=== PATIENT | female | born 1960 | race Caucasian/White ===

== ENCOUNTER → 2017-12-24 12:39 | Outpatient (CLI) | payer OTHER, SELFPAY ==
--- NOTE | 2017-12-24 12:43 | BI_ITS ---
MAMMOGRAPHY - BILATERAL SCREENING 3-D SG SYNTHESIS REASON FOR EXAM: Female, 57 years old. Bilateral Screening 3-D tomosynthesis PERTINENT HISTORY: Asymptomatic. No significant family history. TECHNIQUE: 2-D mammograms and 3-D Sg synthesis of the breast (s) were performed. CAD was performed. COMPARISON: 09/15/2016, 04/25/2013. FINDINGS: The breast composition is heterogeneously dense that can obscure small breast masses. No new asymmetric density, dominant mass, dense spiculated masses, abnormal clustered microcalcifications, architectural distortion, skin thickening or nipple retraction identified. Coarse benign-appearing calcifications. No new abnormality identified with tomosynthesis. There has been no significant change since the prior study. BI/SCREENING MAMM (CAD), BILAT IMPRESSION: No mammographic signs of malignancy. Routine yearly mammograms recommended. ASSESSMENT CATEGORY: BIRADS Category 2: Benign. A letter regarding these results will be sent to the patient by the facility within 30 days. FOLLOW UP RECOMMENDATION: Yearly follow up mammogram recommended. (A) Negative results should not deter biopsy as a palpable lesion should be followed on clinical grounds and biopsy performed if clinically persistent for 3 months or increasing size. Approximately 10% of breast cancers are not detected by mammography. A normal mammogram should not delay biopsy of a clinically suspicious abnormality. Electronically Signed: Galileo Chan, at 22:26 EDT Tel , Service support ,
== END ==
PROVIDERS: Family Provider Family Medicine; PCP Family Medicine; Visit Provider Obstetrics & Gynecology
DX: Z12.31 Encounter for screening mammogram for malignant neoplasm of breast (principal)
CPT/HCPCS: 77063; 77067

== ENCOUNTER → 2019-01-14 08:25 | Outpatient (CLI) | payer OTHER, SELFPAY ==
--- NOTE | 2019-01-14 08:28 | BI_ITS ---
MAMMOGRAPHY - BILATERAL SCREENING REASON FOR EXAM: Female, 58 years old. Routine annual screening examination. PERTINENT HISTORY: Non-contributory. TECHNIQUE: Digital bilateral breast sg (3D mammographic acquisition) in the CC and MLO projections. 2-D mediolateral oblique (MLO) and craniocaudad (CC) views of both breasts were obtained. CAD: Full Field Digital Mammography with Computer Added Detection was performed. COMPARISON: Comparison is made with prior study dated December 24, 2017 and September 15, 2016. FINDINGS: Breast Composition: The breasts are heterogeneously dense, which may obscure small masses. There is a 1.4 cm x 1.7 cm well-defined nodule in the upper lateral aspect of the left breast. Correlation with ultrasound is recommended for further evaluation. Prior sonogram demonstrated this to be a cyst No suspicious calcifications are seen. Stable appearance of the benign-appearing bilateral axillary lymph nodes. No other significant abnormalities are identified. BI/SCREEN MAMM (CAD) W/SG BILAT IMPRESSION: 1.4 cm x 1.7 cm nodular density in the upper lateral aspect of the left breast as described. Correlation with ultrasound is recommended. ASSESSMENT CATEGORY: BIRADS Category 0: Incomplete. Need additional imaging evaluation. A letter regarding these results will be sent to the patient by the facility within 30 days. Approximately 10% of breast cancers are not detected by mammography. A normal mammogram should not delay biopsy of a clinically suspicious abnormality. [id number] Electronically Signed: Glenroy Aguirre, at 10:36 EDT , Service support ,
== END ==
PROVIDERS: Family Provider Internal Medicine; PCP Internal Medicine; Referring Provider Obstetrics & Gynecology; Visit Provider Obstetrics & Gynecology
DX: Z12.31 Encounter for screening mammogram for malignant neoplasm of breast (principal)
CPT/HCPCS: 77063; 77067

== ENCOUNTER → 2019-01-16 09:26 | Outpatient (CLI) | payer OTHER, SELFPAY ==
--- NOTE | 2019-01-16 09:28 | US_ITS ---
STUDY: ULTRASOUND BREAST - LEFT REASON FOR EXAM: Female, 58 years old. Abnormal screening mammogram. TECHNIQUE: Axial and longitudinal images of the LEFT breast were performed with a high resolution ultrasound transducer. COMPARISON: Comparison is made with prior mammogram dated January 14, 2019 and prior ultrasound of the left breast dated September 28, 2016. FINDINGS: LEFT Breast: The mammographic abnormality corresponds to a 1.9 cm x 1.4 cm x 0.9 cm cyst at the 2:00 position of the breast at 5 cm from the nipple. This has increased slightly in size as compared to prior study. US/Breast Limited Unilateral IMPRESSION: The mammographic abnormality corresponds to a 1.9 cm x 1.4 cm x 0.9 cm cyst. Routine mammographic follow-up is recommended. ASSESSMENT CATEGORY: BIRADS Category 2: Benign. A letter regarding these results will be sent to the patient by the facility within 30 days. Electronically Signed: Glenroy Aguirre, at 10:25 EDT , Service support ,
== END ==
PROVIDERS: Family Provider Internal Medicine; PCP Internal Medicine; Referring Provider Obstetrics & Gynecology; Visit Provider Obstetrics & Gynecology
DX: R92.8 Other abnormal and inconclusive findings on diagnostic imaging of breast (principal)
CPT/HCPCS: 76642

== ENCOUNTER → 2021-04-28 08:26 | Outpatient (CLI) | payer OTHER, SELFPAY ==
[2021-04-28 09:33] LABS: Absolute Lymphocyte Count 1.47 X10^3/uL (0.83-4.51); Absolute Neutrophil Count 2.4 X10^3/uL (2.0-7.7); Basophil# 0.04 X10^3/uL; Basophil% 0.9 % (0-1); Eosinophils% 4.4 % (0-5); Hematocrit 44.7 % (37-47); Hemoglobin 14.2 g/dL (12.0-15.0); Lymphocyte # 1.47 X10^3/ul (0.83-4.51); Lymphocyte % 32.2 % (19-41); Mean Corp Hgb Conc 31.8 g/dL (32-36); Mean Corpuscular Hgb 26.4 pg (27.0-32.0); Mean Corpuscular Volume 83.2 fL (81-99); Mean Platelet Vol. 11.3 fl (6.2-12.0); Monocyte# 0.46 X10^3/uL; Monocyte% 10.1 % (0-10); NRBC Flagged by Analyzer 0 % (0-5); Neutrophil # 2.36 X10^3/uL (2.7-7.7); Neutrophil % 51.7 % (47-70); Platelet Count 206 K/mm3 (150-450); RBC Distribution Width CV 13.1 % (11.6-14.6); RBC Distribution Width SD 39.5 fl (35.1-43.9); Red Blood Count 5.37 M/mm3 (4.2-5.4); White Blood Count 4.6 K/mm3 (4.4-11.0)
[2021-04-28 10:13] LABS: Vitamin B12 1537 pg/mL (211-911)
[2021-04-28 10:25] LABS: ALB/GLOB Ratio 0.9 RATIO (0.9-2.4); AST(SGOT) 21 U/L (15-37); Alanine Aminotransfer ALT/SGPT 31 U/L (13-56); Albumin, Serum 3.6 g/dL (3.2-5.0); Alkaline Phosphatase 73 U/L (45-117); Anion Gap 4 (5-15); BUN 16 mg/dL (7-18); BUN/Creat Ratio 21.4 RATIO (10-20); Calcium,Total 8.5 mg/dL (8.5-10.1); Chloride 107 mmol/L (98-107); Creatinine, Serum 0.75 mg/dL (0.55-1.02); EST Glomerular Filtration Rate 84 mL/min (>60); Est Glom Filt Rate - Afr Amer 102 mL/min (>60); Globulin 4.2 g/dL (2.2-4.2); Glucose 97 mg/dL (74-106); Potassium 3.9 mmol/L (3.5-5.1); Protein, Total 7.8 g/dL (6.4-8.2); Sodium Level 139 mmol/L (136-145)
[2021-04-29 09:30] LABS: Cholesterol 211 mg/dL (200); High Density Lipoprotein 58 mg/dL; Iron 88 ug/dL (50-170); Iron Binding Capacity,Total 322 ug/dL (250-450); Rheumatoid Factor < 10.0 IU/mL (<15); Triglycerides 74 mg/dL; Very Low Density Lipoprotein 15 mg/dL (5-40)
[2021-04-30 13:07] LABS: Vitamin D 1,25-Dihydroxy 60.7 pg/mL (19.9-79.3)
[2021-04-30 15:39] LABS: ANTINUCLEAR ANTIBODIES DIRECT Negative (Negative)
== END ==
PROVIDERS: PCP Internal Medicine; Referring Provider Internal Medicine; Visit Provider Internal Medicine
DX: Z00.00 Encounter for general adult medical examination without abnormal findings (principal); R53.83 Other fatigue; M25.50 Pain in unspecified joint
CPT/HCPCS: 36415; 80053; 80061; 82607; 82652; 83540; 83550; 84443; 85025; 86038; 86431

== ENCOUNTER → 2021-05-02 11:03 | Outpatient (CLI) | payer OTHER, SELFPAY ==
--- NOTE | 2021-05-02 11:06 | BI_ITS ---
MAMMOGRAPHY - BILATERAL SCREENING REASON FOR EXAM: Female, 61 years old. Routine annual screening examination. PERTINENT HISTORY: Non-contributory. TECHNIQUE: Digital bilateral breast sg (3D mammographic acquisition) in the CC and MLO projections. 2-D mediolateral oblique (MLO) and craniocaudad (CC) views of both breasts were obtained. CAD: Full Field Digital Mammography with Computer Added Detection was performed. COMPARISON: Comparison is made with prior examination of 01/14/2019 and 12/24/2017. FINDINGS: Breast Composition: The breasts are heterogeneously dense, which may obscure small masses. Stable 1.4 cm x 1.6 cm well-defined nodule in the upper lateral aspect of the left breast. Prior sonogram demonstrating this to be a cyst. Stable benign-appearing bilateral axillary lymph nodes. No other significant abnormalities are identified. There has been no significant change since the prior study. BI/SCRN MAMM (CAD)W/SG BILAT IMPRESSION: Stable bilateral screening mammogram. Yearly follow-up mammogram recommended. (A) ASSESSMENT CATEGORY: BIRADS Category 2: Benign. A letter regarding these results will be sent to the patient by the facility within 30 days. Approximately 10% of breast cancers are not detected by mammography. A normal mammogram should not delay biopsy of a clinically suspicious abnormality. [id number] Electronically Signed: Glenroy Aguirre MD at 12:18 EST , Service support ,
== END ==
PROVIDERS: PCP Internal Medicine; Referring Provider Obstetrics & Gynecology; Visit Provider Obstetrics & Gynecology
DX: Z12.31 Encounter for screening mammogram for malignant neoplasm of breast (principal)
CPT/HCPCS: 77063; 77067

== ENCOUNTER 2021-07-07 09:24 | Outpatient (CLI) | payer OTHER, SELFPAY ==
--- NOTE | 2021-07-07 09:40 | RAD_ITS ---
STUDY: X-RAY - ESOPHAGUS (BARIUM SWALLOW) WITH FLUOROSCOPY REASON FOR EXAM: Female, 61 years old. DYSPHAGIA TECHNIQUE: 17 view(s) of the esophagus were obtained following swallowing of barium. FLUOROSCOPY TIME (if supplied): (27 seconds) minutes/seconds COMPARISON: None. FINDINGS: There is no demonstrated esophageal foreign body. There is no demonstrated stricture or mucosal abnormality. Normal gastroesophageal junction, without a demonstrated hiatal hernia. The patient ingested a 12 mm tablet of barium without any difficulty. Normal visualized aortic arch and descending thoracic aorta. Normal visualized pulmonary parenchyma. Normal visualized osseous structures of the thorax. RAD/Esophagus Single Contrast IMPRESSION: Normal plain film x-ray examination (barium swallow) of the esophagus. Electronically Signed: Glenroy Aguirre MD at 15:05 EST ,
== END 2021-07-07 23:59 | disposition home or self-care (01) ==
LOC: RAD 09:29
PROVIDERS: PCP Internal Medicine; Visit Provider Otolaryngology
DX: R13.10 Dysphagia, unspecified (principal)
CPT/HCPCS: 74220

== ENCOUNTER → 2025-05-05 | Outpatient (CLI) | payer BC, SELFPAY ==
--- NOTE | 2025-05-05 18:31 | CT_ITS ---
PROCEDURE: SINUS/FACIAL BONE 05/05/2025 REASON FOR EXAM: SINUSITIS TECHNIQUE: Procedure Code: CTSI Modality: CT Procedure: SINUS/FACIAL BONE Coronal and Sagittal reconstruction series were provided. One or more dose reduction techniques were used (e.g., Automated exposure control, adjustment of the mA and/or kV according to patient size, use of iterative reconstruction technique). RADIATION DOSE SUMMARY: CTDlvol: 33.06 mGy DLP: 866.91 mGycm COMPARISON: None FINDINGS: Frontal: Unremarkable Ethmoid: Unremarkable Sphenoid: Unremarkable Maxillary: Minimal degree of mucosal thickening along the lateral sanchez of both maxillary sinuses. No air-fluid level seen. Turbinates: Hypertrophy of the right inferior turbinate. Nasal Septum: Midline. Mastoids/Middle Ears: Clear. Small caliber catheter like structure is seen in the anterior right cervical region extending into the right submental region. CT/Sinus/Facial Bone IMPRESSION: Mucosal thickening of the maxillary sinuses bilaterally. Reading Location: [facility]
--- OUTSIDE RECORDS SUMMARY | 2025-05-05 20:47 | XMS RPT_ITS | CCD ---
Author Organization [facility] Clini[facility]v Care Team Providers Care Finance Clerk Name Role Phone Ivanauskas, Saulius Unavailable Unavailable Ivanauskas, Saulius Unavailable Unavailable No Doctor Assigned, Nodr Unavailable Unavail able Cierra De Jesus Unavailable Unavailable Unavailable Cierra De Jesus DO Primary Care Provider [phone] Liza, Dr. Cierra Almendarez Referring Unava ilable Oberhauser, Dr. Cierra Almendarez Primary Care Unava ilable Oberhauser, Dr. Cierra Almendarez Attending Unava ilable Oberhauser, Dr. Cierra Almendarez Attending Unava ilable Oberhauser, Dr. Cierra Almendarez Referring Unava ilable Oberhauser, Dr. Cierra Almendarez Primary Care Unava ilable Piasecki, Dr. Gurvinder Butler Attending Unavai lable Piasecki, Dr. Gurvinder Butler Referring Unavai lable Oberhauser, Dr. Cierra Almendarez Primary Care Unava ilable Oberhauser, Dr. Cierra Almendarez Referring Unava ilable Piasecki, Dr. Gurvinder Butler Attending Unavai lable Oberhauser, Dr. Cierra Almendarez Primary Care Unava ilable Piasecki, Dr. Gurvinder Butler Attending Unavai lable Piasecki, Dr. Gurvinder Butler Referring Unavai lable Oberhauser, Dr. Cierra Almendarez Primary Care Unava ilable Oberhauser, Dr. Cierra Almendarez Referring Unava ilable Oberhauser, Dr. Cierra Almendarez Primary Care Unava ilable Oberhauser, Dr. Cierra Almendarez Attending Unava ilable Oberhauser, Dr. Cierra Almendarez Referring Unava ilable Oberhauser, Dr. Cierra Almendarez Primary Care Unava ilable Oberhauser, Dr. Cierra Almendarez Attending Unava ilable Oberhauser DO, Cierra L Unavailable [phone] OBERHAUSER, CIERRA Primary Care Unavailable OZIEL OAKES Attending Unavailable RACHEL FLOREZ Attending Unava ilable OBERHAUSER, CIERRA Primary Care Unavailable Unavailable Primary Care Provider Unavailjorge e Oberhauser DO, Cierra Primary Care Provider Oberhauser DO, Cierra L Unavailable Oberhauser DO, Cierra L Unavailable Oberhauser DO, Cierra L Primary Care Provider Oberhauser DO, Cierra L Unavailable [phone] Giovanny SARAVIA Anna D Primary Care Provider Oberhauser DO, Cierra L Unavailable Oberhauser DO, Cierra L Unavailable [phone] Oberhauser DO, Cierra L Unavailable LEB, GURVINDER B Referring Unavailable KENDALL, ANNA D Primary Care Unavailable LEB, GURVINDER B Referring Unavailable KENDALL, ANNA D Primary Care Unavailable LEB, GURVINDER B Referring Unavailable KENDALL, ANNA D Primary Care Unavailable LEB, GURVINDER B Referring Unavailable KENDALL, ANNA D Primary Care Unavailable OBERHAUSER, CIERRA L Primary Care Unavailable CIERRA JADE Attending Unavailable CIERRA JADE E Referring Unavailable OBERHAUSER, CIERRA L Primary Care Unavailable KENDALL, ANNA D Referring Unavailable KENDALL, ANNA D Primary Care Unavailable LEB, GURVINDER B Referring Unavailable KENDALL, ANNA D Primary Care Unavailable LEB, GURVINDER B Referring Unavailable KENDALL, ANNA D Primary Care Unavailable OBERHAUSER, CIERRA L Referring Unavailable OBERHAUSER, CIERRA L Primary Care Unavailable LEB, GURVINDER B Attending Unavailable KENDALL, ANNA D Primary Care Unavailable LEB, GURVINDER B Attending Unavailable KENDALL, ANNA D Primary Care Unavailable OBERHAUSER, CIERRA L Attending Unavailable OBERHAUSER, CIERRA L Referring Unavailable OBERHAUSER, CIERRA L Primary Care Unavailable KENDALL, ANNA D Attending Unavailable KENDALL, ANNA D Primary Care Unavailable KENDALL, ANNA D Attending Unavailable KENDALL, ANNA D Primary Care Unavailable LEJamie GURVINDER Jamie Attending Unavailable KENDALL, ANNA D Primary Care Unavailable LEB, GURVINDER B Attending Unavailable KENDALL, ANNA D Primary Care Unavailable KENDALL, ANNA D Attending Unavailable KENDALL, ANNA D Primary Care Unavailable KENDALL, ANNA D Referring Unavailable JEANNINE ANDREWS Attending Unavailable OBERHAUSER, CIERRA Primary Care Unavailable DEORAS, ABRIL Attending Unavailable OBERHAUSER, CIERRA Primary Care Unavailable DEORAS, ABRIL Attending Unavailable OBERHAUSER, CIERRA Primary Care Unavailable DEORAS, ABRIL Attending Unavailable DEORAS, ABRIL Referring Unavailable OBERHAUSER, CIERRA Primary Care Unavailable DEORAS, ABRIL Attending Unavailable OBERHAUSER, CIERRA Primary Care Unavailable DEORAS, ABRIL Attending Unavailable OBERHAUSER, CIERRA Primary Care Unavailable Allergies Allergy Classification Reported Allergen(s) Allergy Type Date of Onset Reaction(s) Facility (1 source) Cat; Translations: [Cats] Propensity to adverse reactions to drug (disorder) [facility] Repository (1 source) Dog; Translations: [Dogs] Propensity to adverse reactions to drug (disorder) [facility] Repository (1 source) Dust; Translations: [Dust] Propensity to adverse reactions to drug (disorder) [facility] Repository (1 source) No Known Medication Allergies; Translations: [No Known Medication Allergies] Propensity to adverse reactions to drug (disorder) [facility] Repository (6 sources) Cat Hair Extract Drug Allergy 4 [facility] (17 sources) House dust mite Propensity to adverse reactions 4 [facility] (20 sources) Cat Dander; Translations: [CAT DANDER] Propensity to adverse reactions 4 Other [facility] (10 sources) [place] house dust mite allergenic extract / house dust mite allergenic extract; Translations: [ALLERG XT,D.FARINAE-Bertha CAMACHO] Drug Allergy 4 [facility] (10 sources) Lisinopril; Translations: [LISINOPRIL] Drug Allergy 5 [facility] Work Phone: (1 source) Lisinopril Propensity to adverse reactions Cough [facility] Medications Current Medications Medication Drug Class(es) Dates Sig (Normalized) Sig (Original) acetaminophen 325 mg / oxyCODONE hydrochloride 5 mg oral tablet (9 sources) Opioid Agonist Start: 01-16-2024 End: 01-21-2024 take 1 tablet by mouth every six hours as needed for pain oxyCODONE-acetami nophen (Percocet) 5-325 MG tablet Indications: Post-op pain Take 1 tablet by mouth every 6 hours as needed for severe pain (7-10) for up to 5 days. 15 tablet 01/16/2024 01/21/2024 Active End: 08-08-2024 oxyCODONE-acetaminophen (Per cocet) 5-325 MG tablet 08/08/2024 Discontinued (Med list cleanup) [id number] 200 actuat albuterol 0.09 mg/actuat metered dose inhaler (20 sources) beta2-Adrenergic Agonist Start: 09-28-2023 End: 10-03-2024 take 2 puff(s) by inhalation every four hours for wheezing albuterol 90 mcg/actuation inhaler Indications: Acute non-recurrent frontal sinusitis Inhale 2 puffs every 4 hours if needed for wheezing. 18 g 1 09/28/2023 10/03/2024 Discontinued (Med List Cleanup) Start: 04-16-2023 End: 06-06-2024 take 2 puff(s) by inhalation every four hours as needed albuterol 108 (90 Base) MCG/ACT inhaler Inhale 2 puffs every 4 hours as needed. 09/28/2023 06/06/2024 Discontinued (Med list cleanup) Start: 04-05-2022 take 1-2 puff(s) by inhalation every six hours as needed Albuterol Sulfate HFA 108 (90 Base) MCG/ACT Inhalation Aerosol Solution INHALE 1 TO 2 PUFFS EVERY 6 HOURS NEEDED. Quantity: 1 Refills: 1 Ordered: 05-Apr-2022 Cierra De Jesus DO Start : 05-Apr-2022 Active amoxicillin 875 mg / clavulanate 125 mg oral tablet (1 source) Penicillin-class Antibacterial Start: 09-28-2023 End: 10-08-2023 take 1 tablet by mouth twice daily amoxicillin-pot clavulanate (Augmentin) 875-125 mg tablet Indications: Acute non-recurrent frontal sinusitis Take 1 tablet (875 mg) by mouth 2 times a day for 10 days. 20 tablet 09/28/2023 10/08/2023 Active armodafinil 50 mg oral tablet (4 sources) Start: 08-26-2024 End: 11-24-2024 take 1 tablet by mouth once daily armodafinil (Nuvigil) 50 MG tablet Indications: PHIL (obstructive sleep apnea) , Hypersomnia Take 1 tablet (50 mg) by mouth daily. 30 tablet 2 08/26/2024 Active benzonatate 200 mg oral capsule (7 sources) Non-narcotic Antitussive Start: 04-16-2023 End: 06-26-2023 take 1 capsule by mouth three times daily as needed benzonatate (Tessalon) 200 mg capsule Take 1 capsule (200 mg) by mouth 3 times a day as needed. 0 04/16/2023 06/26/2023 Discontinued (Therapy completed) Start: 05-10-2022 take 1 capsule by [facility] three times daily as needed Benzonatate 100 MG Oral Capsule TAKE 1 CAPSULE 3 TIMES DAILY NEEDED. Quantity: 30 Refills: 0 Ordered: 10-May-2022 Cierra De Jesus DO Start : 10-May-2022 Active brompheniramine maleate 0.4 mg/ml / dextromethorphan hydrobromide 2 mg/ml / pseudoephedrine hydrochloride 6 mg/ml oral solution (7 sources) alpha-Adrenergic Agonist, Uncompetitive I-jfvxgf-L-aspartate Receptor Antagonist, Sigma-1 Agonist Start: 06-19-2023 End: 06-26-2023 fqcvshwnabskeng-mjidankti-SD 2-30-10 mg/5 mL syrup Start: 04-05-2022 End: 05-03-2022 take 5 mL by mouth every four to six hours as needed Qlhgvzmvj-Wvrubzdk-EA 30-2-10 MG/5ML Ora l Syrup TAKE 5 ML EVERY 4 TO 6 HOURS NEEDED. Quantity: 120 Refills: 1 Ordered: 05-Apr-2022 Cierra De Jesus DO Start : 05-Apr-2022 End : 03-May-2022 Complete Start: 05-16-2021 End: 05-30-2021 take 5-10 mL by mouth every four to six hours as needed for cough Vfjhatblx-Bwahvkjw-WJ 30-2-10 MG/5ML Ora l Syrup take 5-10 mL po q4-6 hrs prn cough, cold, or allergy symptoms Quantity: 200 Refills: 0 Ordered: 30-May-2021 Rashaad Ayala PA-C Start : 30-May-2021 Active 24 hr buPROPion hydrochloride 300 mg extended release oral tablet (20 sources) Aminoketone Start: 03-24-2024 End: 04-02-2024 take 1 tablet by mouth every twenty-four hours in the morning buPROPion XL (Wellbutrin XL) 300 mg 24 hr tablet Indications: Mild major depression, single episode (CMS-HCC) TAKE 1 TABLET BY MOUTH IN THE MORNING (DO NOT CRUSH, CHEW OR SPLIT) 30 tablet 03/24/2024 04/02/2024 Discontinued (Reorder) Start: 01-29-2023 End: 10-03-2024 take 1 tablet by mouth once daily in the morning buPROPion XL (Wellbutrin XL) 300 MG 24 hr tablet Take 300 mg by mouth every morning. 01/29/2023 Active Start: 01-02-2023 End: 07-01-2023 take 1 tablet by mouth once daily in the morning buPROPion XL (Wellbutrin XL) 150 mg 24 hr tablet Indications: Mild major depression, single episode (CMS/HCC) Take 1 tablet (150 mg) by mouth once daily in the morning. Do not crush, chew, or split. 30 tablet 1 01/02/2023 07/01/2023 Active Start: 06-08-2021 End: 05-03-2022 take 1 tablet by mouth once daily buPROPion HCl ER (XL) 300 MG Oral Tablet Extended Release 24 Hour TAKE 1 TABLET DAILY. Quantity: 30 Refills: 1 Ordered: 09-Aug-2021 Cierra De Jesus DO Start : 08-Jun-2021 End : 03-May-2022 Complete Start: 06-08-2021 take 1 tablet by janiya once daily buPROPion HCl ER (XL) 150 MG Oral Tablet Extended Release 24 Hour TAKE 1 TABLET BY MOUTH EVERY DAY Quantity: 30 Refills: 1 Ordered: 08-Jun-2021 Cierra De Jesus DO Start : 08-Jun-2021 Active cefdinir 300 mg oral capsule (3 sources) Cephalosporin Antibacterial Start: 01-16-2024 End: 01-26-2024 take 1 capsule by mouth twice daily cefdinir (Omnicef) 300 MG capsule Take 1 capsule (300 mg) by mouth 2 times daily for 10 days. 20 capsule 01/16/2024 01/26/2024 Active diclofenac sodium 0.01 mg/mg topical gel (10 sources) Nonsteroidal Anti-inflammatory Drug Start: 11-12-2024 diclofenac sodium (Voltaren) 1 % gel Indications: pain Apply 4.5 inches (4 g) topically 4 times a day as needed (PAIN, STIFFNESS, AND SWELLING). 100 g 1 11/12/2024 Active ergocalciferol 1.25 mg oral capsule (17 sources) Provitamin D2 Compound Start: 05-04-2022 End: 10-03-2024 ergocalciferol (Vitamin D-2) 1.25 MG (66293 UT) capsule Take 1 capsule (1,250 mcg) by mouth. 05/04/2022 10/03/2024 Discontinued (Med List Cleanup) Start: 05-04-2022 End: 06-28-2022 take 1 capsule by mouth every week Vitamin D (Ergocalciferol) 1.25 MG (54824 UT) Oral Capsule TAKE 1 CAPSULE Weekly Quantity: 12 Refills: 3 Ordered: 04-May-2022 Cierra De Jesus DO Start : 04-May-2022 End : 28-Jun-2022 Complete esomeprazole 20 mg delayed release oral capsule (9 sources) Proton Pump Inhibitor Start: 06-27-2024 End: 06-27-2025 take 1 capsule by mouth once daily before breakfast esomeprazole (NexIUM) [address] capsule Take 1 capsule (20 mg) by mouth every morning (before breakfast). Do not open capsule. 30 capsule 11 06/27/2024 06/27/2025 Active levocetirizine dihydrochloride 5 mg oral tablet (20 sources) Histamine-1 Receptor Antagonist Start: 04-27-2021 End: 10-03-2024 take 1 tablet by mouth once daily levocetirizine (Xyzal) 5 mg tablet Take 1 tablet (5 mg) by mouth once daily. 04/27/2021 10/03/2024 Discontinued (Med List Cleanup) lisinopril 20 mg oral tablet (14 sources) Angiotensin Converting Enzyme Inhibitor Start: 09-29-2022 End: 09-29-2023 take 1 tablet by mouth once daily lisinopril 20 mg tablet Indications: Primary hypertension Take 1 tablet (20 mg) by mouth once daily. 30 tablet 11 09/29/2022 06/26/2023 Discontinued (Therapy completed) Start: 06-28-2022 End: 09-29-2022 take 1 tablet by mouth once daily Lisinopril 10 MG Oral Tablet TAKE 1 TABLET DAILY DIRECTED. Quantity: 30 Refills: 3 Ordered: 28-Jun-2022 Cierra De Jesus DO Start : 28-Jun-2022 Active loratadine 5 mg chewable tab let (20 sources) loratadine (Clar itin) 5 MG chewable tablet Chew 10 mg daily. Active take 1 tablet by mouth in the mo rning loratadine (Claritin) 10 MG tablet Take 10 mg by mouth in the morning. Active losartan potassium 50 mg oral tablet (20 sources) Angiotensin 2 Receptor Radha Start: 08-29-2024 End: 08-29-2025 take 1.5 tablets by mouth once daily losartan (Cozaar) 50 mg tablet Indications: Primary hypertension Take 1.5 tablets (75 mg) by mouth once daily. 135 tablet 3 08/29/2024 08/29/2025 Active Start: 06-26-2023 End: 04-02-2025 take 1 tablet by mouth once daily losartan (Cozaar) 50 mg tablet Indications: Primary hypertension Take 1 tablet (50 mg) by mouth once daily. 90 tablet 3 04/02/2024 08/29/2024 Discontinued (Reorder) methylPREDNISolone 4 mg oral tablet (2 sources) Corticosteroid Start: 01-16-2024 End: 01-23-2024 methylPREDNISolone (Medrol Dospak) 4 MG tablets Follow schedule on package instructions 21 tablet 01/16/2024 01/23/2024 Active montelukast 10 mg oral tablet (7 sources) Leukotriene Receptor Antagonist Start: 11-14-2024 take 1 tablet by mouth once daily at bedtime montelukast (Singulair) 10 mg tablet Indications: Seasonal allergies Take 1 tablet (10 mg) by mouth once daily at bedtime. 90 tablet 3 11/14/2024 Active 24 hr oxybutynin chloride 10 mg extended release oral tablet (18 sources) Cholinergic Muscarinic Antagonist Start: 05-01-2024 End: 10-03-2025 take 1 tablet by mouth once daily oxyBUTYnin XL (Ditropan-XL) 10 mg 24 hr tablet Indications: OAB (overactive bladder) Take 1 tablet (10 mg) by mouth once daily. Do not crush, chew, or split. 90 tablet 3 10/03/2024 10/03/2025 Active pantoprazole 40 mg delayed release oral tablet (15 sources) Proton Pump Inhibitor Start: 08-29-2024 take 1 tablet by mouth once daily before mealtime pantoprazole (ProtoNix) 40 mg EC tablet Indications: Gastroesophageal reflux disease, unspecified whether esophagitis present Take 1 tablet (40 mg) by mouth once daily in the morning. Take before meals. Do not crush, chew, or split. 90 tablet 1 08/29/2024 Active traZODone hydrochloride 50 mg oral tablet (20 sources) Serotonin Reuptake Inhibitor Start: 05-01-2024 End: 10-14-2024 take 1 tablet by mouth once daily as needed for sleep traZODone (Desyrel) 100 MG tablet Indications: Insomnia, unspecified type TAKE 1 TABLET BY MOUTH ONCE DAILY NEEDED FOR SLEEP 30 tablet 2 07/22/2024 10/14/2024 Discontinued Start: 04-02-2024 End: 10-03-2025 take 1 tablet by mouth once daily traZODone (Desyrel) 50 MG tablet Indications: Insomnia, unspecified type Take 1 tablet (50 mg) by mouth Nightly. 30 tablet 2 10/14/2024 Active Completed/Discontinued Medications Medication Drug Class(es) Dates Sig (Normalized) Sig (Original) acetaminophen 500 mg oral tablet (2 sources) Start: 01-16-2024 End: 01-16-2024 take 1000 mg by mouth once, then take 4000 mg by mouth every twenty-four hours 1,000 mg, Oral, Once, On Sun01/16/24 at 0930, For 1 dose, Preprocedure, Maximum dose of acetaminophen is 4000 mg from all sources in 24 hours. Do not administer if patient has taken tylenol ALPRAZolam 0.25 mg disintegrating oral tablet (2 sources) Benzodiazepine Start: 01-16-2024 End: 01-16-2024 0.25 mg, Oral, PRN, anxiety, Starting on Sun01/16/24 at 0925, For 1 dose, Preprocedure azithromycin 250 mg oral tablet (6 sources) Macrolide Antimicrobial Start: 08-15-2024 End: 08-29-2024 azithromycin (Zithromax Z-Bandar) 250 mg tablet Indications: Cough present for greater than 3 weeks Take 2 tablets by mouth at once on day 1, then 1 tablet once a day on days 2-5. Take with a meal. 6 tablet 08/15/2024 08/29/2024 Discontinued (Med List Cleanup) Start: 05-30-2021 take 10 tablets by mouth once Azithromycin 250 MG Oral Tablet TAKE DIRECTED PER PACKAGE INSTRUCTIONS. Quantity: 6 Refills: 0 Ordered: 30-May-2021 Rashaad Ayala PA-C Start : 30-May-2021 Active Start: 05-16-2021 End: 05-30-2021 Azithromycin 250 MG Oral Tab let TAKE DIRECTED PER PACKAGE INSTRUCTIONS. Quantity: 1 Refills: 0 Ordered: 16-May-2021 Rashaad Ayala PA-C Start : 16-May-2021 End : 30-May-2021 Complete AZO Cranberry Urinary Tract 250-60 MG Oral Capsule (4 sources) Start: 04-27-2021 End: 05-30-2021 AZO Cranberry Urinary Tract 250-60 MG Oral Capsule Quantity: 0 Refills: 0 Ordered: 27-Apr-2021 Cierra De Jesus DO Start : 27-Apr-2021 End : 30-May-2021 Complete Start: 04-27-2021 AZO Cranberry Urinary Tract 250-60 MG Oral Capsule Quantity: 0 Refills: 0 Ordered: 27-Apr-2021 Cierra De Jesus DO Start : 27-Apr-2021 Active calcium chloride 0.0014 meq/ml / potassium chloride 0.004 meq/ml / sodium chloride 0.103 meq/ml / sodium lactate 0.028 meq/ml injectable solution (6 sources) Start: 01-16-2024 End: 01-16-2024 take 125 mL intravenously every hour 125 mL/hr, IntraVENous, Continuous, Starting on Sun01/16/24 at 1300, Recovery (only) Start: 11-20-2023 End: 11-20-2023 take 50 mL intravenously every hour 50 mL/hr, IntraVENous, Continuous, Starting on Sun11/20/23 at 1215, Preprocedure, Upon admission to sameday - please start iv if patient does not have iv access. cholecalciferol 0.025 mg oral tablet (18 sources) Vitamin D End: 08-08-2024 take 1 tablet by mouth once daily cholecalciferol (Vitamin D-3) 25 MCG tablet Take 25 mcg by mouth daily. 08/08/2024 Discontinued (Med list cleanup) clarithromycin 500 mg oral tablet (1 source) Macrolide Antimicrobial Start: 04-05-2022 take 1 tablet by mouth once daily Clarithromycin 500 MG Oral Tablet TAKE 1 TABLET EVERY 12 HOURS DAILY. Quantity: 14 Refills: 0 Ordered: 05-Apr-2022 Cierra De Jesus DO Start : 05-Apr-2022 Active cyclobenzaprine hydrochloride 10 mg oral tablet (4 sources) Muscle Relaxant Start: 05-03-2022 End: 06-28-2022 take 1 tablet by mouth three times daily as needed Cyclobenzaprine HCl - 10 MG Oral Tablet TAKE 1 TABLET 3 TIMES DAILY NEEDED. Quantity: 1 Refills: 1 Ordered: 03-May-2022 Cierra De Jesus DO Start : 03-May-2022 End : 28-Jun-2022 Complete dexamethasone 6 mg oral tablet (1 source) Corticosteroid Start: 05-30-2021 take 1 tablet by mouth once daily Dexamethasone 6 MG Oral Tablet TAKE 1 TABLET DAILY. Quantity: 5 Refills: 0 Ordered: 30-May-2021 Rashaad Ayala PA-C Start : 30-May-2021 Active 1 ml diphenhydrAMINE hydrochloride 50 mg/ml cartridge (2 sources) Histamine-1 Receptor Antagonist Start: 01-16-2024 End: 01-16-2024 12.5 mg, IntraVENous, Once PRN, itching, Starting on Sun01/16/24 at 1245, For 1 dose, Recovery (only) doxycycline hyclate 100 mg oral capsule (3 sources) Tetracycline-class Drug Start: 05-10-2022 take 1 capsule by mouth once daily Doxycycline Hyclate 100 MG Oral Capsule TAKE 1 CAPSULE EVERY 12 HOURS DAILY. Quantity: 14 Refills: 0 Ordered: 10-May-2022 Cierra De Jesus DO Start : 10-May-2022 Active Start: 04-17-2022 End: 05-03-2022 take 1 capsule by mouth once daily Doxycycline Hyclate 100 MG Oral Capsule TAKE 1 CAPSULE EVERY 12 HOURS DAILY. Quantity: 14 Refills: 0 Ordered: 17-Apr-2022 Len De Jesus DOn Start : 17-Apr-2022 End : 03-May-2022 Complete estradiol 0.5 mg oral tablet (13 sources) Estrogen Start: 04-27-2021 End: 06-28-2022 take 1 tablet by mouth once daily Estradiol 0.5 MG Oral Tablet TAKE 1 TABLET DAILY DIRECTED. Quantity: 30 Refills: 11 Ordered: 27-Apr-2021 Cierra De Jesus DO Start : 27-Apr-2021 End : 28-Jun-2022 Complete 2 ml fentaNYL 0.05 mg/ml injection (4 sources) Opioid Agonist Start: 01-16-2024 End: 01-16-2024 50 mcg, IntraVENous, Every 5 min PRN, severe pain (7-10), Starting on Sun01/16/24 at 1245, For 3 doses, Recovery (only), Phase I and Phase II- Initial therapy for severe pain (7-10). Restricted to a 90 minute time frame starting when the patient can verbally state their pain score. If after 2 doses the pain score does not decrease by more than one point, then call the provider. If oral meds are utilized, do not return to initial therapy medications. Start: 01-16-2024 End: 01-16-2024 25 mcg, IntraVENous, Every 5 min PRN, moderate pain (4-6), Starting on Sun01/16/24 at 1245, For 3 doses, Recovery (only), Phase I and Phase II- Initial therapy for moderate pain (4-6). Restricted to a 90 minute time frame starting when the patient can verbally state their pain score. If after 2 doses the pain score does not decrease by more than one point, then call the provider. If oral meds are utilized, do not return to initial therapy medications. fluticasone propionate 0.05 mg/actuat metered dose nasal spray (16 sources) Corticosteroid Start: 09-28-2023 End: 09-27-2024 take 1 spray(s) nasal route once daily fluticasone (Flonase) 50 mcg/actuation nasal spray Indications: Acute non-recurrent frontal sinusitis Administer 1 spray into each nostril once daily. Shake gently. Before first use, prime pump. After use, clean tip and replace cap. 16 g 11 09/28/2023 08/29/2024 Discontinued (Med List Cleanup) Start: 10-10-2022 End: 01-02-2023 take 2 spray(s) nasal route once daily fluticasone (Flonase) 50 mcg/actuation nasal spray Administer 2 sprays into each nostril once daily. 0 10/10/2022 01/02/2023 Discontinued (Therapy completed) take 1 spray(s) nasa l route once daily fluticasone (Flonase) 50 MCG/ACT nasal spray Administer 1 spray into each nostril daily. Shake gently. Before first use, prime pump. After use, clean tip and replace cap. Active Gemtesa 75 MG Oral Tablet (9 sources) Start: 06-08-2021 End: 06-28-2022 take 1 tablet by mouth once daily Gemtesa 75 MG Oral Tablet Take 1 tablet once daily Quantity: 0 Refills: 0 Ordered: 08-Jun-2021 Cierra De Jesus DO Start : 08-Jun-2021 End : 28-Jun-2022 Complete Start: 06-08-2021 take 1 tablet by janiya once daily Gemtesa 75 MG Oral Tablet Take 1 tablet once daily Quantity: 0 Refills: 0 Ordered: 08-Jun-2021 Cierra De Jesus DO Start : 08-Jun-2021 Active homatropine methylbromide 0.3 mg/ml / HYDROcodone bitartrate 1 mg/ml oral solution (1 source) Opioid Agonist, Cholinergic Muscarinic Agonist Start: 05-10-2022 take 5-10 mL by mouth every six hours HYDROcodone Bit-Homatrop MBr 5-1.5 MG/5ML Oral Solution Take 5-10 ml po q 6 hr pron cough Quantity: 150 Refills: 0 Ordered: 10-May-2022 Cierra De Jesus DO Start : 10-May-2022 Active hydroCHLOROthiazide 12.5 mg oral tablet (2 sources) Thiazide Diuretic Start: 05-10-2022 End: 06-28-2022 take 1 tablet by mouth once daily as needed hydroCHLOROthiazide 12.5 MG Oral Tablet TAKE 1 TABLET DAILY NEEDED. Quantity: 90 Refills: 3 Ordered: 10-May-2022 Cierra De Jesus DO Start : 10-May-2022 End : 28-Jun-2022 Complete labetalol (Normodyne,Trandate) injection 5 mg (2 sources) Start: 01-16-2024 End: 01-16-2024 labetalol (Normodyne,Trandate) injection 5 mg methylPREDNISolone 4 MG Oral Tablet Therapy Pack (1 source) Start: 05-10-2022 methylPREDNISolone 4 MG Oral Tablet Therapy Pack Please follow instructions in package Quantity: 1 Refills: 0 Ordered: 10-May-2022 Cierra De Jesus DO Start : 10-May-2022 Active 24 hr mirabegron 50 mg extended release oral tablet (5 sources) beta3-Adrenergi c Agonist Start: 04-27-2021 End: 06-08-2021 take 1 tablet by mouth once daily Myrbetriq 50 MG Oral Tablet Extended Release 24 Hour Take 1 tablet daily Quantity: 30 Refills: 11 Ordered: 27-Apr-2021 Cierra De Jesus DO Start : 27-Apr-2021 End : 08-Jun-2021 Complete Multivitamin Oral Tablet (17 sources) Start: 04-27-2021 take 1 tablet by mouth once daily Multivitamin Oral Tablet TAKE 1 TABLET DAILY. Quantity: 0 Refills: 0 Ordered: 27-Apr-2021 Cierra De Jesus DO Start : 27-Apr-2021 Active multivitamin tablet (10 sources) Start: 04-27-2021 End: 04-02-2024 take 1 tablet by mouth once daily multivitamin tablet Take 1 tablet by mouth once daily. 04/27/2021 04/02/2024 Discontinued (Therapy completed) Start: 04-27-2021 take 1 tablet by janiya th once daily multivitamin tablet Take 1 tablet by mouth once daily. 04/27/2021 Active Start: 04-27-2021 take 1 tablet by janiya th once daily multivitamin tablet Take 1 tablet by mouth once daily. 0 04/27/2021 Active omeprazole 40 mg delayed release oral capsule (20 sources) Proton Pump Inhibitor Start: 02-13-2022 End: 04-02-2024 take 1 capsule by mouth once daily omeprazole (PriLOSEC) [address] capsule Take 1 capsule (40 mg) by mouth once daily. 02/13/2022 04/02/2024 Discontinued (Therapy completed) Start: 08-09-2021 End: 06-28-2022 Omeprazole 40 MG Oral Capsul e Delayed Release Quantity: 0 Refills: 0 Ordered: 09-Aug-2021 DO Start : 09-Aug-2021 End : 28-Jun-2022 Complete End: 06-06-2024 omeprazole (PriLOSEC) [address] capsule Take 40 mg by mouth every 48 hours. 06/06/2024 Discontinued (Med list cleanup) 2 ml ondansetron 2 mg/ml injection (2 sources) Serotonin-3 Receptor Antagonist Start: 01-16-2024 End: 01-16-2024 4 mg, IntraVENous, Once PRN, nausea, Starting on Sun01/16/24 at 1245, For 1 dose, Recovery (only), Initial antiemetic therapy. predniSONE 10 mg oral tablet (12 sources) Start: 08-15-2024 End: 08-29-2024 take 6 tablets by mouth once daily, then take 5 tablets by mouth once daily, then take 4 tablets by mouth once daily, then take 3 tablets by mouth once daily, then take 2 tablets by mouth once daily, then take 1 tablet by mouth once daily predniSONE (Deltasone) 10 mg tablet Indications: Cough present for greater than 3 weeks Take 6 tabs PO daily x1 day, then take 5 tabs daily x1 day, then take 4 tabs daily x1 day, then take 3 tabs daily x1 day, then take 2 tabs daily x1 day, then take 1 tab daily x1 day. Take with a meal. 21 tablet 08/15/2024 08/29/2024 Discontinued (Med List Cleanup) Start: 09-28-2023 End: 10-03-2023 take 2 tablets by mouth once daily predniSONE (Deltasone) 20 mg tablet Indications: Acute non-recurrent frontal sinusitis Take 2 tablets (40 mg) by mouth once daily for 5 days. 10 tablet 09/28/2023 10/03/2023 Active Start: 04-27-2023 End: 05-02-2023 take 2 tablets by mouth once daily predniSONE (Deltasone) 20 mg tablet Indications: Post-viral cough syndrome Take 2 tablets (40 mg) by mouth once daily for 5 days. 10 tablet 0 04/27/2023 05/02/2023 Start: 04-05-2022 take 2 tablets by mo [facility] once daily predniSONE 20 MG Oral Tablet Take 2 tablets by mouth daily x 5 days Quantity: 10 Refills: 0 Ordered: 05-Apr-2022 Cierra De Jesus DO Start : 05-Apr-2022 Active Start: 05-16-2021 End: 05-30-2021 take 1 tablet by mouth twice daily predniSONE 20 MG Oral Tablet Take 1 tablet twice daily Quantity: 10 Refills: 0 Ordered: 16-May-2021 Rashaad Ayala PA-C Start : 16-May-2021 End : 30-May-2021 Complete 5 ml sodium chloride 9 mg/ml injection (20 sources) Start: 01-16-2024 End: 01-16-2024 10 mL, IntraVENous, Every 12 hours scheduled (2 times per day), First dose on Sun01/16/24 at 2100, Recovery (only) Start: 01-16-2024 End: 01-16-2024 10 mL, IntraVENous, Every 12 hours scheduled (2 times per day), First dose on Sun01/16/24 at 2100, Recovery (only) Start: 01-16-2024 End: 01-16-2024 500 mL, IntraVENous, at 1,00 0 mL/hr, Administer over 0.5 Hours, PRN, Anti-nausea, Starting on Sun01/16/24 at 1245, Recovery (only), Indications: Anti-nausea Start: 01-16-2024 End: 01-16-2024 10 mL, IntraVENous, Every 12 hours scheduled (2 times per day), First dose on Sun01/16/24 at 0930, Preprocedure Start: 01-16-2024 End: 01-16-2024 take 100 mL intravenously every hour as needed, then take 20 mL intravenously every hour as needed 5-250 mL/hr, IntraVENous, PRN, if patient receiving piggyback infusions and maintenance fluids are not ordered OR KVO fluids to protect IV site / prevent frequent line interruptions/ long duration, Starting on Sun01/16/24 at 1245, Recovery (only), For piggyback infusion, administer at same rate as piggyback for a total of 25 mL. Enter 25 mL into dose field and piggyback rate into rate field of order. If piggyback is infusing at a rate less than 100 mL/hr, enter 25 mL into dose field and 100 mL/hr into rate field of order. For KVO fluids, enter rate of 20 mL/hr or less into rate field of order. Start: 01-16-2024 End: 01-16-2024 take 10 mL intravenously once as needed 10 mL, IntraVENous, PRN, line care, Starting on Sun01/16/24 at 1245, Recovery (only), After every IV line use Start: 01-16-2024 End: 01-16-2024 take 5-40 mL intravenously every twelve hours 5-40 mL, IntraVENous, Every 12 hours, First dose on Sun01/16/24 at 0930, Preprocedure, For Line Patency: Peripheral IV = 5 mL; Midline or Central Line = 10 mL/lumen. If following IV push medication, administer flush at same rate as the IV push. Flush volume is determined by type of infusion therapy being given. For non-viscous solutions use: Peripheral IV = 5 mL Midline or Central Line = 10 mL/lumen For viscous solutions (i.e. blood components, parenteral nutrition, contrast media, or after obtaining blood sample) use: Peripheral IV = 10 mL Midline or Central Line = 20 mL/lumen 1 ml triamcinolone acetonide 40 mg/ml injection (8 sources) Corticosteroid Start: 01-06-2025 End: 01-06-2025 triamcinolone acetonide (Kenalog-40) injection 40 mg Start: 01-06-2025 End: 01-06-2025 40 mg, intra-articular, Once PRN Procedure, Starting on Sun01/06/25 at 1553, For 1 dose Start: 11-14-2024 End: 11-14-2024 triamcinolone acetonide (Kenalog-40) injection 40 mg Start: 11-14-2024 End: 06-27-2025 inject 40 mg by intramuscular injection once 40 mg, intramuscular, Once, On Sun11/14/24 at 1030, For 1 dose Start: 11-12-2024 End: 11-12-2024 triamcinolone acetonide (Kenalog-40) injection 40 mg Start: 11-12-2024 End: 11-12-2024 40 mg, intra-articular, Once PRN Procedure, Starting on Sun11/12/24 at 1510, For 1 dose Start: 08-29-2024 End: 08-29-2024 triamcinolone acetonide (Kenalog-40) injection 40 mg Start: 08-29-2024 End: 08-29-2024 inject 40 mg by intramuscular injection once 40 mg, intramuscular, Once, On Sun08/29/24 at 1430, For 1 dose Problems Active Problems Problem Classification Problem Date Documented Date Episodic/Chronic Administrative/socia l admission (1 source) First encounter by subject; Translations: [Persons encountering health services in other specified circumstances] 08-29-2024 Episodic Chronic obstructive pulmonary disease and bronchiectasis (6 sources) Bronchitis; Translations: [Bronchitis, not specified as acute or chronic] Episodic Disorders of lipid metabolism (20 sources) Mixed hyperlipidemia; Translations: [Mixed hyperlipidemia] Onset: 08-29-2024 08-29-2024 Chronic Esophageal disorders (18 sources) Laryngopharyngeal reflux; Translations: [Gastro-esophageal reflux disease without esophagitis] Onset: 08-29-2024 06-27-2024 Chronic Essential hypertension (20 sources) Hypertensive disorder; Translations: [Unspecified essential hypertension] Onset: 09-29-2022 09-29-2022 Chronic Malaise and fatigue (1 source) Fatigue; Translations: [Chronic fatigue, unspecified] 04-27-2023 Chronic Malaise and fatigue (20 sources) Fatigue; Translations: [Other malaise and fatigue] Onset: 09-29-2022 09-29-2022 Episodic Miscellaneous mental health disorders (4 sources) Primary insomnia; Translations: [Primary insomnia] Onset: 08-29-2024 04-02-2024 Chronic Mood disorders (20 sources) Mild major depression, single episode; Translations: [Major depressive affective disorder, single episode, mild] Onset: 01-02-2023 01-02-2023 Chronic Nonspecific chest pain (2 sources) Other chest pain; Translations: [Other chest pain] Onset: 07-19-2023 Episodic Nutritional deficiencies (20 sources) Vitamin D deficiency; Translations: [Unspecified vitamin D deficiency] Onset: 08-29-2024 04-27-2023 Chronic Osteoarthritis (15 sources) Arthritis of right knee; Translations: [Unilateral primary osteoarthritis, right knee] Onset: 11-12-2024 11-12-2024 Chronic Other aftercare (2 sources) Surgical follow-up; Translations: [Encounter for follow-up examination after completed treatment for conditions other than malignant neoplasm] 01-25-2024 Episodic Other connective tissue disease (8 sources) Muscle pain; Translations: [Myalgia and myositis, unspecified] Episodic Other diseases of bladder and urethra (20 sources) Overactive bladder; Translations: [Hypertonicity of bladder] Onset: 08-29-2024 08-29-2024 Chronic Other diseases of bladder and urethra (1 source) Overactive bladder; Translations: [Overactive bladder] Onset: 10-03-2024 Chronic Other lower respiratory disease (16 sources) Apnea; Translations: [Apnea] Episodic Other lower respiratory disease (1 source) Postviral cough; Translations: [Post-viral cough syndrome] 04-27-2023 Episodic Other lower respiratory disease (4 sources) Persistent cough; Translations: [Cough present for greater than 3 weeks] 08-15-2024 Episodic Other lower respiratory disease (1 source) Cough; Translations: [Acute cough] 11-14-2024 Episodic Other nervous system disorders (2 sources) Other chronic pain; Translations: [Other chronic pain] Onset: 12-26-2024 Chronic Other nervous system disorders (2 sources) Postoperative pain ; Translations: [Other acute postprocedural pain] 01-16-2024 Episodic Other non-traumatic joint disorders (7 sources) Pain in right knee; Translations: [Pain in joint, lower leg] Onset: 11-12-2024 11-12-2024 Episodic Other non-traumatic joint disorders (10 sources) Hip pain; Translations: [Pain in left hip] Onset: 01-06-2025 12-30-2024 Episodic Other non-traumatic joint disorders (4 sources) Pain in left hip; Translations: [Pain in left hip] Onset: 01-06-2025 Episodic Other nutritional; endocrine; and metabolic disorders (1 source) Obesity caused by energy imbalance; Translations: [Other obesity due to excess calories] 02-27-2024 Chronic Other upper respiratory disease (20 sources) Seasonal allergy; Translations: [Allergic rhinitis, cause unspecified] Onset: 09-29-2022 09-29-2022 Chronic Other upper respiratory disease (2 sources) Other seasonal allergic rhinitis; Translations: [Other seasonal allergic rhinitis] Onset: 09-29-2022 Chronic Residual codes; unclassified (20 sources) Obstructive sleep apnea syndrome; Translations: [Obstructive sleep apnea (adult)(pediatric)] Onset: 09-29-2022 09-29-2022 Chronic Residual codes; unclassified (2 sources) Past history of procedure; Translations: [Dependence on other enabling machines] Chronic Residual codes; unclassified (2 sources) Obstructive sleep apnea (adult) (pediatric); Translations: [Obstructive sleep apnea (adult) (pediatric)] Onset: 02-13-2025 Chronic Residual codes; unclassified (17 sources) History finding; Translations: [Other specified conditions influencing health status] Episodic Residual codes; unclassified (4 sources) Inadequate sleep hygiene; Translations: [Other specific disorders of sleep of nonorganic origin] Episodic Residual codes; unclassified (2 sources) Other specified health status; Translations: [Other specified conditions influencing health status] 02-27-2024 Episodic Unclassified (2 sources) Patient encounter status 04-02-2024 Unclassified (1 source) Right knee pain, unspecified chronicity 11-12-2024 Unclassified (1 source) Acute cough 11-14-2024 Unclassified (1 source) Chronic pain of right knee 12-30-2024 Unclassified (1 source) Other specified cough; Translations: [Other specified cough] Onset: 08-15-2024 Unclassified (2 sources) Post-op; Translations: [Post-op] Onset: 06-27-2024 Urinary tract infections (2 sources) Urinary tract infection, site not specified; Translations: [Urinary tract infection, site not specified] Onset: 06-30-2023 Episodic Past or Other Problems Problem Classification Problem Date Documented Date Episodic/Chronic Blindness and vision defects (20 sources) Severe myopia; Translations: [Myopia, bilateral] Onset: 11-06-2017 05-12-2023 Episodic Diabetes mellitus without complication (20 sources) Impaired fasting glycemia; Translations: [Impaired fasting glucose] Onset: 08-29-2024 Resolved: 10-03-2024 08-29-2024 Episodic Nausea and vomiting (20 sources) Postoperative nausea and vomiting; Translations: [Nausea with vomiting, unspecified] Onset: 01-04-2024 01-04-2024 Episodic Other circulatory disease (20 sources) Elevated blood pressure; Translations: [Elevated blood pressure reading without diagnosis of hypertension] Onset: 08-29-2024 Resolved: 10-03-2024 08-29-2024 Episodic Other endocrine disorders (20 sources) Disorder of endocrine system; Translations: [Unspecified endocrine disorder] Onset: 08-29-2024 08-29-2024 Episodic Other hematologic conditions (14 sources) Red blood cell count raised; Translations: [Other abnormality of red blood cells] Onset: 10-03-2024 10-03-2024 Episodic Other hematologic conditions (2 sources) Other abnormality of red blood cells; Translations: [Other abnormality of red blood cells] Onset: 10-03-2024 Episodic Other lower respiratory disease (20 sources) Cough; Translations: [Cough] Onset: 08-29-2024 08-29-2024 Episodic Other lower respiratory disease (8 sources) Nodule of lung; Translations: [Solitary pulmonary nodule] Onset: 11-14-2024 11-14-2024 Episodic Other lower respiratory disease (2 sources) Solitary pulmonary nodule; Translations: [Solitary pulmonary nodule] Onset: 11-14-2024 Episodic Other non-traumatic joint disorders (20 sources) Joint pain; Translations: [Pain in joint, site unspecified] Onset: 08-29-2024 08-29-2024 Episodic Other screening for suspected conditions (not mental disorders or infectious disease) (20 sources) Patient encounter status; Translations: [Screening for lipoid disorders] Onset: 04-02-2024 04-27-2023 Episodic Other upper respiratory infections (20 sources) Maxillary sinusitis; Translations: [Chronic maxillary sinusitis] Onset: 08-29-2024 Resolved: 10-03-2024 08-29-2024 Chronic Other upper respiratory infections (20 sources) Upper respiratory infection; Translations: [Acute upper respiratory infections of unspecified site] Onset: 08-29-2024 Resolved: 10-03-2024 09-28-2023 Episodic Residual codes; unclassified (20 sources) Insomnia; Translations: [Insomnia, unspecified] Onset: 08-29-2024 04-26-2024 Episodic Residual codes; unclassified (2 sources) Insomnia, unspecified; Translations: [Insomnia, unspecified] Onset: 06-06-2024 Episodic Unclassified (20 sources) Onset: 09-29-2022 Resolved: 11-14-2024 09-29-2022 Unclassified (1 source) Other specified cough; Translations: [Other specified cough] Onset: 08-15-2024 Results Test Name Value Interpretation Reference Range Facility 36on 03-26-2025 36 No answer, left mess age requesting a return call, number provided. [place] [id number] 03-20-2025 36 Reviewed. Not showin g need for supplemental O2. But does look like we might be able to get slightly better. Could we see if potentially she might tolerate increase of one setting on her remote? And then to give us an update in approximately 2 weeks? [address] 03-19-2025 36 Overnight pulse oxim etry report uploaded to Media and sent to provider for review. [place] [id number] 03-16-2025 36 [facility] [place] is out of [facility] service area for this patient. Sent to [facility] for overnight pulse ox test. Sent patient a MCM that we needed to switch companies. [address] 03-13-2025 36 Order submitted via [place] through [facility] [place] (overnight pulse ox with Inspire running) [facility] Office Visiton 02-13-2025 Follow-up visit [id number] Flavio Dominguez 1960 F Date Provider Department Center 02/13/2025 [id number] ALLEN [facility] None No family history on file Level of Service:15204 SD OFFICE/OUTPATIENT ESTABLISHED MOD MDM 30 MIN Reason for Visit and Comments: Follow-up [527592] - INSPIRE pt [facility] Progress Noteon 02-13-2025 Progress Note [facility] FO[place] UP VISIT-SLEEP Date of last visit: 08/08/24 - Reviewed fine-tuning PSG with patient. Will have her decrease amplitude to 1.6 V and compare fatigue/sleepiness to current level. - continue trazodone for insomnia (which is stable). Pt is trying to decrease to 50 mg HS per her desire to utilize less. - Reviewed how treatment PHIL could benefit her HTN. - Given ongoing fatigue and sleepiness, will check additional labs to make sure they may not be affecting. - will check in with patient in 2 weeks. F/u TBD at that time. Interval History: Tries to sleep on her side. Head raised on her bed. Still very fatigued and sleepy during the day. Can't nap during the day, but constantly yawning. Doesn't believe she is snoring or having witnessed apneas. Can't get real answer from her . Doesn't recall exactly what happened with Nuvigil. Thinks it might not have been effective at 50 mg? Only filled for one month. Down to trazodone 50 mg, receiving from PCP now. PCP has told pt she believes primary issue is chronic fatigue. Feels things are going ok with inspire. Can't recall why she might have turned it down one setting. Sleep-Wake Schedule Bedtime: 9:30-10 P.M. Final wake time: 5:05 A.M. she does not wake up refreshed. Sleep Latency: < 30 minutes Awakenings after sleep onset: 1-2x to use the bathroom (has OAB); falls back asleep quickly Naps: none Estimated total sleep time: 6-7 hours Sleep Metrics: [place] Sleepiness Scale: 6 (6 last visit) Past Treatments: Wellbutrin Brianire Marissa Andrews 01/16/24 Sleep Studies: HST (11/22/21): Weight 167 lbs. AHI 17 (7 CMS); SpO2 min 89%. Fine-tuning PSG 07/31/24: weight 162 lbs. PLM 1.7; PLM-a 0.3. @ 1.6 V AHI was 2.3, but limited combined supine-REM sleep. 1.7 V AHI in mild range with some increased central apneas and non-CMS events. PVCs noted. Download: Past Medical History Past Medical History: Diagnosis Date Allergies Anxiety Depression GERD (gastroesophageal reflux disease) Hypertension Migraines Sleep apnea uses cpap Past Surgical History Past Surgical History: Procedure Laterality Date CARPAL TUNNEL RELEASE Left SECTION, LOW TRANSVERSE CHOLECYSTECTOMY ELBOW SURGERY Left tendon scrape per pt HYSTERECTOMY 1 ovary remaining OTHER SURGICAL HISTORY 01/16/2024 hypoglossal nerve stimulator TONSILLECTOMY UPPER GASTROINTESTINAL ENDOSCOPY sleep induced sleep endoscopy Allergies Allergies Allergen Reactions Lisinopril Cough Cat Dander dogs Dust Mite Extract Medications Current Outpatient Medications Medication Instructions buPROPion XL (WELLBUTRIN XL) 300 mg, Every morning loratadine (CLARITIN) 10 mg, Daily losartan (COZAAR) 50 mg, Daily pantoprazole (PROTONIX) 40 mg, Daily before breakfast traZODone (DESYREL) 50 mg, Oral, Nightly Social History Social History Tobacco Use Smoking status: Never Smokeless tobacco: Never Substance Use Topics Alcohol use: Yes Comment: occasional Family History No family history on file. Review of Systems Constitutional: Positive for fatigue. Musculoskeletal: Positive for arthralgias. Psychiatric/Behavioral: Positive for sleep disturbance. Physical Exam BP 132/83 (BP Location: Left arm, Patient Position: Sitting, BP Cuff Size: Adult) Pulse 84 Resp 16 Ht 5' 2 (1.575 m) Wt 176 lb (79.8 kg) SpO2 95% BMI 32.19 kg/m? General appearance: Well appearing. No acute distress. AAOX3 Head: Normocephalic, without obvious abnormality, atraumatic Eyes: Normal sclera and conjunctiva Skin: Skin color normal. No rashes or lesions Psych: Euthymic Mood, restricted affect Labs/additional studies: Impression: Diagnosis Plan 1. PHIL (obstructive sleep apnea) 2. Insomnia, unspecified type 3. Fatigue, unspecified type 4. Essential hypertension 65 y/o F with BMI > 30, HTN, GERD, and depression. Found to have moderate PHIL, didn't feel benefit or tolerate from CPAP. S/p inspire implant. Using well (55 hours/week), though still tired and yawning frequently. Recommendations: - Performed functional tongue exam. Increased amplitude from 1.7 to 1.8 V given ongoing fatigue and slightly improved protrusion. Changed frange from 1.6-2.6 V to 1.6-2.0 V. - continue trazodone for insomnia (which is stable). - Reviewed how treatment PHIL could benefit her HTN. - Will check nocturnal pulse ox in a few weeks (after ensure pt comfortable with new setting). If low, consider adding supplemental O2. If normal, consider re-trial on wake promoting agent. Would plan f/u for 1 month after next intervention. On this date, 02/13/2025 I have spent 30 minutes formulating and reviewing the above recommendations and treatment plan with the patient. This time also includes documentation on the day of the visit, as well as discussion of sleep te (more content not included)... [facility] L Inj/Asp: L greater trochan teric bursaon 01-06-2025 Gurvinder Healy MD 12/19 3:55 PM L Inj/Asp: L greater trochanteric bursa on 01/06/2025 3:53 PM Indications: pain Details: ultrasound-guided lateral approach Medications: 40 mg triamcinolone acetonide 40 mg/mL A greater trochanteric bursitis was noted with free fluid seen in the trochanteric bursa. [facility] Work Phone: [facility] Work Phone: POINT OF CARE ULTRASOUND NO CHARGEon 01-06-2025 POINT OF CARE ULTRASOUND NO CHARGE These images are not reportable by radiology and will not be interpreted by Radiologists. [facility] US Abdomenon 01-06-2025 These images are not reportable by radiology and will not be interpreted by Radiologists. IMAGING XR HIP LEFT WITH PELVIS WHEN PERFORMED 2 OR 3 VIEWSon 01-06-2025 XR HIP LEFT WITH PELVIS WHEN PERFORMED 2 OR 3 VIEWS Interpreted By: Rey Lee, STUDY: XR HIP LEFT WITH PELVIS WHEN PERFORMED 2 OR 3 VIEWS INDICATION: Signs/Symptoms:LEFT HIP PAIN. COMPARISON: None ACCESSION NUMBER(S): [id number] ORDERING CLINICIAN: GURVINDER HEALY FINDINGS: Mild osteoarthritis bilateral hips and sacroiliac joints. No evidence of fracture. Small trochanteric spurs. IMPRESSION: Mild degenerative changes bilateral hips. Signed by: Rey Lee 01/07/2025 6:17 PM Dictation workstation: [id number] [facility] POINT OF CARE ULTRASOUND NO CHARGEon 12-26-2024 POINT OF CARE ULTRASOUND NO CHARGE These images are not reportable by radiology and will not be interpreted by Radiologists. [facility] US Abdomenon 12-26-2024 These images are not reportable by radiology and will not be interpreted by Radiologists. IMAGING 36on 12-24-2024 36 Called patient and l brie to see if she could reschedule her appointment for Feb 13 at 12:45pm. Also sending [facility] to advise [facility] L Inj/Asp: R kneeon 11-13-19 Gurvinder Healy MD 11/12/2024 3:10 PM L Inj/Asp: R knee on 11/12/2024 3:10 PM Indications: pain Details: 18 G needle, ultrasound-guided superolateral approach Medications: 40 mg triamcinolone acetonide 40 mg/mL Procedure, treatment alternatives, risks and benefits explained, specific risks discussed. Consent was given by the patient. Immediately prior to procedure a time out was called to verify the correct patient, procedure, equipment, aircraft life support fitter and site/side marked as required. Patient was prepped and draped in the usual sterile fashion. [facility] Work Phone: [facility] Work Phone: POINT OF CARE ULTRASOUND NO CHARGEon 11-12-2024 POINT OF CARE ULTRASOUND NO CHARGE These images are not reportable by radiology and will not be interpreted by Radiologists. [facility] US Abdomenon 11-12-2024 These images are not reportable by radiology and will not be interpreted by Radiologists. IMAGING XR KNEE RIGHT 4+ VIEWSon XR KNEE RIGHT 4+ VIEWS Interpreted By: Kaylee Basurto, STUDY: Right knee, four views. INDICATION: Signs/Symptoms:RIGHT KNEE PAIN. COMPARISON: None. ACCESSION NUMBER(S): [id number] ORDERING CLINICIAN: GURVINDER HEALY FINDINGS: No acute fracture or malalignment. Moderate medial compartment joint space narrowing. No significant knee joint effusion. Soft tissues are unremarkable. IMPRESSION: 1. Moderate medial compartment osteoarthrosis with moderate joint space narrowing. MACRO: None Signed by: Kaylee Basurto 11/13/2024 6:53 PM Dictation workstation: [id number] [facility] Study Interpretation of outs brayan studyon 11-06-2024 Outside images for comparison or treatment purposes, not interpreted by Radiologists. IMAGING XR TRANSFER OF OUTSIDE FILMS on 11-06-2024 XR TRANSFER OF OUTSIDE FILMS Outside images for comparison or treatment purposes, not interpreted by Radiologists. [facility] 36on 10-14-2024 36 Spoke to patient and advised that the Trazodone was refilled at the 50 mg dosage and to take 1 tablet. Also scheduled an IN OFFICE visit with Dr Allen on 12/26/24 at 12:30 pm. Patient can only do Sunday's. She has the Inspire device and this is a medication follow up appointment. Dr Allen approved her coming in office on a Sunday at 12:30 pm. He would like to see her in office (she has the Inspire device). [facility] 36 Have changed dosage and refilled trazodone. Need to f/u with patient given she is saying other med not working. Can you offer her a 12:30 slot in office on Sunday in December? From what I remember, she required Sunday appointments. She should be in office as she has Inspire. I don't believe there are sooner 12:30 slots than December, but can check with her if she has availability other days to come in office. Or if December is too far out for her, we can do 30 minute VV in between and have the in-office to make any adjustments to inspire in December. [place] [phone] No answer, left mess age requesting a return call, number provided. Called to see what dosage Trazodone she is taking currently. Was going to try to cut back from 100 mg to 50 mg. Also does she need the [facility] [place]? [facility] 36 As last note mention ed pt was going to try to decrease trazodone, can you confirm with her whether she has been able to do that (from 100 mg to 50 mg HS)? Thanks [place] [id number] Last follow up: 07/20 Next appointment: Visit date not found Allergies[1] Requested Prescriptions Pending Prescriptions Disp Refills traZODone (Desyrel) 100 MG tablet [Pharmacy Med Name: traZODone HCl 100 MG Oral Tablet] 30 tablet 0 Sig: TAKE 1 TABLET BY MOUTH ONCE DAILY NEEDED FOR SLEEP Recommendations: - Reviewed fine-tuning PSG with patient. Will have her decrease amplitude to 1.6 V and compare fatigue/sleepiness to current level. - continue trazodone for insomnia (which is stable). Pt is trying to decrease to 50 mg HS per her desire to utilize less. - Reviewed how treatment PHIL could benefit her HTN. - Given ongoing fatigue and sleepiness, will check additional labs to make sure they may not be affecting. - will check in with patient in 2 weeks. F/u TBD at that time. [facility] in [place], no follow up scheduled. [1] Allergies Allergen Reactions Cat Dander dogs Dust Mite Extract Normal [facility] CT CARDIAC SCORING WO IV CON TRASTon 10-03-2024 CT CARDIAC SCORING WO IV CONTRAST Interpreted By: Alexandru Mckinney, STUDY: CT CARDIAC SCORING WO IV CONTRAST; 10/03/2024 9:20 am INDICATION: Signs/Symptoms:screen. ,E78.2 Mixed hyperlipidemia COMPARISON: None. ACCESSION NUMBER(S): [id number] ORDERING CLINICIAN: ANNA KENDALL TECHNIQUE: Using prospective ECG gating, CT scan of the coronary arteries was performed without intravenous contrast. Coronary calcium scoring was performed according to the method of Agatston. FINDINGS: The score and distribution of calcium in the coronary arteries is as follows: LM 0 LAD 0 LCx 0 RCA 0 Total 0 The visualized mid/lower ascending thoracic aorta measures 3 cm in diameter. The heart is normal in size. No pericardial effusion is present. No gross evidence of mediastinal or hilar lymphadenopathy or masses is identified. The visualized segments of the lungs are normally expanded. 4 mm nodule left upper lobe at image 1 of series 3. The visualized subdiaphragmatic structures appear intact. IMPRESSION: 1. Coronary artery calcium score of 0*. *Coronary artery calcium scoring may be helpful in predicting the risk for future coronary heart disease events. According to the [place] [employer] Clinical Expert Consensus Task Force, such testing provides important prognostic information in patients with more than one coronary heart disease risk factor. The coronary artery calcium score correlates with the annual risk of a non-fatal myocardial infarction or coronary heart disease . Coronary artery score Annual Risk 0-99 0.4% 100-399 1.3% >400 2.4% These three breakpoints correspond to lower, intermediate and high risk states for future coronary events. Such information should be used, along with appropriate clinical judgment, to make decisions regarding the intensity of risk factor management strategies to treat blood lipids and to modify other non-lipid coronary risk factors. Reference: Imler P et al. Circulation. 2007; 115:402-426 2. 4 mm nodule left upper lobe. MACRO: Incidental Finding: A non-calcified pulmonary nodule/multiple non-calcified pulmonary nodules measuring less than 6 mm, likely benign. (-YCF-) Instructions: No further follow-up is required, however, if the patient has high risk factors for primary lung malignancy, follow-up noncontrast CT scan chest in 12 months may be obtained. (Boo Olson et al., Guidelines for management of incidental pulmonary nodules detected on CT images: From the Fleischner Society 2017, Radiology. 2017 Gregg;284 (1):228-243.) [id number] Signed by: Alexanrdu Mckinney 10/06/2024 8:24 AM Dictation workstation: [id number] [facility] 36on 09-02-2024 36 Spoke to anahy Silvestre authorization agent at [employer]. Patient denied due to ESS scale. Must be a 10 or higher. Normal [facility] 36 Prior authorization for Armodafinil 50 mg tabs DENIED by Michael. Uploaded denial letter to media. Normal [facility] 36 Called [facility] to mae ck on prior authorization status for Armodafinil 50 mg tablet. Spoke to Tammi 09/02/24 at 11:18 am EST. Transferred to customer regular senior care provider for prior authorizations, Najma Garcia at 11:26 AM EST. She states still no answer yet, but will oziel it as urgent to try to speed up a response as this was submitted 08/27/24. Normal [facility] CBC (INCLUDES DIFF/PLT)on Basophils (Bld) [#/Vol] 0.06 10*3/uL Normal 0-200 [facility] Comment on above: Performed By: #### 7 573, 06608, 71206, 7600, 6399, 67279, 75577, 622 #### [facility] [place] [id number] [facility], [address] [place] [id number] [employer] Attendant: Guillermo Moyer MD Basophils/100 WBC (Bld) 0.9 % Normal [facility] Comment on above: Performed By: #### 7 573, 31963, 35835, 7600, 6399, 69556, 88118, 622 #### [facility] of [place] [address] [employer] Attendant: Guillermo Moyer MD Eosinophils (Bld) [#/Vol] 0.121 10*3/uL Normal 15-500 [facility] Comment on above: Performed By: #### 7 573, 16270, 07831, 7600, 6399, 23852, 29523, 622 #### [facility] [place] [address] [employer] Attendant: Guillermo Moyer MD Eosinophils/100 WBC (Bld) 1.8 % Normal [facility] Comment on above: Performed By: #### 7 573, 28136, 47746, 7600, 6399, 12913, 76371, 622 #### [facility] of [place] [address] [employer] Attendant: Guillermo Moyer MD Erythrocyte distribution width (RBC) [Ratio] 13.4 % Normal 11.0-15.0 [facility] Comment on above: Performed By: #### 7 573, 18660, 42082, 7600, 6399, 06387, 24475, 622 #### [facility] of [place] [address] [employer] Attendant: Guillermo Moyer MD Hematocrit (Bld) [Volume fraction] 42.6 % Normal 35.0-45.0 [facility] Comment on above: Performed By: #### 7 573, 90763, 48942, 7600, 6399, 39509, 34245, 622 #### [facility] of [place] [address] [employer] Attendant: Guillermo Moyer MD Hemoglobin (Bld) [Mass/Vol] 13.9 g/dL Normal 11.7-15.5 [facility] Comment on above: Performed By: #### 7 573, 32981, 62509, 7600, 6399, 16867, 90240, 622 #### [facility] of [place] [address] [employer] Attendant: Guillermo Moyer MD Lymphocytes (Bld) [#/Vol] 1.42 10*3/uL Normal 850-3900 [facility] Comment on above: Performed By: #### 7 573, 93078, 05372, 7600, 6399, 89614, 74185, 622 #### [facility] of [address], [address] [place] [address] [employer] Att[employer]: Guillermo Moyer MD Lymphocytes/100 WBC (Bld) 21.2 % Normal [facility] Comment on above: Performed By: #### 7 573, 66919, 82074, 7600, 6399, 61513, 44403, 622 #### [facility] of [place] [address] [employer] Attendant: Guillermo Moyer MD MCH (RBC) [Entitic mass] 27.1 pg Normal 27.0-33.0 [facility] Comment on above: Performed By: #### 7 573, 46136, 59935, 7600, 6399, 46957, 18676, 622 #### [facility] of [place] [address] [employer] Attendant: Guillermo Moyer MD MCHC (RBC) [Mass/Vol] 32.6 g/dL Normal 32.0-36.0 [facility] Comment on above: Result Comment: For adults, a slight decrease in the calculated MCHC value (in the range of 30 to 32 g/dL) is most likely not clinically significant; however, it should be interpreted with caution in correlation with other red cell parameters and the patient's clinical condition. Performed By: #### 7 573, 36410, 58025, 7600, 6399, 36576, 04647, 622 #### [facility] [place] [address] [employer] Attendant: Guillermo Moyer MD MCV (RBC) [Entitic vol] 83.2 fL Normal 80.0-100.0 [facility] Comment on above: Performed By: #### 7 573, 03156, 75674, 7600, 6399, 97711, 03955, 622 #### [facility] of [address], [address] [place] [address] [employer] Att[employer]: Guillermo Moyer MD Monocytes (Bld) [#/Vol] 0.663 10*3/uL Normal 200-950 [facility] Comment on above: Performed By: #### 7 573, 38123, 50688, 7600, 6399, 24799, 26138, 622 #### [facility] [place] [address] [employer] Attendant: Guillermo Moyer MD Monocytes/100 WBC (Bld) 9.9 % Normal [facility] Comment on above: Performed By: #### 7 573, 63102, 66770, 7600, 6399, 06606, 07457, 622 #### [facility] [place] [address] [employer] Attendant: Guillermo Moyer MD Neutrophils (Bld) [#/Vol] 4.435 10*3/uL Normal 5024-1541 [facility] Comment on above: Performed By: #### 7 573, 25373, 39619, 7600, 6399, 80293, 18879, 622 #### [facility] of [place] [address] [employer] Attendant: Guillermo Moyer MD Neutrophils/100 WBC (Bld) 66.2 % Normal [facility] Comment on above: Performed By: #### 7 573, 20813, 73471, 7600, 6399, 80588, 71446, 622 #### [place] [address] [employer]: Guillermo Moyer MD Platelet mean volume (Bld) [Entitic vol] 10.8 fL Normal 7.5-12.5 [facility] Comment on above: Performed By: #### 7 573, 12231, 58585, 7600, 6399, 51745, 47846, 622 #### [facility] of [place] [address] [employer] Attendant: Guillermo Moyer MD Platelets (Bld) [#/Vol] 201 10*3/uL Normal 140-400 [facility] Comment on above: Performed By: #### 7 573, 08414, 91038, 7600, 6399, 33189, 96642, 622 #### [facility] of [place] [address] [employer] Attendant: Guillermo Moyer MD RBC (Bld) [#/Vol] 5.12 10*6/uL High 3.80-5.10 [facility] Comment on above: Performed By: #### 7 573, 77403, 53206, 7600, 6399, 92651, 46744, 622 #### [facility] of [place] [address] [employer] Att[employer]: Guillermo Moyer MD WBC (Bld) [#/Vol] 6.7 10*3/uL Normal 3.8-10.8 [facility] Comment on above: Performed By: #### 7 573, 01071, 31563, 7600, 6399, 04463, 69521, 622 #### [facility] of [place] [address] [employer] Attendant: Guillermo Moyer MD COMPREHENSIVE METABOLIC PANE L W/ANION GAPon 09-02-2024 Albumin [Mass/Vol] 4.6 g/dL Normal 3.6-5.1 [facility] Comment on above: Performed By: #### 7 573, 45046, 90962, 7600, 6399, 78851, 04480, 622 #### [facility] of [place] [address] [employer] Attendant: Guillermo Moyer MD ALP [Catalytic activity/Vol] 70 U/L Normal 37-153 [facility] Comment on above: Performed By: #### 7 573, 63944, 89756, 7600, 6399, 31448, 09413, 622 #### [facility] of [place] [address] [employer] Att[employer]: Guillermo Moyer MD ALT [Catalytic activity/Vol] 17 U/L Normal 6-29 [facility] Comment on above: Performed By: #### 7 573, 43026, 86382, 7600, 6399, 14287, 06794, 622 #### [facility] [place] [address] [employer] Attendant: Guillermo Moyer MD AST [Catalytic activity/Vol] 14 U/L Normal 10-35 [facility] Comment on above: Performed By: #### 7 573, 34353, 97430, 7600, 6399, 41570, 24578, 622 #### [facility] [place] [address] [employer] Attendant: Guillermo Moyer MD Bilirubin [Mass/Vol] 1.0 mg/dL Normal 0.2-1.2 [facility] Comment on above: Performed By: #### 7 573, 07924, 92344, 7600, 6399, 02178, 93112, 622 #### [facility] [place] [address] [employer] Attendant: Guillermo Moyer MD Calcium [Mass/Vol] 9.0 mg/dL Normal 8.6-10.4 [facility] Comment on above: Performed By: #### 7 573, 68038, 46421, 7600, 6399, 11613, 17245, 622 #### [facility] of [place] [address] [employer] Attendant: Guillermo Moyer MD Chloride [Moles/Vol] 105 mmol/L Normal 98-110 [facility] Comment on above: Performed By: #### 7 573, 34828, 26999, 7600, 6399, 06132, 51929, 622 #### [facility] [place] [address] [employer] Attendant: Guillermo Moyer MD CO2 [Moles/Vol] 27 mmol/L Normal 20-32 [facility] Comment on above: Performed By: #### 7 573, 92438, 67777, 7600, 6399, 98834, 06723, 622 #### [facility] [place] [address] [employer] Attendant: Guillermo Moyer MD Creatinine [Mass/Vol] 0.79 mg/dL Normal 0.50-1.05 [facility] Comment on above: Performed By: #### 7 573, 56672, 30501, 7600, 6399, 89838, 33801, 622 #### [facility] [place] [address] [employer] Attendant: Guillermo Moyer MD ELECTROLYTE BALANCE 10 mmol/L (calc) Normal 7-17 [facility] Comment on above: Performed By: #### 7 573, 84665, 52468, 7600, 6399, 30417, 84867, 622 #### [facility] [place] [address] [employer] Attendant: Guillermo Moyer MD GFR/1.73 sq M.predicted among non-blacks MDRD (S/P/Bld) [Vol rate/Area] 85 mL/min/{1.73_m2} Normal > OR = 60 [facility] Comment on above: Performed By: #### 7 573, 42471, 10471, 7600, 6399, 53377, 75114, 622 #### [facility] [place] [address] [employer] Attendant: Guillermo Moyer MD Glucose [Mass/Vol] 95 mg/dL Normal 65-99 [facility] Comment on above: Result Comment: Fasting reference interval Performed By: #### 7 573, 47433, 18549, 7600, 6399, 40489, 83984, 622 #### [facility] of [place] [address] [employer] Attendant: Guillermo Moyer MD Potassium [Moles/Vol] 4.0 mmol/L Normal 3.5-5.3 [facility] Comment on above: Performed By: #### 7 573, 70549, 76416, 7600, 6399, 32897, 39213, 622 #### [facility] of [place] [address] [employer] Attendant: Guillermo Moyer MD Protein [Mass/Vol] 6.9 g/dL Normal 6.1-8.1 [facility] Comment on above: Performed By: #### 7 573, 16545, 66568, 7600, 6399, 50741, 77551, 622 #### [facility] of [place] [address] [employer] Attendant: Guillermo Moyer MD Sodium [Moles/Vol] 142 mmol/L Normal 135-146 [facility] Comment on above: Performed By: #### 7 573, 84383, 26864, 7600, 6399, 77714, 96070, 622 #### [facility] of [place] [address] [employer] Attendant: Guillermo Moyer MD Urea nitrogen [Mass/Vol] 15 mg/dL Normal 7-25 [facility] Comment on above: Performed By: #### 7 573, 00982, 73826, 7600, 6399, 82926, 83868, 622 #### [facility] of [place] [address] [employer] Attendant: Guillermo Moyer MD HEMOGLOBIN A1c WITH eAGon eAG (mmol/L) 6.8 mmol/L Normal [facility] Comment on above: Performed By: #### 7 573, 65408, 25121, 7600, 6399, 75151, 24770, 622 #### [facility] of [address] [place] [address] [employer]: Guillermo Moyer MD HbA1c (Bld) [Mass fraction] 5.9 % High <5.7 [facility] Comment on above: Result Comment: For someone without known diabetes, a hemoglobin A1c value between 5.7% and 6.4% is consistent with prediabetes and should be confirmed with a follow-up test. For someone with known diabetes, a value <7% indicates that their diabetes is well controlled. A1c targets should be individualized based on duration of diabetes, age, comorbid conditions, and other considerations. This assay result is consistent with an increased risk of diabetes. Currently, no consensus exists regarding use of hemoglobin A1c for diagnosis of diabetes for children. Performed By: #### 7 573, 33392, 25980, 7600, 6399, 77740, 24121, 622 #### [facility] [place] [address] [employer] Attendant: Guillermo Moyer MD Magnesium [Mass/Vol] 123 mg/dL Normal [facility] Comment on above: Performed By: #### 7 573, 61165, 32159, 7600, 6399, 55811, 01887, 622 #### [facility] [place] [address] [employer] Attendant: Guillermo Moyer MD IRON AND TOTAL IRON BINDING CAPACITYon 09-02-2024 % SATURATION 31 % (calc) Normal 16-45 [facility] Comment on above: Performed By: #### 7 573, 05272, 47499, 7600, 6399, 68136, 87841, 622 #### [facility] [place] [address] [employer] Attendant: Guillermo Moyer MD IRON BINDING CAPACITY 302 mcg/dL (calc) Normal 250-450 [facility] Comment on above: Performed By: #### 7 573, 75972, 86656, 7600, 6399, 52857, 53981, 622 #### [facility] [place] [address] [employer] Attendant: Guillermo Moyer MD IRON, TOTAL 95 mcg/dL Normal 45-160 [facility] Comment on above: Performed By: #### 7 573, 70362, 23435, 7600, 6399, 30266, 99038, 622 #### [facility] [address], [address] [place] [address] [employer]: Guillermo Moyer MD LIPID PANEL, [facility] [place] 08-19 Cholesterol [Mass/Vol] 216 mg/dL High <200 [facility] Comment on above: Order Comment: FASTI NG:YES FASTING: YES Performed By: #### 7 573, 98268, 90253, 7600, 6399, 83182, 97951, 622 #### [facility] [place] [address] [employer] Attendant: Guillermo Moyer MD Cholesterol in HDL [Mass/Vol] 57 mg/dL Normal > OR = 50 [facility] Comment on above: Order Comment: FASTI NG:YES FASTING: YES Performed By: #### 7 573, 58079, 16249, 7600, 6399, 62687, 57275, 622 #### [facility] [place] [address] [employer] Attendant: Guillermo Moyer MD Cholesterol in LDL [Mass/Vol] 138 mg/dL High [facility] Comment on above: Order Comment: FASTI NG:YES FASTING: YES Result Comment: Refe rence range: <100 Desirable range <100 mg/dL for primary prevention; <70 mg/dL for patients with CHD or diabetic patients with > or = 2 CHD risk factors. LDL-C is now calculated using the Mata calculation, which is a validated novel method providing better accuracy than the Friedewald equation in the estimation of LDL-C. Siva SS et al. IMTIAZ. 2013;310(19): 7864-6714 (http://education.AbbeyPost.ViaWest/faq/EFF292) Performed By: #### 7 573, 00623, 67174, 7600, 6399, 46128, 24796, 622 #### [facility] [address], [address] [place] [address] [employer]: Guillermo Moyer MD Cholesterol.total/C holesterol in HDL [Mass ratio] 3.8 {ratio} Normal <5.0 [facility] Comment on above: Order Comment: FASTI NG:YES FASTING: YES Performed By: #### 7 573, 37690, 23551, 7600, 6399, 94783, 89711, 622 #### [facility] [address], [address] [place] [address] [employer] Att[employer]: Guillermo Moyer MD NON HDL CHOLESTEROL 159 mg/dL (calc) High <130 [facility] Comment on above: Order Comment: FASTI NG:YES FASTING: YES Result Comment: For patients with diabetes plus 1 major ASCVD risk factor, treating to a non-HDL-C goal of <100 mg/dL (LDL-C of <70 mg/dL) is considered a therapeutic option. Performed By: #### 7 573, 69051, 89400, 7600, 6399, 84591, 77277, 622 #### [facility] [address], [address] [place] [address] [employer] Att[employer]: Guillermo Moyer MD Triglyceride [Mass/Vol] 105 mg/dL Normal <150 [facility] Comment on above: Order Comment: FASTI NG:YES FASTING: YES Performed By: #### 7 573, 21909, 12055, 7600, 6399, 07394, 14891, 622 #### [facility] [address], [address] [place] [address] [employer] Att[employer]: Guillermo Moyer MD MAGNESIUMon 09-02-2024 Magnesium [Mass/Vol] 2.3 mg/dL Normal 1.5-2.5 [facility] Comment on above: Performed By: #### 7 573, 01686, 95859, 7600, 6399, 95761, 68641, 622 #### [facility] [address], [address] [place] [address] [employer] Attendant: Guillermo Moyer MD PTH, INTACT WITHOUT CALCIUMo n 04-15-2025 PARATHYROID HORMONE, INTACT 43 pg/mL Normal 16-77 [facility] Comment on above: Result Comment: Interpretive Guide Intact PTH Calcium ------- Normal Parathyroid Normal Normal Hypoparathyroidism Low or Low Normal Low Hyperparathyroidism Primary Normal or High High Secondary High Normal or Low Tertiary High High Non-Parathyroid Hypercalcemia Low or Low Normal High Performed By: #### 7 573, 92918, 85291, 7600, 6399, 34383, 58553, 622 #### [facility] [address], [address] [place] [address] [employer] Attendant: Guillermo Moyer MD TSH W/REFLEX TO FT4on 2024 TSH W/REFLEX TO FT4 2.85 mIU/L Normal 0.40-4.50 [facility] Comment on above: Performed By: #### 7 573, 70937, 11467, 7600, 6399, 60917, 79972, 622 #### [facility] [address], [address] [place] [address] [employer] Attendant: Guillermo Moyer MD VITAMIN B12on 09-02-2024 VITAMIN B12 Normal [facility] Comment on above: Performed By: #### 7 573, 09771, 42425, 7600, 6399, 68424, 88021, 622 #### [facility] [address], [address] [place] [address] [employer] Attendant: Guillermo Moyer MD 08-29-2024 36 Called [employer] to mae ck status of prior authorization, still awaiting review. They have 5 business days to review and make a decision. (Should have answer by Sun09/03/24) [facility] 08-27-2024 36 Prior authorization started in [facility] for Armodafinl 50 mg tabs through [facility]? Question that was asked for prior authorization: Does the patient have an [place] Sleepiness Scale score of greater than or equal to 10, despite treatment with continuous positive airway pressure (CPAP) for at least 4 hours per night for greater than or equal to 70% of nights during a consecutive 30-day period (that is, 4 to 5 nights per week)? (Answer NO, ESS was 6 on 08/08/24 and 3 at last visit) [facility] 36on 08-26-2024 36 Scheduling done [facility] XR CHEST 2 VIEWSon 5 XR CHEST 2 VIEWS Interpreted By: Mina Donovan, STUDY: XR CHEST 2 VIEWS; 08/15/2024 10:46 am INDICATION: Signs/Symptoms:Cough x 2 months. ,R05.8 Other specified cough COMPARISON: 07/17/2014 ACCESSION NUMBER(S): [id number] ORDERING CLINICIAN: CIERRA JADE FINDINGS: Right vagal nerve stimulator noted. The cardiomediastinal silhouette and pulmonary vasculature are within normal limits. Atherosclerotic aorta. No consolidation, pleural effusion or pneumothorax. IMPRESSION: No acute cardiopulmonary process. MACRO: None. Signed by: Mina Ford 08/15/2024 11:30 AM Dictation workstation: [id number] [facility] XR Chest 2 Viewson No acute cardiopulmo nary process. MACRO: None. Signed by: Mina Ford 08/15/2024 11:30 AM Dictation workstation: [id number] Interpreted By: Mina Donovan, STUDY: XR CHEST 2 VIEWS; 08/15/2024 10:46 am INDICATION: Signs/Symptoms:Cough x 2 months. ,R05.8 Other specified cough COMPARISON: 07/17/2014 ACCESSION NUMBER(S): [id number] ORDERING CLINICIAN: CIERRA JADE FINDINGS: Right vagal nerve stimulator noted. The cardiomediastinal silhouette and pulmonary vasculature are within normal limits. Atherosclerotic aorta. No consolidation, pleural effusion or pneumothorax. [facility] Mina Ford MD - 08/15/2024 Interpreted By: Mina Ford, STUDY: XR CHEST 2 VIEWS; 08/15/2024 10:46 am INDICATION: Signs/Symptoms:Cough x 2 months. ,R05.8 Other specified cough COMPARISON: 07/17/2014 ACCESSION NUMBER(S): [id number] ORDERING CLINICIAN: CIERRA JADE FINDINGS: Right vagal nerve stimulator noted. The cardiomediastinal silhouette and pulmonary vasculature are within normal limits. Atherosclerotic aorta. No consolidation, pleural effusion or pneumothorax. IMPRESSION: No acute cardiopulmonary process. MACRO: None. Signed by: Mina Ford 08/15/2024 11:30 AM Dictation workstation: [id number] [facility] Work Phone: Radiology Study observation (narrative) [facility] Work Phone: XR Chest 2 ViewsOrdered By: Mina Ford on 08-15-2024 [facility] Work Phone: Progress Noteon 08-08-2024 Progress Note [facility] FO[place] UP VISIT-SLEEP Date of last visit: 06/06/24 - Reviewed SleepSync compliance data with patient. Encouraged ongoing titrate upwards as tolerate. - performed functional tongue exam. Even improved tongue protrusion at higher settings. - Changed amplitude from 1.5 to 1.6 V - changed lower limit from 0.5 to 1.4 V - changed upper limit from 1.5 to 2.4 V - changed pause from 15 to 30 minutes - continue trazodone. Writing for additional 50 mg HS PRN insomnia for nights where it is more difficult to fall asleep. - Reviewed how treatment PHIL could benefit her HTN. - will check in with patient in 1 month; if doing well and numbers on download look good, plan for fine tuning PSG at [place] (location per pt preference). Interval History: Here for sleep study results. [place] that she almost didn't sleep at all on night of study. Didn't feel to get any good deep sleep. At home sleeps primarily on her side. Using inspire regularly, but still yawns a lot throughout the day. But not actually napping. Finds that her fatigue/sleepiness greatly varies throughout the day still. Uses lower dose trazodone (50 mg) when going to bed later. Would like to not have to use as much of it or become dependent on it to sleep. Thinks things are going fine with Inspire. Doesn't believe she is snoring or having witnessed apneas. Denies any history of palpitations. Sleep-Wake Schedule Bedtime: 9-10 P.M. Final wake time: 5:05 A.M. she does not wake up refreshed. Sleep Latency: varies Awakenings after sleep onset: 0-2x, because of dogs, and falls back asleep quickly Naps: none Estimated total sleep time: 6-7 hours Sleep Metrics: Whitewood Sleepiness Scale: 6 (3 last visit) Past Treatments: Wellbutrin Brianire - [place] 01/16/24 Sleep Studies: HST (11/22/21): Weight 167 lbs. AHI 17 (7 CMS); SpO2 min 89%. Fine-tuning PSG 07/31/24: weight 162 lbs. PLM 1.7; PLM-a 0.3. @ 1.6 V AHI was 2.3, but limited combined supine-REM sleep. 1.7 V AHI in mild range with some increased central apneas and non-CMS events. PVCs noted. Download: Past Medical History Past Medical History: Diagnosis Date Allergies Anxiety Depression GERD (gastroesophageal reflux disease) Hypertension Migraines Sleep apnea uses cpap Past Surgical History Past Surgical History: Procedure Laterality Date CARPAL TUNNEL RELEASE Left SECTION, LOW TRANSVERSE CHOLECYSTECTOMY ELBOW SURGERY Left tendon scrape per pt HYSTERECTOMY 1 ovary remaining OTHER SURGICAL HISTORY 01/16/2024 hypoglossal nerve stimulator TONSILLECTOMY UPPER GASTROINTESTINAL ENDOSCOPY sleep induced sleep endoscopy Allergies Allergies Allergen Reactions Cat Dander dogs Dust Mite Extract Medications Current Outpatient Medications Medication Instructions buPROPion XL (WELLBUTRIN XL) 300 mg, Oral, Every morning esomeprazole (NEXIUM) 20 mg, Oral, Daily before breakfast, Do not open capsule. fluticasone (Flonase) 50 MCG/ACT nasal spray 1 spray, Daily loratadine (CLARITIN) 10 mg, Daily losartan (COZAAR) 50 mg, Daily traZODone (Desyrel) 100 MG tablet TAKE 1 TABLET BY MOUTH ONCE DAILY NEEDED FOR SLEEP traZODone (DESYREL) 25-50 mg, Oral, Nightly PRN Social History Social History Tobacco Use Smoking status: Never Smokeless tobacco: Never Substance Use Topics Alcohol use: Yes Comment: occasional Family History No family history on file. Review of Systems Constitutional: Positive for fatigue. Musculoskeletal: Positive for arthralgias. Psychiatric/Behavioral: Positive for sleep disturbance. Physical Exam General appearance: Well appearing. No acute distress. AAOX3 Head: Normocephalic, without obvious abnormality, atraumatic Eyes: Normal sclera and conjunctiva Skin: Skin color normal. No rashes or lesions Psych: Euthymic Mood Labs/additional studies: Impression: Diagnosis Plan 1. PHIL (obstructive sleep apnea) 2. Insomnia, unspecified type 3. Essential hypertension 4. Intolerance of continuous positive airway pressure (CPAP) ventilation 5. Fatigue, unspecified type Vitamin D Deficiency Screening (Vit D 25) TSH Vitamin B12 CBC auto differential Comprehensive metabolic panel Folate Vitamin D Deficiency Screening (Vit D 25) TSH Vitamin B12 CBC auto differential Comprehensive metabolic panel Folate 64 y/o F with BMI > 30, HTN, GERD, and depression. Found to have moderate PHIL, didn't feel benefit or tolerate from CPAP. S/p inspire implant. Using well, though still tired and yawning frequently. Ongoing inspire issues as well. Recommendations: - Reviewed fine-tuning PSG with patient. Will have her decrease amplitude to 1.6 V and compare fatigue/sleepiness to current level. - continue trazodone for insomnia (which is stable). Pt is trying to decrease to 50 mg HS per her desire to utilize less. - Reviewed how treatment PHIL could benefit her HTN. - Given (more content not included)... Normal [facility] 36on 07-22-2024 36 Last follow up: 05/21 Next appointment: 08/08/2024 Allergies Allergen Reactions Cat Dander dogs Dust Mite Extract Requested Prescriptions Pending Prescriptions Disp Refills traZODone (Desyrel) 100 MG tablet [Pharmacy Med Name: traZODone HCl 100 MG Oral Tablet] 30 tablet 0 Sig: TAKE 1 TABLET BY MOUTH ONCE DAILY NEEDED FOR SLEEP Recommendations: - Reviewed SleepSync compliance data with patient. Encouraged ongoing titrate upwards as tolerate. - performed functional tongue exam. Even improved tongue protrusion at higher settings. - Changed amplitude from 1.5 to 1.6 V - changed lower limit from 0.5 to 1.4 V - changed upper limit from 1.5 to 2.4 V - changed pause from 15 to 30 minutes - continue trazodone. Writing for additional 50 mg HS PRN insomnia for nights where it is more difficult to fall asleep. - Reviewed how treatment PHIL could benefit her HTN. - will check in with patient in 1 month; if doing well and numbers on download look good, plan for fine tuning PSG at [place] (location per pt preference). [facility] in [place]. [facility] 36on 07-11-2024 36 Sent a My Chart mess age. Can she move to 12:30 pm time on 08/08 instead of 12? [facility] 36on 07-10-2024 36 Spoke to patient and scheduled office visit 08/08/24 at 12 pm to review Inspire fine tuning sleep study results (scheduled 07/31/24). Okay for this date per Dr Allen, she is an Inspire patient. [facility] [address] Allen, Inspi re patient. Can we offer her 12:30 slot on Tuesday 08/08? Ok to do in office on different day than typical for inspire, as this is the only one that works for her schedule. [facility] 36on 07-08-2024 36 Hello, Patient is now scheduled for 07/31/24. Thank you! [facility] 36on 07-07-2024 36 Sent a My Chart mess age. Unable to see Inspire uploads. [facility] Office Visiton 06-27-2024 Follow-up visit [id number] Flavio Dominguez wenceslao 1960 F Date Provider Department Center 06/27/2024 JEANNINE DIAZ [facility] None No family history on file Level of Service:22039 SD OFFICE/OUTPATIENT ESTABLISHED MOD MDM 30 MIN Reason for Visit and Comments: Post-op [483] - Four weeks inspire [facility] Progress Noteon 06-27-2024 Progress Note Assessment and Recommendations: Sulaiman Dominguez is a 64 y.o. female here for 4-month follow-up from implantation hypoglossal nerve stimulator and LPR -Will start the patient on esomeprazole to help treat her symptoms follow-up in 3 months -In regards to her 4-month follow-up her inspire implant and incisions are well-healed no concerns we will follow-up on the results from her titration study [facility] Note HPI: Sulaiman Dominguez is a 64 y.o. yo female who presents to clinic today for 1 week follow-up from implantation hypoglossal nerve stimulator. Overall patient is doing well minimal pain no issues with swallowing no other concerns at this time. Interval History 06/27/2024: Patient presents today for follow-up reports overall she is doing okay still feels tired not sure if the device is helping significantly but she does say her snoring and apneic events seem to be better she just started trazodone feels like this is helped somewhat send been having some ear fullness secondary to TMJ as well as reflux related symptoms and she is here for follow-up PMH: Past Medical History: Diagnosis Date Allergies Anxiety Depression GERD (gastroesophageal reflux disease) Hypertension Migraines Sleep apnea uses cpap Allergies: Allergies Allergen Reactions Cat Dander dogs Dust Mite Extract Medications: Current Outpatient Medications: cholecalciferol (Vitamin D-3) 25 MCG tablet, Take 25 mcg by mouth daily., Disp: , Rfl: fluticasone (Flonase) 50 MCG/ACT nasal spray, Administer 1 spray into each nostril daily. Shake gently. Before first use, prime pump. After use, clean tip and replace cap., Disp: , Rfl: loratadine (Claritin) 5 MG chewable tablet, Chew 10 mg daily., Disp: , Rfl: losartan (Cozaar) 50 MG tablet, Take 50 mg by mouth daily., Disp: , Rfl: oxyCODONE-acetaminophen (Percocet) 5-325 MG tablet, , Disp: , Rfl: traZODone (Desyrel) 100 MG tablet, Take 1 tablet (100 mg) by mouth Daily as needed for sleep., Disp: 30 tablet, Rfl: 2 traZODone (Desyrel) 50 MG tablet, Take 0.5-1 tablets (25-50 mg) by mouth Nightly as needed for sleep (insomnia)., Disp: 30 tablet, Rfl: 0 buPROPion XL (Wellbutrin XL) 300 MG 24 hr tablet, Take 300 mg by mouth every morning., Disp: , Rfl: PSH: Past Surgical History: Procedure Laterality Date CARPAL TUNNEL RELEASE Left SECTION, LOW TRANSVERSE CHOLECYSTECTOMY ELBOW SURGERY Left tendon scrape per pt HYSTERECTOMY 1 ovary remaining OTHER SURGICAL HISTORY 01/16/2024 hypoglossal nerve stimulator TONSILLECTOMY UPPER GASTROINTESTINAL ENDOSCOPY sleep induced sleep endoscopy FH: No family history on file. SH: Social History Socioeconomic History Marital status: Spouse name: Not on file Number of children: Not on file Years of education: Not on file Highest education level: Not on file Occupational History Not on file Tobacco Use Smoking status: Never Smokeless tobacco: Never Vaping Use Vaping status: Never Used Substance and Sexual Activity Alcohol use: Yes Comment: occasional Drug use: Never Sexual activity: Not on file Other Topics Concern Not on file Social History Narrative Not on file Social Drivers of Health Financial Resource Strain: Not on file Food Insecurity: Not on file Transportation Needs: Not on file Physical Activity: Not on file Stress: Not on file Social Connections: Not on file Intimate Partner Violence: Not on file Housing Stability: Not on file Physical Exam: Constitutional: General: Patient is not in acute distress. Appearance: Patient is well-developed. Eyes: Conjunctiva/sclera: Conjunctivae normal. Pupils: Pupils are equal, round, and reactive to light. HENT: Jaw: No trismus. Nose: No nasal deformity, mucosal edema or rhinorrhea. Mouth: Mucous membranes are not pale, not dry and not cyanotic. No oral lesions. Pharynx: Uvula midline. No oropharyngeal exudate or uvula swelling. Tonsils: No tonsillar exudate. No abnormal masses or lesions Thyroid: No significant thyromegaly. Trachea: Trachea and phonation normal. No tracheal deviation. Pulmonary: Effort: Pulmonary effort is normal. No respiratory distress. Breath sounds: No stridor. Musculoskeletal: Head: Normocephalic and atraumatic. Neck: Full passive range of motion without pain, neck supple. Neck and chest incision clean dry and intact well-healing small amount of soft tissue swelling in the submandibular region tongue motion was within normal limits no marginal mandibular weakness Skin: General: Skin is warm and dry. Findings: No erythema or rash. Neurological: Cranial Nerves: No cranial nerve deficit. Sensory: No sensory deficit. Coordination: Coordination normal. Extremities: No significant peripheral edema or varicosities Psychiatric: Mood and Af (more content not included)... Normal [facility] Office Visiton 06-06-2024 Follow-up visit [id number] Flavio Dominguez 1960 F Date Provider Department Center 06/06/2024 [id number] ALLEN [facility] None No family history on file Level of Service:10528 SD OFFICE/OUTPATIENT ESTABLISHED MOD MDM 30 MIN Reason for Visit and Comments: Follow-up [057489] - phil Normal [facility] Progress Noteon 06-06-2024 Progress Note [facility] FOLLOW UP OFFICE VISIT-SLEEP Date of last visit: 04/25/24 Plan at that time: - Reviewed SleepSync compliance data. Pt has had erratic adjustments of her voltage the past month or so. Discussed needing to regularly increase by 1 step per week, as tolerated. Pt will increase in one month (left amplitude at 1.0 V). - performed functional tongue exam. As she notes occasional times when device turns on and she has not yet fallen asleep to start the night, increased delay from 30 to 45 minutes. - Increase trazodone from 50 to 100 mg to try to help with awakenings. D/c tylenol P.M. could consider doxepin going forward. - Reviewed how treatment PHIL could benefit her HTN. - F/u approximately 1 month. Interval History: Overall feels she is sleeping better than last visit. Trazodone 100 mg has been helpful in falling and staying asleep. Occasionally still with difficulty, but much fewer nights than before. Thinks things are going fine with Inspire. Doesn't believe she is snoring or having witnessed apneas. Continues to feel tired and has yawning during the day though. Has been able to bump up inspire since we last met, and not having very sore tongue or throat. Sleep-Wake Schedule Bedtime: 9-10 P.M. Final wake time: 5:05 A.M. she does not wake up refreshed. Sleep Latency: varies Awakenings after sleep onset: 0-2x, because of dogs, and falls back asleep quickly Naps: none Estimated total sleep time: 6-7 hours Sleep Metrics: [place] Sleepiness Scale: 3 (13 last visit) Past Treatments: Wellbutrin Inspire - Ger[place]sen 01/16/24 Sleep Studies: HST (11/22/21): Weight 167 lbs. AHI 17 (7 CMS); SpO2 min 89%. Download: Past Medical History Past Medical History: Diagnosis Date Allergies Anxiety Depression GERD (gastroesophageal reflux disease) Hypertension Migraines Sleep apnea uses cpap Past Surgical History Past Surgical History: Procedure Laterality Date CARPAL TUNNEL RELEASE Left SECTION, LOW TRANSVERSE CHOLECYSTECTOMY ELBOW SURGERY Left tendon scrape per pt HYSTERECTOMY 1 ovary remaining OTHER SURGICAL HISTORY 01/16/2024 hypoglossal nerve stimulator TONSILLECTOMY UPPER GASTROINTESTINAL ENDOSCOPY sleep induced sleep endoscopy Allergies Allergies Allergen Reactions Cat Dander dogs Dust Mite Extract Medications Current Outpatient Medications Medication Instructions buPROPion XL (WELLBUTRIN XL) 300 mg, Oral, Every morning cholecalciferol (VITAMIN D-3) 25 mcg, Daily loratadine (CLARITIN) 10 mg, Daily losartan (COZAAR) 50 mg, Daily traZODone (DESYREL) 100 mg, Oral, Daily PRN traZODone (DESYREL) 25-50 mg, Oral, Nightly PRN Social History Social History Tobacco Use Smoking status: Never Smokeless tobacco: Never Substance Use Topics Alcohol use: Yes Comment: occasional Family History No family history on file. Review of Systems Constitutional: Positive for fatigue. Musculoskeletal: Positive for arthralgias. Psychiatric/Behavioral: Positive for sleep disturbance. Physical Exam Vitals: 06/06/24 1217 BP: 138/83 BP Location: Left arm Patient Position: Sitting BP Cuff Size: Adult Pulse: 80 Resp: 16 SpO2: 96% Weight: 166 lb (75.3 kg) Height: 5' 2 (1.575 m) Body mass index is 30.36 kg/m?. General appearance: Well appearing. No acute distress. AAOX3 Head: Normocephalic, without obvious abnormality, atraumatic Eyes: Normal sclera and conjunctiva Skin: Skin color normal. No rashes or lesions Psych: Euthymic Mood Labs/additional studies: Impression: Diagnosis Plan 1. Insomnia, unspecified type traZODone (Desyrel) 50 MG tablet 2. PHIL (obstructive sleep apnea) 3. Essential hypertension 64 y/o F with BMI > 30, HTN, GERD, and depression. Found to have moderate PHIL, didn't feel benefit or tolerate from CPAP. S/p inspire implant. Usage at 57 hours/week. Recommendations: - Reviewed SleepSync compliance data with patient. Encouraged ongoing titrate upwards as tolerate. - performed functional tongue exam. Even improved tongue protrusion at higher settings. - Changed amplitude from 1.5 to 1.6 V - changed lower limit from 0.5 to 1.4 V - changed upper limit from 1.5 to 2.4 V - changed pause from 15 to 30 minutes - continue trazodone. Writing for additional 50 mg HS PRN insomnia for nights where it is more difficult to fall asleep. - Reviewed how treatment PHIL could benefit her HTN. - will check in with patient in 1 month; if doing well and numbers on download look good, plan for fine tuning PSG at [place] (location per pt preference). [facility] BI MAMMO BILATERAL SCREENING TOMOSYNTHESISon 05-20-2024 BI MAMMO BILATERAL SCREENING TOMOSYNTHESIS Interpreted By: Samy Forde, STUDY: BI MAMMO BILATERAL SCREENING TOMOSYNTHESIS; 05/20/2024 9:00 am ACCESSION NUMBER(S): [id number] ORDERING CLINICIAN: CIERRA DE JESUS INDICATION: Screening. COMPARISON: Digital mammograms dated 04/30/2023 FINDINGS: CC and MLO 2D digital mammograms and digital breast tomosynthesis images were obtained of the bilateral breasts. 3-D volume images were reconstructed in 5 views at an independent workstation as 1 mm slices through the breasts in both the CC and MLO projections. Density: There are scattered areas of fibroglandular density. A pacemaker device is seen over the superior right breast, limiting evaluation within this region. No discrete mass or focal asymmetry is identified. No suspicious microcalcifications or foci of architectural distortion are seen. There has been no significant change. This study was interpreted with CAD. IMPRESSION: No mammographic evidence of malignancy. BI-RADS CATEGORY: BI-RADS Category: 1 Negative. Recommendation: Annual Screening. Recommended Date: 1 Year. Laterality: Bilateral. MACRO: None Signed by: Smay Forde 05/20/2024 10:18 AM Dictation workstation: [id number] [facility] DBT Breast - bilateralon No mammographic evid ence of malignancy. BI-RADS CATEGORY: BI-RADS Category: 1 Negative. Recommendation: Annual Screening. Recommended Date: 1 Year. Laterality: Bilateral. MACRO: None Signed by: Samy Forde 05/20/2024 10:18 AM Dictation workstation: [id number] MMODAL Interpreted By: Samy Tovar, STUDY: BI MAMMO BILATERAL SCREENING TOMOSYNTHESIS; 05/20/2024 9:00 am ACCESSION NUMBER(S): [id number] ORDERING CLINICIAN: CIERRA DE JESUS INDICATION: Screening. COMPARISON: Digital mammograms dated 04/30/2023 FINDINGS: CC and MLO 2D digital mammograms and digital breast tomosynthesis images were obtained of the bilateral breasts. 3-D volume images were reconstructed in 5 views at an independent workstation as 1 mm slices through the breasts in both the CC and MLO projections. Density: There are scattered areas of fibroglandular density. A pacemaker device is seen over the superior right breast, limiting evaluation within this region. No discrete mass or focal asymmetry is identified. No suspicious microcalcifications or foci of architectural distortion are seen. There has been no significant change. This study was interpreted with CAD. MMODAL Samy Forde MD - 05/20/2024 Interpreted By: Samy Forde, STUDY: BI MAMMO BILATERAL SCREENING TOMOSYNTHESIS; 05/20/2024 9:00 am ACCESSION NUMBER(S): [id number] ORDERING CLINICIAN: CIERRA DE JESUS INDICATION: Screening. COMPARISON: Digital mammograms dated 04/30/2023 FINDINGS: CC and MLO 2D digital mammograms and digital breast tomosynthesis images were obtained of the bilateral breasts. 3-D volume images were reconstructed in 5 views at an independent workstation as 1 mm slices through the breasts in both the CC and MLO projections. Density: There are scattered areas of fibroglandular density. A pacemaker device is seen over the superior right breast, limiting evaluation within this region. No discrete mass or focal asymmetry is identified. No suspicious microcalcifications or foci of architectural distortion are seen. There has been no significant change. This study was interpreted with CAD. IMPRESSION: No mammographic evidence of malignancy. BI-RADS CATEGORY: BI-RADS Category: 1 Negative. Recommendation: Annual Screening. Recommended Date: 1 Year. Laterality: Bilateral. MACRO: None Signed by: Samy Forde 05/20/2024 10:18 AM Dictation workstation: [id number] [facility] Work Phone: Radiology Study observation (narrative) [facility] Work Phone: DBT Breast - bilateralOrdere d By: Samy Forde on 05-20-2024 [facility] Work Phone: 36on 04-28-2024 36 Thanks, reviewed. [facility] 36 Abril Allen MD C romaine Suarez, DEANNA Could you try to pull sleepsync download again on her now? I went through with her during visit how to download josette and upload data. Thanks Inspire download in Media. Normal [facility] Office Visiton 04-25-2024 Follow-up visit [id number] Flavio Dominguez 1960 F Date Provider Department Center 04/25/2024 [id number]-JKHLSSABRIL ALLEN [facility] None No family history on file Level of Service:33517 SD OFFICE/OUTPATIENT ESTABLISHED MOD MDM 30 MIN Reason for Visit and Comments: Follow-up [112946] - phil Normal [facility] Progress Noteon 04-25-2024 Progress Note [facility] FOLLOW UP OFFICE VISIT-SLEEP Date of last visit: 02/27/2024 Plan at that time: - activated Inspire (see other note). - Encouraged weight loss to help PHIL. - Reviewed how treatment PHIL could help HTN. - F/u by phone with Sleep RN/Inspire Navigator in 1 month; in office in 2 months. Interval History: Some nights sleeping well, other nights doesn't feel much better (since starting Inspire). Not sure about snoring or witnessed apneas--can't tell if her is joking or not when he tells her she snores. Found that she had gone up a few levels, but not sure how. Didn't upload data into josette yet. PCP started her on trazodone given ongoing awakenings. Thinks it might be helping some, but still requires tylenol P.M. with it. Sleep-Wake Schedule Bedtime: 9-10 P.M. Final wake time: 5:05 A.M. she does not wake up refreshed. Sleep Latency: varies Awakenings after sleep onset: 5x, because of going to the bathroom and unknown reasons, and falls back asleep quickly Naps: none Estimated total sleep time: 6-7 hours Sleep Metrics: [place] Sleepiness Scale: 0 (13 last visit) Past Treatments: Wellbutrin Brianire Marissa Alemantsen 01/16/24 Sleep Studies: HST (11/22/21): Weight 167 lbs. AHI 17 (7 CMS); SpO2 min 89%. Download: Past Medical History Past Medical History: Diagnosis Date Allergies Anxiety Depression GERD (gastroesophageal reflux disease) Hypertension Migraines Sleep apnea uses cpap Past Surgical History Past Surgical History: Procedure Laterality Date CARPAL TUNNEL RELEASE Left SECTION, LOW TRANSVERSE CHOLECYSTECTOMY ELBOW SURGERY Left tendon scrape per pt HYSTERECTOMY 1 ovary remaining OTHER SURGICAL HISTORY 01/16/2024 hypoglossal nerve stimulator TONSILLECTOMY UPPER GASTROINTESTINAL ENDOSCOPY sleep induced sleep endoscopy Allergies Allergies Allergen Reactions Cat Hair Extract dogs Dust Mite Extract Medications Current Outpatient Medications Medication Instructions albuterol 108 (90 Base) MCG/ACT inhaler 2 puffs, Every 4 hours PRN buPROPion XL (WELLBUTRIN XL) 300 mg, Oral, Every morning cholecalciferol (VITAMIN D-3) 25 mcg, Daily levocetirizine (XYZAL) 5 mg, Every evening loratadine (CLARITIN) 10 mg, Daily losartan (COZAAR) 50 mg, Daily omeprazole (PRILOSEC) 40 mg, Every 48 hours traZODone (DESYREL) 50 mg, Daily PRN Social History Social History Tobacco Use Smoking status: Never Smokeless tobacco: Never Substance Use Topics Alcohol use: Yes Comment: occasional Family History No family history on file. Review of Systems Constitutional: Positive for fatigue. Musculoskeletal: Positive for arthralgias. Psychiatric/Behavioral: Positive for sleep disturbance. Physical Exam Vitals: 04/25/24 1231 BP: 126/84 BP Location: Left arm Patient Position: Sitting BP Cuff Size: Adult Pulse: 81 Resp: 16 SpO2: 99% Weight: 163 lb 12.8 oz (74.3 kg) Height: 5' 2 (1.575 m) Body mass index is 29.96 kg/m?. General appearance: Well appearing. No acute distress. AAOX3 Head: Normocephalic, without obvious abnormality, atraumatic Eyes: Normal sclera and conjunctiva Skin: Skin color normal. No rashes or lesions Psych: Euthymic Mood, full affect Labs/additional studies: Impression: Diagnosis Plan 1. PHIL (obstructive sleep apnea) 2. Insomnia, unspecified type 3. Essential hypertension 64 y/o F with BMI > 30, HTN, GERD, and depression. Found to have moderate PHIL, didn't feel benefit or tolerate from CPAP. S/p inspire implant. Usage at 59 hours/week. Recommendations: - Reviewed SleepSync compliance data. Pt has had erratic adjustments of her voltage the past month or so. Discussed needing to regularly increase by 1 step per week, as tolerated. Pt will increase in one month (left amplitude at 1.0 V). - performed functional tongue exam. As she notes occasional times when device turns on and she has not yet fallen asleep to start the night, increased delay from 30 to 45 minutes. - Increase trazodone from 50 to 100 mg to try to help with awakenings. D/c tylenol P.M. could consider doxepin going forward. - Reviewed how treatment PHIL could benefit her HTN. - F/u approximately 1 month. [facility] XR CHEST PA/APon 07-19-2023 XR CHEST PA/AP EXAMINATION: XR CHEST PA/AP 07/19/2023 HISTORY: ORDERING SYSTEM PROVIDED HISTORY: CHEST PAIN, TECHNOLOGIST PROVIDED HISTORY: Illness/Other Reason for exam: chest pain Cancer History: no Surgery, RadiationHistory: none Encounter Type: Initial Additional signs and symptoms: none ORDERING SYSTEM PROVIDED DIAGNOSIS CODES: COMPARISON: None TECHNIQUE: Portable AP upright view of the thorax is provided for interpretation. FINDINGS: There are low lung volumes on the current study. There is linear airspace opacity in both lung bases which most likely represents atelectasis. The lungs are otherwise clear. There is no pneumothorax or pleural effusion. The cardiomediastinal configuration is within normal limits. No acute bony abnormalities. IMPRESSION: No acute cardiopulmonary abnormalities. Workstation ID: [id number] Dictated by: JEWELL PLUNKETT on SunJul 19, 2023 8:45:45 PM EST Transcribed by: JEWELL PLUNKETT on SunJul 19, 2023 8:45:45 PM EST Finalized by: JEWELL PLUNKETT on Sun4 8:45:45 PM [facility] Comment on above: Order Comment: Injur y/Trauma or Illness?:Illness/Other How long have you had these symptoms (acute/chronic)?:Acute Reason for exam?:chest pain History of cancer?:no Surgeries, chemotherapy, or radiation?:none Type of Exam?:Initial Additional signs and symptoms?:none CT KIDNEY STONEon 06-30-2023 CT KIDNEY STONE EXAM: CT KIDNEY STONE DATE: 06/30/2023 9:13 pm TECHNIQUE: Axial CT images were obtained through the abdomen and pelvis without intravenous contrast administration. Multiplanar reformatted images also created. Dose reduction techniques were achieved by using automated exposure control and/or adjustment of mA and/or kV according to patient size and/or use of iterative reconstruction technique. HISTORY: ORDERING SYSTEM PROVIDED HISTORY: flank pain, TECHNOLOGIST PROVIDED HISTORY: Illness/Other Reason for exam: low back pain, more left side Encounter Type: Initial Additional signs and symptoms: Back pain x3 days. More left sided ORDERING SYSTEM PROVIDED DIAGNOSIS CODES: COMPARISON: None FINDINGS: Lower chest: A couple of tiny benign inflammatory nodules laterally in the right lower lung field. Liver: The liver is homogeneous with normal contours and normal size. Gallbladder: Status post cholecystectomy. No significant biliary dilatation. Pancreas: The pancreas is homogeneous without evidence for mass lesion or inflammation. Spleen: The spleen is unremarkable without evidence for mass lesion. Adrenals: The adrenal glands are unremarkable Kidneys and bladder: The kidneys are unremarkable with no evidence for mass lesion, hydronephrosis or inflammation.No obstructing urinary tract stone.The ureters demonstrate normal caliber.The urinary bladder appears unremarkable given lack of distention. GI tract: Stomach is unremarkable.Visualized small bowel is unremarkable without evidence for obstruction or active inflammation. The visualized portion of the large bowel is unremarkable. Reproductive: The uterus has been removed. Lymph nodes: No retroperitoneal or abdominal lymphadenopathy. Vascular: The aorta demonstrates normal caliber. Peritoneum: No free intraperitoneal air or fluid. No acute inflammation. Abdominal wall and Skeletal: Unremarkable without acute abnormality. IMPRESSION: No acute abdominal pathology. No acute inflammatory process, obstructing urinary stone or bowel obstruction. Workstation ID: [id number] Dictated by: LAVERN LIGHT on Sat Jun 30, 2023 10:01:21 PM EST Transcribed by: LAVERN LIGHT on Sat Jun 30, 2023 10:01:21 PM EST Finalized by: LAVERN LIGHT on [facility] Jun 30, 2023 10:01:[address] [facility] Comment on above: Order Comment: Injur y/Trauma or Illness?:Illness/Other How long have you had these symptoms (acute/chronic)?:Acute Reason for exam?:low back pain, more left side Type of Exam?:Initial Additional signs and symptoms?:Back pain x3 days. More left sided Study Interpretation of outs brayan studyon 05-01-2023 Outside images for comparison or treatment purposes, not interpreted by Radiologists. IMAGING Outside images for comparison or treatment purposes, not interpreted by Radiologists. IMAGING Office Visiton 11-09-2022 Follow-up visit Diagnoses/Problems Moderate obstructive sleep apnea (327.23) (G47.33) History of continuous positive airway pressure (CPAP) therapy at home (V46.8) (Z99.89) Insomnia (780.52) (G47.00) Provider Impressions Impressions: 1. Obstructive sleep apnea with effective treatment on her APAP therapy. Only Concern I have is the pressure setting is too low on her machine. 2. It is very possible that her blood pressure medicine that was started at the same time as her sleep appeared to be disrupted is because of this situation. 3. Is also possible that she needs to be further acclimated to the APAP therapy. Recommendations: 1. We will adjust the pressure on her machine so that the settings will be more therapeutic for her. 2. I will review her other medications and make sure that there are no side effects that could be occurring due to those. 3. Follow-up with the patient in 3 months. This note was transcribed using the OrderBorder Dictation system. There may be grammatical, punctuation, or verbiage errors that occur with voice recognition programs. Chief Complaint 1 MO F/U PHIL-APAP History of Present IllnessSaw patient today on a 1 month follow-up visit to review her obstructive sleep apnea with APAP therapy. Patient related to me since she has been on CPAP therapy started in March of last year that she felt better rested during the day and slept better at night but then that seem to decrease in June to July of this year. She tells me that Dr. Belle Armstrong is done an extensive evaluation of all of her labs and was unable to find anything. I noted however when I talked to her and looked up her records that she was started on lisinopril 10 mg a day in June of this year and that that dose was subsequently increased to 20 mg a day in September of this year. Lisinopril does have side effects including headaches cough, anxiety and insomnia. The patient has her equipment through [employer] in [place]. Review of Systems There is no been no change in her review of systems. Active Problems Apnea (786.03) (R06.81) Bronchitis (490) (J40) Cough (786.2) (R05.9) Elevated blood pressure reading (796.2) (R03.0) Fatigue (780.79) (R53.83) Hormone imbalance (259.9) (E34.9) HTN (hypertension) (401.9) (I10) Insomnia (780.52) (G47.00) Joint pain (719.40) (M25.50) Laryngitis (464.00) (J04.0) Maxillary sinusitis (473.0) (J32.0) Mild major depression, single episode (296.21) (F32.0) Moderate obstructive sleep apnea (327.23) (G47.33) Myalgia (729.1) (M79.10) Overactive bladder (596.51) (N32.81) Poor sleep hygiene (307.49) (Z72.821) Screening for lipid disorders (V77.91) (Z13.220) Seasonal allergies (477.9) (J30.2) URI (upper respiratory infection) (465.9) (J06.9) Vitamin D deficiency (268.9) (E55.9) Past Medical History No pertinent past medical history (V49.89) (Z78.9) Surgical History History of Carpal tunnel surgery History of section History of Gallbladder surgery History of Hysterectomy History of Ovarian cystectomy History of Tonsillectomy Social History Daily caffeine consumption, 2-3 servings a day No illicit drug use Non-smoker (V49.89) (Z78.9) Occasional alcohol use Allergies No Known Drug Allergies Recorded By: Christel Beebe; 04/27/2021 8:30:37 AM Current Meds Medication NameInstruction Lisinopril 10 MG Oral TabletTAKE 1 TABLET DAILY DIRECTED. Multivitamin Oral TabletTAKE 1 TABLET DAILY. Xyzal Allergy 24HR 5 MG Oral TabletTAKE 1 TABLET DAILY. Vitals Vital Signs Recorded: 09Nov2022 09:00AM Lhxjkirgeij80 F, Temporal Heart Rate90 Lenrllul026 Acfbxxxdc99 Height5 ft 2 in Wsdcgz687 lb 12.8 oz BMI Cwgygqoymd34.69 kg/m2 BSA Calculated1.77 Tobacco Useb) No Falls Screening (Age 18+)a) No falls within the last year O2 Cpiqzxrkrf34, RA Physical Exam Physical exam was not done today. Signatures Electronically signed by : Gurvinder Mccarty DO; Nov 10 2022 2:06PM EST (Author) Normal [facility] Tobacco Screening.on 023 Fall risk assessment a) No falls within the last year [facility] DO Work Phone: Tobacco use status [facility] b) No [facility] DO Work Phone: Office Visiton 10-03-2022 Follow-up visit Diagnoses/Problems Moderate obstructive sleep apnea (327.23) (G47.33) Insomnia (780.52) (G47.00) Poor sleep hygiene (307.49) (Z72.821) Provider Impressions Impressions: 1. Obstructive sleep apnea syndrome which I am convinced that she has significant disease based on her history and exam. 2. Insomnia. 3. Poor sleep hygiene. Recommendations: 1. I have encouraged her to use her CPAP on a nightly basis and if she is unable to sleep within 30 to 40 minutes that she should get up and do some type of boring activity and a low light area. When she feels somnolent again then return to bed. 2. I encouraged her to use room darkening shades. She reports that there are shades open in the bedroom and in adjacent rooms so she can easily see the outside light level. 3. I encouraged her to do some exercise couple hours before bedtime and exercise to the point where she is actually breaking out in a slight sweat. Currently she reports exercising on a stationary bike in the morning. 4. Try nasal decongestant such as Nasacort. 5. We will follow-up with the patient in 1 month. This note was transcribed using the OrderBorder Dictation system. There may be grammatical, punctuation, or verbiage errors that occur with voice recognition programs. Chief Complaint Sleep apnea History of Present IllnessThidiann is a 62-year-old female that I was asked to evaluate because of problems that she is having with her sleep and her sleep apnea device. She has had problems with her sleep since 2016 and that she does not feel as though she has any energy during the daytime when she awakens. She has been told by some family members that she snores at nighttime she has not been observed having stop breathing episodes and does not experience any choking or gasping during sleep. She has had problems with morning headaches but that is reduced now since she has used the CPAP. Her [place] sleepiness scale was 8. She reports that when she first started on the CPAP therapy which was on 04/10/2022 that she initially felt better but more recently over the last 2 to 3 months she does not appreciate the same benefits. She has been aware of having problems with her sleep since 2015. She usually goes to bed between 9 and 10 in the evening and is up at 5:45 AM. She does not take any naps during the day. She does have difficulty in initiating and maintaining sleep. She usually drinks about 16 ounces of coffee in the morning and Diet Coke on certain days in the afternoon. She does have some dreams at nighttime but only occasional. The patient has had a cholecystectomy, tonsillectomy and adenoidectomy, total abdominal hysterectomy with unilateral salpingo-oophorectomy for noncancerous reasons. She is also had bilateral carpal tunnel surgery. Family history is positive for mother dying with brain aneurysm and father with prostate cancer and Parkinson's disease. She reports her siblings do not relate any history of medical problems to her. The patient denies any smoking admits to social alcohol usage on a monthly basis. She is . 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 She was originally born and raised in [place] and then moved to [place]. Review of Systems Patient reports her weight is increased about 25 pounds over the past year. She does have chronic problems with nasal congestion but felt that she did not want to use a nose spray on a regular basis so she has not been using that at all. She is not take any oral medications for that either. She reports that she may often find the mask that she is wearing off of her face in the morning. She does admit to some seasonal allergies. When I asked her in regards to any problems with depression she became emotional with the question. All other review of systems were noncontributory. Refer to the HPI. Active Problems Apnea (786.03) (R06.81) Bronchitis (490) (J40) Cough (786.2) (R05.9) Elevated blood pressure reading (796.2) (R03.0) Fatigue (780.79) (R53.83) Hormone imbalance (259.9) (E34.9) HTN (hypertension) (401.9) (I10) Joint pain (719.40) (M25.50) Laryngitis (464.00) (J04.0) Maxillary sinusitis (473.0) (J32.0) Mild major depression, single episode (296.21) (F32.0) Moderate obstructive sleep apnea (327.23) (G47.33) Myalgia (729.1) (M79.10) Overactive bladder (596.51) (N32.81) Screening for lipid disorders (V77.91) (Z13.220) Seasonal allergies (477.9) (J30.2) URI (upper respiratory infection) (465.9) (J06.9) Vitamin D deficiency (268.9) (E55.9) Past Medical History No pertinent past medical history (V49.89) (Z78.9) Surgical History History of Carpal tunnel surgery History of section History of Gallbladder surgery History of Hysterectomy History of Ovarian cystectomy History of Tonsillectomy Social History Daily caffeine consumption, 2-3 servings a day No illicit drug use Non-smoker (V49.89) (Z78.9) Occasional alcohol use Allergies No Known Drug Allergies (more content not included)... Normal [facility] Tobacco Screening.on 023 Fall risk assessment a) No falls within the last year [facility] DO Work Phone: Tobacco use status [facility] b) No [facility] DO Work Phone: Blood Pressure Cuff Sizeon 0 06-28-2022 Adult depression screening assessment No [facility] Work Phone: Fall risk assessment a) No falls within the last year [facility] Work Phone: Tobacco use status [facility] b) No [facility] Work Phone: Blood Pressure Cuff Size Adult [facility] Work Phone: Office Visit (Internal Medic ine)on 06-28-2022 Follow-up visit Diagnoses/Problems Assessed HTN (hypertension) (401.9) (I10) Orders HTN (hypertension) Start: Lisinopril 10 MG Oral Tablet; TAKE 1 TABLET DAILY DIRECTED Rx By: Cierra De Jesus; Dispense: 30 Days ; #:30 Tablet; Refill: 3;For: HTN (hypertension); DERRICK = N; Verified Transmission to [facility]; Last Updated By: Carlos Centeno; 06/28/2022 9:03:52 AM Provider Impressions 1. HTN - stopped hctz due too frequency urination - will try lisinopril 10mg po daily - continue checking blood pressures at home - call in 2 weeks and update with blood presusres - follow up in 3 mo Chief Complaint 62 y/o female presents for 6 week f/u Meds updated; she stopped a few of them due to them not helping anymore Pt stopped her HTCZ due too constantly having to use the restroom History of Present IllnessPatient is here today for 6-8 week follow up Pt reports that she stopped the hctz due to frequency urination. She zuniga started ww as well, just started it one week ago, has lost 4 lbs already. Review of Systems Constitutional: no fever, no chills and not feeling poorly. ENT: no nasal discharge and no sore throat. Cardiovascular: no chest pain and no palpitations. Respiratory: no cough and not coughing up sputum. Active Problems Problems Apnea (786.03) (R06.81) Bronchitis (490) (J40) Cough (786.2) (R05.9) Elevated blood pressure reading (796.2) (R03.0) Fatigue (780.79) (R53.83) Hormone imbalance (259.9) (E34.9) HTN (hypertension) (401.9) (I10) Joint pain (719.40) (M25.50) Laryngitis (464.00) (J04.0) Maxillary sinusitis (473.0) (J32.0) Mild major depression, single episode (296.21) (F32.0) Moderate obstructive sleep apnea (327.23) (G47.33) Myalgia (729.1) (M79.10) Overactive bladder (596.51) (N32.81) Screening for lipid disorders (V77.91) (Z13.220) Seasonal allergies (477.9) (J30.2) URI (upper respiratory infection) (465.9) (J06.9) Vitamin D deficiency (268.9) (E55.9) Past Medical History Problems No pertinent past medical history (V49.89) (Z78.9) Surgical History Problems History of Carpal tunnel surgery History of section History of Gallbladder surgery History of Hysterectomy History of Ovarian cystectomy History of Tonsillectomy Family History Other Family history of cardiac disorder (V17.49) (Z82.49) Social History Problems Daily caffeine consumption, 2-3 servings a day No illicit drug use Non-smoker (V49.89) (Z78.9) Occasional alcohol use Allergies Medication No Known Drug Allergies Recorded By: Christel Beebe; 04/27/2021 8:30:37 AM Current Meds Medication NameInstruction Multivitamin Oral TabletTAKE 1 TABLET DAILY. Xyzal Allergy 24HR 5 MG Oral TabletTAKE 1 TABLET DAILY. Vitals Vital Signs Recorded: [id number] 08:44AM Heart Rate79 Vqhjhbja637 Kijnynczj15 Blood Pressure Cuff SizeAdult Height5 ft 2 in Pgysyp460 lb BMI Txlstwfxbw87.36 kg/m2 BSA Calculated1.77 Tobacco Useb) No PHQ-2 #1. Over the last 2 weeks have you felt down, depressed or hopeless? (If yes, answer PHQ-9 below)No Falls Screening (Age 18+)a) No falls within the last year Physical Exam Constitutional General appearance: Alert and in no acute distress. Eyes Inspection of eyes: Sclera and conjunctiva were normal. Pupil exam: Pupils were equal in size. Extraocular movements were intact. Musculoskeletal Inspection/palpation of joints, bones and muscles: No joint swelling. Normal movement of all extremities. Skin Skin inspection: Normal skin color and pigmentation, normal skin turgor and no visible rash. Psychiatric Orientation: Oriented to person, place, and time. Mood and affect: Normal. Signatures Electronically signed by : Cierra De Jesus DO; Jun 28 2022 9:13AM EST (Author) Normal [facility] Blood Pressure Cuff Sizeon 1 07-11-2021 Fall risk assessment a) No falls within the last year [facility] Work Phone: Tobacco use status [facility] b) No [facility] Work Phone: Blood Pressure Cuff Size Adult [facility] Work Phone: Office Visit (Internal Medic ine)on 05-10-2022 Follow-up visit Diagnoses/Problems Assessed Bronchitis (490) (J40) HTN (hypertension) (401.9) (I10) Orders Bronchitis Start: Benzonatate 100 MG Oral Capsule; TAKE 1 CAPSULE 3 TIMES DAILY NEEDED Rx By: Cierra De Jesus; Dispense: 10 Days ; #:30 Capsule; Refill: 0;For: Bronchitis; DERRICK = N; Verified Transmission to [facility]; Last Updated By: Degordian; 05/10/2022 2:07:31 PM Start: Doxycycline Hyclate 100 MG Oral Capsule; TAKE 1 CAPSULE EVERY 12 HOURS DAILY Rx By: Cierra De Jesus; Dispense: 7 Days ; #:14 Capsule; Refill: 0;For: Bronchitis; DERRICK = N; Verified Transmission to [facility]; Last Updated By: Degordian; 05/10/2022 2:07:40 PM Start: HYDROcodone Bit-Homatrop MBr 5-1.5 MG/5ML Oral Solution (Hycodan); Take 5-10 ml po q 6 hr pron cough Rx By: Cierra De Jesus; Dispense: 0 Days ; #:150 Milliliter; Refill: 0;For: Bronchitis; DERRICK = N; Verified Transmission to [facility]; Last Updated By: Bernarda CentenomimoOn; 05/10/2022 2:07:26 PM Start: methylPREDNISolone 4 MG Oral Tablet Therapy Pack (Medrol); Please follow instructions in package Rx By: Cierra De Jesus; Dispense: 0 Days ; #:1 X 21 Tablet Pack; Refill: 0;For: Bronchitis; DERRICK = N; Verified Transmission to [facility]; Last Updated By: Carlos Centeno; 05/10/2022 2:07:32 PM HTN (hypertension) Start: hydroCHLOROthiazide 12.5 MG Oral Tablet; TAKE 1 TABLET DAILY NEEDED Rx By: Cierra De Jesus; Dispense: 90 Days ; #:90 Tablet; Refill: 3;For: HTN (hypertension); DERRICK = N; Verified Transmission to [facility]; Last Updated By: Bernarda CentenomimoOn; 05/10/2022 2:07:34 PM Provider Impressions 1. ACute bronchitis 2/2 influenza A with sick contacts - sent doxycycline - Medrol dose pack - Tessalon - Hycodan cough syrup - I have personally reviewed this patient's OARRS report and found it to be appropriate. The report has been uploaded into the medical record. I have considered the risks of abuse, addiction, dependence, and diversion and feel that it is clinically appropriate for this patient to be prescribed this controlled medication. Chief Complaint 62 y/o female presents with recurring elevated BP; new cough/congestion Pt states she just feels terrible Cough, congestion, fatigue, 101.0 fever this morning, mild body aches Pt found out her neighbor that was over was diagnosed with influenza She started having symptoms last Sunday She states her granddaughter has the flu as well History of Present IllnessPatient is here today for sick visit. Patient reports that she has had sick contact with granddaughter who had flu A and multiple with ear infections. Patient started with symptoms on Sun a week ago now, +cough, - sore throat, +body aches, +headaches, - ear pain, +sinus drainage, -n/v + diarrhea. Review of Systems Constitutional: no fever, no chills, not feeling poorly and not feeling tired. ENT: nasal discharge, but no earache and no sore throat. Cardiovascular: no chest pain and no palpitations. Respiratory: cough, coughing up sputum and wheezing that is consistent with asthma. Gastrointestinal: no abdominal pain, no nausea and no diarrhea. Musculoskeletal: no arthralgias. Active Problems Problems Apnea (786.03) (R06.81) Cough (786.2) (R05.9) Elevated blood pressure reading (796.2) (R03.0) Fatigue (780.79) (R53.83) Hormone imbalance (259.9) (E34.9) Joint pain (719.40) (M25.50) Laryngitis (464.00) (J04.0) Maxillary sinusitis (473.0) (J32.0) Mild major depression, single episode (296.21) (F32.0) Moderate obstructive sleep apnea (327.23) (G47.33) Myalgia (729.1) (M79.10) Overactive bladder (596.51) (N32.81) Screening for lipid disorders (V77.91) (Z13.220) Seasonal allergies (477.9) (J30.2) URI (upper respiratory infection) (465.9) (J06.9) Vitamin D deficiency (268.9) (E55.9) Past Medical History Problems No pertinent past medical history (V49.89) (Z78.9) Surgical History Problems History of Carpal tunnel surgery History of section History of Gallbladder surgery History of Hysterectomy History of Ovarian cystectomy History of Tonsillectomy Family History Other Family history of cardiac disorder (V17.49) (Z82.49) Social History Problems Daily caffeine consumption, 2-3 servings a day No illicit drug use Non-smoker (V49.89) (Z78.9) Occasional alcohol use Allergies Medication No Known Drug Allergies Recorded By: Christel Beebe; 04/27/2021 8:30:37 AM Current Meds Medication NameInstruction Albuterol Sulfate HFA 108 (90 Base) MCG/ACT Inhalation Aerosol SolutionINHALE 1 TO 2 PUFFS EVERY 6 HOURS NEEDED. Cyclobenzaprine HCl - 10 MG Oral TabletTAKE 1 TABLET 3 TIMES DAILY NEEDED. Estradiol 0.5 MG Oral TabletTAKE 1 TABLET DAILY DIRECTED. Gemtesa 75 MG Oral TabletTake 1 tablet once daily Multivitamin Oral TabletTAKE 1 TABLET DAILY. Omeprazole 40 MG Oral Capsule Delayed Release Vitamin D (Ergo (more content not included)... Normal Touchworks PEPE-WITH REFLEX TO ENAon PEPE WITH REFLEX TO MAG Negative Normal NEGATIVE [facility] Comment on above: Result Comment: The Antinuclear Antibody (PEPE) test was performed using indirect immunofluorescence assay with HEp-2 cells slide. Performed By: #### A NA2 #### [facility] [address] [place] [address] Blood Pressure Cuff Sizeon 1 07-04-2021 Fall risk assessment a) No falls within the last year [facility] Work Phone: Tobacco use status CPHS b) No [facility] Work Phone: Blood Pressure Cuff Size Adult [facility] Work Phone: C Reactive Protein, Serumon 05-03-2022 CRP [Mass/Vol] 0.61 mg/dL [facility] Work Phone: Comment on above: REF VALUE< 1.00 C-REACTIVE PROTEINon 022 C-REACTIVE PROTEIN 0.61 mg/dL Normal [facility] Comment on above: Result Comment: REF VALUE < 1.00 Performed By: #### C RP #### [address] [address] CBC AND DIFFERENTIALon 05-03 % AUTOMATED IMMATURE GRAN 0.2 % Normal 0.0 - 0.9 [facility] Comment on above: Result Comment: Maria E ture Granulocyte Count (IG) includes promyelocytes, myelocytes and metamyelocytes but does not include bands. Percent differential counts (%) should be interpreted in the context of the absolute cell counts (cells/L). Performed By: #### C BCDF #### [address] [address] Basophils (Bld) [#/Vol] 0.04 10*3/uL Normal 0.00 - 0.10 [facility] Comment on above: Performed By: #### C BCDF #### [address] [address] Basophils/100 WBC (Bld) 0.7 % Normal 0.0 - 2.0 [facility] Comment on above: Performed By: #### C BCDF #### [address] [address] Eosinophils (Bld) [#/Vol] 0.15 10*3/uL Normal 0.00 - 0.70 [facility] Comment on above: Performed By: #### C BCDF #### [address] [address] Eosinophils/100 WBC (Bld) 2.6 % Normal 0.0 - 6.0 [facility] Comment on above: Performed By: #### C BCDF #### [address] [address] Erythrocyte distribution width (RBC) [Ratio] 13.4 % Normal 11.5 - 14.5 [facility] Comment on above: Performed By: #### C BCDF #### [address] [address] Hematocrit (Bld) [Volume fraction] 43.3 % Normal 36.0 - 46.0 [facility] Comment on above: Performed By: #### C BCDF #### [address] [address] Hemoglobin (Bld) [Mass/Vol] 14.0 g/dL Normal 12.0 - 16.0 [facility] Comment on above: Performed By: #### C BCDF #### [address] [address] Lymphocytes (Bld) [#/Vol] 1.26 10*3/uL Normal 1.20 - 4.80 [facility] Comment on above: Performed By: #### C BCDF #### [address] [address] Lymphocytes/100 WBC (Bld) 21.7 % Normal 13.0 - 44.0 [facility] Comment on above: Performed By: #### C BCDF #### [address] [address] MCHC (RBC) [Mass/Vol] 32.3 g/dL Normal 32.0 - 36.0 [facility] Comment on above: Performed By: #### C BCDF #### [address] [address] MCV (RBC) [Entitic vol] 83 fL Normal 80 - 100 [facility] Comment on above: Performed By: #### C BCDF #### [address] [address] Monocytes (Bld) [#/Vol] 0.67 10*3/uL Normal 0.10 - 1.00 [facility] Comment on above: Performed By: #### C BCDF #### [address] [address] Monocytes/100 WBC (Bld) 11.5 % Normal 2.0 - 10.0 [facility] Comment on above: Performed By: #### C BCDF #### [address] [address] Neutrophils (Bld) [#/Vol] 3.68 10*3/uL Normal 1.20 - 7.70 [facility] Comment on above: Result Comment: Perc ent differential counts (%) should be interpreted in the context of the absolute cell counts (cells/L). Performed By: #### C BCDF #### [address] [address] Neutrophils/100 WBC (Bld) 63.3 % Normal 40.0 - 80.0 [facility] Comment on above: Performed By: #### C BCDF #### [address] [address] Platelets (Bld) [#/Vol] 202 10*3/uL Normal 150 - 450 [facility] Comment on above: Performed By: #### C BCDF #### [address] [address] RBC 5.20 x10E12/L Normal 4.00 - 5.20 [facility] Comment on above: Performed By: #### C BCDF #### [address] [address] WBC (Bld) [#/Vol] 5.8 10*3/uL Normal 4.4 - 11.3 [facility] Comment on above: Performed By: #### C BCDF #### [address] [address] COMPREHENSIVE PANELon 2021 Albumin [Mass/Vol] 4.3 g/dL Normal 3.4 - 5.0 [facility] Comment on above: Performed By: #### C MP #### [address] [address] ALP [Catalytic activity/Vol] 79 U/L Normal 33 - 136 [facility] Comment on above: Performed By: #### C MP #### [address] [address] ALT [Catalytic activity/Vol] 18 U/L Normal 7 - 45 [facility] Comment on above: Result Comment: Julita ents treated with Sulfasalazine may generate falsely decreased results for ALT. Performed By: #### C MP #### [address] [address] Anion gap [Moles/Vol] 13 mmol/L Normal 10 - 20 [facility] Comment on above: Performed By: #### C MP #### [address] [address] AST [Catalytic activity/Vol] 19 U/L Normal 9 - 39 [facility] Comment on above: Performed By: #### C MP #### [address] [address] Bilirubin [Mass/Vol] 1.0 mg/dL Normal 0.0 - 1.2 [facility] Comment on above: Performed By: #### C MP #### [address] [address] Calcium [Mass/Vol] 9.3 mg/dL Normal 8.6 - 10.3 [facility] Comment on above: Performed By: #### C MP #### [address] [address] Chloride [Moles/Vol] 102 mmol/L Normal 98 - 107 [facility] Comment on above: Performed By: #### C MP #### [address] [address] Creatinine [Mass/Vol] 0.63 mg/dL Normal 0.50 - 1.05 [facility] Comment on above: Performed By: #### C MP #### [address] [address] eGFR FEMALE >90 Normal >90 [facility] Comment on above: Result Comment: CALC ULATIONS OF ESTIMATED GFR ARE PERFORMED USING THE 2020 CKD-EPI STUDY REFIT EQUATION WITHOUT THE RACE VARIABLE FOR THE IDMS-TRACEABLE CREATININE METHODS. https://jasn.asnjournals.org/content/early//ASN.15552710 88 Performed By: #### C MP #### [address] [address] Glucose [Mass/Vol] 94 mg/dL Normal 74 - 99 [facility] Comment on above: Performed By: #### C MP #### [address] [address] HCO3 (Bld) [Moles/Vol] 28 mmol/L Normal 21 - 32 [facility] Comment on above: Performed By: #### C MP #### [address] [address] Potassium [Moles/Vol] 3.6 mmol/L Normal 3.5 - 5.3 [facility] Comment on above: Performed By: #### C MP #### [address] [address] Protein [Mass/Vol] 7.3 g/dL Normal 6.4 - 8.2 [facility] Comment on above: Performed By: #### C MP #### [address] [address] Sodium [Moles/Vol] 139 mmol/L Normal 136 - 145 [facility] Comment on above: Performed By: #### C MP #### [address] [address] Urea nitrogen [Mass/Vol] 23 mg/dL Normal 6 - 23 [facility] Comment on above: Performed By: #### C #### [facility] [address] [place] [address] Complete Blood Count + Diffchelsea sanchez 05-03-2022 Basophils/100 WBC (Bld) 0.7 % 0.0 - 2.0 [facility] Work Phone: [phone] Erythrocyte distribution width (RBC) [Ratio] 13.4 % See Below [facility] Work Phone: [phone] Comment on above: Reference Range: 11. 5 - 14.5 Hematocrit (Bld) [Volume fraction] 43.3 % See Below [facility] Work Phone: [phone] Comment on above: Reference Range: 36. 0 - 46.0 Hemoglobin (Bld) [Mass/Vol] 14.0 g/dL See Below [facility] Work Phone: [phone] Comment on above: Reference Range: 12. 0 - 16.0 Lymphocytes/100 WBC (Bld) 21.7 % See Below [facility] Work Phone: [phone] Comment on above: Reference Range: 13. 0 - 44.0 MCHC (RBC) [Mass/Vol] 32.3 g/dL See Below [facility] Work Phone: [phone] Comment on above: Reference Range: 32. 0 - 36.0 MCV (RBC) [Entitic vol] 83 fL 80 - 100 [facility] Work Phone: [phone] Monocytes/100 WBC (Bld) 11.5 % 2.0 - 10.0 [facility] Work Phone: [phone] Neutrophils/100 WBC (Bld) 63.3 % See Below [facility] Work Phone: [phone] Comment on above: Reference Range: 40. 0 - 80.0 Platelets (Bld) [#/Vol] 202 10*3/uL 150 - 450 [facility] Work Phone: RBC (Bld) [#/Vol] 5.20 {x10E12/L} See Below [facility] Work Phone: Comment on above: Reference Range: 4.0 0 - 5.20 WBC (Bld) [#/Vol] 5.8 10*3/uL 4.4 - 11.3 [facility] Work Phone: Complete Blood Count + Differential 0.04 {x10E9/L} See Below [facility] Work Phone: Comment on above: Reference Range: 0.0 0 - 0.10 Complete Blood Count + Differential 0.15 {x10E9/L} See Below [facility] Work Phone: Comment on above: Reference Range: 0.0 0 - 0.70 Complete Blood Count + Differential 0.67 {x10E9/L} See Below [facility] Work Phone: Comment on above: Reference Range: 0.1 0 - 1.00 Complete Blood Count + Differential 1.26 {x10E9/L} See Below [facility] Work Phone: Comment on above: Reference Range: 1.2 0 - 4.80 Complete Blood Count + Differential 3.68 {x10E9/L} See Below [facility] Work Phone: Comment on above: Reference Range: 1.2 0 - 7.70 Percent differential counts (%) should be interpreted in the context of the absolute cell counts (cells/L). Complete Blood Count + Differential 2.6 % 0.0 - 6.0 [facility] Work Phone: Complete Blood Count + Differential 0.2 % 0.0 - 0.9 [facility] Work Phone: Comment on above: Immature Granulocyte Count (IG) includes promyelocytes, myelocytes and metamyelocytes but does not include bands. Percent differential counts (%) should be interpreted in the context of the absolute cell counts (cells/L). Laboratory - Chemistry and C hemistry - challengeon 05-03-2022 Albumin BCP dye [Mass/Vol] 4.3 g/dL 3.4 - 5.0 [facility] Work Phone: [phone] ALP [Catalytic activity/Vol] 79 U/L 33 - 136 [facility] Work Phone: [phone] ALT With P-5'-P [Catalytic activity/Vol] 18 U/L 7 - 45 [facility] Work Phone: [phone] Comment on above: Patients treated wit h Sulfasalazine may generate falsely decreased results for ALT. Anion gap [Moles/Vol] 13 mmol/L 10 - 20 [facility] Work Phone: [phone] AST With P-5'-P [Catalytic activity/Vol] 19 U/L 9 - 39 [facility] Work Phone: [phone] Bilirubin [Mass/Vol] 1.0 mg/dL 0.0 - 1.2 [facility] Work Phone: [phone] Calcium [Mass/Vol] 9.3 mg/dL 8.6 - 10.3 [facility] Work Phone: [phone] Chloride [Moles/Vol] 102 mmol/L 98 - 107 [facility] Work Phone: [phone] CO2 [Moles/Vol] 28 mmol/L 21 - 32 [facility] Work Phone: Creatinine [Mass/Vol] 0.63 mg/dL See Below [facility] Work Phone: Comment on above: Reference Range: 0.5 0 - 1.05 Glucose [Mass/Vol] 94 mg/dL 74 - 99 [facility] Work Phone: Potassium [Moles/Vol] 3.6 mmol/L 3.5 - 5.3 [facility] Work Phone: Protein [Mass/Vol] 7.3 g/dL 6.4 - 8.2 [facility] Work Phone: [phone] Sodium [Moles/Vol] 139 mmol/L 136 - 145 [facility] Work Phone: [phone] Urea nitrogen [Mass/Vol] 23 mg/dL 6 - 23 [facility] Work Phone: Laboratory - Serology - non- microon 05-03-2022 Nuclear Ab Hep2 substrate Ql (S) Negative NEGATIVE [facility] Work Phone: Comment on above: The Antinuclear Anti body (PEPE) test was performed using indirect immunofluorescence assay with HEp-2 cells slide. MAGNESIUMon 05-03-2022 Magnesium [Mass/Vol] 1.99 mg/dL Normal 1.60 - 2.40 [facility] Comment on above: Performed By: #### M G #### [facility] [address] [place] [address] Magnesium, Serumon 2 Magnesium [Mass/Vol] 1.99 mg/dL See Below [facility] Work Phone: Comment on above: Reference Range: 1.6 0 - 2.40 No Panel Informationon 05-03 >90 >90 [facility] Work Phone: Comment on above: CALCULATIONS OF FÉLIX MATED GFR ARE PERFORMED USING THE 2020 CKD-EPI STUDY REFIT EQUATION WITHOUT THE RACE VARIABLE FOR THE IDMS-TRACEABLE CREATININE METHODS.https://jasn.asnjournals.org/content/early//ASN. 1771261998 Office Visit (Internal Medic ine)on 05-03-2022 Follow-up visit Diagnoses/Problems Assessed Joint pain (719.40) (M25.50) Myalgia (729.1) (M79.10) Fatigue (780.79) (R53.83) Elevated blood pressure reading (796.2) (R03.0) Orders Fatigue Vitamin B12, Serum; Status:Active; Requested for:[id number]; Perform:Lab Services - Lab To Draw (Blood Test); Due:01Aug2022;Ordered; For:Fatigue; Ordered By:Cierra De Jesus; Vitamin D 25-Hydroxy; Status:Active; Requested for:03May2022; Perform:Lab Services - Lab To Draw (Blood Test); Due:01Aug2022;Ordered; For:Fatigue; Ordered By:Cierra De Jesus; Joint pain PEPE-WITH REFLEX TO MAG; Status:Active; Requested for:03May2022; Perform:Lab Services - Lab To Draw (Blood Test); Due:01Aug2022;Ordered; For:Joint pain; Ordered By:Cierra De Jesus; C Reactive Protein, Serum; Status:Active; Requested for:03May2022; Perform:Lab Services - Lab To Draw (Blood Test); Due:01Aug2022;Ordered; For:Joint pain; Ordered By:Cierra De Jesus; Complete Blood Count + Differential; Status:Active; Requested for:03May2022; Perform:Lab Services - Lab To Draw (Blood Test); Due:01Aug2022;Ordered; For:Joint pain; Ordered By:Cierra De Jesus; Comprehensive Metabolic Panel; Status:Active; Requested for:03May2022; Perform:Lab Services - Lab To Draw (Blood Test); Due:01Aug2022;Ordered; For:Joint pain; Ordered By:Cierra De Jesus; Rheumatoid Factor, Serum or Plasma; Status:Active; Requested for:03May2022; Perform:Lab Services - Lab To Draw (Blood Test); Due:01Aug2022;Ordered; For:Joint pain; Ordered By:Cierra De Jesus; Sedimentation Rate, Erythrocyte; Status:Active; Requested for:03May2022; Perform:Lab Services - Lab To Draw (Blood Test); Due:01Aug2022;Ordered; For:Joint pain; Ordered By:Cierra De Jesus; Myalgia Start: Cyclobenzaprine HCl - 10 MG Oral Tablet; TAKE 1 TABLET 3 TIMES DAILY NEEDED Rx By: Cierra De Jesus; Dispense: 30 Days ; #:1 X 90 Tablet Bottle; Refill: 1;For: Myalgia; DERRICK = N; Verified Transmission to [facility] 2587; Last Updated By: [facility]; 05/03/2022 11:17:25 AM Magnesium, Serum; Status:Active; Requested for:[id number]; Perform:Lab Services - Lab To Draw (Blood Test); Due:01Aug2022;Ordered; For:Myalgia; Ordered By:Cierra De Jesus; Provider Impressions 1. 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 Elevated blood pressure - she does add a lot of salt to her food and they had been eating out a lot, discussed lowering salt - not taking any otc decongestants, finished prednisone about 1 week ago - will have her check bp at home an call sunday or Sunday with updated blood pressuree Chief Complaint 62 y/o female presents for sick visit Symptoms: Headache; body aches; elevated BP Present for 2 weeks Pt states her legs and her back have been really bothering her History of Present IllnessPatient is here today f or sick visit. Patient reports that she has been having body aches, headache x 2 weeks. Her blood pressure has also been elevated. She does have a blood pressure cuff at home but has not checked it. She is trying to cut back on her salt. Pt reports that the headache is worse in the front. Is more of an annoyance. Review of Systems Constitutional: no fever, no chills and not feeling poorly. ENT: no earache, no nasal discharge and no sore throat. Cardiovascular: no chest pain, no palpitations and no lower extremity edema. Respiratory: no cough and not coughing up sputum. Musculoskeletal: arthralgias, myalgias and back pain. Neurological: headache. Active Problems Problems Apnea (786.03) (R06.81) Cough (786.2) (R05.9) Fatigue (780.79) (R53.83) Hormone imbalance (259.9) (E34.9) Joint pain (719.40) (M25.50) Laryngitis (464.00) (J04.0) Maxillary sinusitis (473.0) (J32.0) Mild major depression, single episode (296.21) (F32.0) Moderate obstructive sleep apnea (327.23) (G47.33) Overactive bladder (596.51) (N32.81) Screening for lipid disorders (V77.91) (Z13.220) Seasonal allergies (477.9) (J30.2) URI (upper respiratory infection) (465.9) (J06.9) Past Medical History Problems No pertinent past medical history (V49.89) (Z78.9) Surgical History Problems History of Carpal tunnel surgery History of section History of Gallbladder surgery History of Hysterectomy History of Ovarian cystectomy History of Tonsillectomy Family History Other Family history of cardiac disorder (V17.49) (Z82.49) Social History Problems Daily caffeine consumption, 2-3 servings a day No illicit drug use Non-smoker (V49.89) (Z78.9) Occasional alcohol use Allergies Medication No Known Drug Allergies Recorded By: Christel Beebe; 04/27/2021 8:30:37 AM Current Meds Medication NameInstruction Albuterol Sulfate HFA 108 (90 Base) MCG/ACT Inhalation Aerosol SolutionINHALE 1 TO 2 PUFFS EVERY 6 HOURS NEEDED. Estradiol 0.5 MG Oral TabletTAKE 1 TABLET DAILY DIRECTED. Gemtesa (more content not included)... Normal Touchworks RHEUMATOID FACTORon 05-03-20 22 RHEUMATOID FACTOR <10 Normal 0 - 15 [facility] Comment on above: Performed By: #### R F #### [facility] [address] [place] [address] Rheumatoid Factor, Serum or Plasmaon 05-03-2022 Rheumatoid factor Nephelometry Qn (S) <10 0 - 15 [facility] Work Phone: SEDIMENTATION RATE, ERYTHROC YTEon 05-03-2022 SEDIMENTATION RATE, ERYTHROCYTE 20 mm/h Normal 0 - 30 [facility] Comment on above: Performed By: #### E SRWS #### [facility] [address] [place] [address] Sedimentation Rate, Erythroc yteon 05-03-2022 ESR (Bld) [Velocity] 20 mm/h 0 - 30 [facility] Work Phone: VITAMIN B12on 05-03-2022 Cobalamin (Vitamin B12) [Mass/Vol] 1077 pg/mL High 211 - 911 [facility] Comment on above: Performed By: #### V TB12 #### [address] [address] VITAMIN D, 25-HYDROXYon 04-20 VITAMIN D, 25-HYDROXY 22 ng/mL Abnormal [facility] Comment on above: Result Comment: . DEFICIENCY: < 20 NG/ML INSUFFICIENCY: 20-29 NG/ML SUFFICIENCY: 30-100 NG/ML THIS ASSAY ACCURATELY QUANTIFIES THE SUM OF VITAMIN D3, 25-HYDROXY AND VIT D2,25-HYDROXY. Performed By: #### V TDOH #### [address] [address] Vitamin B12, Serumon 022 Cobalamin (Vitamin B12) [Mass/Vol] 1077 pg/mL above high threshold 211 - 911 [facility] Work Phone: Vitamin D 25-Hydroxyon 05-03 25-hydroxyvitamin D3 [Mass/Vol] 22 ng/mL Abnormal [facility] Work Phone: Comment on above: .DEFICIENCY: < 20 NG /MLINSUFFICIENCY: 20-29 NG/MLSUFFICIENCY: 30-100 NG/MLTHIS ASSAY ACCURATELY QUANTIFIES THE SUM OFVITAMIN D3, 25-HYDROXY AND VIT D2,25-HYDROXY. Blood Pressure Cuff Sizeon 1 06-05-2021 Fall risk assessment a) No falls within the last year [facility] Work Phone: Tobacco use status CP b) No [facility] Work Phone: Blood Pressure Cuff Size Adult [facility] Work Phone: Office Visit (Internal Medic ine)on 04-05-2022 Follow-up visit Diagnoses/Problems Assessed Maxillary sinusitis (473.0) (J32.0) Cough (786.2) (R05.9) Orders Cough Start: Albuterol Sulfate HFA 108 (90 Base) MCG/ACT Inhalation Aerosol Solution; INHALE 1 TO 2 PUFFS EVERY 6 HOURS NEEDED Rx By: Cierra De Jesus; Dispense: 0 Days ; #:1 X 6.7 GM Inhaler; Refill: 1;For: Cough; DERRICK = N; Verified Transmission to [facility] 1448; Last Updated By: Carlos Centeno; 04/05/2022 2:18:44 PM Start: predniSONE 20 MG Oral Tablet; Take 2 tablets by mouth daily x 5 days Rx By: Cierra De Jesus; Dispense: 5 Days ; #:10 Tablet; Refill: 0;For: Cough; DERRICK = N; Verified Transmission to [facility] 1448; Last Updated By: Carlos Centeno; 04/05/2022 2:18:39 PM Maxillary sinusitis Start: Clarithromycin 500 MG Oral Tablet; TAKE 1 TABLET EVERY 12 HOURS DAILY Rx By: Cierra De Jesus; Dispense: 7 Days ; #:14 Tablet; Refill: 0;For: Maxillary sinusitis; DERRICK = N; Verified Transmission to [place] [id number]; Last Updated By: Carlos Centeno; 04/05/2022 2:18:33 PM Start: [id number]-XK 30-2-10 MG/5ML Oral Syrup; TAKE 5 ML EVERY 4 TO 6 HOURS NEEDED Rx By: Cierra De Jesus; Dispense: 4 Days ; #:120 Milliliter; Refill: 1;For: Maxillary sinusitis; DERRICK = N; Verified Transmission to [facility] 1448; Last Updated By: Carlos Centeno; 04/05/2022 2:18:51 PM Provider Impressions 1. Suspect viral infection transitioning to 2/2 sinus infection, too far outside window to treat for flu so will not test - sent in Biaxin, prednisone taper, albuterol and Bromphed - call if not improving Chief Complaint 62 y/o female presents for sick visit Symptoms: Cough. congestions, fever, body aches Present for 4 days Tx: RosalieQuwaqas; Manuel History of Present IllnessPatient is here to day for sick visit. Reports that her symptoms started 4 days ago. Started with a cough, then developed slight sore throat, +congestion, +headaches, +body aches, did home covid test and it was negative. Patient denies sick contacts with flu positive that she knows of. She has tried otc cough medicine without much relief. Review of Systems Constitutional: feeling poorly and feeling tired, but no fever and no chills. ENT: nasal discharge and sore throat, but no earache. Cardiovascular: no chest pain, no palpitations and no lower extremity edema. Respiratory: cough, but not coughing up sputum. Gastrointestinal: no abdominal pain, no nausea and no diarrhea. Active Problems Problems Apnea (786.03) (R06.81) Fatigue (780.79) (R53.83) Hormone imbalance (259.9) (E34.9) Joint pain (719.40) (M25.50) Laryngitis (464.00) (J04.0) Mild major depression, single episode (296.21) (F32.0) Moderate obstructive sleep apnea (327.23) (G47.33) Overactive bladder (596.51) (N32.81) Screening for lipid disorders (V77.91) (Z13.220) Seasonal allergies (477.9) (J30.2) URI (upper respiratory infection) (465.9) (J06.9) Past Medical History Problems No pertinent past medical history (V49.89) (Z78.9) Surgical History Problems History of Carpal tunnel surgery History of section History of Gallbladder surgery History of Hysterectomy History of Ovarian cystectomy History of Tonsillectomy Family History Other Family history of cardiac disorder (V17.49) (Z82.49) Social History Problems Daily caffeine consumption, 2-3 servings a day No illicit drug use Non-smoker (V49.89) (Z78.9) Occasional alcohol use Allergies Medication No Known Drug Allergies Recorded By: Christel Beebe; 04/27/2021 8:30:37 AM Current Meds Medication NameInstruction buPROPion HCl ER (XL) 300 MG Oral Tablet Extended Release 24 HourTAKE 1 TABLET DAILY. Estradiol 0.5 MG Oral TabletTAKE 1 TABLET DAILY DIRECTED. Gemtesa 75 MG Oral TabletTake 1 tablet once daily Multivitamin Oral TabletTAKE 1 TABLET DAILY. Omeprazole 40 MG Oral Capsule Delayed Release Xyzal Allergy 24HR 5 MG Oral TabletTAKE 1 TABLET DAILY. Vitals Vital Signs Recorded: 05Apr2022 02:01PM Heart Owey752 Cbeqijnv714 Odkkxrmhv11 Blood Pressure Cuff SizeAdult Height5 ft 2 in Bopaxw308 lb BMI Hvrlbvhttr50.63 kg/m2 BSA Calculated1.75 Tobacco Useb) No Falls Screening (Age 18+)a) No falls within the last year Physical Exam Constitutional General appearance: Alert and in no acute distress. Eyes Inspection of eyes: Sclera and conjunctiva were normal. Pupil exam: Pupils were equal in size. Extraocular movements were intact. Ears, Nose, Mouth, and Throat Ears: Auricles: Normal. Otoscopic examination: Tympanic membranes: Normal with no congestion and no discharge. Otic Canals: Normal without tenderness, congestion or discharge. Oropharynx: Abnormal. +post nasal drip, nasal passages erythematous and purulent drainage. Pulmonary Respiratory assessment: No respiratory distress, normal respiratory rhythm and effort. Auscultation of Lungs: Clear bilateral breath sounds. Cardiovascular Auscultation of (more content not included)... Normal [facility] Tobacco Screening.on 022 Fall risk assessment a) No falls within the last year [facility] Work Phone: Tobacco use status [facility] b) No [facility] Work Phone: Esophagus Single Contraston 07-07-2021 Esophagus Single Contrast [facility] Imaging Services [address] [place] [id number] Esophagus Single Contrast MR#: [id number] Acct: [id number] Name: SULAIMAN DOMINGUEZ Rep #: [id number] : 1960 F 61 From: Glenroy raman MD PCP: Dr. Cierar De Jesus, DO Status: REG CLI Study: Esophagus Single Contrast Date of Exam: Exam# [id number] Ordering Dr: Dario Chinchilla MD STUDY: X-RAY - ESOPHAGUS (BARIUM SWALLOW) WITH FLUOROSCOPY REASON FOR EXAM: Female, 61 years old. DYSPHAGIA TECHNIQUE: 17 view(s) of the esophagus were obtained following swallowing of barium. FLUOROSCOPY TIME (if supplied): (27 seconds) minutes/seconds COMPARISON: None. FINDINGS: There is no demonstrated esophageal foreign body. There is no demonstrated stricture or mucosal abnormality. Normal gastroesophageal junction, without a demonstrated hiatal hernia. The patient ingested a 12 mm tablet of barium without any difficulty. Normal visualized aortic arch and descending thoracic aorta. Normal visualized pulmonary parenchyma. Normal visualized osseous structures of the thorax. RAD/Esophagus Single Contrast IMPRESSION: Normal plain film x-ray examination (barium swallow) of the esophagus. Electronically Signed: Glenroy Aguirre MD at 15:05 EST , CC: Dr. Dario Chinchilla MD; Dr. Cierra De Jesus DO Court Monitor: Signed Normal [facility] Blood Pressure Cuff Sizeon 0 06-08-2021 Adult depression screening assessment Positive [facility] Work Phone: Fall risk assessment a) No falls within the last year [facility] Work Phone: Tobacco use status [facility] b) No [facility] Work Phone: Blood Pressure Cuff Size Adult [facility] Work Phone: INFLUENZA A/B, COVID 2019 PC R,SYMPTOMATICon 05-30-2021 Date and time of symptom onset [id number] 1 [facility] Work Phone: INFLUENZA A/B, COVID 2019 PCR,SYMPTOMATIC Detected Abnormal See Below [facility] Work Phone: Comment on above: Reference Range: Not Detected.This assay is designed to detect the N, ORF1ab and/or S genes of SARS-CoV-2 via nucleic acid amplification. A Negative (NOT DETECTED) result does not preclude 2019-nCoV infection since the adequacy of sample collection and/or low viral burden may result in presence of viral nucleic acids below the clinical sensitivity of this test method. Negative (NOT DETECTED) result should not be used as the sole basis for treatment or other patient management decisions. Rather negative results should be combined with clinical observations, patient history, and epidemiological information to make patient management decisions.Fact sheet for providers: https://www.fda.gov/media/177305/downloadFact sheet for patients: https://www.fda.gov/media/744997/downloadThis test has received FDA Emergency Use Authorization (EUA) and has been verified by [facility] ([facility]). This test is only authorized for the duration of time that circumstances exist to justify the authorization of the emergency use of in vitro diagnostic tests for the detection of SARS-CoV-2 virus and/or diagnosis of COVID-19 infection under section 564(b)(1) of the Act, 21 U.S.C. 360bbb-3(b)(1), unless the authorization is terminated or revoked sooner. [facility] is certified under CLIA-88 as qualified to perform high complexity testing. Testing is performed in the [facility] laboratories located at [address] [place] [address]. INFLUENZA A/B, COVID 2019 PCR,SYMPTOMATIC Not detected See Below -[facility] Work Phone: Comment on above: Reference Range: Not Detected Respiratory virus testing is performed routinely by PCR for Influenza A/B and RSV. If Influenza and RSV PCR are negative, testing for parainfluenza 1,2,3 viruses and adenovirus is routinely performed for oncology inpatients and intensive care unit patients at [facility] and is available on request on other patients by calling Laboratory Client Services at [phone] Not Detected results do not preclude Influenza A/B or RSV infections since the adequacy of sample collection or low viral burden may impact the clinical sensitivity of this test method..The TaqManTM SARS-CoV-2, Flu A, Flu B Multiplex Assay is a multiplex, real-time RT-PCR assay for the detection of RNA from the SARS-CoV-2, Influenza A, and Influenza B viruses. A negative result does not preclude the possibility of SARS-CoV-2, Influenza A, or Influenza B infections, and should not be used as the sole basis for patient management decision as a negative result may be caused by very low levels of infection, collection errors, or testing errors. .This test was developed and its performance characteristics were determined by the Microbiology Laboratory, Department of Pathology, [facility], [place], [place]. It has not been cleared or approved by the US Food and Drug Administration; however, FDA clearance or approval is not currently required for clinical use. This test should not be regarded as investigational or for research purposes. SOURCE: Nasal, Nasop haryngealReference Range: Not Detected Respiratory virus testing is performed routinely by PCR for Influenza A/B and RSV. If Influenza and RSV PCR are negative, testing for parainfluenza 1,2,3 viruses and adenovirus is routinely performed for oncology inpatients and intensive care unit patients at [facility] and is available on request on other patients by calling Laboratory Client Services at [phone]. Not Detected results do not preclude Influenza A/B or RSV infections since the adequacy of sample collection or low viral burden may impact the clinical sensitivity of this test method. Tobacco Screening.on 022 Fall risk assessment a) No falls within the last year [facility] Work Phone: Tobacco use status CP b) No [facility] Work Phone: Tobacco Screening.on 021 Fall risk assessment a) No falls within the last year [facility] Work Phone: Tobacco use status CP b) No [facility] Work Phone: SCRN MAMM (CAD)W/SG BILATo n 05-02-2021 SCRN MAMM (CAD)W/SG BILAT [facility] Imaging Services [address] [place] [address] SCRN MAMM (CAD)W/SG BILAT MR#: [id number] Acct: [id number] Name: SULAIMAN DOMINGUEZ Rep #: [id number] : 1960 F 61 From: Glenroy raman MD PCP: Dr. Cierra De Jesus, DO Status: REG CLI Study: SCRN MAMM (CAD)W/SG BILAT Date of Exam: 04/20 08/08 Exam# [id number] Ordering Dr: Josep Teixeira MD MAMMOGRAPHY - BILATERAL SCREENING REASON FOR EXAM: Female, 61 years old. Routine annual screening examination. PERTINENT HISTORY: Non-contributory. TECHNIQUE: Digital bilateral breast sg (3D mammographic acquisition) in the CC and MLO projections. 2-D mediolateral oblique (MLO) and craniocaudad (CC) views of both breasts were obtained. CAD: Full Field Digital Mammography with Computer Added Detection was performed. COMPARISON: Comparison is made with prior examination of 01/14/2019 and 12/24/2017. FINDINGS: Breast Composition: The breasts are heterogeneously dense, which may obscure small masses. Stable 1.4 cm x 1.6 cm well-defined nodule in the upper lateral aspect of the left breast. Prior sonogram demonstrating this to be a cyst. Stable benign-appearing bilateral axillary lymph nodes. No other significant abnormalities are identified. There has been no significant change since the prior study. BI/SCRN MAMM (CAD)W/SG BILAT IMPRESSION: Stable bilateral screening mammogram. Yearly follow-up mammogram recommended. (A) ASSESSMENT CATEGORY: BIRADS Category 2: Benign. A letter regarding these results will be sent to the patient by the facility within 30 days. Approximately 10% of breast cancers are not detected by mammography. A normal mammogram should not delay biopsy of a clinically suspicious abnormality. [id number] Electronically Signed: Glenroy Aguirre MD at 12:18 EST , Service support , CC: Dr. Josep Teixeira MD; Dr. Cierra De Jesus DO Court Monitor: Signed Normal [facility] ANTINUCLEAR ANTIBODIES DIREC Ton 04-30-2021 PEPE,DIRECT Negative Normal Negative [facility] Comment on above: Result Comment: Perf ormed at: - [facility] [id number] Geographic Information Systems Analyst: Danna Campbell MD, Phone: [phone] Performed at: - [facility] [id number] Geographic Information Systems Analyst: Keegan Verduzco PhD, Phone: [phone] Performed By: #### L 503.6075, L500.4100, L503.6150, L501.9520, L3300.0960, L100.0100, L503.0105, L505.7010, L3100.5475, L500.4050 ####[facility] [id number] [place], [place], [id number] Vitamin D 1,25-Dihydroxyon 1 07-01-2020 VIT D 1,25 DIHY 60.7 pg/mL Normal 19.9-79.3 [facility] Comment on above: Performed By: #### L 503.6075, L500.4100, L503.6150, L501.9520, L3300.0960, L100.0100, L503.0105, L505.7010, L3100.5475, L500.4050 ####[facility] [id number] [place], [place], [id number] Ironon 04-29-2021 Iron [Mass/Vol] 88 ug/dL Normal 50-170 [facility] Comment on above: Order Comment: ADD O N LIPID, FE, TIBC AND RF VRO Performed By: #### L 503.6075, L500.4100, L503.6150, L501.9520, L3300.0960, L100.0100, L503.0105, L505.7010, L3100.5475, L500.4050 #### [facility] [address] [place], [address] Iron Binding Capacity,Totalo n 04-29-2021 TIBC 322 ug/dL Normal 250-450 [facility] Comment on above: Order Comment: ADD O N LIPID, FE, TIBC AND RF VRO Performed By: #### L 503.6075, L500.4100, L503.6150, L501.9520, L3300.0960, L100.0100, L503.0105, L505.7010, L3100.5475, L500.4050 #### [facility] [address] [place], [address] Lipid Profileon 04-29-2021 Cholesterol [Mass/Vol] 211 mg/dL High 200 [facility] Comment on above: Order Comment: ADD O N LIPID, FE, TIBC AND RF VRO Result Comment: <200 mg/dL Desirable 200-240 mg/dL Borderline >240 mg/dL High Risk Performed By: #### L 503.6075, L500.4100, L503.6150, L501.9520, L3300.0960, L100.0100, L503.0105, L505.7010, L3100.5475, L500.4050 #### [facility] [address] [place], [address] Cholesterol in HDL [Mass/Vol] 58 mg/dL Normal [facility] Comment on above: Order Comment: ADD O N LIPID, FE, TIBC AND RF VRO Result Comment: The drugs N-Acetylcysteine and Metamizole may falsely depress this assay. Reference Range HDL <40 mg/dL Low HDL Cholesterol HDL >or= 60 mg/dL High HDL Cholesterol Performed By: #### L 503.6075, L500.4100, L503.6150, L501.9520, L3300.0960, L100.0100, L503.0105, L505.7010, L3100.5475, L500.4050 #### [facility] [address] [place], [place], [phone] Cholesterol in LDL [Mass/Vol] 138 mg/dL High 0-130 [facility] Comment on above: Order Comment: ADD O N LIPID, FE, TIBC AND RF VRO Performed By: #### L 503.6075, L500.4100, L503.6150, L501.9520, L3300.0960, L100.0100, L503.0105, L505.7010, L3100.5475, L500.4050 #### [facility] [address] [place], [address] Cholesterol in VLDL [Mass/Vol] 15 mg/dL Normal 5-40 [facility] Comment on above: Order Comment: ADD O N LIPID, FE, TIBC AND RF VRO Performed By: #### L 503.6075, L500.4100, L503.6150, L501.9520, L3300.0960, L100.0100, L503.0105, L505.7010, L3100.5475, L500.4050 #### [facility] [address] [place], [address] Triglyceride [Mass/Vol] 74 mg/dL Normal [facility] Comment on above: Order Comment: ADD O N LIPID, FE, TIBC AND RF VRO Result Comment: The drugs N-Acetylcysteine and Metamizole may falsely depress this assay. Serum Triglycerides Reference Interval Normal <150 mg/dL Borderline high 150 - 199 mg/dL High 200 - 499 mg/dL Very High > or = 500 mg/dL Performed By: #### L 503.6075, L500.4100, L503.6150, L501.9520, L3300.0960, L100.0100, L503.0105, L505.7010, L3100.5475, L500.4050 #### [facility] [address] [place], [address] Rheumatoid Factoron 12-10-20 21 RHEUMATOID FAC < 10.0 Normal <15 [facility] Comment on above: Order Comment: ADD O N LIPID, FE, TIBC AND RF VRO Performed By: #### L 503.6075, L500.4100, L503.6150, L501.9520, L3300.0960, L100.0100, L503.0105, L505.7010, L3100.5475, L500.4050 #### [facility] [address] [place], [address] CBC W/Diff, Automatedon 12-0 9-2020 Absolute Lymph 1.47 X10 3/uL Normal 0.83-4.51 [facility] Comment on above: Performed By: #### L 503.6075, L500.4100, L503.6150, L501.9520, L3300.0960, L100.0100, L503.0105, L505.7010, L3100.5475, L500.4050 #### [facility] [address] [place], [address] Absolute Neut 2.4 X10 3/uL Normal 2.0-7.7 [facility] Comment on above: Performed By: #### L 503.6075, L500.4100, L503.6150, L501.9520, L3300.0960, L100.0100, L503.0105, L505.7010, L3100.5475, L500.4050 #### [facility] [address] [place], [address] Basophils/100 WBC (Bld) 0.9 % Normal 0-1 [facility] Comment on above: Performed By: #### L 503.6075, L500.4100, L503.6150, L501.9520, L3300.0960, L100.0100, L503.0105, L505.7010, L3100.5475, L500.4050 #### [facility] [address] [place], [address] Eosinophils/100 WBC (Bld) 4.4 % Normal 0-5 [facility] Comment on above: Performed By: #### L 503.6075, L500.4100, L503.6150, L501.9520, L3300.0960, L100.0100, L503.0105, L505.7010, L3100.5475, L500.4050 #### [facility] [address] [facility] [place], [address] Erythrocyte distribution width (RBC) [Ratio] 13.1 % Normal 11.6-14.6 [facility] Comment on above: Performed By: #### L 503.6075, L500.4100, L503.6150, L501.9520, L3300.0960, L100.0100, L503.0105, L505.7010, L3100.5475, L500.4050 #### [facility] [address] [facility] [place], [place], [phone] (106) Hematocrit (Bld) [Volume fraction] 44.7 % Normal 37-47 [facility] Comment on above: Performed By: #### L 503.6075, L500.4100, L503.6150, L501.9520, L3300.0960, L100.0100, L503.0105, L505.7010, L3100.5475, L500.4050 #### [facility] [address] [facility] [place], [place], [phone] (661) Hemoglobin (Bld) [Mass/Vol] 14.2 g/dL Normal 12.0-15.0 [facility] Comment on above: Performed By: #### L 503.6075, L500.4100, L503.6150, L501.9520, L3300.0960, L100.0100, L503.0105, L505.7010, L3100.5475, L500.4050 #### [facility] [address] [place], [address] IG% 0.700 Normal 0.0-0.9 [facility] Comment on above: Result Comment: IG% - Immature Granulocytes (promyelocytes, myelocytes and metamyelocytes) > 1% indicates that a LEFT SHIFT is Present. Performed By: #### L 503.6075, L500.4100, L503.6150, L501.9520, L3300.0960, L100.0100, L503.0105, L505.7010, L3100.5475, L500.4050 #### [facility] [address] [place], [address] Lymphocytes/100 WBC (Bld) 32.2 % Normal 19-41 [facility] Comment on above: Performed By: #### L 503.6075, L500.4100, L503.6150, L501.9520, L3300.0960, L100.0100, L503.0105, L505.7010, L3100.5475, L500.4050 #### [facility] [address] [place], [place], [phone] (582) MCH (RBC) [Entitic mass] 26.4 pg Low 27.0-32.0 [facility] Comment on above: Performed By: #### L 503.6075, L500.4100, L503.6150, L501.9520, L3300.0960, L100.0100, L503.0105, L505.7010, L3100.5475, L500.4050 #### [facility] [address] [place], [place], [phone] ([address]) MCHC (RBC) [Mass/Vol] 31.8 g/dL Low 32-36 [facility] Comment on above: Performed By: #### L 503.6075, L500.4100, L503.6150, L501.9520, L3300.0960, L100.0100, L503.0105, L505.7010, L3100.5475, L500.4050 #### [facility] [address] [place], [place], [phone] (321) MCV (RBC) [Entitic vol] 83.2 fL Normal 81-99 [facility] Comment on above: Performed By: #### L 503.6075, L500.4100, L503.6150, L501.9520, L3300.0960, L100.0100, L503.0105, L505.7010, L3100.5475, L500.4050 #### [facility] [address] [place], [address] Monocytes/100 WBC (Bld) 10.1 % High 0-10 [facility] Comment on above: Performed By: #### L 503.6075, L500.4100, L503.6150, L501.9520, L3300.0960, L100.0100, L503.0105, L505.7010, L3100.5475, L500.4050 #### [facility] [address] [place], [place], [phone] ([phone] Neutrophils/100 WBC (Bld) 51.7 % Normal 47-70 [facility] Comment on above: Performed By: #### L 503.6075, L500.4100, L503.6150, L501.9520, L3300.0960, L100.0100, L503.0105, L505.7010, L3100.5475, L500.4050 #### [facility] [address] [place], [place], [phone] (658) Nucleated RBC (Bld) [#/Vol] 0 10*3/uL Normal 0-5 [facility] Comment on above: Performed By: #### L 503.6075, L500.4100, L503.6150, L501.9520, L3300.0960, L100.0100, L503.0105, L505.7010, L3100.5475, L500.4050 #### [facility] [address] [place], [address] Platelet mean volume (Bld) [Entitic vol] 11.3 fL Normal 6.2-12.0 [facility] Comment on above: Performed By: #### L 503.6075, L500.4100, L503.6150, L501.9520, L3300.0960, L100.0100, L503.0105, L505.7010, L3100.5475, L500.4050 #### [facility] [address] [place], [address] Platelets (Bld) [#/Vol] 206 10*3/uL Normal 150-450 [facility] Comment on above: Performed By: #### L 503.6075, L500.4100, L503.6150, L501.9520, L3300.0960, L100.0100, L503.0105, L505.7010, L3100.5475, L500.4050 #### [facility] [address] [place], [address] RBC (Bld) [#/Vol] 5.37 10*6/uL Normal 4.2-5.4 [facility] Comment on above: Performed By: #### L 503.6075, L500.4100, L503.6150, L501.9520, L3300.0960, L100.0100, L503.0105, L505.7010, L3100.5475, L500.4050 #### [facility] [address] [place], [address] RDW SD 39.5 fl Normal 35.1-43.9 [facility] Comment on above: Performed By: #### L 503.6075, L500.4100, L503.6150, L501.9520, L3300.0960, L100.0100, L503.0105, L505.7010, L3100.5475, L500.4050 #### [facility] [address] [place], [address] WBC (Bld) [#/Vol] 4.6 10*3/uL Normal 4.4-11.0 [facility] Comment on above: Performed By: #### L 503.6075, L500.4100, L503.6150, L501.9520, L3300.0960, L100.0100, L503.0105, L505.7010, L3100.5475, L500.4050 #### [facility] [address] [place], [place], [phone] Comprehensive Metabolic Prof ilon 04-28-2021 Albumin [Mass/Vol] 3.6 g/dL Normal 3.2-5.0 [facility] Comment on above: Order Comment: VRO Performed By: #### L 503.6075, L500.4100, L503.6150, L501.9520, L3300.0960, L100.0100, L503.0105, L505.7010, L3100.5475, L500.4050 #### [facility] [address] [place], [place], [phone] Albumin/Globulin [Mass ratio] 0.9 {ratio} Normal 0.9-2.4 [facility] Comment on above: Order Comment: VRO Performed By: #### L 503.6075, L500.4100, L503.6150, L501.9520, L3300.0960, L100.0100, L503.0105, L505.7010, L3100.5475, L500.4050 #### [facility] [address] [place], [place], [id number] ALK P 73 U/L Normal 45-117 [facility] Comment on above: Order Comment: VRO Performed By: #### L 503.6075, L500.4100, L503.6150, L501.9520, L3300.0960, L100.0100, L503.0105, L505.7010, L3100.5475, L500.4050 #### [facility] [address] [place], [place], [phone] ALT [Catalytic activity/Vol] 31 U/L Normal 13-56 [facility] Comment on above: Order Comment: VRO Performed By: #### L 503.6075, L500.4100, L503.6150, L501.9520, L3300.0960, L100.0100, L503.0105, L505.7010, L3100.5475, L500.4050 #### [facility] [address] [place], [address] AST [Catalytic activity/Vol] 21 U/L Normal 15-37 [facility] Comment on above: Order Comment: VRO Performed By: #### L 503.6075, L500.4100, L503.6150, L501.9520, L3300.0960, L100.0100, L503.0105, L505.7010, L3100.5475, L500.4050 #### [facility] [address] [place], [place], [id number] Bilirubin [Mass/Vol] 0.90 mg/dL Normal 0.20-1.00 [facility] Comment on above: Order Comment: VRO Result Comment: For patients on eltrombopag therapy, use of Dimension Kerrick TBIL is not recommended. Performed By: #### L 503.6075, L500.4100, L503.6150, L501.9520, L3300.0960, L100.0100, L503.0105, L505.7010, L3100.5475, L500.4050 #### [facility] [address] [place], [address] BUN/CRE 21.4 RATIO High 10-20 [facility] Comment on above: Order Comment: VRO Performed By: #### L 503.6075, L500.4100, L503.6150, L501.9520, L3300.0960, L100.0100, L503.0105, L505.7010, L3100.5475, L500.4050 #### [facility] [address] [place], [address] CA,Total 8.5 mg/dL Normal 8.5-10.1 [facility] Comment on above: Order Comment: VRO Performed By: #### L 503.6075, L500.4100, L503.6150, L501.9520, L3300.0960, L100.0100, L503.0105, L505.7010, L3100.5475, L500.4050 #### [facility] [address] [place], [address] Chloride [Moles/Vol] 107 mmol/L Normal 98-107 [facility] Comment on above: Order Comment: VRO Performed By: #### L 503.6075, L500.4100, L503.6150, L501.9520, L3300.0960, L100.0100, L503.0105, L505.7010, L3100.5475, L500.4050 #### [facility] [address] [place], [address] CO2 [Moles/Vol] 28.0 mmol/L Normal 21.0-32.0 [facility] Comment on above: Order Comment: VRO Performed By: #### L 503.6075, L500.4100, L503.6150, L501.9520, L3300.0960, L100.0100, L503.0105, L505.7010, L3100.5475, L500.4050 #### [facility] [address] [place], [address] Creatinine [Mass/Vol] 0.75 mg/dL Normal 0.55-1.02 [facility] Comment on above: Order Comment: VRO Result Comment: The validity of the calculated GFR GFRAA in patients over 70 years has not been determined. Clinical correlation is essential. Performed By: #### L 503.6075, L500.4100, L503.6150, L501.9520, L3300.0960, L100.0100, L503.0105, L505.7010, L3100.5475, L500.4050 #### [facility] [address] [place], [address] EST GFR - AA 102 mL/min Normal >60 [facility] Comment on above: Order Comment: VRO Result Comment: Afri can [place] GFR Calc Performed By: #### L 503.6075, L500.4100, L503.6150, L501.9520, L3300.0960, L100.0100, L503.0105, L505.7010, L3100.5475, L500.4050 #### [facility] [address] [place], [address] GAP 4 Low 5-15 [facility] Comment on above: Order Comment: VRO Performed By: #### L 503.6075, L500.4100, L503.6150, L501.9520, L3300.0960, L100.0100, L503.0105, L505.7010, L3100.5475, L500.4050 #### [facility] [address] [place], [place], [id number] (282) GFR/1.73 sq M.predicted among non-blacks MDRD (S/P/Bld) [Vol rate/Area] 84 mL/min/{1.73_m2} Normal >60 [facility] Comment on above: Order Comment: VRO Result Comment: Non- GFR Calc Performed By: #### L 503.6075, L500.4100, L503.6150, L501.9520, L3300.0960, L100.0100, L503.0105, L505.7010, L3100.5475, L500.4050 #### [facility] [address] [place], [place], [id number] (215) Globulin (S) [Mass/Vol] 4.2 g/dL Normal 2.2-4.2 [facility] Comment on above: Order Comment: VRO Performed By: #### L 503.6075, L500.4100, L503.6150, L501.9520, L3300.0960, L100.0100, L503.0105, L505.7010, L3100.5475, L500.4050 #### [facility] [address] [place], [address] Glucose [Mass/Vol] 97 mg/dL Normal 74-106 [facility] Comment on above: Order Comment: VRO Result Comment: Meghna guzman note revised GLUCOSE reference range effective 2017. Performed By: #### L 503.6075, L500.4100, L503.6150, L501.9520, L3300.0960, L100.0100, L503.0105, L505.7010, L3100.5475, L500.4050 #### [facility] [address] [place], [address] Potassium [Moles/Vol] 3.9 mmol/L Normal 3.5-5.1 [facility] Comment on above: Order Comment: VRO Performed By: #### L 503.6075, L500.4100, L503.6150, L501.9520, L3300.0960, L100.0100, L503.0105, L505.7010, L3100.5475, L500.4050 #### [facility] [address] [place], [address] Sodium [Moles/Vol] 139 mmol/L Normal 136-145 [facility] Comment on above: Order Comment: VRO Performed By: #### L 503.6075, L500.4100, L503.6150, L501.9520, L3300.0960, L100.0100, L503.0105, L505.7010, L3100.5475, L500.4050 #### [facility] [address] [place], [address] T PROT 7.8 g/dL Normal 6.4-8.2 [facility] Comment on above: Order Comment: VRO Performed By: #### L 503.6075, L500.4100, L503.6150, L501.9520, L3300.0960, L100.0100, L503.0105, L505.7010, L3100.5475, L500.4050 #### [facility] [address] [place], [address] Urea nitrogen [Mass/Vol] 16 mg/dL Normal 7-18 [facility] Comment on above: Order Comment: VRO Performed By: #### L 503.6075, L500.4100, L503.6150, L501.9520, L3300.0960, L100.0100, L503.0105, L505.7010, L3100.5475, L500.4050 #### [facility] [address] [facility] [place], [place], [id number] Thyroid Stim Hormone (TSH)on 04-28-2021 TSH 2.20 uIU/mL Normal 0.358-3.74 [facility] Comment on above: Order Comment: VRO Performed By: #### L 503.6075, L500.4100, L503.6150, L501.9520, L3300.0960, L100.0100, L503.0105, L505.7010, L3100.5475, L500.4050 #### [facility] [address] [place], [address] Vitamin B12on 04-28-2021 Cobalamin (Vitamin B12) [Mass/Vol] 1537 pg/mL High 211-911 [facility] Comment on above: Performed By: #### L 503.6075, L500.4100, L503.6150, L501.9520, L3300.0960, L100.0100, L503.0105, L505.7010, L3100.5475, L500.4050 #### [facility] [address] [place], [place], [id number] Blood Pressure Cuff Sizeon 1 06-28-2020 Fall risk assessment a) No falls within the last year [facility] Work Phone: Tobacco use status [facility] b) No [facility] Work Phone: Blood Pressure Cuff Size Adult [facility] Work Phone: Vital Signs Date Time Vital Sign Value Performing Clinician Facility 11-14-2024 09:59-0400 Body height 157.5 cm Anna Kendall APRN-FUR GLAZER Work Phone: [facility] 11-14-2024 09:59-0400 Body mass index (BMI) [Ratio] 31.02 kg/m2 Anna Kendall APRN-FUR GLAZER Work Phone: [facility] 11-14-2024 09:59-0400 Body weight 76.93 kg Anna Kenadll APRN-FUR GLAZER Work Phone: [facility] 11-14-2024 09:59-0400 Diastolic blood pressure 86 mm[Hg] Anna Kendall APRN-FUR GLAZER Work Phone: [facility] 11-14-2024 09:59-0400 Heart rate 72 /min Anna Kendall APRN-FUR GLAZER Work Phone: [facility] 11-14-2024 09:59-0400 Systolic blood pressure 132 mm[Hg] Anna Kendall APRN-FUR GLAZER Work Phone: [facility] 10-03-2024 12:59-0400 Body height 157.5 cm Anna Kendall APRN-FUR GLAZER Work Phone: [facility] 10-03-2024 12:59-0400 Body mass index (BMI) [Ratio] 31.06 kg/m2 Anna Kendall APRN-FUR GLAZER Work Phone: [facility] 10-03-2024 12:59-0400 Body weight 77.02 kg Anna Kendall [employer] Work Phone: [facility] 10-03-2024 12:59-0400 Diastolic blood pressure 82 mm[Hg] Anna Kendall [employer]IST[employer] Work Phone: [facility] 10-03-2024 12:59-0400 Heart rate 76 /min Anna Kendall [employer] Work Phone: [facility] 10-03-2024 12:59-0400 Systolic blood pressure 136 mm[Hg] Anna Kendall [employer] Work Phone: [facility] 08-29-2024 13:36-0400 Body height 157.5 cm Anna Kendall [employer] Work Phone: [facility] 08-29-2024 13:36-0400 Body mass index (BMI) [Ratio] 31.17 kg/m2 Anna Kendall [employer] Work Phone: [facility] 08-29-2024 13:36-0400 Body weight 77.29 kg Anna Kendall [employer] Work Phone: [facility] 08-29-2024 13:36-0400 Diastolic blood pressure 90 mm[Hg] Anna Kendall [employer] Work Phone: [facility] 08-29-2024 13:36-0400 Heart rate 78 /min Anna Kendall [employer] Work Phone: [facility] 08-29-2024 13:36-0400 Systolic blood pressure 180 mm[Hg] Anna Kendall [employer]IST[employer] Work Phone: [facility] 08-15-2024 09:23-0400 Body height 157.5 cm Cierra Jade [employer]ISTRAR [employer] Work Phone: [facility] 08-15-2024 09:23-0400 Body mass index (BMI) [Ratio] 29.26 kg/m2 Cierra Jade [employer] Work Phone: [facility] 08-15-2024 09:23-0400 Body temperature 98.29 [degF] Cierra Yasmany REGISTRAR [employer] Work Phone: [facility] 08-15-2024 09:23-0400 Body weight 72.58 kg Cierra Yasmany [employer] Work Phone: [facility] 08-15-2024 09:23-0400 Diastolic blood pressure 81 mm[Hg] Cierra Yasmany [employer] Work Phone: [facility] 08-15-2024 09:23-0400 Heart rate 76 /min Cierra Yasmany [employer] Work Phone: [facility] 08-15-2024 09:23-0400 Respiratory rate 16 /min Cierra Yasmany [employer] Work Phone: [facility] 08-15-2024 09:23-0400 SaO2% (BldA) [Mass fraction] 95 % Cierra Yasmany [employer] Work Phone: [facility] 08-15-2024 09:23-0400 Systolic blood pressure 146 mm[Hg] Cierra Yasmany [employer] Work Phone: [facility] 06-27-2024 10:25-0500 Body height 157.5 cm Jeannine Andrews MD Work Phone: [facility] [employer] 06-27-2024 10:25-0500 Body mass index (BMI) [Ratio] 29.26 kg/m2 Jeannine Andrews MD Work Phone: [facility] [employer] 06-27-2024 10:25-0500 Body weight 72.58 kg Jeannine Andrews MD Work Phone: [facility] [employer] 06-06-2024 12:17-0500 Body height 157.5 cm Abril Allen MD Work Phone: [employer] 06-06-2024 12:17-0500 Body mass index (BMI) [Ratio] 30.36 kg/m2 Abril Allen MD Work Phone: [facility] [employer] 06-06-2024 12:17-0500 Body weight 75.3 kg Abril Allen MD Work Phone: [facility] [employer] 06-06-2024 12:17-0500 Diastolic blood pressure 83 mm[Hg] Abril Allen MD Work Phone: [facility] [employer] 06-06-2024 12:17-0500 Heart rate 80 /min Abril Allen MD Work Phone: [facility] [employer] 06-06-2024 12:17-0500 Respiratory rate 16 /min Abril Allen MD Work Phone: [facility] [employer] 06-06-2024 12:17-0500 SaO2% (BldA) [Mass fraction] 96 % Abril Allen MD Work Phone: [facility] [employer] 06-06-2024 12:17-0500 Systolic blood pressure 138 mm[Hg] Abril Allen MD Work Phone: [facility] [employer] 05-20-2024 09:27-0500 Body height 157.5 cm [facility] 05-20-2024 09:27-0500 Body mass index (BMI) [Ratio] 30.35 kg/m2 [facility] 05-20-2024 09:27-0500 Body weight 75.29 kg [facility] 04-25-2024 12:31-0500 Body height 157.5 cm Abril Allen MD Work Phone: [facility] [employer] 04-25-2024 12:31-0500 Body mass index (BMI) [Ratio] 29.96 kg/m2 Abril Allen MD Work Phone: [facility] [employer] 04-25-2024 12:31-0500 Body weight 74.3 kg Abril Allen MD Work Phone: [facility] [employer] 04-25-2024 12:31-0500 Diastolic blood pressure 84 mm[Hg] Abril Allen MD Work Phone: [facility] [employer] 04-25-2024 12:31-0500 Heart rate 81 /min Abril Allen MD Work Phone: [facility] [employer] 04-25-2024 12:31-0500 Respiratory rate 16 /min Abril Allen MD Work Phone: [facility] [employer] 04-25-2024 12:31-0500 SaO2% (BldA) [Mass fraction] 99 % Abril Allen MD Work Phone: [facility] [employer] 04-25-2024 12:31-0500 Systolic blood pressure 126 mm[Hg] Abril Allen MD Work Phone: [facility] 04-02-2024 16:25-0500 Body height 157.5 cm Cierra Oberhauser DO Work Phone: [facility] 04-02-2024 16:25-0500 Body mass index (BMI) [Ratio] 30.36 kg/m2 Cierra Oberhauser DO Work Phone: [facility] 04-02-2024 16:25-0500 Body weight 75.3 kg Cierra Oberhauser DO Work Phone: [facility] 04-02-2024 16:25-0500 Diastolic blood pressure 74 mm[Hg] Cierra Oberhauser DO Work Phone: [facility] 04-02-2024 16:25-0500 Heart rate 66 /min Cierra Oberhauser DO Work Phone: [facility] 04-02-2024 16:25-0500 Systolic blood pressure 153 mm[Hg] Cierra Oberhauser DO Work Phone: [facility] 02-27-2024 14:47-0400 Body height 157.5 cm Abril Allen MD Work Phone: [facility] [employer] 02-27-2024 14:47-0400 Body mass index (BMI) [Ratio] 31.57 kg/m2 Abril Allen MD Work Phone: [facility] 02-27-2024 14:47-0400 Body weight 78.29 kg Abril Allen MD Work Phone: [facility] 02-27-2024 14:47-0400 Diastolic blood pressure 78 mm[Hg] Abril Allen MD Work Phone: [facility] 02-27-2024 14:47-0400 Heart rate 72 /min Abril Allen MD Work Phone: [facility] 02-27-2024 14:47-0400 Respiratory rate 16 /min Abril Allen MD Work Phone: [facility] 02-27-2024 14:47-0400 SaO2% (BldA) [Mass fraction] 95 % Abril Allen MD Work Phone: [facility] Comment on above: 02-27-2024 14:47-0400 Systolic blood pressure 145 mm[Hg] Abril Allen MD Work Phone: [facility] 01-25-2024 09:42-0400 Body height 157.5 cm Jeannine Andrews MD Work Phone: [facility] [employer] 01-25-2024 09:42-0400 Body mass index (BMI) [Ratio] 31.64 kg/m2 Jeannine Andrews MD Work Phone: [facility] [employer] 01-25-2024 09:42-0400 Body weight 78.47 kg Jeannine Andrews MD Work Phone: [facility] [employer] 01-16-2024 14:50-0400 Heart rate 87 /min Jeannine Andrews MD Work Phone: [facility] [employer] 01-16-2024 14:50-0400 SaO2% (BldA) [Mass fraction] 99 % Jeannine Andrews MD Work Phone: [facility] [employer] 01-16-2024 14:45-0400 Diastolic blood pressure 76 mm[Hg] Jeannine Andrews MD Work Phone: [facility] [employer] 01-16-2024 14:45-0400 Systolic blood pressure 159 mm[Hg] Jeannine Andrews MD Work Phone: [facility] [employer] 01-16-2024 13:55-0400 Respiratory rate 15 /min Jeannine Andrews MD Work Phone: [facility] [employer] 01-16-2024 12:55-0400 Body temperature 97.3 [degF] Jeannine Andrews MD Work Phone: [facility] [employer] 01-16-2024 09:25-0400 Body height 157.5 cm Jeannine Andrews MD Work Phone: [facility] [employer] 01-16-2024 09:25-0400 Body mass index (BMI) [Ratio] 32.56 kg/m2 Jeannine Andrews MD Work Phone: [facility] [employer] 01-16-2024 09:25-0400 Body weight 80.74 kg Jeannine Andrews MD Work Phone: [facility] [employer] 11-20-2023 13:25-0400 Diastolic blood pressure 80 mm[Hg] Jeannine Andrews MD Work Phone: [facility] [employer] 11-20-2023 13:25-0400 Systolic blood pressure 154 mm[Hg] Jeannine Andrews MD Work Phone: [facility] [employer] 11-20-2023 13:05-0400 Heart rate 81 /min Jeannine Andrews MD Work Phone: [facility] [employer] 11-20-2023 13:05-0400 SaO2% (BldA) [Mass fraction] 100 % Jeannine Andrews MD Work Phone: [facility] [employer] 11-20-2023 13:00-0400 Body temperature 98.01 [degF] Jeannine Andrews MD Work Phone: [facility] [employer] 11-20-2023 13:00-0400 Respiratory rate 16 /min Jeannine Andrews MD Work Phone: [facility] [employer] 11-20-2023 12:24-0400 Body mass index (BMI) [Ratio] 33.1 kg/m2 Jeannine Andrews MD Work Phone: [facility] [employer] 11-20-2023 12:24-0400 Body weight 82.1 kg Jeannine Andrews MD Work Phone: [facility] [employer] 11-02-2023 10:23-0400 Body height 157.5 cm Jeannine Andrews MD Work Phone: [facility] [employer] 11-02-2023 10:23-0400 Body mass index (BMI) [Ratio] 33.09 kg/m2 Jeannine Andrews MD Work Phone: [facility] [employer] 11-02-2023 10:23-0400 Body weight 82.06 kg Jeannine Andrews MD Work Phone: [facility] 09-28-2023 08:19-0400 Body height 157.5 cm Cierra Oberhauser DO Work Phone: [facility] 09-28-2023 08:19-0400 Body mass index (BMI) [Ratio] 32.19 kg/m2 Cierra Oberhauser DO Work Phone: [facility] 09-28-2023 08:19-0400 Body weight 79.83 kg Cierra Oberhauser DO Work Phone: [facility] 09-28-2023 08:19-0400 Diastolic blood pressure 83 mm[Hg] Cierra Oberhauser DO Work Phone: [facility] 09-28-2023 08:19-0400 Heart rate 91 /min Cierra Oberhauser DO Work Phone: [facility] 09-28-2023 08:19-0400 Systolic blood pressure 144 mm[Hg] Cierra Oberhauser DO Work Phone: [facility] 06-26-2023 12:57-0500 Body height 157.5 cm Cierra Oberhauser DO Work Phone: [facility] 06-26-2023 12:57-0500 Body mass index (BMI) [Ratio] 31.64 kg/m2 Cierra Oberhauser DO Work Phone: [facility] 06-26-2023 12:57-0500 Body weight 78.47 kg Cierra Oberhauser DO Work Phone: [facility] 06-26-2023 12:57-0500 Diastolic blood pressure 79 mm[Hg] Cierra Oberhauser DO Work Phone: 4(798)615-398156 [place] [address] 06-26-2023 12:57-0500 Heart rate 79 /min Cierra Oberhauser DO Work Phone: 5(266)137-148456 [place] [address] 06-26-2023 12:57-0500 Systolic blood pressure 144 mm[Hg] Cierra Oberhauser DO Work Phone: 9(644)207-142156 [place] [address] 04-27-2023 08:14-0500 Body height 157.5 cm Cierra Oberhauser DO Work Phone: 4(364)328-604956 [place] [address] 04-27-2023 08:14-0500 Body mass index (BMI) [Ratio] 31.64 kg/m2 Cierra Oberhauser DO Work Phone: [facility] 04-27-2023 08:14-0500 Body weight 78.47 kg Cierra Oberhauser DO Work Phone: [facility] 04-27-2023 08:14-0500 Diastolic blood pressure 85 mm[Hg] Cierra Oberhauser DO Work Phone: 0(411)034-652656 [place] [address] 04-27-2023 08:14-0500 Heart rate 92 /min Cierra Oberhauser DO Work Phone: 7(700)509-221156 [place] [address] 04-27-2023 08:14-0500 Systolic blood pressure 148 mm[Hg] Cierra Oberhauser DO Work Phone: 4(171)352-427256 [place] [address] 01-02-2023 09:13-0400 Body height 157.5 cm Cierra Oberhauser DO Work Phone: [facility] 01-02-2023 09:13-0400 Body mass index (BMI) [Ratio] 30.36 kg/m2 Cierra Oberhauser DO Work Phone: [facility] 01-02-2023 09:13-0400 Body weight 75.3 kg Cierra Oberhauser DO Work Phone: [facility] 01-02-2023 09:13-0400 Diastolic blood pressure 77 mm[Hg] Cierra Oberhauser DO Work Phone: [facility] 01-02-2023 09:13-0400 Heart rate 80 /min Cierra Oberhauser DO Work Phone: [facility] 01-02-2023 09:13-0400 Systolic blood pressure 145 mm[Hg] Cierra Oberhauser DO Work Phone: [facility] 11-09-2022 09:00-0400 Body height 157.48 cm Cierra L Oberhauser Work Phone: [facility] DO Work Phone: 11-09-2022 09:00-0400 Body mass index (BMI) [Ratio] 30.69 kg/m2 Cierra L Oberhauser Work Phone: [facility] DO Work Phone: 11-09-2022 09:00-0400 Body surface area Derived from formula 1.77 m2 Cierra L Oberhauser Work Phone: [facility] DO Work Phone: 11-09-2022 09:00-0400 Body temperature 98 [degF] Cierra L Oberhauser Work Phone: [facility] DO Work Phone: 11-09-2022 09:00-0400 Body weight 76.11 kg Cierra L Oberhauser Work Phone: [facility] DO Work Phone: 11-09-2022 09:00-0400 Diastolic blood pressure 81 mm[Hg] Cierra L Oberhauser Work Phone: [facility] DO Work Phone: 11-09-2022 09:00-0400 Heart rate 90 /min Cierra L Oberhauser Work Phone: [facility] DO Work Phone: 11-09-2022 09:00-0400 SaO2% (BldA) [Mass fraction] 97 % Cierra L Oberhauser Work Phone: [facility] DO Work Phone: 11-09-2022 09:00-0400 Systolic blood pressure 144 mm[Hg] Cierra L Oberhauser Work Phone: [facility] DO Work Phone: 10-03-2022 09:28-0400 Body height 157.48 cm Cierra L Oberhauser Work Phone: [facility] DO Work Phone: 10-03-2022 09:28-0400 Body mass index (BMI) [Ratio] 30.54 kg/m2 Cierra L Oberhauser Work Phone: [facility] DO Work Phone: 10-03-2022 09:28-0400 Body surface area Derived from formula 1.77 m2 Cierra L Oberhauser Work Phone: [facility] DO Work Phone: 10-03-2022 09:28-0400 Body temperature 98 [degF] Cierra L Oberhauser Work Phone: [facility] DO Work Phone: 10-03-2022 09:28-0400 Body weight 75.75 kg Cierra L Oberhauser [facility] DO Work Phone: 10-03-2022 09:28-0400 Diastolic blood pressure 83 mm[Hg] Cierra L Oberhauser Work Phone: [facility] DO Work Phone: 10-03-2022 09:28-0400 Heart rate 73 /min Cierra L Oberhauser Work Phone[facility] DO Work Phone: 10-03-2022 09:28-0400 SaO2% (BldA) [Mass fraction] 97 % Cierra L Oberhauser Work Phone[facility] DO Work Phone: 10-03-2022 09:28-0400 Systolic blood pressure 145 mm[Hg] Cierra L Oberhauser Work Phone[facility] DO Work Phone: 09-29-2022 09:54-0400 Body mass index (BMI) [Ratio] 30.73 kg/m2 Cierra Oberhauser DO Work Phone: [facility] 09-29-2022 09:54-0400 Body weight 76.2 kg Cierra Oberhauser DO Work Phone: [facility] 09-29-2022 09:54-0400 Diastolic blood pressure 77 mm[Hg] Cierra Oberhauser DO Work Phone: [facility] 09-29-2022 09:54-0400 Heart rate 76 /min Cierra Oberhauser DO Work Phone: [facility] 09-29-2022 09:54-0400 Systolic blood pressure 142 mm[Hg] Cierra Oberhauser DO Work Phone: [facility] 06-28-2022 08:44-0500 Body height 157.48 cm Cierra L Oberhauser Work Phone: [facility] Work Phone: 06-28-2022 08:44-0500 Body mass index (BMI) [Ratio] 30.36 kg/m2 Cierra L Oberhauser Work Phone: [facility] Work Phone: 06-28-2022 08:44-0500 Body surface area Derived from formula 1.77 m2 Cierra L Oberhauser Work Phone: [facility] Work Phone: 06-28-2022 08:44-0500 Body weight 75.3 kg Cierra L Oberhauser Work Phone: [facility] Work Phone: 06-28-2022 08:44-0500 Diastolic blood pressure 77 mm[Hg] Cierra L Oberhauser Work Phone: [facility] Work Phone: 06-28-2022 08:44-0500 Heart rate 79 /min Cierra L Oberhauser Work Phone: [facility] Work Phone: 06-28-2022 08:44-0500 Systolic blood pressure 158 mm[Hg] Cierra L Oberhauser Work Phone: [facility] Work Phone: 05-10-2022 13:55-0500 Body height 157.48 cm Cierra L Oberhauser Work Phone: [facility] Work Phone: 05-10-2022 13:55-0500 Body mass index (BMI) [Ratio] 30.18 kg/m2 Cierra L Oberhauser Work Phone: [facility] Work Phone: 05-10-2022 13:55-0500 Body surface area Derived from formula 1.76 m2 Cierra L Oberhauser Work Phone: [facility] Work Phone: 05-10-2022 13:55-0500 Body weight 74.84 kg Cierra L Oberhauser Work Phone: [facility] Work Phone: 05-10-2022 13:55-0500 Diastolic blood pressure 82 mm[Hg] Cierra L Oberhauser Work Phone: [facility] Work Phone: 05-10-2022 13:55-0500 Heart rate 86 /min Cierar L Oberhauser Work Phone: [facility] Work Phone: 05-10-2022 13:55-0500 Systolic blood pressure 146 mm[Hg] Cierra L Oberhauser Work Phone: [facility] Work Phone: 05-03-2022 10:50-0500 Body height 157.48 cm Cierra L Oberhauser Work Phone: [facility] Work Phone: 05-03-2022 10:50-0500 Body mass index (BMI) [Ratio] 30.18 kg/m2 Cierra L Oberhauser Work Phone: [facility] Work Phone: 05-03-2022 10:50-0500 Body surface area Derived from formula 1.76 m2 Cierra L Oberhauser Work Phone: [facility] Work Phone: 05-03-2022 10:50-0500 Body weight 74.84 kg Cierra L Oberhauser Work Phone: [facility] Work Phone: 05-03-2022 10:50-0500 Diastolic blood pressure 79 mm[Hg] Cierra L Oberhauser Work Phone: [facility] Work Phone: 05-03-2022 10:50-0500 Heart rate 98 /min Cierra L Oberhauser Work Phone: [facility] Work Phone: 05-03-2022 10:50-0500 Systolic blood pressure 160 mm[Hg] Cierra L Oberhauser Work Phone: [facility] Work Phone: 04-05-2022 14:01-0500 Body height 157.48 cm Cierra L Oberhauser Work Phone: [facility] Work Phone: 04-05-2022 14:01-0500 Body mass index (BMI) [Ratio] 29.63 kg/m2 Cierra L Oberhauser Work Phone: [facility] Work Phone: 04-05-2022 14:01-0500 Body surface area Derived from formula 1.75 m2 Cierra L Oberhauser Work Phone: [facility] Work Phone: 04-05-2022 14:01-0500 Body weight 73.48 kg Cierra L Oberhauser Work Phone: [facility] Work Phone: 04-05-2022 14:01-0500 Diastolic blood pressure 88 mm[Hg] Cierra L Oberhauser Work Phone: [facility] Work Phone: 04-05-2022 14:01-0500 Heart rate 101 /min Cierra L Oberhauser Work Phone: [facility] Work Phone: 04-05-2022 14:01-0500 Systolic blood pressure 157 mm[Hg] Cierra L Oberhauser Work Phone: [facility] Work Phone: 08-09-2021 09:40-0400 Body height 157.48 cm Cierra L Oberhauser Work Phone: [facility] Work Phone: 08-09-2021 09:40-0400 Body mass index (BMI) [Ratio] 30.54 kg/m2 Cierra L Oberhauser Work Phone: [facility] Work Phone: 08-09-2021 09:40-0400 Body surface area Derived from formula 1.77 m2 Cierra L Oberhauser Work Phone: [facility] Work Phone: 08-09-2021 09:40-0400 Body weight 75.75 kg Cierra L Oberhauser Work Phone: [facility] Work Phone: 08-09-2021 09:40-0400 Diastolic blood pressure 96 mm[Hg] Cierra L Oberhauser Work Phone: [facility] Work Phone: 08-09-2021 09:40-0400 Heart rate 86 /min Cierra L Oberhauser Work Phone: [facility] Work Phone: 08-09-2021 09:40-0400 SaO2% (BldA) [Mass fraction] 99 % Cierra L Oberhauser Work Phone: [facility] Work Phone: 08-09-2021 09:40-0400 Systolic blood pressure 149 mm[Hg] Cierra L Oberhauser Work Phone: [facility] Work Phone: 06-08-2021 08:41-0500 Body height 157.48 cm Cierra L Oberhauser Work Phone: [facility] Work Phone: 06-08-2021 08:41-0500 Body mass index (BMI) [Ratio] 30 kg/m2 Cierra L Oberhauser Work Phone: [facility] Work Phone: 06-08-2021 08:41-0500 Body surface area Derived from formula 1.76 m2 Cierra L Oberhauser Work Phone: [facility] Work Phone: 06-08-2021 08:41-0500 Body temperature 98.2 [degF] Cierra L Oberhauser Work Phone: [facility] Work Phone: 06-08-2021 08:41-0500 Body weight 74.39 kg Cierra L Oberhauser Work Phone: [facility] Work Phone: 06-08-2021 08:41-0500 Diastolic blood pressure 90 mm[Hg] Cierra L Oberhauser Work Phone: [facility] Work Phone: 06-08-2021 08:41-0500 Heart rate 76 /min Cierra L Oberhauser Work Phone: [facility] Work Phone: 06-08-2021 08:41-0500 Systolic blood pressure 144 mm[Hg] Cierra L Oberhauser Work Phone: [facility] Work Phone: 05-30-2021 12:23-0500 Body height 157.48 cm Cierra L Oberhauser Work Phone: [facility] Work Phone: 05-30-2021 12:23-0500 Body mass index (BMI) [Ratio] 29.26 kg/m2 Cierra Ag Oberhauser Work Phone: [facility] Work Phone: 05-30-2021 12:23-0500 Body surface area Derived from formula 1.74 m2 Cierra Luong Oberhauser Work Phone: [facility] Work Phone: 05-30-2021 12:23-0500 Body temperature 100.5 [degF] Cierra Luong Oberhauser Work Phone: [facility] Work Phone: 05-30-2021 12:23-0500 Body weight 72.58 kg Cierra L Oberhauser Work Phone: [facility] Work Phone: 05-30-2021 12:23-0500 Diastolic blood pressure 95 mm[Hg] Cierra Ag Oberhauser Work Phone: [facility] Work Phone: 05-30-2021 12:23-0500 Heart rate 90 /min Cierra L Oberhauser Work Phone: [facility] Work Phone: 05-30-2021 12:23-0500 SaO2% (BldA) [Mass fraction] 98 % Cierra Ag Oberhauser Work Phone: [facility] Work Phone: 05-30-2021 12:23-0500 Systolic blood pressure 147 mm[Hg] Cierra L Oberhauser Work Phone: [facility] Work Phone: 05-16-2021 15:56-0500 Body height 157.48 cm Cierra L Oberhauser Work Phone: [facility] Work Phone: 05-16-2021 15:56-0500 Body mass index (BMI) [Ratio] 30.25 kg/m2 Cierra L Oberhauser Work Phone: [facility] Work Phone: 05-16-2021 15:56-0500 Body surface area Derived from formula 1.76 m2 Cierra L Oberhauser Work Phone: [facility] Work Phone: 05-16-2021 15:56-0500 Body temperature 97.8 [degF] Cierra L Oberhauser Work Phone: [facility] Work Phone: 05-16-2021 15:56-0500 Body weight 75.03 kg Cierra L Oberhauser Work Phone: [facility] Work Phone: 05-16-2021 15:56-0500 Diastolic blood pressure 96 mm[Hg] Cierra L Oberhauser Work Phone: [facility] Work Phone: 05-16-2021 15:56-0500 Heart rate 70 /min Cierra L Oberhauser Work Phone: [facility] Work Phone: 05-16-2021 15:56-0500 SaO2% (BldA) [Mass fraction] 96 % Cierra L Oberhauser Work Phone: [facility] Work Phone: 05-16-2021 15:56-0500 Systolic blood pressure 160 mm[Hg] Cierra L Oberhauser Work Phone: [facility] Work Phone: 04-27-2021 08:33-0500 Body height 157.48 cm Cierra L Oberhauser Work Phone: [facility] Work Phone: 04-27-2021 08:33-0500 Body mass index (BMI) [Ratio] 30.18 kg/m2 Cierra L Oberhauser Work Phone: [facility] Work Phone: 04-27-2021 08:33-0500 Body surface area Derived from formula 1.76 m2 Cierra L Oberhauser Work Phone: [facility] Work Phone: 04-27-2021 08:33-0500 Body temperature 97.8 [degF] Cierra L Oberhauser Work Phone: [facility] Work Phone: 04-27-2021 08:33-0500 Body weight 74.84 kg Cierra L Oberhauser Work Phone: [facility] Work Phone: 04-27-2021 08:33-0500 Diastolic blood pressure 80 mm[Hg] Cierra L Oberhauser Work Phone: [facility] Work Phone: 04-27-2021 08:33-0500 Heart rate 86 /min Cierra L Oberhauser Work Phone: [facility] Work Phone: 04-27-2021 08:33-0500 Systolic blood pressure 132 mm[Hg] Cierra L Oberhauser Work Phone: [facility] Work Phone: Encounters Encounter Date Encounter Type Care Provider Facility Start: 03-13-2025 End: 03-13-2025 Telephone encounter Abril Allen MD Work Phone: [facility] Ashwini Auguste Comment on above: Other Start: 02-20-2025 End: 02-20-2025 ambulatory [facility] Start: 02-20-2025 End: 02-20-2025 Office outpatient visit 15 minutes Gurvinder Healy MD Work Phone: [facility] Comment on above: Arthritis of right k nee Start: 02-13-2025 End: 02-13-2025 ambulatory [facility] Start: 01-06-2025 End: 01-06-2025 Office outpatient visit 25 minutes Gurvinder Healy MD Work Phone: [facility] Comment on above: Left hip pain Start: 01-06-2025 End: 01-06-2025 Subsequent hospital visit by physician Reagan [id number] X-Ray [facility] Comment on above: Left hip pain Arrived Start: 01-06-2025 End: 01-06-2025 ambulatory [facility] Start: 12-26-2024 End: 12-26-2024 Office outpatient visit 25 minutes Gurvinder Healy MD Work Phone: [facility] Comment on above: Chronic pain of righ t knee; Left hip pain Start: 12-26-2024 End: 12-26-2024 Subsequent hospital visit by physician [facility]TERNAL [facility] Comment on above: Arrived Start: 12-26-2024 End: 12-26-2024 ambulatory [facility] Start: 12-24-2024 End: 12-24-2024 Telephone encounter Abril Allen MD Work Phone: [facility] - [facility] Start: 11-14-2024 End: 11-14-2024 Office outpatient visit 25 minutes Anna Kendall [employer] Work Phone: [facility] Comment on above: Seasonal allergies ( Primary Dx); Lung nodule; Acute cough Start: 11-14-2024 End: 11-14-[address] [facility] Start: 11-12-2024 End: 11-12-2024 Office outpatient new 45 minutes Gurvinder Healy MD Work Phone: [facility] Comment on above: Arthritis of right k nee (Primary Dx); Chronic pain of right knee Start: 11-12-2024 End: 11-12-2024 Subsequent hospital visit by physician [facility] EXTERNAL [facility] Comment on above: Arrived Right knee pain, uns pecified chronicity Start: 11-12-2024 End: 11-12-2024 ambulatory [place] Jamie HEALY [facility] Start: 11-06-2024 End: 11-06-2024 Subsequent hospital visit by physician Rad External Film [facility] EXTERNAL [facility] Comment on above: Arrived Start: 11-06-2024 End: 11-06-2024 ambulatory GURVINDER HEALY [facility] Start: 10-14-2024 End: 10-14-2024 Telephone encounter Abril Allen MD Work Phone: [facility] - [facility] Comment on above: Discuss Medications Start: 10-03-2024 End: 10-03-2024 Office outpatient visit 25 minutes Anna Kendall [employer] Work Phone: [facility] Comment on above: Prediabetes (Primary Dx); Elevated vitamin B12 level; Mixed hyperlipidemia; Vitamin D deficiency; Primary hypertension; Elevated red blood cell count; Mild major depression, single episode (CMS-HCC); OAB (overactive bladder); Primary insomnia Start: 10-03-2024 End: 10-03-[address] [facility] Start: 10-03-2024 End: 10-03-2024 Subsequent hospital visit by physician [address] Comment on above: Mixed hyperlipidemia Start: 10-03-2024 End: 10-03-2024 ambulatory ANNA D [facility] Start: 08-29-2024 End: 08-29-2024 Office outpatient new 45 minutes Anna Christensen Kendall [employer] Work Phone: [facility] Comment on above: Seasonal allergies ( Primary Dx); Primary hypertension; Vitamin D deficiency; Mixed hyperlipidemia; Elevated vitamin B12 level; Other fatigue; IFG (impaired fasting glucose); Gastroesophageal reflux disease, unspecified whether esophagitis present; Establishing care with new doctor, encounter for Start: 08-29-2024 End: 08-29-[address] [facility] Start: 08-15-2024 End: 08-15-2024 Subsequent hospital visit by physician Reagan X-Ray [facility] Comment on above: Cough present for gr eater than 3 weeks Start: 08-15-2024 End: 08-15-2024 ambulatory CIERRA Chelsea YASMANY [facility] Start: 08-15-2024 End: 08-15-2024 Patient encounter procedure Cierra Jade [employer] Work Phone: [facility] Comment on above: Cough present for gr eater than 3 weeks (Primary Dx) Start: 08-15-2024 End: 08-15-2024 ambulatory CIERRA DE JESUS [facility] Start: 08-08-2024 End: 08-08-2024 Office outpatient visit 25 minutes Abril Allen MD Work Phone: [facility] - [facility] Comment on above: PHIL (obstructive sle ep apnea) (Primary Dx); Insomnia, unspecified type; Essential hypertension; Intolerance of continuous positive airway pressure (CPAP) ventilation; Fatigue, unspecified type Start: 08-08-2024 End: 08-08-2024 ambulatory ABRIL ALLEN [facility] Start: 07-31-2024 End: 08-01-2024 ambulatory Abril Allen MD Work Phone: [facility] Comment on above: PHIL (obstructive sle ep apnea) Start: 07-22-2024 End: 07-22-2024 Refill Abril Allen MD Work Phone: [facility] [place] Comment on above: Insomnia, unspecifie d type Start: 07-10-2024 End: 07-10-2024 Telephone encounter Abril Allen MD Work Phone: [facility] [place] Comment on above: Other ([employer]) Start: 07-08-2024 End: 07-08-2024 Telephone encounter Abril Allen MD Work Phone: [facility] [employer] [facility] [place] Comment on above: Sleep Study Start: 06-27-2024 End: 06-27-2024 Office outpatient visit 25 minutes Jeannine Andrews MD Work Phone: [facility] [place] Comment on above: Postoperative follow -up (Primary Dx); PHIL (obstructive sleep apnea); Laryngopharyngeal reflux (LPR) Start: 06-27-2024 End: 06-27-2024 ambulatory JEANNINE ALEMANOSMAN [facility] Start: 06-06-2024 End: 06-06-2024 Office outpatient visit 25 minutes Abril Allen MD Work Phone: [facility] [employer] [place] Comment on above: Insomnia, unspecifie d type (Primary Dx); PHIL (obstructive sleep apnea); Essential hypertension Start: 06-06-2024 End: 06-06-2024 [facility] Start: 05-20-2024 End: 05-20-2024 Subsequent hospital visit by physician [address] Comment on above: Screening mammogram for breast cancer Start: 05-20-2024 End: 05-20-2024 ambulatory [facility] Start: 04-25-2024 End: 04-25-2024 Office outpatient visit 25 minutes Abril Allen MD Work Phone: [facility] Medicine [place] Comment on above: PHIL (obstructive sle ep apnea) (Primary Dx); Insomnia, unspecified type; Essential hypertension Start: 04-25-2024 End: 04-25-2024 ambulatory ABRIL ALLEN [facility] Start: 04-02-2024 End: 04-02-2024 Patient encounter status Cierra De Jesus DO Work Phone: [facility] Work Phone: Start: 04-02-2024 End: 04-02-2024 Periodic preventive med est patient 40-64yrs Cierra De Jesus DO Work Phone: [facility] Comment on above: Primary insomnia (Pr imary Dx); Mild major depression, single episode (CMS-HCC); Primary hypertension; Screening mammogram for breast cancer; Screening for colon cancer; Seasonal allergies; Moderate obstructive sleep apnea; Wellness examination Start: 04-02-2024 End: 04-02-2024 ambulatory CIERRA [facility] Start: 02-27-2024 End: 02-27-2024 Office outpatient new 45 minutes Abril Allen MD Work Phone: [facility] - [place] Comment on above: PHIL (obstructive sle ep apnea) (Primary Dx); Intolerance of continuous positive airway pressure (CPAP) ventilation; Essential hypertension; Obesity due to excess calories, unspecified class, unspecified whether serious comorbidity present Start: 01-25-2024 End: 01-25-2024 Postop follow up visit related to original px Jeannine Andrews MD Work Phone: [facility] Comment on above: Postoperative follow -up (Primary Dx) Start: 01-16-2024 End: 01-16-2024 Subsequent hospital visit by physician Jeannine Andrews MD Work Phone: [facility] Comment on above: Post-op pain (Primar y Dx) Start: 11-20-2023 End: 11-20-2023 Subsequent hospital visit by physician Jeannine Andrews MD Work Phone: [facility] Start: 11-02-2023 End: 11-13-2023 Telephone encounter Jeannine Andrews MD Work Phone: [facility] Comment on above: Appointment Start: 11-02-2023 End: 11-02-2023 Office outpatient new 45 minutes Jeannine Andrews MD Work Phone: [facility] Comment on above: PHIL (obstructive sle ep apnea) (Primary Dx) Start: 09-28-2023 End: 09-28-2023 Office outpatient visit 25 minutes Cierra Beaulieuer DO Work Phone: [facility] Comment on above: Acute non-recurrent frontal sinusitis (Primary Dx); Vitamin D deficiency; Primary hypertension; Seasonal allergies; Mild major depression, single episode (CMS-HCC); Moderate obstructive sleep apnea Start: 07-19-2023 End: 07-20-2023 Emergency department [facility] Start: 06-30-2023 End: 07-01-2023 [facility] Start: 06-26-2023 End: 06-26-2023 Office outpatient visit 15 minutes Cierra Beaulieuer DO Work Phone: [facility] Comment on above: Primary hypertension (Primary Dx) Start: 05-01-2023 End: 05-01-2023 Subsequent hospital visit by physician Rad External Film EF RAD EXTERNAL [employer] Comment on above: Arrived Start: 04-27-2023 End: 04-27-2023 Office outpatient visit 25 minutes Cierra Beaulieuer DO Work Phone: [facility] Comment on above: Post-viral cough syn drome (Primary Dx); Vitamin D deficiency; Chronic fatigue; Screening for lipid disorders; Wellness examination; Primary hypertension; Seasonal allergies; Moderate obstructive sleep apnea; Encounter for screening mammogram for malignant neoplasm of breast Start: 04-27-2023 End: 04-27-2023 Patient encounter status Cierra Headerhauser DO Work Phone: [facility] Work Phone: Start: 01-02-2023 End: 01-02-2023 Office outpatient visit 15 minutes Cierra Headerdaveyer DO Work Phone: [facility] Comment on above: Mild major depressio n, single episode (CMS/HCC) (Primary Dx); Moderate obstructive sleep apnea Start: 11-09-2022 Office outpatient vi sit 25 minutes Cierra De Jesus Work Phone: [facility] 400 DO Work Phone: Start: 11-09-2022 Patient encounter procedure Cierra De Jesus Work Phone: [facility] 400 DO Work Phone: Start: 11-09-[address] Gurvinder Mccarty Facility:[id number] Start: 10-03-2022 Office consultation new/estab patient 80 min Cierra De Jesus Work Phone: [place] [id number] DO Work Phone: Start: 10-03-[address] Cierra De Jesus Facility:[id number] Start: 09-29-2022 End: 09-29-2022 Office outpatient visit 15 minutes Cierra De Jesus DO Work Phone: [facility] Comment on above: Moderate obstructive sleep apnea (Primary Dx); Primary hypertension Start: 06-28-[address] Cierra De Jesus Facility:[id number] Start: 06-28-2022 Office outpatient vi sit 15 minutes Cierra De Jesus Work Phone: [facility] Work Phone: Start: 05-10-2022 Office outpatient vi sit 15 minutes Cierra De Jesus Work Phone: [facility] Work Phone: Start: 05-10-[address] Cierra De Jesus Facility:[id number] Start: 05-04-2022 AUDIT Cierra Little user Work Phone: [facility] Work Phone: Start: 05-03-[address] Cierra De Jesus Facility:[id number] Start: 05-03-2022 Office outpatient vi sit 25 minutes Cierra L Oberhauser Work Phone: [facility] Work Phone: Start: 04-17-2022 AUDIT Cierra L Oberha user Work Phone: [facility] Work Phone: Start: 04-05-2022 Office outpatient vi sit 15 minutes Cierra L Oberhauser Work Phone: [facility] Work Phone: Start: 04-05-[address] Cierra De Jesus Facility:[id number] Start: 11-27-[address] Gurvinder Mccarty Facility:[id number] Start: 11-17-2021 AUDIT Cierra L Oberha user Work Phone: [facility] Work Phone: Start: 08-09-2021 Office outpatient vi sit 15 minutes Cierra L Oberhauser Work Phone: [facility] Work Phone: Start: 06-08-2021 Office outpatient vi sit 15 minutes Cierra L Oberhauser Work Phone: [facility] Work Phone: Start: 05-30-2021 Office outpatient vi sit 25 minutes Cierra L Oberhauser Work Phone: [facility] Work Phone: Start: 05-16-2021 Office outpatient vi sit 25 minutes Cierra L Oberhauser Work Phone: [facility] Work Phone: Start: 05-05-2021 AUDIT Cierra L Oberha user Work Phone: [facility] Work Phone: Start: 04-27-2021 Current tobacco non- user cad cap copd pv dm Cierra L Oberhauser Work Phone: [facility] Work Phone: Start: 03-03-2018 End: 03-03-2018 Emergency department patient visit [facility] Facility[facility] Procedures Date Procedure Procedure Detail Performing Clinician Start: 01-06-2025 Arthrocentesis aspir &/inj major jt/bursa w/us Gurvinder Healy MD Work Phone: Start: 01-06-2025 US Abdomen Gurvinder campbell MD Work Phone: Start: 12-26-2024 US Abdomen Gurvinder campbell MD Work Phone: Start: 11-12-2024 Arthrocentesis aspir &/inj major jt/bursa w/us Gurvinder Healy MD Work Phone: Start: 11-12-2024 US Abdomen Gurvinder campbell MD Work Phone: Start: 11-06-2024 Study Interpretation of outside study Gurvinder Healy MD Work Phone: Start: 09-01-2024 Lipid 1996 panel - S arden or Plasma Anna Kendall [employer] Work Phone: Start: 08-15-2024 Radiologic exam ches t 2 views Cierra Jade [employer] Work Phone: Start: 08-08-2024 Follow-up visit Follow-up ABRIL KOENIG Start: 05-20-2024 End: 05-20-2024 Screening digital breast tomosynthesis bi Cierra De Jesus DO Work Phone: Start: 05-01-2023 End: 05-01-2023 Study Interpretation of outside study Cierra De Jesus DO Work Phone: Start: 04-30-2023 Lipid 1996 panel - S arden or Plasma Rad Film Start: 04-30-2023 Mammography Rad Film Start: 05-03-2021 Mammography Cierra Odonnell monica DO Work Phone: section Cierra Luong Obe rhauser Work Phone: Decompression of med an nerve Cierra Luong Oberhauser Work Phone: Hysterectomy Cierra Littleu ser Work Phone: Operation on gallbladder Shannon Luong Liza Work Phone: Tonsillectomy Cierra Little user Work Phone: Plan of Treatment Date Care Activity Detail Author Start: 2037 RSV High Risk: (Elde rly (60+) or Population) (1 - 1-dose 75+ series) RSV High Risk: (Elderly (60+) or Population) (1 - 1-dose 75+ series) [facility] Start: 2037 RSV Immunization for Adults (1 - 1-dose 75+ series) RSV Immunization for Adults (1 - 1-dose 75+ series) [facility] Start: 09-01-2029 Lipid panel Lipid Panel [facility] Start: 04-30-2028 Lipid panel Lipid Panel [facility] Start: 09-02-2027 Diabetes mellitus screening Diabetes Screening [facility] Start: 04-11-2027 Screening for malign ant neoplasm of colon [facility] Start: 09-01-2025 Hemoglobin A1c measurement Diabetes: Hemoglobin A1C [facility] Start: 05-20-2025 Screening for malign ant neoplasm of breast Mammogram [facility] Start: 04-10-2025 End: 04-10-2025 Patient encounter procedure 04/10/2025 8:40 AM EST Office Visit [facility] [address] [place] [phone] Anna Kendall, [employer] [address] [place] [address] [facility] Start: 04-05-2025 End: 10-03-2025 CBC W Auto Differential panel - Blood CBC and Auto Differential Lab Routine Prediabetes Expected: 04/05/2025 (Approximate), Expires: 10/03/2025 [facility] Work Phone: Comment on above: Expected: 04/05/2025 (Approximate), Expires: 10/03/2025 Start: 04-05-2025 End: 10-03-2025 Cobalamin (Vitamin B12) [Mass/volume] in Serum or Plasma Vitamin B12 Lab Routine Elevated vitamin B12 level Expected: 04/05/2025 (Approximate), Expires: 10/03/2025 [facility] Work Phone: Comment on above: Expected: 04/05/2025 (Approximate), Expires: 10/03/2025 Start: 04-05-2025 End: 10-03-2025 Comprehensive metabolic 2000 panel - Serum or Plasma Comprehensive Metabolic Panel Lab Routine Prediabetes Expected: 04/05/2025 (Approximate), Expires: 10/03/2025 [facility] Work Phone: Comment on above: Expected: 04/05/2025 (Approximate), Expires: 10/03/2025 Start: 04-05-2025 End: 10-03-2025 Hemoglobin A1c/Hemoglobin.total in Blood Hemoglobin A1C Lab Routine Prediabetes Expected: 04/05/2025 (Approximate), Expires: 10/03/2025 [facility] Service Area Work Phone: Comment on above: Expected: 04/05/2025 (Approximate), Expires: 10/03/2025 Start: 04-03-2025 Yearly Adult Physical Yearly Adult P [facility] Start: 03-27-2025 End: 03-27-2025 Patient encounter procedure 03/27/2025 8:45 AM EST Office Visit [facility] [address] [place] [phone] Gurvinder Healy MD [address] [place] [address] [facility] Start: 02-20-2025 End: 02-20-2025 Patient encounter procedure 02/20/2025 8:30 AM EDT Office Visit [facility] [address] [place] [address] Gurvinder Healy MD [address] [place] [address] [facility] Start: 01-19-2025 COVID-19 Vaccine ( season) COVID-19 Vaccine ( season) [facility] Start: 01-19-2025 Influenza vaccination [facility] Start: 01-06-2025 End: 01-06-2025 Patient encounter procedure [facility] Start: 12-26-2024 End: 12-26-2025 XR Hip Views XR hip left with pelvis when performed 2 or 3 views Imaging Routine Left hip pain Expected: 12/26/2024 (Approximate), Expires: 12/26/2025 [facility] Service Area Work Phone: Comment on above: Expected: 12/26/2024 (Approximate), Expires: 12/26/2025 Start: 12-26-2024 End: 12-26-2024 Patient encounter procedure 12/26/2024 12:30 PM EDT Office Visit [facility] [address] [place] [address] Abril Allen MD [address] [place] [address] [facility] [place] Start: 12-26-2024 End: 12-26-2024 Patient encounter procedure 12/26/2024 9:30 AM EDT Office Visit [facility] [address] [place] [address] Gurvinder Healy MD [address] [place] [address] [facility] Start: 11-14-2024 End: 11-14-2025 XR Chest 2 Views XR chest 2 views Imaging Routine Acute cough Expected: 11/14/2024, Expires: 11/14/2025 [facility] Service Area Work Phone: Comment on above: Expected: 11/14/2024 , Expires: 11/14/2025 Start: 11-14-2024 End: 11-14-2024 Patient encounter procedure 11/14/2024 10:00 AM EDT Office Visit [facility] [address] [place] [phone] Anna Kendall, [employer] [address] [place] [address] [facility] Start: 11-12-2024 End: 11-12-2024 Patient encounter procedure 11/12/2024 2:45 PM EDT Office Visit [facility] [address] [facility] [address] [place] [phone] Gurvinder Healy MD [address] [facility] [address] [place] [address] [facility] Start: 10-03-2024 End: 10-03-2024 Patient encounter procedure 10/03/2024 9:00 AM EDT Appointment [address] [phone] [facility] Start: 09-26-2024 End: 09-26-2024 Patient encounter procedure 09/26/2024 10:30 AM EDT Office Visit [facility] [place] [address] [place] [address] Jeannine Andrews MD [address] [place], [place] [phone] [facility] [place] Start: 09-26-2024 End: 09-26-2024 Patient encounter procedure 09/26/2024 8:40 AM EDT Office Visit [facility] [address] [place] [phone] Anna Kendall, [employer] [address] [place] [address] [facility] Start: 08-29-2024 End: 02-28-2026 CBC W Auto Differential panel - Blood CBC and Auto Differential Lab Routine Mixed hyperlipidemia Expected: 08/29/2024 (Approximate), Expires: 02/28/2026 [facility] Work Phone: Comment on above: Expected: 08/29/2024 (Approximate), Expires: 02/28/2026 Start: 08-29-2024 End: 08-29-2025 Cobalamin (Vitamin B12) [Mass/volume] in Serum or Plasma Vitamin B12 Lab Routine Elevated vitamin B12 level Expected: 08/29/2024 (Approximate), Expires: 08/29/2025 [facility] Work Phone: Comment on above: Expected: 08/29/2024 (Approximate), Expires: 08/29/2025 Start: 08-29-2024 End: 08-29-2025 Comprehensive metabolic 2000 panel - Serum or Plasma Comprehensive Metabolic Panel Lab Routine Mixed hyperlipidemia Expected: 08/29/2024 (Approximate), Expires: 08/29/2025 [facility] Work Phone: Comment on above: Expected: 08/29/2024 (Approximate), Expires: 08/29/2025 Start: 08-29-2024 End: 08-29-2025 CT for calcium scoring WO contrast and CTA W contrast IV Heart and coronary arteries CT cardiac scoring wo IV contrast Imaging Routine Mixed hyperlipidemia Expected: 08/29/2024, Expires: 08/29/2025 [facility] Work Phone: Comment on above: Expected: 08/29/2024 , Expires: 08/29/2025 Start: 08-29-2024 End: 08-29-2025 Hemoglobin A1c/Hemoglobin.total in Blood Hemoglobin A1C Lab Routine IFG (impaired fasting glucose) Expected: 08/29/2024 (Approximate), Expires: 08/29/2025 [facility] Work Phone: Comment on above: Expected: 08/29/2024 (Approximate), Expires: 08/29/2025 Start: 08-29-2024 End: 08-29-2025 Iron and Iron binding capacity panel - Serum or Plasma Iron and TIBC Lab Routine Elevated vitamin B12 level Other fatigue Expected: 08/29/2024 (Approximate), Expires: 08/29/2025 [facility] Work Phone: Comment on above: Expected: 08/29/2024 (Approximate), Expires: 08/29/2025 Start: 08-29-2024 End: 08-29-2025 Lipid 1996 panel - Serum or Plasma Lipid Panel Lab Routine Mixed hyperlipidemia Expected: 08/29/2024 (Approximate), Expires: 08/29/2025 [facility] Work Phone: Comment on above: Expected: 08/29/2024 (Approximate), Expires: 08/29/2025 Start: 08-29-2024 End: 08-29-2025 Magnesium [Mass/volume] in Serum or Plasma Magnesium Lab Routine Elevated vitamin B12 level Expected: 08/29/2024 (Approximate), Expires: 08/29/2025 [facility] Work Phone: Comment on above: Expected: 08/29/2024 (Approximate), Expires: 08/29/2025 Start: 08-29-2024 End: 08-29-2025 Parathyrin.intact [Mass/volume] in Serum or Plasma Parathyroid Hormone, Intact Lab Routine Vitamin D deficiency Expected: 08/29/2024 (Approximate), Expires: 08/29/2025 [facility] Service Area Work Phone: Comment on above: Expected: 08/29/2024 (Approximate), Expires: 08/29/2025 Start: 08-29-2024 End: 08-29-2025 TSH with reflex to Free T4 if abnormal TSH with reflex to Free T4 if abnormal Lab Routine Mixed hyperlipidemia Expected: 08/29/2024 (Approximate), Expires: 08/29/2025 [facility] Work Phone: Comment on above: Expected: 08/29/2024 (Approximate), Expires: 08/29/2025 Start: 08-29-2024 End: 08-29-2024 Patient encounter procedure 08/29/2024 1:40 PM EDT Office Visit [facility] [address] [place] [phone] Anna Kendall, [employer] [address] [place] [address] [facility] Start: 08-09-2024 End: 08-09-2025 25-hydroxyvitamin D3 [Mass/volume] in Serum or Plasma Vitamin D Deficiency Screening (Vit D 25) Lab Routine Fatigue, unspecified type Expected: 08/09/2024 (Approximate), Expires: 08/09/2025 [facility] [employer] [facility] Work Phone: Comment on above: Expected: 08/09/2024 (Approximate), Expires: 08/09/2025 Start: 08-09-2024 End: 08-09-2025 CBC W Auto Differential panel - Blood CBC auto differential Lab Routine Fatigue, unspecified type Expected: 08/09/2024 (Approximate), Expires: 08/09/2025 [facility] [employer] Comment on above: Expected: 08/09/2024 (Approximate), Expires: 08/09/2025 Start: 08-09-2024 End: 08-09-2025 Cobalamin (Vitamin B12) [Mass/volume] in Serum or Plasma Vitamin B12 Lab Routine Fatigue, unspecified type Expected: 08/09/2024 (Approximate), Expires: 08/09/2025 [facility] [employer] Comment on above: Expected: 08/09/2024 (Approximate), Expires: 08/09/2025 Start: 08-09-2024 End: 08-09-2025 Comprehensive metabolic 1998 panel - Serum or Plasma Comprehensive metabolic panel Lab Routine Fatigue, unspecified type Expected: 08/09/2024 (Approximate), Expires: 08/09/2025 [facility] [employer] Comment on above: Expected: 08/09/2024 (Approximate), Expires: 08/09/2025 Start: 08-09-2024 End: 08-09-2025 Folate [Mass/volume] in Serum or Plasma Folate Lab Routine Fatigue, unspecified type Expected: 08/09/2024 (Approximate), Expires: 08/09/2025 [facility] Comment on above: Expected: 08/09/2024 (Approximate), Expires: 08/09/2025 Start: 08-09-2024 End: 08-09-2025 Thyrotropin [Units/volume] in Serum or Plasma TSH Lab Routine Fatigue, unspecified type Expected: 08/09/2024 (Approximate), Expires: 08/09/2025 [facility] Comment on above: Expected: 08/09/2024 (Approximate), Expires: 08/09/2025 Start: 08-08-2024 End: 08-08-2024 Patient encounter procedure [facility] [place] Start: 07-31-2024 End: 07-31-2024 Clinical Support 07/31/2024 8:30 PM EDT Clinical Support [facility] [address] [place] [phone] Abril Allen MD [address] [place] [address] [facility] Start: 06-27-2024 End: 06-27-2024 Patient encounter procedure 06/27/2024 10:45 AM EST Office Visit [facility] [place] [address] [place] [phone] Jeannine Andrews MD [address] [facility] [address] [place], [place] [id number] [facility] [place] Start: 06-06-2024 End: 06-06-2024 Patient encounter procedure 06/06/2024 12:30 PM EST Office Visit [facility] [place] [address] [place] [address] Abril Allen MD [address] [place] [address] [facility] [place] Start: 05-30-2024 End: 05-30-2024 Patient encounter procedure [facility] Start: 05-23-2024 End: 05-23-2024 Patient encounter procedure 05/23/2024 8:30 AM EST Appointment [facility] [address] [place] [address] [facility] Start: 04-30-2024 Screening for malign ant neoplasm of breast Mammogram [facility] Start: 04-25-2024 End: 04-25-2024 Patient encounter procedure 04/25/2024 12:30 PM EST Office Visit [facility] [place] [address] [place], [place] [address] Abril Allen MD [address] [place] [address] [facility] [place] Start: 04-02-2024 End: 04-02-2024 Patient encounter procedure 04/02/2024 4:40 PM EST Office Visit [facility] [address] [place] [phone] Cierra De Jesus DO [address] [facility] [place] [address] [facility] Start: 04-02-2024 End: 04-02-2025 Cologuard colon cancer screening Cologuard colon cancer screening Lab Routine Screening for colon cancer Expected: 04/02/2024 (Approximate), Expires: 04/02/2025 [facility] Work Phone: Comment on above: Expected: 04/02/2024 (Approximate), Expires: 04/02/2025 Start: 04-02-2024 End: 06-02-2025 DBT Breast - bilateral BI mammo bilateral screening tomosynthesis Imaging Routine Screening mammogram for breast cancer Expected: 04/02/2024, Expires: 06/02/2025 [facility] Service Area Work Phone: Comment on above: Expected: 04/02/2024 , Expires: 06/02/2025 Start: 02-27-2024 End: 02-27-2024 Patient encounter procedure 02/27/2024 3:00 PM EDT Office Visit [facility] [address] [place] [address] Abril Allen MD [address] [place] [address] [facility] Start: 01-25-2024 End: 01-25-2024 Patient encounter procedure 01/25/2024 10:00 AM EDT Office Visit [facility] ENT [address] [place] [phone] Jeannine Andrews MD [address] [place], [place] [id number] [facility] Start: 01-20-2024 COVID-19 Vaccine ( season) COVID-19 Vaccine ( season) [facility] Start: 01-20-2024 COVID-19 Vaccine ( season) COVID-19 Vaccine ( season) 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 [facility] OR Start: 11-20-2023 Subsequent hospital visit by physician 11/20/2023 12:45 PM EDT Hospital Encounter [facility] [address] [place] [phone] Jeannine Andrews MD [address] [place] [address] [facility] Start: 11-02-2023 End: 11-02-2023 Patient encounter procedure 11/02/2023 8:40 AM EDT Office Visit [facility] [address] [place] [phone] Cierra De Jesus DO [address] [facility] [place] [address] [facility] Start: 09-28-2023 End: 09-27-2024 25-hydroxyvitamin D3 [Mass/volume] in Serum or Plasma Vitamin D 25-Hydroxy,Total (for eval of Vitamin D levels) Lab Routine Vitamin D deficiency Expected: 09/28/2023 (Approximate), Expires: 09/27/2024 [facility] Work Phone: Comment on above: Expected: 09/28/2023 (Approximate), Expires: 09/27/2024 Start: 09-28-2023 End: 09-27-2024 Comprehensive metabolic 2000 panel - Serum or Plasma Comprehensive Metabolic Panel Lab Routine Primary hypertension Expected: 09/28/2023 (Approximate), Expires: 09/27/2024 [facility] Work Phone: Comment on above: Expected: 09/28/2023 (Approximate), Expires: 09/27/2024 Start: 09-28-2023 End: 09-27-2024 Hemoglobin A1c/Hemoglobin.total in Blood Hemoglobin A1C Lab Routine Primary hypertension Expected: 09/28/2023 (Approximate), Expires: 09/27/2024 [facility] Service Area Work Phone: Comment on above: Expected: 09/28/2023 (Approximate), Expires: 09/27/2024 Start: 09-28-2023 End: 09-27-2024 Lipid 1996 panel - Serum or Plasma Lipid Panel Lab Routine Primary hypertension Expected: 09/28/2023 (Approximate), Expires: 09/27/2024 [facility] Work Phone: Comment on above: Expected: 09/28/2023 (Approximate), Expires: 09/27/2024 Start: 09-28-2023 End: 09-27-2024 TSH with reflex to Free T4 if abnormal TSH with reflex to Free T4 if abnormal Lab Routine Primary hypertension Expected: 09/28/2023 (Approximate), Expires: 09/27/2024 [facility] Work Phone: Comment on above: Expected: 09/28/2023 (Approximate), Expires: 09/27/2024 Start: 09-28-2023 End: 09-28-2023 Patient encounter procedure 09/28/2023 8:20 AM EDT Office Visit [facility] [address] [place] [address] Cierra De Jesus DO [address] [facility] [place] [address] [facility] Start: 06-29-2023 End: 06-29-2023 Patient encounter procedure 06/29/2023 9:00 AM EST Appointment [facility] [address] [place] [address] [facility] Start: 04-27-2023 End: 04-27-2024 25-hydroxyvitamin D3 [Mass/volume] in Serum or Plasma Vitamin D 25-Hydroxy,Total (for eval of Vitamin D levels) Lab Routine Vitamin D deficiency Expected: 04/27/2023 (Approximate), Expires: 04/27/2024 [facility] Work Phone: Comment on above: Expected: 04/27/2023 (Approximate), Expires: 04/27/2024 Start: 04-27-2023 End: 04-27-2024 Comprehensive metabolic 2000 panel - Serum or Plasma Comprehensive Metabolic Panel Lab Routine Wellness examination Expected: 04/27/2023 (Approximate), Expires: 04/27/2024 [facility] Service Area Work Phone: Comment on above: Expected: 04/27/2023 (Approximate), Expires: 04/27/2024 Start: 04-27-2023 End: 06-28-2024 DBT Breast - bilateral BI mammo bilateral screening tomosynthesis Imaging Routine Encounter for screening mammogram for malignant neoplasm of breast Expected: 04/27/2023, Expires: 06/28/2024 [facility] Work Phone: Comment on above: Expected: 04/27/2023 , Expires: 06/28/2024 Start: 04-27-2023 End: 04-27-2024 Lipid 1996 panel - Serum or Plasma Lipid Panel Lab Routine Screening for lipid disorders Expected: 04/27/2023 (Approximate), Expires: 04/27/2024 [facility] Work Phone: Comment on above: Expected: 04/27/2023 (Approximate), Expires: 04/27/2024 Start: 04-27-2023 End: 04-27-2024 TSH with reflex to Free T4 if abnormal TSH with reflex to Free T4 if abnormal Lab Routine Chronic fatigue Expected: 04/27/2023 (Approximate), Expires: 04/27/2024 [facility] Work Phone: Comment on above: Expected: 04/27/2023 (Approximate), Expires: 04/27/2024 Start: 02-09-2023 FUV, Provider: Gurvinder Mccarty, Status: Pen, Time: 9:00 AM FUV, Provider: Gurvinder Mccarty, Status: Pen, Time: 9:00 AM [facility] [place] [address] [place] Work Phone: Start: 01-19-2023 COVID-19 Vaccine ( season) COVID-19 Vaccine ( season) [facility] Start: 01-19-2023 Influenza vaccination [facility] Start: 11-03-2022 FUV, Provider: Gurvinder Mccarty, Status: Pen, Time: 9:00 AM FUV, Provider: Gurvinder Mccarty, Status: Pen, Time: 9:[address] Work Phone: Start: 11-01-2022 FUV, Provider: Cierra De Jesus, Status: Pen, Time: 9:00 AM FUV, Provider: Cierra De Jesus, Status: Pen, Time: 9:00 AM [facility] Work Phone: Start: 11-01-2022 End: 11-01-2022 Patient encounter procedure 11/01/2022 9:00 AM EDT Office Visit [facility] [address] [place] [address] Cierra De Jesus L, DO [address] [facility] [place] [address] [facility] Start: 09-27-2022 FUV, Provider: Cierra De Jesus, Status: Pen, Time: 8:40 AM FUV, Provider: Cierra De Jesus, Status: Pen, Time: 8:40 AM [facility] Work Phone: Start: 06-14-2022 FUV, Provider: Cierra De Jesus, Status: Pen, Time: 9:40 AM FUV, Provider: Cierra De Jesus, Status: Pen, Time: 9:40 AM [facility] Work Phone: Start: 05-03-2022 Screening for malign ant neoplasm of breast Mammogram [facility] Start: 2022 RSV Immunization age d 60 or older (1 - 1-dose 60+ series) RSV Immunization aged 60 or older (1 - 1-dose 60+ series) [facility] Start: 2022 RSV patient s and/or patients aged 60+ years (1 - 1-dose 60+ series) RSV patients and/or patients aged 60+ years (1 - 1-dose 60+ series) [facility] Start: 11-22-2021 HSATADLT, Provider: ARTEMIO DIAGNOSTIC SP VARGAS, Status: Pen, Time: 9:00 AM HSATADLT, Provider: SP COLLINS, Status: Pen, Time: 9:00 AM [facility] [facility] Work Phone: Start: 09-27-2021 FUV, Provider: Cierra De Jesus, Status: Pen, Time: 10:40 AM FUV, Provider: Cierra De Jesus, Status: Pen, Time: 10:40 AM [facility] Work Phone: Start: 07-20-2021 FUV, Provider: Cierra De Jesus, Status: Pen, Time: 8:40 AM FUV, Provider: Cierra De Jesus, Status: Pen, Time: 8:40 AM [facility] Work Phone: Start: 06-08-2021 FUV, Provider: Cierra De Jesus, Status: Pen, Time: 8:40 AM FUV, Provider: Cierra De Jesus, Status: Pen, Time: 8:40 AM [facility] Work Phone: Start: 05-25-2021 HSATADLT, Provider: SP COLLINS, Status: Pen, Time: 10:00 AM HSATADLT, Provider: SP COLLINS, Status: Pen, Time: 10:00 AM [facility] Work Phone: Start: 10-21-2020 COVID-19 Vaccine (3 - Booster for Moderna series) COVID-19 Vaccine (3 - Booster for Moderna series) [facility] Start: 10-21-2020 COVID-19 Vaccine (3 - Moderna series) COVID-19 Vaccine (3 - Moderna series) [facility] Start: 01-31-2012 Pneumococcal vaccination Pneumococcal Vaccine (1 of 1 - PCV) [facility] Start: 01-31-2012 Pneumococcal Vaccine : 50+ Years (1 of 1 - PCV) Pneumococcal Vaccine: 50+ Years (1 of 1 - PCV) [facility] Start: 01-31-2012 Zoster Vaccines (1 o f 2) Zoster Vaccines (1 of 2) [facility] Start: 2002 Screening for malign ant neoplasm of breast Mammogram [facility] Start: 01-31-1984 DTaP/Tdap/Td Vaccine s (1 - Tdap) DTaP/Tdap/Td Vaccines (1 - Tdap) [facility] Start: 1983 Screening for malign ant neoplasm of cervix [facility] Start: 1981 DTaP/Tdap/Td Vaccine s (1 - Tdap) DTaP/Tdap/Td Vaccines (1 - Tdap) [facility] Start: 01-31-1980 Diabetes mellitus screening Diabetes Screening [facility] Start: 01-31-1980 Hepatitis C screening Hepatitis C [facility] Start: 1974 Depression Monitoring Depression Mon itoring [facility] Start: 1974 Depression Screening Depression Scre ening [facility] Start: 1963 MMR Vaccines (1 of 1 - Standard series) MMR Vaccines (1 of 1 - Standard series) [facility] Start: 1962 HIV screening HIV Screening [facility] Start: 1962 Lipid panel Lipid Panel [facility] Start: 1962 Screening for malign ant neoplasm of colon [facility] Start: 1962 Skin Cancer Screening Skin Cancer [facility] Start: 1962 Yearly Adult Physical Yearly Adult P hysical [facility] End: 10-03-2024 CT for calcium scoring WO contrast and CTA W contrast IV Heart and coronary arteries [facility] Service Area Work Phone: Comment on above: Once for 1 Occurrenc es starting 10/03/2024 until 10/03/2024 End: 01-06-2025 XR Hip Views [facility] Service [facility] Work Phone: Comment on above: Once for 1 Occurrenc es starting 01/06/2025 until 01/06/2025 End: 11-12-2024 XR Knee - right 4 Views [facility] Service [facility] a Work Phone: Comment on above: Once for 1 Occurrenc es starting 11/12/2024 until 11/12/2024 Immunizations Immunization Date Immunization Notes Care Provider Stevo wilcox 08-26-2020 Moderna COVID-19 Vaccine 100 MCG/0.5ML Intramuscular Suspension Cierra L Oberhauser Work Phone: [facility] Work Phone: 07-30-2020 Moderna COVID-19 Vaccine 100 MCG/0.5ML Intramuscular Suspension Cierra L Oberhauser Work Phone: [facility] Work Phone: 05-07-2017 influenza, injectabl e, quadrivalent, preservative free Cierra L Oberhauser Work Phone: [facility] Work Phone: 05-07-2017 influenza virus vaccine, unspecified formulation Cierra Oberhauser DO Work Phone: [facility] Work Phone: Payers Date Payer Category Payer Moi fairchild [facility] - [facility] MICHAEL DALLAS [id number] 2023 Moi fairchild [facility] [id number] 2023 Unknown [id number] 2022 Unknown 2021 Unknown [id number] 2018 Self-pay 1960 Unknown [id number] 2.16.840.1.112131.3.579.2. 717 1962 Unknown [id number] 2.16.840.1.637298.3.579.2. 356 1962 Unknown [id number] 2.16.840.1.093876.3.579.2. 356 1962 Unknown [id number] 2.16.840.1.956043.3.579.2. 356 1962 Unknown [id number] 2.16.840.1.680592.3.579.2. 356 1962 Unknown [id number] 2.16.840.1.225201.3.579.2. 356 1962 Unknown [id number] 2.16.840.1.860341.3.579.2. 356 1962 Unknown [id number] 2.16.840.1.770379.3.579.2. 356 1962 Unknown [id number] 2.16.840.1.336797.3.579.2. 902 1962 Unknown [id number] 2.16.840.1.665111.3.579.2. 902 1962 Unknown [id number] 2.16.840.1.168485.3.579.2. 1244 1962 Unknown [id number] 2.16.840.1.157398.3.579.2. 1244 1962 Unknown [id number] 2.16.840.1.286647.3.579.2. 1244 1962 Unknown [id number] 2.16.840.1.418303.3.579.2. 1244 1962 Unknown [id number] 2.16.840.1.575287.3.579.2. 1242 1962 Unknown [id number] 2.16.840.1.146452.3.579.2. 1242 1962 Unknown [id number] 2.16.840.1.783872.3.579.2. 1242 1962 Unknown [id number] 2.16.840.1.515835.3.579.2. 1242 1962 Unknown [id number] 2.16.840.1.170972.3.579.2. 1242 1962 Unknown [id number] 2.16.840.1.467520.3.579.2. 1242 1962 Unknown [id number] 2.16.840.1.677235.3.579.2. 1243 1962 Unknown [id number] 2.16.840.1.781465.3.579.2. 1243 1962 Unknown [id number] 2.16.840.1.607743.3.579.2. 1243 1962 Unknown [id number] 2.16.840.1.303022.3.579.2. 1243 1962 Unknown [id number] 2.16.840.1.720920.3.579.2. 1243 1962 Unknown [id number] 2.16.840.1.228661.3.579.2. 1244 1962 Unknown [id number] 2.16.840.1.037523.3.579.2. 1244 1962 Unknown [id number] 2.16.840.1.153650.3.579.2. 1244 Social History Date Type Detail Facility Start: 09-29-2022 End: 02-13-2025 Daily caffeine consumption, 2-3 servings a day Daily caffeine consumption, 2-3 servings a day [facility] Work Phone: Start: 09-29-2022 End: 11-02-2023 Tobacco smoking status NHIS Never smoked tobacco [facility] Work Phone: Start: 09-29-2022 End: 11-02-2023 Tobacco use and exposure Smokeless tobacco non-user [facility] Work Phone: Start: 09-29-2022 End: 02-13-2025 Alcohol intake Current drinker of alcohol (finding) [facility] Work Phone: Start: 09-29-2022 End: 02-13-[address] [facility] Work Phone: Start: 1960 Sex Assigned At Not on file [facility] Work Phone: Start: 09-19-2022 End: 10-03-2024 Exposure to SARS-CoV-2 (event) Not sure [facility] Start: 11-02-2023 Alcohol Comment occasional [facility] Start: 10-12-2023 Sex Female (finding) [facility] Start: 04-15-[address] [facility] Medical Equipment Procedure Code Equipment Code Equipment Origin al Text Equipment Identifier Dates Lead Sensing Res p Inspire - [id number] - [id number] Start: 01-16-2024 Lead Stim Inspir e - [id number] - [id number] Start: 01-16-2024 Generator Pulse Inspire - [id number] - [id number] Start: 01-16-2024 Functional Status Date Assessment Result Facility 11-14-2024 Patient Health Quest ionnaire 2 item (PHQ-2) [Reported] [facility] Work Phone: 10-03-2024 Patient Health Quest ionnaire 2 item (PHQ-2) [Reported] [facility] Work Phone: [facility] Clinical Notes 04-27-2016 to 03-16-2025 Telephone Encounter - Ramona Suarez RN - 03/16/2025 1:47 PM EDTTelephone Encounter - Ramona Suarez RN - 03/16/2025 1:47 PM EDTTelephone Encounter - Ramona Suarez RN - 03/13/2025 3:56 PM EDT Note Date & Type Note Facility 03-16-2025 Telephone encounter Note [facility] [place] is out of the service area for this patient. Sent to [facility] for overnight pulse ox test. Sent patient a MCM that we needed to switch companies. [facility] 03-16-2025 Miscellaneous Notes [facility] [place] is out of the service area for this patient. Sent to [facility] for overnight pulse ox test. Sent patient a MCM that we needed to switch companies. Order submitted via [place] through [facility] [place] (overnight pulse ox with Inspire running) documented in this encounter [facility] 03-13-2025 Telephone encounter Note Order submitted via [place] through [facility] [place] (overnight pulse ox with Inspire running) [facility] 02-20-2025 Evaluation + Plan note Associated Problem(s): Arthritis of right knee Assessment: Right knee varus arthritis Left hip pain She comes in today with no complaints of any pain. Plan: She did well with the cortisone injection. Follow-up in as needed She does not require any medications. [facility] Work Phone: 02-20-2025 Miscellaneous Notes Associated Problem(s): Arthritis of right knee Assessment: Right knee varus arthritis Left hip pain She comes in today with no complaints of any pain. Plan: She did well with the cortisone injection. Follow-up in as needed She does not require any medications. documented in this encounter [facility] Work Phone: 02-20-2025 History of Present illness Narrative Assessment/Plan Encounter Diagnoses: Arthritis of right knee Arthritis of right knee Assessment: Right knee varus arthritis Left hip pain She comes in today with no complaints of any pain. Plan: She did well with the cortisone injection. Follow-up in as needed She does not require any medications. Subjective Patient ID: Sulaiman Dominguez is a 65 y.o. female. Chief Complaint: Follow-up of the Left Hip (X-RAYS 01-06-25/NO FALLS/NO INJURY) and Follow-up of the Right Knee Last Surgery: No surgery found Last Surgery Date: No surgery found HPI 64-year-old comes in today complaining of hip pain but actually she points to the greater trochanter as to where she is getting the majority of her pain. She denied any groin pain. She denies any recent trauma. OBJECTIVE: ORTHO EXAM Left hip: Normal gait Negative Trendelenburg sign Skin healthy and intact No tenderness to palpation over lumbar spine No tenderness over greater trochanter No tenderness referable to groin especially with IR she had internal rotation past 30 degrees with no pain Full forward flexion Symmetric motion, no loss of internal rotation No weakness with resisted hip flexion, abduction or adduction Negative flexion/adduction/internal rotation Negative flexion/abduction/external rotation test Negative straight leg raise Neurovascular exam normal distally Right knee exam No swelling or effusion No pain to palpation 0 to 120 degrees range of motion with no limitation or pain Stable knee to ligamentous evaluation varus and valgus and anterior posterior drawer Thigh is supple and nontender Calves are supple and nontender bilaterally. IMAGE RESULTS: XR hip left with pelvis when performed 2 or 3 views Narrative: Interpreted By: Rey eLe, STUDY: XR HIP LEFT WITH PELVIS WHEN PERFORMED 2 OR 3 VIEWS INDICATION: Signs/Symptoms:LEFT HIP PAIN. 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 No evidence of fracture. Small trochanteric spurs. Impression: Mild degenerative changes bilateral hips. Signed by: Rey Lee 01/07/2025 6:17 PM Dictation workstation: [employer] ULTRASOUND Procedures No orders of the defined types were placed in this encounter. The contents of this note were dictated into the [employer] software. Sometimes errors in wording, punctuation, or spelling are seen. documented in this encounter [facility] Work Phone: 01-06-2025 Evaluation + Plan note Associated Problem(s): Left hip pain Assessment: Left hip greater trochanteric bursitis Plan: Under ultrasound control 40 mg of Kenalog was injected into the left hip. She had a very good lidocaine suppression test. Most of her pain was suppressed. She had just some minimal soreness remaining. Voltaren gel use as directed. Follow-up in 3 to [address] [facility] Work Phone: 01-06-2025 Miscellaneous Notes Associated Problem(s): Left hip pain Assessment: Left hip greater trochanteric bursitis Plan: Under ultrasound control 40 mg of Kenalog was injected into the left hip. She had a very good lidocaine suppression test. Most of her pain was suppressed. She had just some minimal soreness remaining. Voltaren gel use as directed. Follow-up in 3 to 4 weeks for reevaluation. documented in this encounter [facility] Work Phone: 01-06-2025 History of Present illness Narrative Associated Order(s): L Inj/Asp: L greater trochanteric bursa Post-Procedure Diagnose(s): Left hip pain Assessment/Plan Encounter Diagnoses: Left hip pain Left hip pain Assessment: Left hip greater trochanteric bursitis Plan: Under ultrasound control 40 mg of Kenalog was injected into the left hip. She had a very good lidocaine suppression test. Most of her pain was suppressed. She had just some minimal soreness remaining. Voltaren gel use as directed. Follow-up in 3 to 4 weeks for reevaluation. Subjective Patient ID: Sulaiman Dominguez is a 64 y.o. female. Chief Complaint: Pain of the Left Hip (X-RAYS 01-06-25/NO FALLS/NO INJURY) Last Surgery: No surgery found Last Surgery Date: No surgery found HPI 64-year-old comes in today complaining of hip pain but actually she points to the greater trochanter as to where she is getting the majority of her pain. She denied any groin pain. She denies any recent trauma. OBJECTIVE: ORTHO EXAM Left hip: Normal gait Negative Trendelenburg sign Skin healthy and intact Mild to moderate tenderness to palpation over lumbar spine Moderate to severe tenderness over greater trochanter No tenderness referable to groin especially with IR she had internal rotation past 30 degrees with no pain Full forward flexion Symmetric motion, no loss of internal rotation Minimal weakness with resisted hip flexion, abduction or adduction Negative flexion/adduction/internal rotation Negative flexion/abduction/external rotation test Negative straight leg raise Neurovascular exam normal distally IMAGE RESULTS: Point of Care Ultrasound These images are not reportable by radiology and will not be interpreted by Radiologists. ULTRASOUND L Inj/Asp: L greater trochanteric bursa on 01/06/2025 3:53 PM Indications: pain Details: ultrasound-guided lateral approach Medications: 40 mg triamcinolone acetonide 40 mg/mL A greater trochanteric bursitis was noted with free fluid seen in the trochanteric bursa. Orders Placed This Encounter Point of Care Ultrasound The contents of this note were dictated into the [employer] software. Sometimes errors in wording, punctuation, or spelling are seen. documented in this encounter [facility] Work Phone: 12-30-2024 Evaluation + Plan note Associated Problem(s): Arthritis of right knee Assessment: Right knee varus arthritis Plan: She did well with the cortisone injection. Follow-up in 3 months with respect to the knee She mention she was having left hip pain She can follow-up sooner for that. X-rays of the left hip and AP pelvis should be obtained. Voltaren gel use as directed. Nonsteroidal anti-inflammatories [id number]-qsl-[id number] use as needed. [facility] Work Phone: 12-30-2024 Miscellaneous Notes Associated Problem(s): Arthritis of right knee Assessment: Right knee varus arthritis Plan: She did well with the cortisone injection. Follow-up in 3 months with respect to the knee She mention she was having left hip pain She can follow-up sooner for that. X-rays of the left hip and AP pelvis should be obtained. Voltaren gel use as directed. Nonsteroidal anti-inflammatories dium-mrf-dahrbgr use as needed. documented in this encounter [facility] Work Phone: 12-26-2024 History of Present illness Narrative Assessment/Plan Encounter Diagnoses: Chronic pain of right knee Left hip pain Arthritis of right knee Assessment: Right knee varus arthritis Plan: She did well with the cortisone injection. Follow-up in 3 months with respect to the knee She mention she was having left hip pain She can follow-up sooner for that. X-rays of the left hip and AP pelvis should be obtained. Voltaren gel use as directed. Nonsteroidal anti-inflammatories lhcy-yby-beulncv use as needed. Subjective Patient ID: Sulaiman Dominguez is a 64 y.o. female. Chief Complaint: Pain and Follow-up of the Right Knee Last Surgery: No surgery found Last Surgery Date: No surgery found HPI 64-year-old comes in today for evaluation of her right knee. She feels the injection was quite helpful for her. She is also complaining of some left hip pain which she mentioned near the end of her exam. OBJECTIVE: ORTHO EXAM Right knee exam Minimal to no effusion No calor or erythema 0 to 120 degrees range of motion mildly tender along the joint line medially Neurovascularly intact distally Her calves are supple and nontender Is supple and nontender IMAGE RESULTS: Point of Care Ultrasound These images are not reportable by radiology and will not be interpreted by Radiologists. ULTRASOUND DIAGNOSTIC ULTRASOUND REPORT FINAL: Right KNEE Warp Spooler: Gurvinder Healy MD Indication: Knee Pain Procedure: Ultrasound, extremity, nonvascular, real-time, COMPLETE, anatomic specific Technique: B-Mode Ultrasound Examination performed using 6- 9 MHz linear transducer with [employer] STUDY TYPE: 1. ULTRASOUND EXTREMITY 2. REAL TIME WITH IMAGE DOCUMENTATION 3. NON-VASCULAR 4. COMPLETE STUDY, INCLUDING BUT NOT LIMITED TO MUSCLE, TENDONS, LIGAMENTS, SOFT TISSUES, ADIPOSE TISSUE AND SUBCUTANEOUS TISSUE. Site: KNEE Live ultrasound was performed with of patient's KNEE and PERMANENTLY documented. I personally performed the ultrasound and reviewed the findings. These show: Anu-articular evaluation: An intact Quadriceps Tendon with the Quadriceps Muscle fibers showing normal striations Quadriceps Tendon demonstrating normal fibrillar pattern. . The Patellar Tendon demonstrates normal fibrillar pattern and is intact. No significant soft tissue fluid collection/abscess appreciated. Joint Evaluation: The lateral joint line shows an intact LCL. Medial joint line exam shows an intact MCL. The patellar tendon was within normal limits. Scant joint effusion noted. The patient tolerated the procedure well. Procedures Orders Placed This Encounter Point of Care Ultrasound XR hip left with pelvis when performed 2 or 3 views The contents of this note were dictated into the [employer] software. Sometimes errors in wording, punctuation, or spelling are seen. documented in this encounter [facility] Work Phone: 12-24-2024 Telephone encounter Note Called patient and lvm to see if she could reschedule her appointment for Feb 13 at 12:45pm. Also sending MCM to advise [facility] 12-24-2024 Miscellaneous Notes Called patient and lvm to see if she could reschedule her appointment for Feb 13 at 12:45pm. Also sending MCM to advise documented in this encounter [facility] 11-14-2024 History of Present illness Narrative Subjective Patient ID: Sulaiman Dominguez is a 64 y.o. female who presents for Cough (COUGH X2 WEEKS). HPI: Presents today for COUGH X 2 WEEKS modifying factors consists of HAS SEASONAL ALLERGIES associated symptoms consist of post nasal drip. Cough is productive on/off. prior treatment consists of medication KENALOG 3 MONTHS AGO AND LORATADINE ALLERGIES - she has had allergy injections through ENT in the past. [place] inspire. Instructed to call them if not better or I can refer to ent in [place]. Will give another IM kenalog today HTN- STABLE Lung nodule noted on ct calcium score. Repeat ct chest on 1 year Visit Vitals BP 132/86 Pulse 72 Ht 1.575 m (5' 2) Wt 76.9 kg (169 lb 9.6 oz) BMI 31.02 kg/m OB Status Postmenopausal Smoking Status Never BSA 1.83 m Review of Systems Constitutional: Negative for chills, fatigue, fever and unexpected weight change. HENT: Negative for congestion, ear pain, sore throat and trouble swallowing. Eyes: Negative for photophobia, pain, redness and visual disturbance. Respiratory: Positive for cough. Negative for apnea, choking, chest tightness, shortness of breath and wheezing. Cardiovascular: Negative for chest pain, palpitations and leg swelling. Gastrointestinal: Negative for abdominal distention, abdominal pain, blood in stool, constipation, diarrhea, nausea and vomiting. Genitourinary: Negative for difficulty urinating, dysuria, flank pain, frequency, hematuria and urgency. Musculoskeletal: Negative for arthralgias, back pain, gait problem, joint swelling, myalgias and neck pain. Skin: Negative for rash and wound. Neurological: Negative for dizziness, seizures, syncope, facial asymmetry, speech difficulty, weakness, numbness and headaches. Psychiatric/Behavioral: Negative for confusion, sleep disturbance and suicidal ideas. The patient is not nervous/anxious. Objective Study Result Narrative & Impression Interpreted By: Alexandru Mckinney, STUDY: CT CARDIAC SCORING WO IV CONTRAST; 10/03/2024 9:20 am INDICATION: Signs/Symptoms:screen. ,E78.2 Mixed hyperlipidemia COMPARISON: None. ACCESSION NUMBER(S): [id number] ORDERING CLINICIAN: ANNA KENDALL TECHNIQUE: Using prospective ECG gating, CT scan of the coronary arteries was performed without intravenous contrast. Coronary calcium scoring was performed according to the method of Agatston. FINDINGS: The score and distribution of calcium in the coronary arteries is as follows: LM 0 LAD 0 LCx 0 RCA 0 Total 0 The visualized mid/lower ascending thoracic aorta measures 3 cm in diameter. The heart is normal in size. No pericardial effusion is present. No gross evidence of mediastinal or hilar lymphadenopathy or masses is identified. The visualized segments of the lungs are normally expanded. 4 mm nodule left upper lobe at image 1 of series 3. The visualized subdiaphragmatic structures appear intact. IMPRESSION: 1. Coronary artery calcium score of 0*. Physical Exam Constitutional: Appearance: Normal appearance. She is normal weight. HENT: Head: Normocephalic. Mouth/Throat: Pharynx: Posterior oropharyngeal erythema (back of throat) present. Eyes: Extraocular Movements: Extraocular movements intact. Conjunctiva/sclera: Conjunctivae normal. Pupils: Pupils are equal, round, and reactive to light. Cardiovascular: Rate and Rhythm: Normal rate and regular rhythm. Pulses: Normal pulses. Heart sounds: Normal heart sounds. Pulmonary: Effort: Pulmonary effort is normal. Breath sounds: Normal breath sounds. Musculoskeletal: General: Normal range of motion. Cervical back: Normal range of motion. Skin: General: Skin is warm and dry. Neurological: General: No focal deficit present. Mental Status: She is alert and oriented to person, place, and time. Psychiatric: Mood and Affect: Mood normal. Behavior: Behavior normal. Thought Content: Thought content normal. Judgment: Judgment normal. Assessment/Plan Problem List Items Addressed This Visit Seasonal allergies - Primary Relevant Medications montelukast (Singulair) 10 mg tablet triamcinolone acetonide (Kenalog-40) injection 40 mg (Completed) (Start on 11/14/2024 10:30 AM) Lung nodule WE DISCUSSED MOST COMMON SIDE EFFECTS OF PRESCRIBED MEDICATIONS. INDICATIONS, RISK, COMPLICATIONS, AND ALTERNATIVES OF MEDICATION/THERAPEUTICS WERE EXPLAINED AND DISCUSSED. PLEASE MONITOR CLOSELY FOR ANY UNTOWARD SIDE EFFECTS OR COMPLICATIONS OF MEDICATIONS. PATIENT IS STRONGLY ADVISED TO BE COMPLIANT WITH RECOMMENDATIONS. QUESTIONS AND CONCERNS WERE ADDRESSED. INSTRUCTED TO CALL, RETURN SOONER, OR GO TO THE ER, IF SYMPTOMS PERSIST OR WORSEN. THEY VOICED UNDERSTANDING AND DENIES FURTHER QUESTIONS AT THIS TIME. TIME CODE 1. PREPARATION FOR PATIENT'S VISIT (REVIEWING CHART, CURRENT MEDICAL RECORDS, OUTSIDE HEALTH PROVIDER RECORDS, PREVIOUS HISTORY, EXAM, TEST, PROCEDURE, AND MEDICATIONS) 2. FACE TO FACE ENCOUNTER OBTAINING HISTORY FROM THE PATIENT/FAMILY/CAREGIVERS; PERFORMING EVALUATION AND EXAMINATION; ORDERING TESTS OR PROCEDURES; REFERRING AND COMMUNICATING WITH OTHER HEALTHCARE PROVIDERS; COUNSELING AND EDUCATION OF THE PATIENT/FAMILY/CAREGIVERS; INDEPENDENTLY INTERPRETING RESULTS (TESTS, LABS, PROCEDURES, IMAGING) AND COMMUNICATING AND EXPLAINING RESULTS TO THE PATIENT/FAMILY/CAREGIVERS 3. COORDINATION OF CARE; PREPARING AND PRINTING DISCHARGE INSTRUCTIONS AND ANY EDUCATIONAL MATERIAL FOR THE PATIENT/FAMILY/CAREGIVERS. DOCUMENTING CLINICAL INFORMATION IN THE ELECTRONIC MEDICAL RECORD 4. REVIEWING OARRS NEEDED MDM 1) COMPLEXITY: MORE THAN 1 STABLE CHRONIC CONDITION ADDRESSED OR 1 ACUTE ILLNESS ADDRESSED 2)DATA: TESTS INTERPRETED AND OR ORDERED, TOOK INDEPENDENT HISTORY OR RECORDS REVIEWED 3)RISK: MODERATE RISK DUE TO NATURE OF MEDICAL CONDITIONS/COMORBIDITY OR MEDICATIONS ORDERED OR SURGICAL OR PROCEDURE REFERRAL Follow up as before documented in this encounter [facility] Work Phone: 11-14-2024 Instructions RANI Flores - 11/14/2024 10:[address] Montoya, ENT in [place] documented in this encounter [facility] Work Phone: 11-12-2024 Evaluation + Plan note Associated Problem(s): Arthritis of right knee Assessment: Right knee varus arthritis Plan: Under ultrasound control 40 mg of Kenalog was injected into the right knee. Patient tolerated this well with an excellent lidocaine suppression test. Follow-up in 6 weeks for reevaluation. Voltaren gel use as directed. Nonsteroidal anti-inflammatories ehyj-vvv-[id number] use as needed. [facility] Work Phone: 11-12-2024 Miscellaneous Notes Associated Problem(s): Arthritis of right knee Assessment: Right knee varus arthritis Plan: Under ultrasound control 40 mg of Kenalog was injected into the right knee. Patient tolerated this well with an excellent lidocaine suppression test. Follow-up in 6 weeks for reevaluation. Voltaren gel use as directed. Nonsteroidal anti-inflammatories hemx-hpc-jzkrcoy use as needed. documented in this encounter [facility] Work Phone: 11-12-2024 History of Present illness Narrative Associated Order(s): L Inj/Asp: R knee Post-Procedure Diagnose(s): Arthritis of right knee Assessment/Plan Encounter Diagnoses: Arthritis of right knee Chronic pain of right knee Arthritis of right knee Assessment: Right knee varus arthritis Plan: Under ultrasound control 40 mg of Kenalog was injected into the right knee. Patient tolerated this well with an excellent lidocaine suppression test. Follow-up in 6 weeks for reevaluation. Voltaren gel use as directed. Nonsteroidal anti-inflammatories vwgd-fzj-tvtnkth use as needed. Subjective Patient ID: Sulaiman Dominguez is a 64 y.o. female. Chief Complaint: Pain and New Patient Visit of the Right Knee Last Surgery: No surgery found Last Surgery Date: No surgery found HPI 64-year-old female who states that several weeks ago she developed pain in her right knee. It was so incapacitating that she could not go up and down stairs. It has recently begun to improve.. OBJECTIVE: ORTHO EXAM Right knee exam Small effusion. 0 to 120 degrees range of motion. Pain at the extreme. Tender along the medial joint line. Standing alignment is varus. She has about 15 degrees. With valgus stress she corrects to neutral. Angelina is positive. Patellofemoral compression was mild the tender. N/V intact distally. Thigh is supple and nontender. Calves are supple and nontender bilaterally. IMAGE RESULTS: Point of Care Ultrasound These images are not reportable by radiology and will not be interpreted by Radiologists. X-rays of her right knee show some medial joint space narrowing. Some early arthritic changes are noted. ULTRASOUND DIAGNOSTIC ULTRASOUND REPORT FINAL: Right KNEE Warp Spooler: Gurvinder Healy MD Indication: Knee Pain Procedure: Ultrasound, extremity, nonvascular, real-time, COMPLETE, anatomic specific Technique: B-Mode Ultrasound Examination performed using 6- 9 MHz linear transducer with [employer] STUDY TYPE: 1. ULTRASOUND EXTREMITY 2. REAL TIME WITH IMAGE DOCUMENTATION 3. NON-VASCULAR 4. COMPLETE STUDY, INCLUDING BUT NOT LIMITED TO MUSCLE, TENDONS, LIGAMENTS, SOFT TISSUES, ADIPOSE TISSUE AND SUBCUTANEOUS TISSUE. Site: KNEE Live ultrasound was performed with of patient's KNEE and PERMANENTLY documented. I personally performed the ultrasound and reviewed the findings. These show: Anu-articular evaluation: An intact Quadriceps Tendon with the Quadriceps Muscle fibers showing normal striations Quadriceps Tendon demonstrating normal fibrillar pattern. . The Patellar Tendon demonstrates normal fibrillar pattern and is intact. No significant soft tissue fluid collection/abscess appreciated. Joint Evaluation: The lateral joint line shows an intact LCL. Medial joint line exam shows an intact MCL. The patellar tendon was within normal limits. Scant joint effusion noted. With synovitis At the medial joint line the meniscus appears within normal limits within the limitations of ultrasound evaluation. The patient tolerated the procedure well. L Inj/Asp: R knee on 11/12/2024 3:10 PM Indications: pain Details: 18 G needle, ultrasound-guided superolateral approach Medications: 40 mg triamcinolone acetonide 40 mg/mL Procedure, treatment alternatives, risks and benefits explained, specific risks discussed. Consent was given by the patient. Immediately prior to procedure a time out was called to verify the correct patient, procedure, equipment, aircraft life support fitter and site/side marked as required. Patient was prepped and draped in the usual sterile fashion. Orders Placed This Encounter Point of Care Ultrasound documented in this encounter [facility] Work Phone: 10-14-2024 Telephone encounter Note Spoke to patient and advised that the Trazodone was refilled at the 50 mg dosage and to take 1 tablet. Also scheduled an IN OFFICE visit with Dr Allen on 12/26/24 at 12:30 pm. Patient can only do Sunday's. She has the Inspire device and this is a medication follow up appointment. Dr Allen approved her coming in office on a Sunday at 12:30 pm. He would like to see her in office (she has the Inspire device). [facility] 10-14-2024 Miscellaneous Notes Spoke to patient and advised that the Trazodone was refilled at the 50 mg dosage and to take 1 tablet. Also scheduled an IN OFFICE visit with Dr Allen on 12/26/24 at 12:30 pm. Patient can only do Sunday's. She has the Inspire device and this is a medication follow up appointment. Dr Allen approved her coming in office on a Sunday at 12:30 pm. He would like to see her in office (she has the Inspire device). No answer, left message requesting a return call, number provided. Called to see what dosage Trazodone she is taking currently. Was going to try to cut back from 100 mg to 50 mg. Also does she need the refill send to [facility] in [place]? documented in this encounter [facility] 10-14-2024 Telephone encounter Note No answer, left message requesting a return call, number provided. Called to see what dosage Trazodone she is taking currently. Was going to try to cut back from 100 mg to 50 mg. Also does she need the refill send to [facility] in [place]? [facility] [employer] 10-03-2024 History of Present illness Narrative Subjective Patient ID: Sulaiman Dominguez is a 64 y.o. female who presents for Follow-up (3 WEEK FOLLOW UP, LABS, BP CHECK). HPI: Presents today for LAB FU. BP CHECK . NO NEW COMPLAINTS PREDIABETES- HGA1C 5.9%. DIET MODIFICATIONS DISCUSSED. WILL RECHECK IN 6 MONTHS DEPRESSION- STABLE. MED REFILL LIPIDS- SLIGHTLY ELEVATED. CT CALCIUM SCORE TEST DONE TODAY, RESULTS STILL PENDING. B12- REMAINS ELEVATED. REFUSING REFERRAL TO [facility] AT THIS TIME HTN- HOME BP RUNNING 130S/80S. STABLE. SEASONAL ALLERGIES- KENALOG INJECTION GIVE AT LAST APPT. IT HAS BEEN HELPING HER ALLERGIES PHIL- Inspire device placed December 2023 and it was activated on Feb 27, 2024 Visit Vitals BP 136/82 Pulse 76 Ht 1.575 m (5' 2) Wt 77 kg (169 lb 12.8 oz) BMI 31.06 kg/m OB Status Postmenopausal Smoking Status Never BSA 1.84 m Review of Systems Constitutional: Negative for chills, fatigue, fever and unexpected weight change. HENT: Negative for congestion, ear pain, sore throat and trouble swallowing. Eyes: Negative for photophobia, pain, redness and visual disturbance. Respiratory: Negative for apnea, cough, choking, chest tightness, shortness of breath and wheezing. Cardiovascular: Negative for chest pain, palpitations and leg swelling. Gastrointestinal: Negative for abdominal distention, abdominal pain, blood in stool, constipation, diarrhea, nausea and vomiting. Genitourinary: Negative for difficulty urinating, dysuria, flank pain, frequency, hematuria and urgency. Musculoskeletal: Negative for arthralgias, back pain, gait problem, joint swelling, myalgias and neck pain. Skin: Negative for rash and wound. Neurological: Negative for dizziness, seizures, syncope, facial asymmetry, speech difficulty, weakness, numbness and headaches. Psychiatric/Behavioral: Negative for confusion, sleep disturbance and suicidal ideas. The patient is not nervous/anxious. Objective Component Latest Ref Rng 09/01/2024 WHITE BLOOD CELL COUNT 3.8 - 10.8 Thousand/uL 6.7 RED BLOOD CELL COUNT 3.80 - 5.10 Million/uL 5.12 (H) HEMOGLOBIN 11.7 - 15.5 g/dL 13.9 HEMATOCRIT 35.0 - 45.0 % 42.6 MCV 80.0 - 100.0 fL 83.2 MCH 27.0 - 33.0 pg 27.1 MCHC 32.0 - 36.0 g/dL 32.6 RDW 11.0 - 15.0 % 13.4 PLATELET COUNT 140 - 400 Thousand/uL 201 MPV 7.5 - 12.5 fL 10.8 ABSOLUTE NEUTROPHILS 1,500 - 7,800 cells/uL 4,435 ABSOLUTE LYMPHOCYTES 850 - 3,900 cells/uL 1,420 ABSOLUTE MONOCYTES 200 - 950 cells/uL 663 ABSOLUTE EOSINOPHILS 15 - 500 cells/uL 121 ABSOLUTE BASOPHILS 0 - 200 cells/uL 60 NEUTROPHILS % 66.2 LYMPHOCYTES % 21.2 MONOCYTES % 9.9 EOSINOPHILS % 1.8 BASOPHILS % 0.9 GLUCOSE 65 - 99 mg/dL 95 UREA NITROGEN (BUN) 7 - 25 mg/dL 15 CREATININE 0.50 - 1.05 mg/dL 0.79 EGFR > OR = 60 mL/min/1.73m2 85 SODIUM 135 - 146 mmol/L 142 POTASSIUM 3.5 - 5.3 mmol/L 4.0 CHLORIDE 98 - 110 mmol/L 105 CARBON DIOXIDE 20 - 32 mmol/L 27 ELECTROLYTE BALANCE 7 - 17 mmol/L (calc) 10 CALCIUM 8.6 - 10.4 mg/dL 9.0 PROTEIN, TOTAL 6.1 - 8.1 g/dL 6.9 ALBUMIN 3.6 - 5.1 g/dL 4.6 BILIRUBIN, TOTAL 0.2 - 1.2 mg/dL 1.0 ALKALINE PHOSPHATASE 37 - 153 U/L 70 AST 10 - 35 U/L 14 ALT 6 - 29 U/L 17 CHOLESTEROL, TOTAL <200 mg/dL 216 (H) HDL CHOLESTEROL > OR = 50 mg/dL 57 TRIGLYCERIDES <150 mg/dL 105 LDL-CHOLESTEROL mg/dL (calc) 138 (H) CHOL/HDLC RATIO <5.0 (calc) 3.8 NON HDL CHOLESTEROL <130 mg/dL (calc) 159 (H) IRON, TOTAL 45 - 160 mcg/dL 95 IRON BINDING CAPACITY 250 - 450 mcg/dL (calc) 302 % SATURATION 16 - 45 % (calc) 31 HEMOGLOBIN A1c <5.7 % 5.9 (H) eAG (mg/dL) mg/dL 123 eAG (mmol/L) mmol/L 6.8 PARATHYROID HORMONE, INTACT 16 - 77 pg/mL 43 MAGNESIUM 1.5 - 2.5 mg/dL 2.3 VITAMIN B12 200 - 1,100 pg/mL 1,632 (H) TSH 0.40 - 4.50 mIU/L 2.85 Legend: (H) High Physical Exam Constitutional: Appearance: Normal appearance. She is normal weight. HENT: Head: Normocephalic. Eyes: Extraocular Movements: Extraocular movements intact. Conjunctiva/sclera: Conjunctivae normal. Pupils: Pupils are equal, round, and reactive to light. Cardiovascular: Rate and Rhythm: Normal rate and regular rhythm. Pulses: Normal pulses. Heart sounds: Normal heart sounds. Pulmonary: Effort: Pulmonary effort is normal. Breath sounds: Normal breath sounds. Musculoskeletal: General: Normal range of motion. Cervical back: Normal range of motion. Skin: General: Skin is warm and dry. Neurological: General: No focal deficit present. Mental Status: She is alert and oriented to person, place, and time. Psychiatric: Mood and Affect: Mood normal. Behavior: Behavior normal. Thought Content: Thought content normal. Judgment: Judgment normal. Assessment/Plan Problem List Items Addressed This Visit Primary hypertension Mild major depression, single episode ([facility]) Relevant Medications buPROPion XL (Wellbutrin XL) 300 mg 24 hr tablet Insomnia Relevant Medications traZODone (Desyrel) 50 mg tablet Vitamin D deficiency Mixed hyperlipidemia Elevated vitamin B12 level Relevant Orders Vitamin B12 Elevated red blood cell count Other Visit Diagnoses Prediabetes - Primary Relevant Orders Hemoglobin A1C Comprehensive Metabolic Panel CBC and Auto Differential OAB (overactive bladder) Relevant Medications oxyBUTYnin XL (Ditropan-XL) 10 mg 24 hr tablet PLEASE MONITOR CLOSELY FOR ANY UNTOWARD SIDE EFFECTS OR COMPLICATIONS OF MEDICATIONS. PATIENT IS STRONGLY ADVISED TO BE COMPLIANT WITH RECOMMENDATIONS. QUESTIONS AND CONCERNS WERE ADDRESSED. INSTRUCTED TO CALL, RETURN SOONER, OR GO TO THE ER, IF SYMPTOMS PERSIST OR WORSEN. THEY VOICED UNDERSTANDING AND DENIES FURTHER QUESTIONS AT THIS TIME. TIME CODE 1. PREPARATION FOR PATIENT'S VISIT (REVIEWING CHART, CURRENT MEDICAL RECORDS, OUTSIDE HEALTH PROVIDER RECORDS, PREVIOUS HISTORY, EXAM, TEST, PROCEDURE, AND MEDICATIONS) 2. FACE TO FACE ENCOUNTER OBTAINING HISTORY FROM THE PATIENT/FAMILY/CAREGIVERS; PERFORMING EVALUATION AND EXAMINATION; ORDERING TESTS OR PROCEDURES; REFERRING AND COMMUNICATING WITH OTHER HEALTHCARE PROVIDERS; COUNSELING AND EDUCATION OF THE PATIENT/FAMILY/CAREGIVERS; INDEPENDENTLY INTERPRETING RESULTS (TESTS, LABS, PROCEDURES, IMAGING) AND COMMUNICATING AND EXPLAINING RESULTS TO THE PATIENT/FAMILY/CAREGIVERS 3. COORDINATION OF CARE; PREPARING AND PRINTING DISCHARGE INSTRUCTIONS AND ANY EDUCATIONAL MATERIAL FOR THE PATIENT/FAMILY/CAREGIVERS. DOCUMENTING CLINICAL INFORMATION IN THE ELECTRONIC MEDICAL RECORD 4. REVIEWING OARRS NEEDED MDM 1) COMPLEXITY: MORE THAN 1 STABLE CHRONIC CONDITION ADDRESSED OR 1 ACUTE ILLNESS ADDRESSED 2)DATA: TESTS INTERPRETED AND OR ORDERED, TOOK INDEPENDENT HISTORY OR RECORDS REVIEWED 3)RISK: MODERATE RISK DUE TO NATURE OF MEDICAL CONDITIONS/COMORBIDITY OR MEDICATIONS ORDERED OR SURGICAL OR PROCEDURE REFERRAL 6 MONTHS WITH LABS documented in this encounter [facility] Work Phone: 08-29-2024 History of Present illness Narrative Subjective Patient ID: Sulaiman Dominguez is a 64 y.o. female who presents for Establish Care (NEW PT, ESTABLISH CARE). HPI: Presents today TO ESTABLISH CARE. Seasonal allergies- has had allergy injections through ENT in the past. Refusing referral at this time. Will give IM kenalog HTN- increase losartan to 75 mg from 5omg B12- elevated. She does not take any supplements or energy drinks. GERD- omeprazole and nexium in the past without relief. Start Protonix. Fatigue- follow with sleep provider. Will order iron Visit Vitals BP 180/90 Pulse 78 Ht 1.575 m (5' 2) Wt 77.3 kg (170 lb 6.4 oz) BMI 31.17 kg/m OB Status Postmenopausal Smoking Status Never BSA 1.84 m Review of Systems Constitutional: Positive for fatigue. Negative for chills, fever and unexpected weight change. HENT: Negative for congestion, ear pain, sore throat and trouble swallowing. Eyes: Negative for photophobia, pain, redness and visual disturbance. Respiratory: Negative for apnea, cough, choking, chest tightness, shortness of breath and wheezing. Cardiovascular: Negative for chest pain, palpitations and leg swelling. Gastrointestinal: Negative for abdominal distention, abdominal pain, blood in stool, constipation, diarrhea, nausea and vomiting. Genitourinary: Negative for difficulty urinating, dysuria, flank pain, frequency, hematuria and urgency. Musculoskeletal: Negative for arthralgias, back pain, gait problem, joint swelling, myalgias and neck pain. Skin: Negative for rash and wound. Neurological: Negative for dizziness, seizures, syncope, facial asymmetry, speech difficulty, weakness, numbness and headaches. Psychiatric/Behavioral: Negative for confusion, sleep disturbance and suicidal ideas. The patient is not nervous/anxious. Objective Physical Exam Constitutional: Appearance: Normal appearance. She is normal weight. HENT: Head: Normocephalic. Eyes: Extraocular Movements: Extraocular movements intact. Conjunctiva/sclera: Conjunctivae normal. Pupils: Pupils are equal, round, and reactive to light. Cardiovascular: Rate and Rhythm: Normal rate and regular rhythm. Pulses: Normal pulses. Heart sounds: Normal heart sounds. Pulmonary: Effort: Pulmonary effort is normal. Breath sounds: Normal breath sounds. Musculoskeletal: General: Normal range of motion. Cervical back: Normal range of motion. Skin: General: Skin is warm and dry. Neurological: General: No focal deficit present. Mental Status: She is alert and oriented to person, place, and time. Psychiatric: Mood and Affect: Mood normal. Behavior: Behavior normal. Thought Content: Thought content normal. Judgment: Judgment normal. Assessment/Plan Problem List Items Addressed This Visit Fatigue Relevant Orders Iron and TIBC Seasonal allergies - Primary Relevant Medications triamcinolone acetonide (Kenalog-40) injection 40 mg (Completed) Primary hypertension Relevant Medications losartan (Cozaar) 50 mg tablet Vitamin D deficiency Relevant Orders Parathyroid Hormone, Intact Mixed hyperlipidemia Relevant Orders CBC and Auto Differential Comprehensive Metabolic Panel Lipid Panel TSH with reflex to Free T4 if abnormal CT cardiac scoring wo IV contrast Elevated vitamin B12 level Relevant Orders Magnesium Vitamin B12 Iron and TIBC Gastroesophageal reflux disease Relevant Medications pantoprazole (ProtoNix) 40 mg EC tablet IFG (impaired fasting glucose) Relevant Orders Hemoglobin A1C Other Visit Diagnoses Establishing care with new doctor, encounter for WE DISCUSSED MOST COMMON SIDE EFFECTS OF PRESCRIBED MEDICATIONS. INDICATIONS, RISK, COMPLICATIONS, AND ALTERNATIVES OF MEDICATION/THERAPEUTICS WERE EXPLAINED AND DISCUSSED. PLEASE MONITOR CLOSELY FOR ANY UNTOWARD SIDE EFFECTS OR COMPLICATIONS OF MEDICATIONS. PATIENT IS STRONGLY ADVISED TO BE COMPLIANT WITH RECOMMENDATIONS. QUESTIONS AND CONCERNS WERE ADDRESSED. INSTRUCTED TO CALL, RETURN SOONER, OR GO TO THE ER, IF SYMPTOMS PERSIST OR WORSEN. THEY VOICED UNDERSTANDING AND DENIES FURTHER QUESTIONS AT THIS TIME. TIME CODE 1. PREPARATION FOR PATIENT'S VISIT (REVIEWING CHART, CURRENT MEDICAL RECORDS, OUTSIDE HEALTH PROVIDER RECORDS, PREVIOUS HISTORY, EXAM, TEST, PROCEDURE, AND MEDICATIONS) 2. FACE TO FACE ENCOUNTER OBTAINING HISTORY FROM THE PATIENT/FAMILY/CAREGIVERS; PERFORMING EVALUATION AND EXAMINATION; ORDERING TESTS OR PROCEDURES; REFERRING AND COMMUNICATING WITH OTHER HEALTHCARE PROVIDERS; COUNSELING AND EDUCATION OF THE PATIENT/FAMILY/CAREGIVERS; INDEPENDENTLY INTERPRETING RESULTS (TESTS, LABS, PROCEDURES, IMAGING) AND COMMUNICATING AND EXPLAINING RESULTS TO THE PATIENT/FAMILY/CAREGIVERS 3. COORDINATION OF CARE; PREPARING AND PRINTING DISCHARGE INSTRUCTIONS AND ANY EDUCATIONAL MATERIAL FOR THE PATIENT/FAMILY/CAREGIVERS. DOCUMENTING CLINICAL INFORMATION IN THE ELECTRONIC MEDICAL RECORD 4. REVIEWING OARRS NEEDED MDM 1) COMPLEXITY: MORE THAN 1 STABLE CHRONIC CONDITION ADDRESSED OR 1 ACUTE ILLNESS ADDRESSED 2)DATA: TESTS INTERPRETED AND OR ORDERED, TOOK INDEPENDENT HISTORY OR RECORDS REVIEWED 3)RISK: MODERATE RISK DUE TO NATURE OF MEDICAL CONDITIONS/COMORBIDITY OR MEDICATIONS ORDERED OR SURGICAL OR PROCEDURE REFERRAL 3 weeks with bp check with labs documented in this encounter [facility] Work Phone: 08-15-2024 History of Present illness Narrative [facility] RANI Welsh Visit Note - 08/15/2024 10:09 AM This note was generated with voice recognition software and may contain errors including spelling, grammar, syntax, and misrecognization of what was dictated. Patient: Sulaiman Dominguez, , 64 y.o., female PCP: Cierra De Jesus, DO ---- ALLERGIES: No Known Allergies CURRENT MEDICATIONS: Current Outpatient Medications Medication Instructions albuterol 90 mcg/actuation inhaler 2 puffs, inhalation, Every 4 hours PRN azithromycin (Zithromax Z-Bandar) 250 mg tablet Take 2 tablets by mouth at once on day 1, then 1 tablet once a day on days 2-5. Take with a meal. buPROPion XL (WELLBUTRIN XL) 300 mg, oral, Every morning, Do not crush, chew, or split. ergocalciferol (Vitamin D-2) 1.25 MG (38643 UT) capsule 1 capsule fluticasone (Flonase) 50 mcg/actuation nasal spray 1 spray, Each Nostril, Daily, Shake gently. Before first use, prime pump. After use, clean tip and replace cap. levocetirizine (Xyzal) 5 mg tablet 1 tablet, Daily losartan (COZAAR) 50 mg, oral, Daily oxybutynin XL (DITROPAN-XL) 10 mg, oral, Daily, Do not crush, chew, or split. predniSONE (Deltasone) 10 mg tablet Take 6 tabs PO daily x1 day, then take 5 tabs daily x1 day, then take 4 tabs daily x1 day, then take 3 tabs daily x1 day, then take 2 tabs daily x1 day, then take 1 tab daily x1 day. Take with a meal. traZODone (DESYREL) 50 mg, oral, Nightly PRN ---- PAST MEDICAL HX: Patient Active Problem List Diagnosis Fatigue High myopia, both eyes Moderate obstructive sleep apnea Seasonal allergies Primary hypertension Mild major depression, single episode ([facility]) SURGICAL HX: Past Surgical History: Procedure Laterality Date OTHER SURGICAL HISTORY 04/27/2021 section OTHER SURGICAL HISTORY 04/27/2021 Hysterectomy OTHER SURGICAL HISTORY 04/27/2021 Tonsillectomy OTHER SURGICAL HISTORY 04/27/2021 Ovarian cystectomy OTHER SURGICAL HISTORY 04/27/2021 Carpal tunnel surgery OTHER SURGICAL HISTORY 04/27/2021 Gallbladder surgery FAMILY HX: No pertinent history. SOCIAL HX: reports that she has never smoked. She has never used smokeless tobacco. ---- CHIEF COMPLAINT: Chief Complaint Patient presents with URI Cough, headache x 2 months HISTORY OF PRESENT ILLNESS: The history was obtained from patientAlex Ybarra is a 64 y.o. female, who presents with a chief complaint of a harsh, dry cough, headaches, fatigue, and body aches - reports she had COVID infection in May, and sxs never resolved after that. Reports she also had COVID in 2020, and had a a similar, lingering cough. Reports she has nasal congestion at baseline, as well as a clogged-feeling R ear, but these are unchanged. Denies any fever/chills, abdominal pain, chest pain, wheezing/shortness of breath, rashes, urinary symptoms, nausea/vomiting, and diarrhea. Denies any lightheadedness or dizziness; no changes in mental status. No swelling in legs. Appetite is normal; is able to eat and drink fluids without difficulty; denies loss of sense of taste or smell. Reports symptoms have persisted without much change since onset . Has not tried any [id number]-[id number]-[id number] medications or home remedies for symptom management. No known ill contacts. Has received the COVID vaccine x 2. Has not received this season's influenza vaccine.. Last known COVID infection was in 05/2024. Is not a smoker. No known history of asthma/COPD/respiratory issues. Per her chart, has a history of laryngopharyngeal reflux. Ila is also currently being worked up by sleep medicine due to ongoing fatigue - reports she recently had a normal sleep study, but they are planning further evaluation for her symptoms. REVIEW OF SYSTEMS: 10 systems reviewed negative with exception of history of present illness as listed above. TODAY'S VITALS: BP 146/81 Pulse 76 Temp 36.8 C (98.3 F) Resp 16 Ht 1.575 m (5' 2) Wt 72.6 kg (160 lb) SpO2 95% BMI 29.26 kg/m PHYSICAL EXAMINATION: General: Mildly ill-appearing, well nourished female; alert and oriented; in no acute distress. Sitting comfortably on exam chair. Non-dyspneic. Eyes: Pupils equal, round and reactive to light. No conjunctival erythema; no scleral icterus. HENT: No frontal or maxillary sinus tenderness; + audible nasal congestion. Airway patent, TMs and ear canals clear/unremarkable bilaterally. Nasal mucosa mildly injected and edematous. Oral mucosa moist. Posterior pharynx mildly injected but without lesions or oropharyngeal exudate aside from PND. Uvula is midline. Managing oral secretions without difficulty. Neck: Supple. No palpable lymphadenopathy. Trachea is midline. Respiratory: Respirations easy and unlabored, Breath sounds equal. Lungs are clear to auscultation; no wheezes, rhonchi, or rales; has good air movement throughout. + non-productive cough noted. Non-dyspneic with ambulation; able to maintain SpO2. Cardiovascular: Normal rate, Regular rhythm. Normal S1S2. + murmur; no r/g. No peripheral edema. Gastrointestinal: Soft, non-tender, non-distended. Bowel sounds normoactive. Musculoskeletal: Grossly normal; appropriate for age. Integumentary: [place], warm, dry, and intact. No rashes or skin discoloration appreciated. Good skin turgor. Neurologic: Alert and oriented, no gross deficits. Cognition and Speech: Oriented, Speech clear and coherent. Psychiatric: Cooperative, Appropriate mood & affect. ---- Medical Decision Making LABORATORY or RADIOLOGICAL IMAGING ORDERS/RESULTS: XR chest 2 views Status: Final result PACS Images Show images for XR chest 2 views In Basket Actions Done Result Mgmt View in In Basket Signed by Signed Time Phone Pager Mina Ford MD 08/15/2024 11:30 [id number] Exam Information Status Exam Begun Exam Ended Final 08/15/2024 10:43 08/15/2024 10:46 Study Result Narrative & Impression Interpreted By: Mina Ford, STUDY: XR CHEST 2 VIEWS; 08/15/2024 10:46 am INDICATION: Signs/Symptoms:Cough x 2 months. ,R05.8 Other specified cough COMPARISON: 07/17/2014 ACCESSION NUMBER(S): [id number] ORDERING CLINICIAN: CIERRA JADE FINDINGS: Right vagal nerve stimulator noted. The cardiomediastinal silhouette and pulmonary vasculature are within normal limits. Atherosclerotic aorta. No consolidation, pleural effusion or pneumothorax. IMPRESSION: No acute cardiopulmonary process. MACRO: None. Signed by: Mina Ford 08/15/2024 11:30 AM Dictation workstation: [id number] IMPRESSION/PLAN: Course: Worsening; stable 1. Cough present for greater than 3 weeks (Primary) - XR chest 2 views; Future - azithromycin (Zithromax Z-Bandar) 250 mg tablet; Take 2 tablets by mouth at once on day 1, then 1 tablet once a day on days 2-5. Take with a meal. Dispense: 6 tablet; Refill: 0 - predniSONE (Deltasone) 10 mg tablet; Take 6 tabs PO daily x1 day, then take 5 tabs daily x1 day, then take 4 tabs daily x1 day, then take 3 tabs daily x1 day, then take 2 tabs daily x1 day, then take 1 tab daily x1 day. Take with a meal. Dispense: 21 tablet; Refill: 0 No red flags on exam today. CXR today was unremarkable. Due to severity and duration of symptoms, will attempt treatment with course of Zithromax and prednisone to cover for both residual bacterial and inflammatory causes for her cough, but stressed importance of close monitoring and follow up with PCP - if not improving over the next few days, may need further evaluation. She declines rx for cough medication at this point. Instructed to push fluids, rest, and to use appropriate over the counter medications as needed for management of symptoms. Reviewed instructions for self-isolation and continued monitoring. Reviewed red flags to monitor for, counseled on potential adverse reactions of treatments, expectations for improvement in sxs, and advised to follow-up with primary care provider in 2-3 days if symptoms persist, or to seek care sooner if worsening or if any additional concerns/red flags develop. Should also plan to follow up with PCP [place] re: heart murmur noted on exam today. Patient agreed with plan of care; questions were encouraged and answered. RANI Welsh Advanced Practice Provider [facility] documented in this encounter [facility] Work Phone: 08-08-2024 History of Present illness Narrative Images from the original note were not included. [facility] [place]IT-SLEEP Date of last visit: 06/06/24 - Reviewed SleepSync compliance data with patient. Encouraged ongoing titrate upwards as tolerate. - performed functional tongue exam. Even improved tongue protrusion at higher settings. - Changed amplitude from 1.5 to 1.6 V - changed lower limit from 0.5 to 1.4 V - changed upper limit from 1.5 to 2.4 V - changed pause from 15 to 30 minutes - continue trazodone. Writing for additional 50 mg HS PRN insomnia for nights where it is more difficult to fall asleep. - Reviewed how treatment PHIL could benefit her HTN. - will check in with patient in 1 month; if doing well and numbers on download look good, plan for fine tuning PSG at [place] (location per pt preference). Interval History: Here for sleep study results. [place] that she almost didn't sleep at all on night of study. Didn't feel to get any good deep sleep. At home sleeps primarily on her side. Using inspire regularly, but still yawns a lot throughout the day. But not actually napping. Finds that her fatigue/sleepiness greatly varies throughout the day still. Uses lower dose trazodone (50 mg) when going to bed later. Would like to not have to use as much of it or become dependent on it to sleep. Thinks things are going fine with Inspire. Doesn't believe she is snoring or having witnessed apneas. Denies any history of palpitations. Sleep-Wake Schedule Bedtime: 9-10 P.M. Final wake time: 5:05 A.M. she does not wake up refreshed. Sleep Latency: varies Awakenings after sleep onset: 0-2x, because of dogs, and falls back asleep quickly Naps: none Estimated total sleep time: 6-7 hours Sleep Metrics: [place] Sleepiness Scale: 6 (3 last visit) Past Treatments: Wellbutrin Inspire - [place] 01/16/24 Sleep Studies: HST (11/22/21): Weight 167 lbs. AHI 17 (7 CMS); SpO2 min 89%. Fine-tuning PSG 07/31/24: weight 162 lbs. PLM 1.7; PLM-a 0.3. @ 1.6 V AHI was 2.3, but limited combined supine-REM sleep. 1.7 V AHI in mild range with some increased central apneas and non-CMS events. PVCs noted. Download: Past Medical History Past Medical History: Diagnosis Date Allergies Anxiety Depression GERD (gastroesophageal reflux disease) Hypertension Migraines Sleep apnea uses cpap Past Surgical History Past Surgical History: Procedure Laterality Date CARPAL TUNNEL RELEASE Left SECTION, LOW TRANSVERSE CHOLECYSTECTOMY ELBOW SURGERY Left tendon scrape per pt HYSTERECTOMY 1 ovary remaining OTHER SURGICAL HISTORY 01/16/2024 hypoglossal nerve stimulator TONSILLECTOMY UPPER GASTROINTESTINAL ENDOSCOPY sleep induced sleep endoscopy Allergies Allergies Allergen Reactions Cat Dander dogs Dust Mite Extract Medications Current Outpatient Medications Medication Instructions buPROPion XL (WELLBUTRIN XL) 300 mg, Oral, Every morning esomeprazole (NEXIUM) 20 mg, Oral, Daily before breakfast, Do not open capsule. fluticasone (Flonase) 50 MCG/ACT nasal spray 1 spray, Daily loratadine (CLARITIN) 10 mg, Daily losartan (COZAAR) 50 mg, Daily traZODone (Desyrel) 100 MG tablet TAKE 1 TABLET BY MOUTH ONCE DAILY NEEDED FOR SLEEP traZODone (DESYREL) 25-50 mg, Oral, Nightly PRN Social History Social History Tobacco Use Smoking status: Never Smokeless tobacco: Never Substance Use Topics Alcohol use: Yes Comment: occasional Family History No family history on file. Review of Systems Constitutional: Positive for fatigue. Musculoskeletal: Positive for arthralgias. Psychiatric/Behavioral: Positive for sleep disturbance. Physical Exam General appearance: Well appearing. No acute distress. AAOX3 Head: Normocephalic, without obvious abnormality, atraumatic Eyes: Normal sclera and conjunctiva Skin: Skin color normal. No rashes or lesions Psych: Euthymic Mood Labs/additional studies: Impression: Diagnosis Plan 1. PHIL (obstructive sleep apnea) 2. Insomnia, unspecified type 3. Essential hypertension 4. Intolerance of continuous positive airway pressure (CPAP) ventilation 5. Fatigue, unspecified type Vitamin D Deficiency Screening (Vit D 25) TSH Vitamin B12 CBC auto differential Comprehensive metabolic panel Folate Vitamin D Deficiency Screening (Vit D 25) TSH Vitamin B12 CBC auto differential Comprehensive metabolic panel Folate 64 y/o F with BMI > 30, HTN, GERD, and depression. Found to have moderate PHIL, didn't feel benefit or tolerate from CPAP. S/p inspire implant. Using well, though still tired and yawning frequently. Ongoing inspire issues as well. Recommendations: - Reviewed fine-tuning PSG with patient. Will have her decrease amplitude to 1.6 V and compare fatigue/sleepiness to current level. - continue trazodone for insomnia (which is stable). Pt is trying to decrease to 50 mg HS per her desire to utilize less. - Reviewed how treatment PHIL could benefit her HTN. - Given ongoing fatigue and sleepiness, will check additional labs to make sure they may not be affecting. - will check in with patient in 2 weeks. F/u TBD at that time. Patient was identified and seen today via Telehealth by agreement and consent. I used the following Telehealth technology: Audio and video capabilities. Patient location: Patient Location: Home. This patient encounter is appropriate and reasonable under the circumstances: transportation issues . The patient has been advised of the potential risks and limitations of this mode of treatment (including but not limited to the absence of in-person examination) and has agreed to be treated in a remote fashion in spite of them. Any and all of the patient's/patient's family's questions on this issue have been answered and I have made no promises or guarantees to the patient. The patient has also been advised to contact this office for worsening conditions or problems, and seek emergency medical treatment and/or call 911 if the patient deems either necessary. The patient stated that they are currently in the [facility]. If the patient is a minor, permission has been obtained by the parent or guardian for the patient to receive medical care at this visit. documented in this encounter [facility] [employer] 07-23-2024 Telephone encounter Note Images from the original note were not included. [facility] [employer] 07-23-2024 Miscellaneous Notes Images from the original note were not included. [place], Patient is now scheduled for 07/31/24. Thank you! documented in this encounter [facility] 07-22-2024 Telephone encounter Note Last follow up: 06/06/2024 Next appointment: 08/08/2024 Allergies Allergen Reactions Cat Dander dogs Dust Mite Extract Requested Prescriptions Pending Prescriptions Disp Refills traZODone (Desyrel) 100 MG tablet [Pharmacy Med Name: traZODone HCl 100 MG Oral Tablet] 30 tablet 0 Sig: TAKE 1 TABLET BY MOUTH ONCE DAILY NEEDED FOR SLEEP Recommendations: - Reviewed SleepSync compliance data with patient. Encouraged ongoing titrate upwards as tolerate. - performed functional tongue exam. Even improved tongue protrusion at higher settings. - Changed amplitude from 1.5 to 1.6 V - changed lower limit from 0.5 to 1.4 V - changed upper limit from 1.5 to 2.4 V - changed pause from 15 to 30 minutes - continue trazodone. Writing for additional 50 mg HS PRN insomnia for nights where it is more difficult to fall asleep. - Reviewed how treatment PHIL could benefit her HTN. - will check in with patient in 1 month; if doing well and numbers on download look good, plan for fine tuning PSG at [place] (location per pt preference). [place] in [place]. [facility] 07-22-2024 Miscellaneous Notes Last follow up: 06/06/2024 Next appointment: 08/08/2024 Allergies Allergen Reactions Cat Dander dogs Dust Mite Extract Requested Prescriptions Pending Prescriptions Disp Refills traZODone (Desyrel) 100 MG tablet [Pharmacy Med Name: traZODone HCl 100 MG Oral Tablet] 30 tablet 0 Sig: TAKE 1 TABLET BY MOUTH ONCE DAILY NEEDED FOR SLEEP Recommendations: - Reviewed SleepSync compliance data with patient. Encouraged ongoing titrate upwards as tolerate. - performed functional tongue exam. Even improved tongue protrusion at higher settings. - Changed amplitude from 1.5 to 1.6 V - changed lower limit from 0.5 to 1.4 V - changed upper limit from 1.5 to 2.4 V - changed pause from 15 to 30 minutes - continue trazodone. Writing for additional 50 mg HS PRN insomnia for nights where it is more difficult to fall asleep. - Reviewed how treatment PHIL could benefit her HTN. - will check in with patient in 1 month; if doing well and numbers on download look good, plan for fine tuning PSG at [place] (location per pt preference). [place] in [place]. documented in this encounter [facility] 07-11-2024 Telephone encounter Note Sent a My Chart message. Can she move to 12:30 pm time on 08/08 instead of 12? [facility] 07-11-2024 Miscellaneous Notes Sent a My Chart message. Can she move to 12:30 pm time on 08/08 instead of 12? Spoke to patient and scheduled office visit 08/08/24 at 12 pm to review Inspire fine tuning sleep study results (scheduled 07/31/24). Okay for this date per Dr Allen, she is an Inspire patient. Per Dr Allen, Inspire patient. Can we offer her 12:30 slot on Tuesday 08/08? Ok to do in office on different day than typical for inspire, as this is the only one that works for her schedule. documented in this encounter [facility] 07-10-2024 Telephone encounter Note Spoke to patient and scheduled office visit 08/08/24 at 12 pm to review Inspire fine tuning sleep study results (scheduled 07/31/24). Okay for this date per Dr Allen, she is an Inspire patient. [facility] [employer] 07-10-2024 Telephone encounter Note Per Dr Allen, Inspire patient. Can we offer her 12:30 slot on Tuesday 08/08? Ok to do in office on different day than typical for inspmelba, as this is the only one that works for her schedule. [facility] [employer] 07-08-2024 Telephone encounter Note Park, Patient is now scheduled for 07/31/24. Thank you! [facility] [employer] 07-08-2024 Miscellaneous Notes [place], Patient is now scheduled for 07/31/24. Thank you! documented in this encounter [facility] [employer] 06-27-2024 History of Present illness Narrative Assessment and Recommendations: Sulaiman Dominguez is a 64 y.o. female here for 4-month follow-up from implantation hypoglossal nerve stimulator and LPR -Will start the patient on esomeprazole to help treat her symptoms follow-up in 3 months -In regards to her 4-month follow-up her inspire implant and incisions are well-healed no concerns we will follow-up on the results from her titration study [facility] Note HPI: Sulaiman Dominguez is a 64 y.o. yo female who presents to clinic today for 1 week follow-up from implantation hypoglossal nerve stimulator. Overall patient is doing well minimal pain no issues with swallowing no other concerns at this time. Interval History 06/27/2024: Patient presents today for follow-up reports overall she is doing okay still feels tired not sure if the device is helping significantly but she does say her snoring and apneic events seem to be better she just started trazodone feels like this is helped somewhat send been having some ear fullness secondary to TMJ as well as reflux related symptoms and she is here for follow-up PMH: Past Medical History: Diagnosis Date Allergies Anxiety Depression GERD (gastroesophageal reflux disease) Hypertension Migraines Sleep apnea uses cpap Allergies: Allergies Allergen Reactions Cat Dander dogs Dust Mite Extract Medications: Current Outpatient Medications: cholecalciferol (Vitamin D-3) 25 MCG tablet, Take 25 mcg by mouth daily., Disp: , Rfl: fluticasone (Flonase) 50 MCG/ACT nasal spray, Administer 1 spray into each nostril daily. Shake gently. Before first use, prime pump. After use, clean tip and replace cap., Disp: , Rfl: loratadine (Claritin) 5 MG chewable tablet, Chew 10 mg daily., Disp: , Rfl: losartan (Cozaar) 50 MG tablet, Take 50 mg by mouth daily., Disp: , Rfl: oxyCODONE-acetaminophen (Percocet) 5-325 MG tablet, , Disp: , Rfl: traZODone (Desyrel) 100 MG tablet, Take 1 tablet (100 mg) by mouth Daily as needed for sleep., Disp: 30 tablet, Rfl: 2 traZODone (Desyrel) 50 MG tablet, Take 0.5-1 tablets (25-50 mg) by mouth Nightly as needed for sleep (insomnia)., Disp: 30 tablet, Rfl: 0 buPROPion XL (Wellbutrin XL) 300 MG 24 hr tablet, Take 300 mg by mouth every morning., Disp: , Rfl: PSH: Past Surgical History: Procedure Laterality Date CARPAL TUNNEL RELEASE Left SECTION, LOW TRANSVERSE CHOLECYSTECTOMY ELBOW SURGERY Left tendon scrape per pt HYSTERECTOMY 1 ovary remaining OTHER SURGICAL HISTORY 01/16/2024 hypoglossal nerve stimulator TONSILLECTOMY UPPER GASTROINTESTINAL ENDOSCOPY sleep induced sleep endoscopy FH: No family history on file. SH: Social History Socioeconomic History Marital status: Spouse name: Not on file Number of children: Not on file Years of education: Not on file Highest education level: Not on file Occupational History Not on file Tobacco Use Smoking status: Never Smokeless tobacco: Never Vaping Use Vaping status: Never Used Substance and Sexual Activity Alcohol use: Yes Comment: occasional Drug use: Never Sexual activity: Not on file Other Topics Concern Not on file Social History Narrative Not on file Social Drivers of Health Financial Resource Strain: Not on file Food Insecurity: Not on file Transportation Needs: Not on file Physical Activity: Not on file Stress: Not on file Social Connections: Not on file Intimate Partner Violence: Not on file Housing Stability: Not on file Physical Exam: Constitutional: General: Patient is not in acute distress. Appearance: Patient is well-developed. Eyes: Conjunctiva/sclera: Conjunctivae normal. Pupils: Pupils are equal, round, and reactive to light. HENT: Jaw: No trismus. Nose: No nasal deformity, mucosal edema or rhinorrhea. Mouth: Mucous membranes are not pale, not dry and not cyanotic. No oral lesions. Pharynx: Uvula midline. No oropharyngeal exudate or uvula swelling. Tonsils: No tonsillar exudate. No abnormal masses or lesions Thyroid: No significant thyromegaly. Trachea: Trachea and phonation normal. No tracheal deviation. Pulmonary: Effort: Pulmonary effort is normal. No respiratory distress. Breath sounds: No stridor. Musculoskeletal: Head: Normocephalic and atraumatic. Neck: Full passive range of motion without pain, neck supple. Neck and chest incision clean dry and intact well-healing small amount of soft tissue swelling in the submandibular region tongue motion was within normal limits no marginal mandibular weakness Skin: General: Skin is warm and dry. Findings: No erythema or rash. Neurological: Cranial Nerves: No cranial nerve deficit. Sensory: No sensory deficit. Coordination: Coordination normal. Extremities: No significant peripheral edema or varicosities Psychiatric: Mood and Affect: Mood and affect normal. Cognition and Memory: Cognition and memory normal. documented in this encounter [facility] 06-06-2024 History of Present illness Narrative Images from the original note were not included. [facility] FO[place] UP OFFICE VISIT-SLEEP Date of last visit: 04/25/24 Plan at that time: - Reviewed SleepSync compliance data. Pt has had erratic adjustments of her voltage the past month or so. Discussed needing to regularly increase by 1 step per week, as tolerated. Pt will increase in one month (left amplitude at 1.0 V). - performed functional tongue exam. As she notes occasional times when device turns on and she has not yet fallen asleep to start the night, increased delay from 30 to 45 minutes. - Increase trazodone from 50 to 100 mg to try to help with awakenings. D/c tylenol P.M. could consider doxepin going forward. - Reviewed how treatment PHIL could benefit her HTN. - F/u approximately 1 month. Interval History: Overall feels she is sleeping better than last visit. Trazodone 100 mg has been helpful in falling and staying asleep. Occasionally still with difficulty, but much fewer nights than before. Thinks things are going fine with Inspire. Doesn't believe she is snoring or having witnessed apneas. Continues to feel tired and has yawning during the day though. Has been able to bump up inspire since we last met, and not having very sore tongue or throat. Sleep-Wake Schedule Bedtime: 9-10 P.M. Final wake time: 5:05 A.M. she does not wake up refreshed. Sleep Latency: varies Awakenings after sleep onset: 0-2x, because of dogs, and falls back asleep quickly Naps: none Estimated total sleep time: 6-7 hours Sleep Metrics: [place] Sleepiness Scale: 3 (13 last visit) Past Treatments: Wellbutrin [facility] Marissa Andrews 01/16/24 Sleep Studies: HST (11/22/21): Weight 167 lbs. AHI 17 (7 CMS); SpO2 min 89%. Download: Past Medical History Past Medical History: Diagnosis Date Allergies Anxiety Depression GERD (gastroesophageal reflux disease) Hypertension Migraines Sleep apnea uses cpap Past Surgical History Past Surgical History: Procedure Laterality Date CARPAL TUNNEL RELEASE Left SECTION, LOW TRANSVERSE CHOLECYSTECTOMY ELBOW SURGERY Left tendon scrape per pt HYSTERECTOMY 1 ovary remaining OTHER SURGICAL HISTORY 01/16/2024 hypoglossal nerve stimulator TONSILLECTOMY UPPER GASTROINTESTINAL ENDOSCOPY sleep induced sleep endoscopy Allergies Allergies Allergen Reactions Cat Dander dogs Dust Mite Extract Medications Current Outpatient Medications Medication Instructions buPROPion XL (WELLBUTRIN XL) 300 mg, Oral, Every morning cholecalciferol (VITAMIN D-3) 25 mcg, Daily loratadine (CLARITIN) 10 mg, Daily losartan (COZAAR) 50 mg, Daily traZODone (DESYREL) 100 mg, Oral, Daily PRN traZODone (DESYREL) 25-50 mg, Oral, Nightly PRN Social History Social History Tobacco Use Smoking status: Never Smokeless tobacco: Never Substance Use Topics Alcohol use: Yes Comment: occasional Family History No family history on file. Review of Systems Constitutional: Positive for fatigue. Musculoskeletal: Positive for arthralgias. Psychiatric/Behavioral: Positive for sleep disturbance. Physical Exam Vitals: 06/06/24 1217 BP: 138/83 BP Location: Left arm Patient Position: Sitting BP Cuff Size: Adult Pulse: 80 Resp: 16 SpO2: 96% Weight: 166 lb (75.3 kg) Height: 5' 2 (1.575 m) Body mass index is 30.36 kg/m . General appearance: Well appearing. No acute distress. AAOX3 Head: Normocephalic, without obvious abnormality, atraumatic Eyes: Normal sclera and conjunctiva Skin: Skin color normal. No rashes or lesions Psych: Euthymic Mood Labs/additional studies: Impression: Diagnosis Plan 1. Insomnia, unspecified type traZODone (Desyrel) 50 MG tablet 2. PHIL (obstructive sleep apnea) 3. Essential hypertension 64 y/o F with BMI > 30, HTN, GERD, and depression. Found to have moderate PHIL, didn't feel benefit or tolerate from CPAP. S/p inspire implant. Usage at 57 hours/week. Recommendations: - Reviewed SleepSync compliance data with patient. Encouraged ongoing titrate upwards as tolerate. - performed functional tongue exam. Even improved tongue protrusion at higher settings. - Changed amplitude from 1.5 to 1.6 V - changed lower limit from 0.5 to 1.4 V - changed upper limit from 1.5 to 2.4 V - changed pause from 15 to 30 minutes - continue trazodone. Writing for additional 50 mg HS PRN insomnia for nights where it is more difficult to fall asleep. - Reviewed how treatment PHIL could benefit her HTN. - will check in with patient in 1 month; if doing well and numbers on download look good, plan for fine tuning PSG at [place] (location per pt preference). documented in this encounter [facility] [employer] 04-25-2024 History of Present illness Narrative Images from the original note were not included. [facility] FO[place] UP OFFICE VISIT-SLEEP Date of last visit: 02/27/2024 Plan at that time: - activated Inspire (see other note). - Encouraged weight loss to help PHIL. - Reviewed how treatment PHIL could help HTN. - F/u by phone with Sleep RN/Inspire Navigator in 1 month; in office in 2 months. Interval History: Some nights sleeping well, other nights doesn't feel much better (since starting Inspire). Not sure about snoring or witnessed apneas--can't tell if her is joking or not when he tells her she snores. Found that she had gone up a few levels, but not sure how. Didn't upload data into josette yet. PCP started her on trazodone given ongoing awakenings. Thinks it might be helping some, but still requires tylenol P.M. with it. Sleep-Wake Schedule Bedtime: 9-10 P.M. Final wake time: 5:05 A.M. she does not wake up refreshed. Sleep Latency: varies Awakenings after sleep onset: 5x, because of going to the bathroom and unknown reasons, and falls back asleep quickly Naps: none Estimated total sleep time: 6-7 hours Sleep Metrics: [place] Sleepiness Scale: 0 (13 last visit) Past Treatments: Wellbutrin Inspire - Gerritsen 01/16/24 Sleep Studies: HST (11/22/21): Weight 167 lbs. AHI 17 (7 CMS); SpO2 min 89%. Compliance Download: Past Medical History Past Medical History: Diagnosis Date Allergies Anxiety Depression GERD (gastroesophageal reflux disease) Hypertension Migraines Sleep apnea uses cpap Past Surgical History Past Surgical History: Procedure Laterality Date CARPAL TUNNEL RELEASE Left SECTION, LOW TRANSVERSE CHOLECYSTECTOMY ELBOW SURGERY Left tendon scrape per pt HYSTERECTOMY 1 ovary remaining OTHER SURGICAL HISTORY 01/16/2024 hypoglossal nerve stimulator TONSILLECTOMY UPPER GASTROINTESTINAL ENDOSCOPY sleep induced sleep endoscopy Allergies Allergies Allergen Reactions Cat Hair Extract dogs Dust Mite Extract Medications Current Outpatient Medications Medication Instructions albuterol 108 (90 Base) MCG/ACT inhaler 2 puffs, Every 4 hours PRN buPROPion XL (WELLBUTRIN XL) 300 mg, Oral, Every morning cholecalciferol (VITAMIN D-3) 25 mcg, Daily levocetirizine (XYZAL) 5 mg, Every evening loratadine (CLARITIN) 10 mg, Daily losartan (COZAAR) 50 mg, Daily omeprazole (PRILOSEC) 40 mg, Every 48 hours traZODone (DESYREL) 50 mg, Daily PRN Social History Social History Tobacco Use Smoking status: Never Smokeless tobacco: Never Substance Use Topics Alcohol use: Yes Comment: occasional Family History No family history on file. Review of Systems Constitutional: Positive for fatigue. Musculoskeletal: Positive for arthralgias. Psychiatric/Behavioral: Positive for sleep disturbance. Physical Exam Vitals: 04/25/24 1231 BP: 126/84 BP Location: Left arm Patient Position: Sitting BP Cuff Size: Adult Pulse: 81 Resp: 16 SpO2: 99% Weight: 163 lb 12.8 oz (74.3 kg) Height: 5' 2 (1.575 m) Body mass index is 29.96 kg/m . General appearance: Well appearing. No acute distress. AAOX3 Head: Normocephalic, without obvious abnormality, atraumatic Eyes: Normal sclera and conjunctiva Skin: Skin color normal. No rashes or lesions Psych: Euthymic Mood, full affect Labs/additional studies: Impression: Diagnosis Plan 1. PHIL (obstructive sleep apnea) 2. Insomnia, unspecified type 3. Essential hypertension 64 y/o F with BMI > 30, HTN, GERD, and depression. Found to have moderate PHIL, didn't feel benefit or tolerate from CPAP. S/p inspire implant. Recommendations: - Reviewed SleepSync compliance data. Pt has had erratic adjustments of her voltage the past month or so. Discussed needing to regularly increase by 1 step per week, as tolerated. Pt will increase in one month. - performed functional tongue exam. As she notes occasional times when device turns on and she has not yet fallen asleep to start the night, increased delay from 30 to 45 minutes. - Increase trazodone from 50 to 100 mg to try to help with awakenings. D/c tylenol P.M. could consider doxepin going forward. - Reviewed how treatment PHIL could benefit her HTN. - F/u approximately 1 month. documented in this encounter [facility] [employer] 04-25-2024 History of Present illness Narrative Images from the original note were not included. [facility] FOLLOW UP OFFICE VISIT-SLEEP Date of last visit: 02/27/2024 Plan at that time: - activated Inspire (see other note). - Encouraged weight loss to help PHIL. - Reviewed how treatment PHIL could help HTN. - F/u by phone with Sleep RN/Inspire Navigator in 1 month; in office in 2 months. Interval History: Some nights sleeping well, other nights doesn't feel much better (since starting Inspire). Not sure about snoring or witnessed apneas--can't tell if her is joking or not when he tells her she snores. Found that she had gone up a few levels, but not sure how. Didn't upload data into josette yet. PCP started her on trazodone given ongoing awakenings. Thinks it might be helping some, but still requires tylenol P.M. with it. Sleep-Wake Schedule Bedtime: 9-10 P.M. Final wake time: 5:05 A.M. she does not wake up refreshed. Sleep Latency: varies Awakenings after sleep onset: 5x, because of going to the bathroom and unknown reasons, and falls back asleep quickly Naps: none Estimated total sleep time: 6-7 hours Sleep Metrics: [place]wood Sleepiness Scale: 0 (13 last visit) Past Treatments: Wellbutrin Inspire - Gerritsen 01/16/24 Sleep Studies: HST (11/22/21): Weight 167 lbs. AHI 17 (7 CMS); SpO2 min 89%. Download: Past Medical History Past Medical History: Diagnosis Date Allergies Anxiety Depression GERD (gastroesophageal reflux disease) Hypertension Migraines Sleep apnea uses cpap Past Surgical History Past Surgical History: Procedure Laterality Date CARPAL TUNNEL RELEASE Left SECTION, LOW TRANSVERSE CHOLECYSTECTOMY ELBOW SURGERY Left tendon scrape per pt HYSTERECTOMY 1 ovary remaining OTHER SURGICAL HISTORY 01/16/2024 hypoglossal nerve stimulator TONSILLECTOMY UPPER GASTROINTESTINAL ENDOSCOPY sleep induced sleep endoscopy Allergies Allergies Allergen Reactions Cat Hair Extract dogs Dust Mite Extract Medications Current Outpatient Medications Medication Instructions albuterol 108 (90 Base) MCG/ACT inhaler 2 puffs, Every 4 hours PRN buPROPion XL (WELLBUTRIN XL) 300 mg, Oral, Every morning cholecalciferol (VITAMIN D-3) 25 mcg, Daily levocetirizine (XYZAL) 5 mg, Every evening loratadine (CLARITIN) 10 mg, Daily losartan (COZAAR) 50 mg, Daily omeprazole (PRILOSEC) 40 mg, Every 48 hours traZODone (DESYREL) 50 mg, Daily PRN Social History Social History Tobacco Use Smoking status: Never Smokeless tobacco: Never Substance Use Topics Alcohol use: Yes Comment: occasional Family History No family history on file. Review of Systems Constitutional: Positive for fatigue. Musculoskeletal: Positive for arthralgias. Psychiatric/Behavioral: Positive for sleep disturbance. Physical Exam Vitals: 04/25/24 1231 BP: 126/84 BP Location: Left arm Patient Position: Sitting BP Cuff Size: Adult Pulse: 81 Resp: 16 SpO2: 99% Weight: 163 lb 12.8 oz (74.3 kg) Height: 5' 2 (1.575 m) Body mass index is 29.96 kg/m . General appearance: Well appearing. No acute distress. AAOX3 Head: Normocephalic, without obvious abnormality, atraumatic Eyes: Normal sclera and conjunctiva Skin: Skin color normal. No rashes or lesions Psych: Euthymic Mood, full affect Labs/additional studies: Impression: Diagnosis Plan 1. PHIL (obstructive sleep apnea) 2. Insomnia, unspecified type 3. Essential hypertension 64 y/o F with BMI > 30, HTN, GERD, and depression. Found to have moderate PHIL, didn't feel benefit or tolerate from CPAP. S/p inspire implant. Usage at 59 hours/week. Recommendations: - Reviewed SleepSync compliance data. Pt has had erratic adjustments of her voltage the past month or so. Discussed needing to regularly increase by 1 step per week, as tolerated. Pt will increase in one month (left amplitude at 1.0 V). - performed functional tongue exam. As she notes occasional times when device turns on and she has not yet fallen asleep to start the night, increased delay from 30 to 45 minutes. - Increase trazodone from 50 to 100 mg to try to help with awakenings. D/c tylenol P.M. could consider doxepin going forward. - Reviewed how treatment PHIL could benefit her HTN. - F/u approximately 1 month. documented in this encounter [facility] 04-02-2024 History of Present illness Narrative Subjective Patient ID: Sulaiman Dominguez is a 64 y.o. female who presents for Follow-up (6 month), Headache, Earache (RT ear), and Insomnia. Headache Associated symptoms include ear pain and insomnia. Earache Associated symptoms include headaches. Insomnia Associated symptoms include headaches. Patient is here today for 6 mo follow up Pt reports that she had Inspire device placed at the end of December and it was activated on Feb 27, 2024. She is supposed to be called in a month to follow up with her. Review of Systems HENT: Positive for ear pain. Neurological: Positive for headaches. Psychiatric/Behavioral: The patient has insomnia. Objective BP 153/74 Pulse 66 Ht 1.575 m (5' 2) Wt 75.3 kg (166 lb) BMI 30.36 kg/m Physical Exam Constitutional: General: She is not in acute distress. Appearance: Normal appearance. HENT: Head: Normocephalic. Right Ear: Ear canal and external ear normal. Left Ear: Tympanic membrane, ear canal and external ear normal. Ears: Comments: Effusion right TM Nose: Nose normal. Mouth/Throat: Pharynx: No oropharyngeal exudate. Eyes: General: Right eye: No discharge. Left eye: No discharge. Extraocular Movements: Extraocular movements intact. Pupils: Pupils are equal, round, and reactive to light. Cardiovascular: Rate and Rhythm: Normal rate and regular rhythm. Heart sounds: No murmur heard. No gallop. Pulmonary: Effort: Pulmonary effort is normal. No respiratory distress. Breath sounds: Normal breath sounds. No wheezing. Abdominal: General: Bowel sounds are normal. There is no distension. Palpations: Abdomen is soft. Tenderness: There is no abdominal tenderness. Musculoskeletal: General: No swelling. Normal range of motion. Cervical back: Neck supple. No tenderness. Skin: General: Skin is warm and dry. Coloration: Skin is not jaundiced. Neurological: General: No focal deficit present. Mental Status: She is alert and oriented to person, place, and time. Cranial Nerves: No cranial nerve deficit. Psychiatric: Mood and Affect: Mood normal. Behavior: Behavior normal. Assessment/Plan Problem List Items Addressed This Visit Moderate obstructive sleep apnea Seasonal allergies Primary hypertension Relevant Medications losartan (Cozaar) 50 mg tablet Mild major depression, single episode (CMS-HCC) Relevant Medications buPROPion XL (Wellbutrin XL) 300 mg 24 hr tablet Other Visit Diagnoses Primary insomnia - Primary Relevant Medications traZODone (Desyrel) 50 mg tablet Screening mammogram for breast cancer Relevant Orders BI mammo bilateral screening tomosynthesis Screening for colon cancer Relevant Orders Cologuard colon cancer screening Immunizations Flu declines COVID received 2 PNA -- Shingles recommended RSV recommended Mammo , will order DEXA -- Pap 2021 Colon cancer screening > 10 years ago, will order cologuard HTN, controlled - continue losartan 50mg po daily 2. Depression - taking wellbutrin 300mg po every other day 3. Seasonal allergies - continue xyzal 4. Seasonal allergies, effusion right TM Recommend flonase 5. PHIL - intolerant to cpap - had inspire device placed in December and it was activated at the end of February - has to have follow up appt 6. Reports that she is not sleeping but she does not think it is ude to apnea, just unable to sleep - has tried otc melatonin which has not helped - will try trazodone Advised pt that I am leaving In july so she will need to find a new provider for next y ear. Call in the next two weeks and let me know how trazodone is working Final diagnoses: [F32.0] Mild major depression, single episode (CMS-HCC) [I10] Primary hypertension [F51.01] Primary insomnia [Z12.31] Screening mammogram for breast cancer [Z12.11] Screening for colon cancer [J30.2] Seasonal allergies [G47.33] Moderate obstructive sleep apnea documented in this encounter [facility] Work Phone: 02-27-2024 History of Present illness Narrative Images from the original note were not included. [facility] NEW PATIENT OFFICE VISIT-SLEEP MEDICINE 02/27/2024 REFERRING PHYSICIAN: Jeannine Andrews MD REASON FOR REFERRAL: Chief Complaint Patient presents with New Patient phil HPI: Sulaiman Dominguez is a 64 y.o. female. Had home sleep study over 2 years ago due to ongoing fatigue (and normal labs at the time). Was put on APAP and tried to use for 2 years. Would still feel tired even after using. Would still be awake frequently even with PAP on. Denies pressure intolerance. Was using nasal mask. SHELLI [place]. Had pressure adjusted by sleep doctor in [place], but was still tired. Couldn't get comfortable using. Sleep-Wake Schedule Bedtime: 9-10 P.M. Final wake time: 5:05 A.M. she does not wake up refreshed. Sleep Latency: varies, unsure; doesn't feel like too long though Awakenings after sleep onset: 6x, because of going to the bathroom and unknown reasons, and falls back asleep quickly Naps: none Estimated total sleep time: 7 hours During Sleep: Habitual sleep position: supine and side Snoring: unknown Witnessed apneas: no Wakes up gasping for air: no Wakes up with heart pounding/racing: no RLS symptoms: She denies an urge to move the legs which interferes with sleep onset or maintenance. Parasomnias: She denies dream enactment or any abnormal behaviors during sleep. 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 She has fatigue. She has not fallen asleep while driving Caffeine: coffee 1 cup /day Recent weight change: lost 12 lbs over past month Sleep Metrics: [place] Sleepiness Scale: Total score: 13 Past Treatments: Wellbutrin Keagan Andrews 01/16/24 Sleep Studies: HST (11/22/21): Weight 167 lbs. AHI 17 (7 CMS); SpO2 min 89%. Relevant LABS/Studies: Past Medical History: Diagnosis Date Allergies Anxiety Depression GERD (gastroesophageal reflux disease) Hypertension Migraines Sleep apnea uses cpap Past Surgical History: Procedure Laterality Date CARPAL TUNNEL RELEASE Left SECTION, LOW TRANSVERSE CHOLECYSTECTOMY ELBOW SURGERY Left tendon scrape per pt HYSTERECTOMY 1 ovary remaining OTHER SURGICAL HISTORY 01/16/2024 hypoglossal nerve stimulator TONSILLECTOMY UPPER GASTROINTESTINAL ENDOSCOPY sleep induced sleep endoscopy Allergies Allergen Reactions Cat Hair Extract dogs Dust Mite Extract Current Outpatient Medications Medication Instructions albuterol 108 (90 Base) MCG/ACT inhaler 2 puffs, Inhalation, Every 4 hours PRN buPROPion XL (WELLBUTRIN XL) 300 mg, Oral, Every morning cholecalciferol (VITAMIN D-3) 25 mcg, Oral, Daily levocetirizine (XYZAL) 5 mg, Oral, Every evening loratadine (CLARITIN) 10 mg, Oral, Daily losartan (COZAAR) 50 mg, Oral, Daily omeprazole (PRILOSEC) 40 mg, Oral, Every 48 hours Social History Tobacco Use Smoking status: Never Smokeless tobacco: Never Substance Use Topics Alcohol use: Yes Comment: occasional No family history on file. Family Sleep History: Unknown Review of Systems Constitutional: Positive for fatigue. Musculoskeletal: Positive for arthralgias. Psychiatric/Behavioral: Positive for sleep disturbance. Physical Exam: Vitals: 02/27/24 1447 BP: (!) 145/78 BP Location: Left arm Patient Position: Sitting BP Cuff Size: Large adult Pulse: 72 Resp: 16 SpO2: 95% Weight: 172 lb 9.6 oz (78.3 kg) Height: 5' 2 (1.575 m) Body mass index is 31.57 kg/m . Neck Circumference (in): 15.5 in. General appearance: NAD. Mental Status/Psych: A&O x 3. Euthymic mood, full affect. Skin: No rashes or lesions. Skin palpation normal. Head: Normocephalic, without obvious abnormality, atraumatic Eyes: PERRL, EOM intact. Normal sclera and conjunctiva Neck: Supple, No JVD. No thyromegaly. Lungs: Clear bilaterally. No wheezing. No crackles. No use of accessory muscles. Full respiratory effort. Heart: RRR, S1, S2 normal, no murmur, click, rub or gallop Extremities: extremities normal: no clubbing, no cyanosis, no edema Musculoskeletal: No joint abnormalities. Neurological: Normal gait. Sensation grossly intact to light touch. ASSESSMENT/PLAN: Diagnosis Plan 1. PHIL (obstructive sleep apnea) [facility] 2. Intolerance of continuous positive airway pressure (CPAP) ventilation 3. Essential hypertension 4. Obesity due to excess calories, unspecified class, unspecified whether serious comorbidity present 64 y/o F with BMI > 30, HTN, GERD, and depression. Found to have moderate PHIL, didn't feel benefit or tolerate from CPAP. S/p inspire implant. - activated Inspire (see other note). - Encouraged weight loss to help PHIL. - Reviewed how treatment PHIL could help HTN. - F/u by phone with Sleep RN/Inspire Navigator in 1 month; in office in 2 months. signed by Abril Allen MD On this date, 02/27/2024 I have spent 45 minutes formulating and reviewing the above recommendations and treatment plan with the patient. This time also includes documentation on the day of the visit, as well as discussion of sleep testing/review of sleep testing results (as applicable). Inspire Activation Visit Template Note: All changes made during the time of activation are underlined. Patient Name/ID: Sulaiman Dominguez Date of Visit: 02/27/24 Incision Check: Both incisions were normal. Functional Tongue Exam: Normal tongue motion. No evidence of tongue deviation or weakness. No difficulty with swallowing or speech. Sensation Threshold (ST): 0.7 V Functional Threshold (FT): 0.7 V Tongue Motion Phenotype at FT: Protrusion. Electrode Configuration set at: +-+ Final Amplitude: 0.7 V Patient Control Lower Limit: 0.5 V Patient Control Upper Limit: 1.5 V Pulse Width: 90 uq Rate: 33 Hz Start Delay: 30 minutes Therapy Duration: 9 hours Pause time: 15 minutes Sensor Waveform: Waveform showed upward and downward deflections. Rise/fall verified. Other Programming: Patient Instructions: Confirmed the patient was given the Inspire Patient Video Care Book. Reviewed and educated the patient on proper sleep remote function. The patient demonstrated competency with the remote, is aware of the quick guide and instructional video. Instructed the patient to use therapy all-night, every-night and step up their levels every 5-7 nights by one level (0.1V). The patient will be contacted via phone or scheduled for an office visit before the fine tune sleep study to ensure adequate adherence and ensure the patient is stepping up their levels. The patient will be scheduled for a titration sleep study in about 3 months to assess adherence, fine tune the settings, and evaluate efficacy. documented in this encounter [facility] 01-25-2024 History of Present illness Narrative Assessment and Recommendations: Sulaiman Dominguez is a 63 y.o. female here for 1 week follow-up from implantation hypoglossal nerve stimulator -Patient is healing well and pleased with her results she can follow-up with us in 4 months activation appointment set and all restrictions were lifted [facility] Note HPI: Sulaiman Dominguez is a 63 y.o. yo female who presents to clinic today for 1 week follow-up from implantation hypoglossal nerve stimulator. Overall patient is doing well minimal pain no issues with swallowing no other concerns at this time. PMH: Past Medical History: Diagnosis Date Allergies Anxiety Depression GERD (gastroesophageal reflux disease) Hypertension Migraines Sleep apnea uses cpap Allergies: Allergies Allergen Reactions Cat Hair Extract dogs Dust Mite Extract Medications: Current Outpatient Medications: albuterol 108 (90 Base) MCG/ACT inhaler, Inhale 2 puffs every 4 hours as needed., Disp: , Rfl: buPROPion XL (Wellbutrin XL) 300 MG 24 hr tablet, Take 300 mg by mouth every morning., Disp: , Rfl: cefdinir (Omnicef) 300 MG capsule, Take 1 capsule (300 mg) by mouth 2 times daily for 10 days., Disp: 20 capsule, Rfl: 0 cholecalciferol (Vitamin D-3) 25 MCG tablet, Take 25 mcg by mouth daily., Disp: , Rfl: levocetirizine (Xyzal) 5 MG tablet, Take 5 mg by mouth every evening., Disp: , Rfl: loratadine (Claritin) 5 MG chewable tablet, Chew 10 mg daily., Disp: , Rfl: losartan (Cozaar) 50 MG tablet, Take 50 mg by mouth daily., Disp: , Rfl: omeprazole (PriLOSEC) [address] capsule, Take 40 mg by mouth every 48 hours., Disp: , Rfl: PSH: Past Surgical History: Procedure Laterality Date CARPAL TUNNEL RELEASE Left SECTION, LOW TRANSVERSE CHOLECYSTECTOMY ELBOW SURGERY Left tendon scrape per pt HYSTERECTOMY 1 ovary remaining OTHER SURGICAL HISTORY 01/16/2024 hypoglossal nerve stimulator TONSILLECTOMY UPPER GASTROINTESTINAL ENDOSCOPY sleep induced sleep endoscopy FH: No family history on file. SH: Social History Socioeconomic History Marital status: Spouse name: Not on file Number of children: Not on file Years of education: Not on file Highest education level: Not on file Occupational History Not on file Tobacco Use Smoking status: Never Smokeless tobacco: Never Vaping Use Vaping status: Never Used Substance and Sexual Activity Alcohol use: Yes Comment: occasional Drug use: Never Sexual activity: Not on file Other Topics Concern Not on file Social History Narrative Not on file Social Determinants of Health Financial Resource Strain: Not on file Food Insecurity: Not on file Transportation Needs: Not on file Physical Activity: Not on file Stress: Not on file Social Connections: Not on file Intimate Partner Violence: Not on file Housing Stability: Not on file Physical Exam: Constitutional: General: Patient is not in acute distress. Appearance: Patient is well-developed. Eyes: Conjunctiva/sclera: Conjunctivae normal. Pupils: Pupils are equal, round, and reactive to light. HENT: Jaw: No trismus. Nose: No nasal deformity, mucosal edema or rhinorrhea. Mouth: Mucous membranes are not pale, not dry and not cyanotic. No oral lesions. Pharynx: Uvula midline. No oropharyngeal exudate or uvula swelling. Tonsils: No tonsillar exudate. No abnormal masses or lesions Thyroid: No significant thyromegaly. Trachea: Trachea and phonation normal. No tracheal deviation. Pulmonary: Effort: Pulmonary effort is normal. No respiratory distress. Breath sounds: No stridor. Musculoskeletal: Head: Normocephalic and atraumatic. Neck: Full passive range of motion without pain, neck supple. Neck and chest incision clean dry and intact well-healing small amount of soft tissue swelling in the submandibular region tongue motion was within normal limits no marginal mandibular weakness Skin: General: Skin is warm and dry. Findings: No erythema or rash. Neurological: Cranial Nerves: No cranial nerve deficit. Sensory: No sensory deficit. Coordination: Coordination normal. Extremities: No significant peripheral edema or varicosities Psychiatric: Mood and Affect: Mood and affect normal. Cognition and Memory: Cognition and memory normal. documented in this encounter [facility] 01-16-2024 Miscellaneous Notes Discharge information given to the patient. Patient and family verbalized understanding of information. All questions were answered before discharge. Patient ambulated, denies dizziness or nausea. Tolerating PO fluids and crackers. Vital signs are stable. Patient has changed and is being discharged home in a wheelchair with valuables. IV discontinued, catheter intact, manual pressure held, site benign. Homegoing instructions reviewed with patient and family. Home medications given and explained. Patient verbalizes understanding Pts sister brought to bedside. Patient tolerating jello and clear liquids. Remains drowsy, will continue to monitor Pt arrived to PACU from OR. Pt ID verified. Monitors applied with alarms on. Vital signs stable. Date: 01/16/2024 Location: [facility] OR Name: Sulaiman Dominguez, : 1960, Diagnosis Pre-op Diagnosis * Obstructive sleep apnea (adult) (pediatric) [G47.33] Post-op Diagnosis * Obstructive sleep apnea (adult) (pediatric) [G47.33] Procedures HYPOGLOSSAL NERVE STIMULATOR PLACEMENT (INSPIRE) 42308 - SD OPEN IMPLTJ HPGLSL NRV NSTIM RA PG&RESPIR SENSOR Surgeons * Jeannine Andrews - Primary Procedure Summary Anesthesia: General ASA: II Estimated Blood Loss: 10 mL Drains: * None in log * Implants Type Name Action Serial No. Neuro Interventional Implant GENERATOR PULSE INSPIRE - [id number] - [id number] Implanted [id number] Implant LEAD SENSING RESP INSPIRE - [id number] - [id number] Implanted [id number] Neuro Interventional Implant LEAD STIM INSPIRE - [id number] - [id number] Implanted [id number] Staff: Communications Lead: Mayra Rees RN; Angela Stark RN Scrub Person: Regi Chaudhry RN [place] to Circ: Pam Meraz RN Findings: hypoglossal nerve stimulator implanted successfully Complications: None; patient tolerated the procedure well. Specimens Collected: Order Name Source Comment Collection Info Order Time POTASSIUM WITH MG REFLEX For patients on dialysis to draw potassium day of surgery 01/16/2024 9:25 AM PROTHROMBIN TIME If patient on coumadin within 4 days prior. 01/16/2024 9:25 AM Wound Class: Class I: Clean Blood Products: None Prophylactic Antibiotics: Procedure appropriate prophylactic antibiotic(s) given within 1 hour of surgical incision (two hours if receiving Vancomycin or flouroquinolone) Procedure in Detail: Patient was seen and evaluated in the pre-operative area. Informed consent was obtained after discussing the risks, benefits and indications for the procedure. The patient was taken back to the operating room by the anesthesia team. General anesthesia was induced and patient was orotracheally intubated. Appropriate timeout was performed. Table was turned 180 degrees and patient appropriately positioned. Patient was prepped and draped in the usual fashion. A shoulder roll was placed and the patient was prepped and draped in usual sterile fashion with the head turned to the left. Prior to prepping and draping, electrodes were placed in the genioglossus and styloglossus muscle and connected to the NIM box for intraoperative nerve monitoring. A modified sub-mandibular incision was made in the right upper neck approximately 2 cm below the mandible in the natural skin crease. Dissection was carried down through the subcutaneous tissue and platysma. The inferior border of the submandibular gland was identified as well as the digastric tendon. The submandibular gland and the overlying fascia with the marginal mandibular nerve were retracted superiorly. The digastric was retracted inferiorly. Dissection was carried down into the digastric triangle where the hypoglossal nerve was identified in its usual fashion. The mylohyoid muscle was retracted anteriorly, and the hypoglossal nerve was dissected up towards the floor of the mouth. The lateral branches to retrusor muscles were identified, and tested intra-operatively using the NIM stimulator. The cuff electrode for the hypoglossal nerve stimulator was placed distally to these branches on the medial nerve branch to the genioglossus muscle. The stimulation electrode was then looped under and secured to the digastric tendon on its lateral surface with the provided anchor. Extra lead length was tucked deep to the SMG. A second 5 cm incision was made in the right upper chest approximately 5 cm below the clavicle and 3 cm lateral to the sternum. Dissection was carried down through skin and subcutaneous tissue to the pectoralis muscle. An inferior pocket was created deep to the subcutaneous layer and superficial to the pectoralis muscle. 2 2-0 silk sutures were placed superiorly overlying the 2nd rib approximately 3 cm apart for later use to secure the IPG. Dissection was then performed bluntly through the pectoralis major muscle to the fat overlying the external intercostal muscles. The fat was swept off until we were able to visualize the external intercostals and the internal intercostals medially. Careful blunt dissection through the externals ~5 mm posterior to the anterior edge of the external intercostal was performed until the fiber change was seen. The sense lead was then held in the grasping zone and advanced between the external and internals. A 2-0 silk was sutured into the anterior aspect of the externals and tied to the groove around the anchor. 2 2-0 silk sutures were then used to suture the wings of the anchor to the surrounding tissue. The pectoralis major muscle was then gently released covering the sense lead and first anchor. The second anchor was then sutured to the fascia overlying the pectoralis major. We then tunneled the stimulation lead from the neck into the chest. Blunt dissection was first performed in a subplatysmal plane from the neck down to the level of the clavicle. The stimulation lead was then tunneled in a subplatysmal plane and brought out into the chest incision above the clavicle. Both the sense lead and the stimulation lead were carefully cleaned with a clean wet and dry sponge. The IPG was removed from its packaging and the sense lead and stimulation lead were each inserted separately into the IPG and secured into place and noted to be secure. Examination of the lead showed that it was in proper position past the second block. The excess lead was then carefully gathered together and placed deep to the IPG and the IPG was placed into the pocket above the pec fascia inferior to the incision. At least 4 cm of extra slack was left within the neck to allow for movement. The IPG was gently sutured into place with the previous silk stitches using air knots. Diagnostic evaluation confirmed activation of the genioglossus nerve, resulting in genioglossal activation and tongue protrusion, confirmed visually. This was first stimulated at 1.5 mA and then decreased until 0.5 with good tongue protrusion at each step. Assessment of the sense lead showed excellent waveforms with respiration. The wounds were then closed in layers with deep 3-0 vicryl sutures and a 4-0 running subcuticular monocryl for the skin. Mastasol was applied followed by steri strips. This concluded the procedure and the patient was turned over to anesthesia for wake up. Patient was extubated and sent to the PACU in stable condition having tolerated the procedure well. All counts were correct at the end of case. Date: 01/16/2024 Location: [facility] OR Name: Sulaiman Dominguez, : 1960, Diagnosis Pre-op Diagnosis * Obstructive sleep apnea (adult) (pediatric) [G47.33] Post-op Diagnosis * Obstructive sleep apnea (adult) (pediatric) [G47.33] Procedures HYPOGLOSSAL NERVE STIMULATOR PLACEMENT (INSPIRE) 97226 - SD OPEN IMPLTJ HPGLSL NRV NSTIM RA PG&RESPIR SENSOR Surgeons * Jeannine Andrews - Primary Procedure Summary Anesthesia: General ASA: II Estimated Blood Loss: 10 mL Drains: * None in log * Implants Type Name Action Serial No. Neuro Interventional Implant GENERATOR PULSE INSPIRE - [id number] - [id number] Implanted [id number] Implant LEAD SENSING RESP INSPIRE - [id number] - [id number] Implanted [id number] Neuro Interventional Implant LEAD STIM INSPIRE - [id number] - [id number] Implanted [id number] Staff: Communications Lead: Mayra Rees RN; Angela Stark RN Scrub Person: Regi Chaudhry RN [place] to Circ: Pam Meraz RN Findings: hypoglossal nerve stimulator implanted successfully Complications: None; patient tolerated the procedure well. Specimens Collected: Order Name Source Comment Collection Info Order Time POTASSIUM WITH MG REFLEX For patients on dialysis to draw potassium day of surgery 01/16/2024 9:25 AM PROTHROMBIN TIME If patient on coumadin within 4 days prior. 01/16/2024 9:25 AM Wound Class: Class I: Clean Blood Products: None Prophylactic Antibiotics: Procedure appropriate prophylactic antibiotic(s) given within 1 hour of surgical incision (two hours if receiving Vancomycin or flouroquinolone) documented in this encounter [facility] 01-16-2024 Note Formatting of this n ote might be different from the original. Discharge information given to the patient. Patient and family verbalized understanding of information. All questions were answered before discharge. Patient ambulated, denies dizziness or nausea. Tolerating PO fluids and crackers. Vital signs are stable. Patient has changed and is being discharged home in a wheelchair with valuables. IV discontinued, catheter intact, manual pressure held, site benign. [facility] 01-16-2024 Note Formatting of this n ote might be different from the original. Discharge information given to the patient. Patient and family verbalized understanding of information. All questions were answered before discharge. Patient ambulated, denies dizziness or nausea. Tolerating PO fluids and crackers. Vital signs are stable. Patient has changed and is being discharged home in a wheelchair with valuables. IV discontinued, catheter intact, manual pressure held, site benign. [facility] 01-16-2024 Note Formatting of this n ote might be different from the original. Homegoing instructions reviewed with patient and family. Home medications given and explained. Patient verbalizes understanding [facility] 01-16-2024 Note Formatting of this n ote might be different from the original. Homegoing instructions reviewed with patient and family. Home medications given and explained. Patient verbalizes understanding [facility] 01-16-2024 Note Formatting of this n ote might be different from the original. Pts sister brought to bedside. Patient tolerating jello and clear liquids. Remains drowsy, will continue to monitor [facility] 01-16-2024 Note Formatting of this n ote might be different from the original. Pts sister brought to bedside. Patient tolerating jello and clear liquids. Remains drowsy, will continue to monitor [facility] 01-16-2024 Note Formatting of this n ote might be different from the original. Pt arrived to PACU from OR. Pt ID verified. Monitors applied with alarms on. Vital signs stable. [facility] 01-16-2024 Note Formatting of this n ote might be different from the original. Pt arrived to PACU from OR. Pt ID verified. Monitors applied with alarms on. Vital signs stable. [facility] 01-16-2024 Hospital Discharge instructions Jeannine Andrews MD - 01/16/2024 12[facility] Hyp[facility]ossal Nerve Stimulator Post-Operative Instructions What to expect for your procedure: Implantation procedure: The procedure to implant Inspire is typically an outpatient procedure lasting about 3 hours. For some special circumstances, your physician may recommend a single night stay in the hospital. Pain after the procedure varies but for most patients is not severe. Pain will usually resolve within 7-14 days after the procedure and pain medication will be provided along with a prescription for antibiotic and sometimes a steroid to help reduce swelling if the physicians deems appropriate. (This is not required- up to physician discretion) Two incisions will be made: one at the upper neck and one just below the collarbone. All wounds will have Steri strips placed over them which can be left in place until you are seen for your first postoperative appointment. Additionally, pressure dressings will be placed on the chest incision and should be left place for 48 hours after the procedure after which they may be removed (leaving the Steri strips in place). You may shower after the pressure dressings are removed. An arm sling may be placed at the time of surgery. This is to provide comfort and limit arm movement. You may remove the sling 24 hours after surgery but may continue to use it if it is more comfortable to do so. Swelling at incision sites is expected and will typically improve over the first 2 weeks. Most patients can expect some swelling under the jaw that will give the appearance of a double chin. This will improve over 2-4 weeks. For the first week after surgery please do not perform any strenuous activity or heavy lifting. Your physician also asks that you do not lift the right arm above your shoulder for 1 month after surgery. You may resume a normal diet after surgery. Please call the office if you have any of the following symptoms: fever higher than 100.5, excessive swelling at any of the incision sites, bleeding from incisions, slurred speech, difficulty swallowing, or shortness of breath. A physician can be reached at all times at the main office number. A postoperative appointment should be made for 1 week following the procedure. If one has not been previously scheduled, please call the office to arrange. It is important to know that the stimulator device will NOT be active in the immediate postoperative period. Therefore, no sensations of stimulation should be expected. 2 What to expect in the time period after the procedure: Week 1: At the first postoperative visit, sutures that were placed will be removed and incisions will be checked by the physician. Please note that the device will still remain inactive. Between Weeks 4-6: Patient Remote At the 1-month visit post-surgery, you will come to the sleep medicine office for activation of the device. You will need no special preparation but please wear a shirt/blouse that can be unbuttoned so that the physician can check all incisions and access the implant. Your physician will use a web programmer to check the device for proper function and turn it on for you to begin using it. The process of activation is not painful and typically takes less than hour. At this visit you will be given a remote control and given instructions on how to use it. A range of therapy will be programmed for you to start at a low level of stimulation and gradually increase it over the next several weeks. Usually, it is advisable to increase the stimulation every 3 days. If you find that the stimulation level is too high, you may decrease the setting to one that is more comfortable and then try to increase again after several days. A manual for details about the remote will be provided. 3 Once activated, you should begin using the device every time you go to sleep (including naps). When you turn the device on, you should expect an initial pulse of tongue motion to let you know that the device is working. The device will then delay any further stimulation for hour; allowing you to fall asleep without feeling any sensations. Your physician can modify this delay period at any time if you require more or less time to fall asleep. There is also a pause feature that allows the device to be temporarily shut off for 15 minutes. This can be used if you need to get up in the middle of the night. Between weeks 4-12 You will receive several check-in calls from the office to check on your acclimation to Inspire Therapy. They will assist with any questions you may have as well as helping to assure that you are utilizing the therapy All Night, Every Night, as well as increasing the amplitude as appropriate. If you have any questions or feedback, do not hesitate to call the office at any time. Between Weeks 12-18: 2-3 months post activation, you will return to the sleep center for a sleep study and additional programming of the device. This will consist of a routine sleep study (without a CPAP mask) where the device will be set to a level to optimize control of your sleep apnea. A limited range of stimulation will be programmed to allow you to adjust your device to your comfort. You should continue to use the device every time you sleep. A visit will be set up with your physician shortly after this study to go over the results, to follow up on how you are doing, and make any necessary adjustments. Please note that at any time, your physician can reprogram the device for your comfort. Subsequent visits: Your physician will want to see you periodically. In the first year, there will be several visits scheduled to check in on how you are doing with your Inspire treatment. At each visit, the device will be checked to see how often you are using your device and to trouble shoot any problems. If you have any technical problems, you may also call Inspire at any time [phone] Option #3 The battery life on the Inspire device is roughly 10 years. When the battery is low, there will be indicators on your remote to let you know to come in to see your physician. The battery change will require a minor procedure, which can be performed under local anesthesia (or sedation). The battery on the remote control is a 9-volt standard battery. Please make sure to use a high quality non-rechargeable battery. Because of changes in sleep and changes in weight that may occur over time, adjustments may need to be made periodically. If you experience changes in how the device seems to be functioning for you should call your physician and potentially arrange a follow up appointment. If at any time you have any concerns or questions, please call your physician. Timeline Overview: Initial evaluation: Office assessment of sleep apnea. Drug induced sleep endoscopy: Diagnostic procedure to identify the mechanism and sites of airway collapse. This is a critical component to the evaluation, to determine candidacy for Inspire. Implantation: Surgical procedure to place the implant. First postop visit (1-week post implantation): First visit in the office after implantation to check incisions and recovery. THIS VISIT WILL BE IN THE ENT OFFICE. Activation (1 month post implantation): Office visit to turn device on and assess for proper function. THIS VISIT WILL BE SCHEDULED at the Sleep Medicine office Sleep study with device adjustment (2-3 months post implantation): Routine sleep study at which time the device will be adjusted to identify the best settings to control the sleep apnea. THIS OVERNIGHT VISIT WILL BE IN THE SLEEP LAB. Routine follow up visits: visits to monitor status of sleep apnea, sleep quality and assess for device function and use. Throughout the process the Inspire Reimbursement team will be working on the Insurance approvals needed for your procedure. If at anytime you have a question specific to the status of the submission, please call the prior authorization team at: If there are any issues at any time, either send Dr. Andrews a message at [employer] or call the office at [phone] during business hours. If after hours and there is concern, go to the emergency room. documented in this encounter [facility] 01-16-2024 Note Formatting of this n ote is different from the original. Date: 01/16/2024 Location: [facility] OR Name: Sulaiman Domniguez, : 1960, Diagnosis Pre-op Diagnosis * Obstructive sleep apnea (adult) (pediatric) [G47.33] Post-op Diagnosis * Obstructive sleep apnea (adult) (pediatric) [G47.33] Procedures HYPOGLOSSAL NERVE STIMULATOR PLACEMENT (INSPIRE) 38011 - SD OPEN IMPLTJ HPGLSL NRV NSTIM RA PG&RESPIR SENSOR Surgeons * Jeannine Andrews - Primary Procedure Summary Anesthesia: General ASA: II Estimated Blood Loss: 10 mL Drains: * None in log * Implants Type Name Action Serial No. Neuro Interventional Implant GENERATOR PULSE INSPIRE - [id number] - [id number] Implanted [id number] Implant LEAD SENSING RESP INSPIRE - [id number] - [id number] Implanted [id number] Neuro Interventional Implant LEAD STIM INSPIRE - [id number] - [id number] Implanted [id number] Staff: Communications Lead: Mayra Rees RN; Angela Stark RN Scrub Person: Regi Chaudhry RN [place] to Circ: Pam Meraz RN Findings: hypoglossal nerve stimulator implanted successfully Complications: None; patient tolerated the procedure well. Specimens Collected: Order Name Source Comment Collection Info Order Time POTASSIUM WITH MG REFLEX For patients on dialysis to draw potassium day of surgery 01/16/2024 9:25 AM PROTHROMBIN TIME If patient on coumadin within 4 days prior. 01/16/2024 9:25 AM Wound Class: Class I: Clean Blood Products: None Prophylactic Antibiotics: Procedure appropriate prophylactic antibiotic(s) given within 1 hour of surgical incision (two hours if receiving Vancomycin or flouroquinolone) Procedure in Detail: Patient was seen and evaluated in the pre-operative area. Informed consent was obtained after discussing the risks, benefits and indications for the procedure. The patient was taken back to the operating room by the anesthesia team. General anesthesia was induced and patient was orotracheally intubated. Appropriate timeout was performed. Table was turned 180 degrees and patient appropriately positioned. Patient was prepped and draped in the usual fashion. A shoulder roll was placed and the patient was prepped and draped in usual sterile fashion with the head turned to the left. Prior to prepping and draping, electrodes were placed in the genioglossus and styloglossus muscle and connected to the NIM box for intraoperative nerve monitoring. A modified sub-mandibular incision was made in the right upper neck approximately 2 cm below the mandible in the natural skin crease. Dissection was carried down through the subcutaneous tissue and platysma. The inferior border of the submandibular gland was identified as well as the digastric tendon. The submandibular gland and the overlying fascia with the marginal mandibular nerve were retracted superiorly. The digastric was retracted inferiorly. Dissection was carried down into the digastric triangle where the hypoglossal nerve was identified in its usual fashion. The mylohyoid muscle was retracted anteriorly, and the hypoglossal nerve was dissected up towards the floor of the mouth. The lateral branches to retrusor muscles were identified, and tested intra-operatively using the NIM stimulator. The cuff electrode for the hypoglossal nerve stimulator was placed distally to these branches on the medial nerve branch to the genioglossus muscle. The stimulation electrode was then looped under and secured to the digastric tendon on its lateral surface with the provided anchor. Extra lead length was tucked deep to the SMG. A second 5 cm incision was made in the right upper chest approximately 5 cm below the clavicle and 3 cm lateral to the sternum. Dissection was carried down through skin and subcutaneous tissue to the pectoralis muscle. An inferior pocket was created deep to the subcutaneous layer and superficial to the pectoralis muscle. 2 2-0 silk sutures were placed superiorly overlying the 2nd rib approximately 3 cm apart for later use to secure the IPG. Dissection was then performed bluntly through the pectoralis major muscle to the fat overlying the external intercostal muscles. The fat was swept off until we were able to visualize the external intercostals and the internal intercostals medially. Careful blunt dissection through the externals ~5 mm posterior to the anterior edge of the external intercostal was performed until the fiber change was seen. The sense lead was then held in the grasping zone and advanced between the external and internals. A 2-0 silk was sutured into the anterior aspect of the externals and tied to the groove around the anchor. 2 2-0 silk sutures were then used to suture the wings of the anchor to the surrounding tissue. The pectoralis major muscle was then gently released covering the sense lead and first anchor. The second anchor was then sutured to the fascia overlying the pectoralis major. We then tunneled the stimulation lead from the neck into the chest. Blunt dissection was first performed in a subplatysmal plane from the neck down to the level of the clavicle. The stimulation lead was then tunneled in a subplatysmal plane and brought out into the chest incision above the clavicle. Both the sense lead and the stimulation lead were carefully cleaned with a clean wet and dry sponge. The IPG was removed from its packaging and the sense lead and stimulation lead were each inserted separately into the IPG and secured into place and noted to be secure. Examination of the lead showed that it was in proper position past the second block. The excess lead was then carefully gathered together and placed deep to the IPG and the IPG was placed into the pocket above the pec fascia inferior to the incision. At least 4 cm of extra slack was left within the neck to allow for movement. The IPG was gently sutured into place with the previous silk stitches using air knots. Diagnostic evaluation confirmed activation of the genioglossus nerve, resulting in genioglossal activation and tongue protrusion, confirmed visually. This was first stimulated at 1.5 mA and then decreased until 0.5 with good tongue protrusion at each step. Assessment of the sense lead showed excellent waveforms with respiration. The wounds were then closed in layers with deep 3-0 vicryl sutures and a 4-0 running subcuticular monocryl for the skin. Mastasol was applied followed by steri strips. This concluded the procedure and the patient was turned over to anesthesia for wake up. Patient was extubated and sent to the PACU in stable condition having tolerated the procedure well. All counts were correct at the end of case. [facility] 01-16-2024 Note Formatting of this n ote is different from the original. Date: 01/16/2024 Location: [facility] OR Name: Sulaiman Dominguez, : 1960, Diagnosis Pre-op Diagnosis * Obstructive sleep apnea (adult) (pediatric) [G47.33] Post-op Diagnosis * Obstructive sleep apnea (adult) (pediatric) [G47.33] Procedures HYPOGLOSSAL NERVE STIMULATOR PLACEMENT (INSPIRE) 79175 - SD OPEN IMPLTJ HPGLSL NRV NSTIM RA PG&RESPIR SENSOR Surgeons * Jeannine Andrews - Primary Procedure Summary Anesthesia: General ASA: II Estimated Blood Loss: 10 mL Drains: * None in log * Implants Type Name Action Serial No. Neuro Interventional Implant GENERATOR PULSE INSPIRE - [id number] - [id number] Implanted [id number] Implant LEAD SENSING RESP INSPIRE - [id number] - [id number] Implanted [id number] Neuro Interventional Implant LEAD STIM INSPIRE - [id number] - [id number] Implanted [id number] Staff: Communications Lead: Mayra Rees RN; Angela Stark RN Scrub Person: Regi Chaudhry RN [place] to Circ: Pam Meraz RN Findings: hypoglossal nerve stimulator implanted successfully Complications: None; patient tolerated the procedure well. Specimens Collected: Order Name Source Comment Collection Info Order Time POTASSIUM WITH MG REFLEX For patients on dialysis to draw potassium day of surgery 01/16/2024 9:25 AM PROTHROMBIN TIME If patient on coumadin within 4 days prior. 01/16/2024 9:25 AM Wound Class: Class I: Clean Blood Products: None Prophylactic Antibiotics: Procedure appropriate prophylactic antibiotic(s) given within 1 hour of surgical incision (two hours if receiving Vancomycin or flouroquinolone) [facility] 01-16-2024 Note Formatting of this n ote is different from the original. Date: 01/16/2024 Location: [facility] OR Name: Sulaiman Dominguez, : 1960, Diagnosis Pre-op Diagnosis * Obstructive sleep apnea (adult) (pediatric) [G47.33] Post-op Diagnosis * Obstructive sleep apnea (adult) (pediatric) [G47.33] Procedures HYPOGLOSSAL NERVE STIMULATOR PLACEMENT (INSPIRE) 87240 - SD OPEN IMPLTJ HPGLSL NRV NSTIM RA PG&RESPIR SENSOR Surgeons * Jeannine Andrews - Primary Procedure Summary Anesthesia: General ASA: II Estimated Blood Loss: 10 mL Drains: * None in log * Implants Type Name Action Serial No. Neuro Interventional Implant GENERATOR PULSE INSPIRE - [id number] - [id number] Implanted [id number] Implant LEAD SENSING RESP INSPIRE - [id number] - [id number] Implanted [id number] Neuro Interventional Implant LEAD STIM INSPIRE - [id number] - [id number] Implanted [id number] Staff: Communications Lead: Mayra Rees RN; Angela Stark RN Scrub Person: Regi Chaudhry RN [place] to Circ: Pam Meraz RN Findings: hypoglossal nerve stimulator implanted successfully Complications: None; patient tolerated the procedure well. Specimens Collected: Order Name Source Comment Collection Info Order Time POTASSIUM WITH MG REFLEX For patients on dialysis to draw potassium day of surgery 01/16/2024 9:25 AM PROTHROMBIN TIME If patient on coumadin within 4 days prior. 01/16/2024 9:25 AM Wound Class: Class I: Clean Blood Products: None Prophylactic Antibiotics: Procedure appropriate prophylactic antibiotic(s) given within 1 hour of surgical incision (two hours if receiving Vancomycin or flouroquinolone) Procedure in Detail: Patient was seen and evaluated in the pre-operative area. Informed consent was obtained after discussing the risks, benefits and indications for the procedure. The patient was taken back to the operating room by the anesthesia team. General anesthesia was induced and patient was orotracheally intubated. Appropriate timeout was performed. Table was turned 180 degrees and patient appropriately positioned. Patient was prepped and draped in the usual fashion. A shoulder roll was placed and the patient was prepped and draped in usual sterile fashion with the head turned to the left. Prior to prepping and draping, electrodes were placed in the genioglossus and styloglossus muscle and connected to the NIM box for intraoperative nerve monitoring. A modified sub-mandibular incision was made in the right upper neck approximately 2 cm below the mandible in the natural skin crease. Dissection was carried down through the subcutaneous tissue and platysma. The inferior border of the submandibular gland was identified as well as the digastric tendon. The submandibular gland and the overlying fascia with the marginal mandibular nerve were retracted superiorly. The digastric was retracted inferiorly. Dissection was carried down into the digastric triangle where the hypoglossal nerve was identified in its usual fashion. The mylohyoid muscle was retracted anteriorly, and the hypoglossal nerve was dissected up towards the floor of the mouth. The lateral branches to retrusor muscles were identified, and tested intra-operatively using the NIM stimulator. The cuff electrode for the hypoglossal nerve stimulator was placed distally to these branches on the medial nerve branch to the genioglossus muscle. The stimulation electrode was then looped under and secured to the digastric tendon on its lateral surface with the provided anchor. Extra lead length was tucked deep to the SMG. A second 5 cm incision was made in the right upper chest approximately 5 cm below the clavicle and 3 cm lateral to the sternum. Dissection was carried down through skin and subcutaneous tissue to the pectoralis muscle. An inferior pocket was created deep to the subcutaneous layer and superficial to the pectoralis muscle. 2 2-0 silk sutures were placed superiorly overlying the 2nd rib approximately 3 cm apart for later use to secure the IPG. Dissection was then performed bluntly through the pectoralis major muscle to the fat overlying the external intercostal muscles. The fat was swept off until we were able to visualize the external intercostals and the internal intercostals medially. Careful blunt dissection through the externals ~5 mm posterior to the anterior edge of the external intercostal was performed until the fiber change was seen. The sense lead was then held in the grasping zone and advanced between the external and internals. A 2-0 silk was sutured into the anterior aspect of the externals and tied to the groove around the anchor. 2 2-0 silk sutures were then used to suture the wings of the anchor to the surrounding tissue. The pectoralis major muscle was then gently released covering the sense lead and first anchor. The second anchor was then sutured to the fascia overlying the pectoralis major. We then tunneled the stimulation lead from the neck into the chest. Blunt dissection was first performed in a subplatysmal plane from the neck down to the level of the clavicle. The stimulation lead was then tunneled in a subplatysmal plane and brought out into the chest incision above the clavicle. Both the sense lead and the stimulation lead were carefully cleaned with a clean wet and dry sponge. The IPG was removed from its packaging and the sense lead and stimulation lead were each inserted separately into the IPG and secured into place and noted to be secure. Examination of the lead showed that it was in proper position past the second block. The excess lead was then carefully gathered together and placed deep to the IPG and the IPG was placed into the pocket above the pec fascia inferior to the incision. At least 4 cm of extra slack was left within the neck to allow for movement. The IPG was gently sutured into place with the previous silk stitches using air knots. Diagnostic evaluation confirmed activation of the genioglossus nerve, resulting in genioglossal activation and tongue protrusion, confirmed visually. This was first stimulated at 1.5 mA and then decreased until 0.5 with good tongue protrusion at each step. Assessment of the sense lead showed excellent waveforms with respiration. The wounds were then closed in layers with deep 3-0 vicryl sutures and a 4-0 running subcuticular monocryl for the skin. Mastasol was applied followed by steri strips. This concluded the procedure and the patient was turned over to anesthesia for wake up. Patient was extubated and sent to the PACU in stable condition having tolerated the procedure well. All counts were correct at the end of case. [facility] 01-16-2024 Note Formatting of this n ote is different from the original. Date: 01/16/2024 Location: [facility] OR Name: Sulaiman Dominguez, : 1960, Diagnosis Pre-op Diagnosis * Obstructive sleep apnea (adult) (pediatric) [G47.33] Post-op Diagnosis * Obstructive sleep apnea (adult) (pediatric) [G47.33] Procedures HYPOGLOSSAL NERVE STIMULATOR PLACEMENT (INSPIRE) 12630 - SD OPEN IMPLTJ HPGLSL NRV NSTIM RA PG&RESPIR SENSOR Surgeons * Jeannine Andrews - Primary Procedure Summary Anesthesia: General ASA: II Estimated Blood Loss: 10 mL Drains: * None in log * Implants Type Name Action Serial No. Neuro Interventional Implant GENERATOR PULSE INSPIRE - [id number] - [id number] Implanted [id number] Implant LEAD SENSING RESP INSPIRE - [id number] - [id number] Implanted [id number] Neuro Interventional Implant LEAD STIM INSPIRE - [id number] - [id number] Implanted [id number] Staff: Communications Lead: Mayra Rees RN; Angela Stark RN Scrub Person: Regi Chaudhry RN [place] to Circ: Pam Meraz RN Findings: hypoglossal nerve stimulator implanted successfully Complications: None; patient tolerated the procedure well. Specimens Collected: Order Name Source Comment Collection Info Order Time POTASSIUM WITH MG REFLEX For patients on dialysis to draw potassium day of surgery 01/16/2024 9:25 AM PROTHROMBIN TIME If patient on coumadin within 4 days prior. 01/16/2024 9:25 AM Wound Class: Class I: Clean Blood Products: None Prophylactic Antibiotics: Procedure appropriate prophylactic antibiotic(s) given within 1 hour of surgical incision (two hours if receiving Vancomycin or flouroquinolone) T [facility] 01-16-2024 Attending History and physical note H&P reviewed. The patient was examined and there are no changes to the H&P. Source Note - Morena Wesley APRN - [facility] - 01/04/2024 9:30 AM EDT Images from the original note were not included. Comprehensive Pre Surgical History and Physical ? Name: Sulaiman Dominguez : 1960 (Age-63 y.o.) Date of Service: Pt seen/examined on 01/04/2024 Procedure Information Date/Time: 01/16/24 1100 Procedure: HYPOGLOSSAL NERVE STIMULATOR PLACEMENT (INSPIRE) - 120 mins Location: [facility] Operating Room Surgeons: Jeannine Andrews MD Chief Complaint: Obstructive sleep apnea (adult) (pediatric) [G47.33] ASSESSMENT/PLAN: Patient is considered low/intermediate risk for this intermediate level 1 risk procedure/surgery () with no reducible risk factors. Based on the above evaluation, the benefits of the planned procedure likely exceed the risks. The patient is medically optimized to proceed with the planned procedure without any further cardiopulmonary testing. 1) Obstructive sleep apnea (adult) (pediatric) [G47.33] - Managed per surgery - Labs drawn within 90 days that are WNL do not require repeating per PAT protocol - Orders per PAT Protocol: EKG, BMP - METS: >4 2) HTN (hypertension) - MEDS: losartan - has not taken in several days BP Readings from Last 3 Encounters: 01/04/24 (!) 149/87 11/20/23 (!) 154/80 - patient denies chest pain, SOB, dizziness, blurred vision -encouraged lifestyle modification - Managed by Dr. Cierra De Jesus (PCP in [facility]) - last OV 09/2023 - ordered EKG and BMP in PAT 3) Depression/Anxiety - MEDS: Wellbutrin XL - trying to ween off - feels controlled off medication - Yes, - Managed by Dr. Cierra De Jesus (PCP in [facility]) - last OV 09/2023 - Patient may benefit from antianxiety medication DOS 4) GERD - MEDS: none - stable -avoidance of triggers encouraged - Managed by [facility] - last OV over 1 year ago 5) Seasonal Allergies - MEDS: Xyzal Visit Type: Pre-Admission Testing Visit Labs Ordered: YES - PER PAT PROTOCOL Sleep Referral Ordered: Having Inspire placement Total time spent (which include face to face and non face to face encounters) : 45 minutes Toxic drug monitoring/narrow therapeutic index drug monitoring : # Drug name : losartan # Route administered : PO # Method of monitoring : labs and EKG PAT Protocol referenced includes: 1. Anesthesia Lab Protocol Orders 2. Perioperative Cardiovascular Risk Assessment 3. Anesthesia Assessment 4. Pain Assessment and Acute Pain Service Consult (if appropriate) 5. Medical Clearance/Consult from Internal Medicine (IMS) 6. Shower/Wash Order (for designated surgeries) 7. PHIL Screen and Sleep Clinic Referral (if appropriate) CURRENT NARCOTIC USE: No Do you have a history of chronic opioid use? No Allergies: Cat hair extract and Dust mite extract If patient has opioid allergy, is it okay to take Acetaminophen: Yes History Of Present Illness: 63 y.o. female who we are asked to see/evaluate by Jeannine Andrews MD for pre-operative evaluation prior to HYPOGLOSSAL NERVE STIMULATOR PLACEMENT (INSPIRE) - 120 mins ? From last office visit with Jeannine Andrews MD on 11/02/2023: Sulaiman Dominguez is a 63 y.o. female here for evaluation of obstructive sleep apnea. Patient is interested in inspire therapy I discussed the risks and benefits of the procedure the patient for which she expressed understanding I also advised the patient to bring us a copy of her sleep study within the past 2 years so we could assess for candidacy she is interested in proceeding with drug-induced sleep endoscopy we will schedule this as well as place a referral to have the patient seen by Dr. Allen for further evaluation. The risks and benefits of DISE were discussed. Risks include but not limited to bleeding, infection, dysphagia, voice changes, chipped/broken teeth, rarely the need for emergency tracheotomy, and risks of general anesthesia such as heart attack, stroke, rarely . All potential outcomes were discussed in layman's terms and all questions were answered. Patient verbalized understanding and elected to proceed. Risks and benefits of hypoglossal nerve stimulator surgery were discussed, including infection, bleeding, risk of anesthesia, hematoma and seroma, injury to surrounding structures including nerves and blood vessels with nerve palsy issues with the tongue. There may be discomfort with abnormal stimulation and foreign body risks of infection requiring explant. We also discussed potentially aborting the procedure if it cannot be done safely. Patient verbalized understanding and elected to proceed. Patient denies exertional chest pain/shortness of breath. Denies dizziness, syncope, lightheadedness. Denies fever, chills, weakness or fatigue. Patient denies any recent illness, infections, or wounds. Patient denies abdominal pain, nausea, vomiting, diarrhea, or constipation. Patient denies hx of CAD, CHF, CT, TIA/CVA, diabetes, COPD, asthma, PHIL, DVT/PE. Past Medical History: Past Medical History: No date: Allergies No date: Anxiety No date: Depression No date: GERD (gastroesophageal reflux disease) No date: Hypertension No date: Migraines No date: Sleep apnea Comment: uses cpap Past Surgical History: Past Surgical History: No date: CARPAL TUNNEL RELEASE; Left No date: SECTION, LOW TRANSVERSE No date: CHOLECYSTECTOMY No date: ELBOW SURGERY; Left Comment: tendon scrape per pt No date: HYSTERECTOMY Comment: 1 ovary remaining No date: TONSILLECTOMY No date: UPPER GASTROINTESTINAL ENDOSCOPY Comment: sleep induced sleep endoscopy Medications Prior to Admission: Current Outpatient Medications on File Prior to Visit Medication Sig Dispense Refill buPROPion XL (Wellbutrin XL) 300 MG 24 hr tablet Take 300 mg by mouth every morning. cholecalciferol (Vitamin D-3) 25 MCG tablet Take 25 mcg by mouth daily. levocetirizine (Xyzal) 5 MG tablet Take 5 mg by mouth every evening. losartan (Cozaar) 50 MG tablet Take 50 mg by mouth daily. albuterol 108 (90 Base) MCG/ACT inhaler Inhale 2 puffs every 4 hours as needed. omeprazole (PriLOSEC) [address] capsule Take 40 mg by mouth every 48 hours. [DISCONTINUED] loratadine (Claritin) 10 MG tablet Take 10 mg by mouth in the morning. No current facility-administered medications on file prior to visit. Social History: TOBACCO: reports that she has never smoked. She has never used smokeless tobacco. ETOH: reports current alcohol use. Social History Substance and Sexual Activity Drug Use Never Family History: No family history on file. REVIEW OF SYSTEMS: Review of Systems Constitutional: Negative for chills, fatigue and fever. HENT: Negative for dental problem and trouble swallowing. Respiratory: Negative for shortness of breath. Cardiovascular: Negative for chest pain and palpitations. Gastrointestinal: Negative for abdominal pain, nausea and vomiting. Genitourinary: Negative for difficulty urinating and hematuria. Musculoskeletal: Negative. Skin: Negative. Neurological: Negative for dizziness and headaches. Hematological: Negative. Psychiatric/Behavioral: Negative for confusion. The patient is not nervous/anxious. Physical Exam: Physical Exam Constitutional: Appearance: Normal appearance. She is obese. HENT: Head: Normocephalic. Mouth/Throat: Mouth: Mucous membranes are moist. Pharynx: Oropharynx is clear. Eyes: Extraocular Movements: Extraocular movements intact. Cardiovascular: Rate and Rhythm: Normal rate and regular rhythm. Pulses: Normal pulses. Pulmonary: Effort: Pulmonary effort is normal. Abdominal: General: Bowel sounds are normal. Musculoskeletal: General: Normal range of motion. Cervical back: Normal range of motion. Skin: General: Skin is warm and dry. Neurological: General: No focal deficit present. Mental Status: She is alert. Psychiatric: Mood and Affect: Mood normal. Patient denies any open wounds or rash to skin. Vitals: Vitals Value Taken Time BP 149/87 01/04/24 0941 Temp 37 C (98.6 F) 01/04/24 0941 Pulse 84 01/04/24 0941 Resp 12 01/04/24 0941 SpO2 95 % 01/04/24 0941 Labs: ordered today per PAT protocol Samy's Simple Cardiac Risk Index: SAMY'S SIMPLE CARDIAC RISK SCORE: 0 Interpretation: 0 Points Class I 0.5% 1 Point Class II 1.3% 2 Points Class III 3.6% 3+ Points Class IV 9.1% PAT Pain Score: Postop Pain Management Plan (Pain consult ordered?): Pain consult not indicated at this time ? EKG: ordered today per PAT protocol Encounter Date: 01/04/24 ECG 12 lead Result Value Heart Rate 86 QRSD Interval 78 QT Interval 356 QTC Interval 426 P [place] 25 QRS [place] 5 T Wave [place] 143 SD Interval 139 Impression Sinus rhythm Probable LVH with secondary repol abnrm ECHO and EF:None on file METS: >4 Electronically signed by: Morena Lealand Schellenberger, REGISTRAR MUSEUM - [facility] Date: 01/04/2024 at 10:16 AM [facility] 01-16-2024 History and physical note H&P reviewed. The patient was examined and there are no changes to the H&P. Source Note - Morena Wesley APRN - [facility] - 01/04/2024 9:30 AM EDT Images from the original note were not included. Comprehensive Pre Surgical History and Physical ? Name: Sulaiman Dominguez : 1960 (Age-63 y.o.) Date of Service: Pt seen/examined on 01/04/2024 Procedure Information Date/Time: 01/16/24 1100 Procedure: HYPOGLOSSAL NERVE STIMULATOR PLACEMENT (INSPIRE) - 120 mins Location: [facility] OR [address] [place] [address] Operating Room Surgeons: Jeannine Andrews MD Chief Complaint: Obstructive sleep apnea (adult) (pediatric) [G47.33] ASSESSMENT/PLAN: Patient is considered low/intermediate risk for this intermediate level 1 risk procedure/surgery () with no reducible risk factors. Based on the above evaluation, the benefits of the planned procedure likely exceed the risks. The patient is medically optimized to proceed with the planned procedure without any further cardiopulmonary testing. 1) Obstructive sleep apnea (adult) (pediatric) [G47.33] - Managed per surgery - Labs drawn within 90 days that are WNL do not require repeating per PAT protocol - Orders per PAT Protocol: EKG, BMP - METS: >4 2) HTN (hypertension) - MEDS: losartan - has not taken in several days BP Readings from Last 3 Encounters: 01/04/24 (!) 149/87 11/20/23 (!) 154/80 - patient denies chest pain, SOB, dizziness, blurred vision -encouraged lifestyle modification - Managed by Dr. Cierra De Jesus (PCP in [facility]) - last OV 09/2023 - ordered EKG and BMP in PAT 3) Depression/Anxiety - MEDS: Wellbutrin XL - trying to ween off - feels controlled off medication - Yes, - Managed by Dr. Cierra De Jesus (PCP in [facility]) - last OV 09/2023 - Patient may benefit from antianxiety medication DOS 4) GERD - MEDS: none - stable -avoidance of triggers encouraged - Managed by [facility] - last OV over 1 year ago 5) Seasonal Allergies - MEDS: Xyzal Visit Type: Pre-Admission Testing Visit Labs Ordered: YES - PER PAT PROTOCOL Sleep Referral Ordered: Having Inspire placement Total time spent (which include face to face and non face to face encounters) : 45 minutes Toxic drug monitoring/narrow therapeutic index drug monitoring : # Drug name : losartan # Route administered : PO # Method of monitoring : labs and EKG PAT Protocol referenced includes: 1. Anesthesia Lab Protocol Orders 2. Perioperative Cardiovascular Risk Assessment 3. Anesthesia Assessment 4. Pain Assessment and Acute Pain Service Consult (if appropriate) 5. Medical Clearance/Consult from Internal Medicine (IMS) 6. Shower/Wash Order (for designated surgeries) 7. PHIL Screen and Sleep Clinic Referral (if appropriate) CURRENT NARCOTIC USE: No Do you have a history of chronic opioid use? No Allergies: Cat hair extract and Dust mite extract If patient has opioid allergy, is it okay to take Acetaminophen: Yes History Of Present Illness: 63 y.o. female who we are asked to see/evaluate by Jeannine Andrews MD for pre-operative evaluation prior to HYPOGLOSSAL NERVE STIMULATOR PLACEMENT (INSPIRE) - 120 mins ? From last office visit with Jeannine Andrews MD on 11/02/2023: Sulaiman Dominguez is a 63 y.o. female here for evaluation of obstructive sleep apnea. Patient is interested in inspire therapy I discussed the risks and benefits of the procedure the patient for which she expressed understanding I also advised the patient to bring us a copy of her sleep study within the past 2 years so we could assess for candidacy she is interested in proceeding with drug-induced sleep endoscopy we will schedule this as well as place a referral to have the patient seen by Dr. Allen for further evaluation. The risks and benefits of DISE were discussed. Risks include but not limited to bleeding, infection, dysphagia, voice changes, chipped/broken teeth, rarely the need for emergency tracheotomy, and risks of general anesthesia such as heart attack, stroke, rarely . All potential outcomes were discussed in layman's terms and all questions were answered. Patient verbalized understanding and elected to proceed. Risks and benefits of hypoglossal nerve stimulator surgery were discussed, including infection, bleeding, risk of anesthesia, hematoma and seroma, injury to surrounding structures including nerves and blood vessels with nerve palsy issues with the tongue. There may be discomfort with abnormal stimulation and foreign body risks of infection requiring explant. We also discussed potentially aborting the procedure if it cannot be done safely. Patient verbalized understanding and elected to proceed. Patient denies exertional chest pain/shortness of breath. Denies dizziness, syncope, lightheadedness. Denies fever, chills, weakness or fatigue. Patient denies any recent illness, infections, or wounds. Patient denies abdominal pain, nausea, vomiting, diarrhea, or constipation. Patient denies hx of CAD, CHF, CT, TIA/CVA, diabetes, COPD, asthma, PHIL, DVT/PE. Past Medical History: Past Medical History: No date: Allergies No date: Anxiety No date: Depression No date: GERD (gastroesophageal reflux disease) No date: Hypertension No date: Migraines No date: Sleep apnea Comment: uses cpap Past Surgical History: Past Surgical History: No date: CARPAL TUNNEL RELEASE; Left No date: SECTION, LOW TRANSVERSE No date: CHOLECYSTECTOMY No date: ELBOW SURGERY; Left Comment: tendon scrape per pt No date: HYSTERECTOMY Comment: 1 ovary remaining No date: TONSILLECTOMY No date: UPPER GASTROINTESTINAL ENDOSCOPY Comment: sleep induced sleep endoscopy Medications Prior to Admission: Current Outpatient Medications on File Prior to Visit Medication Sig Dispense Refill buPROPion XL (Wellbutrin XL) 300 MG 24 hr tablet Take 300 mg by mouth every morning. cholecalciferol (Vitamin D-3) 25 MCG tablet Take 25 mcg by mouth daily. levocetirizine (Xyzal) 5 MG tablet Take 5 mg by mouth every evening. losartan (Cozaar) 50 MG tablet Take 50 mg by mouth daily. albuterol 108 (90 Base) MCG/ACT inhaler Inhale 2 puffs every 4 hours as needed. omeprazole (PriLOSEC) [address] capsule Take 40 mg by mouth every 48 hours. [DISCONTINUED] loratadine (Claritin) 10 MG tablet Take 10 mg by mouth in the morning. No current facility-administered medications on file prior to visit. Social History: TOBACCO: reports that she has never smoked. She has never used smokeless tobacco. ETOH: reports current alcohol use. Social History Substance and Sexual Activity Drug Use Never Family History: No family history on file. REVIEW OF SYSTEMS: Review of Systems Constitutional: Negative for chills, fatigue and fever. HENT: Negative for dental problem and trouble swallowing. Respiratory: Negative for shortness of breath. Cardiovascular: Negative for chest pain and palpitations. Gastrointestinal: Negative for abdominal pain, nausea and vomiting. Genitourinary: Negative for difficulty urinating and hematuria. Musculoskeletal: Negative. Skin: Negative. Neurological: Negative for dizziness and headaches. Hematological: Negative. Psychiatric/Behavioral: Negative for confusion. The patient is not nervous/anxious. Physical Exam: Physical Exam Constitutional: Appearance: Normal appearance. She is obese. HENT: Head: Normocephalic. Mouth/Throat: Mouth: Mucous membranes are moist. Pharynx: Oropharynx is clear. Eyes: Extraocular Movements: Extraocular movements intact. Cardiovascular: Rate and Rhythm: Normal rate and regular rhythm. Pulses: Normal pulses. Pulmonary: Effort: Pulmonary effort is normal. Abdominal: General: Bowel sounds are normal. Musculoskeletal: General: Normal range of motion. Cervical back: Normal range of motion. Skin: General: Skin is warm and dry. Neurological: General: No focal deficit present. Mental Status: She is alert. Psychiatric: Mood and Affect: Mood normal. Patient denies any open wounds or rash to skin. Vitals: Vitals Value Taken Time BP 149/87 01/04/24 0941 Temp 37 C (98.6 F) 01/04/24 0941 Pulse 84 01/04/24 0941 Resp 12 01/04/24 0941 SpO2 95 % 01/04/24 0941 Labs: ordered today per PAT protocol Samy's Simple Cardiac Risk Index: SAMY'S SIMPLE CARDIAC RISK SCORE: 0 Interpretation: 0 Points Class I 0.5% 1 Point Class II 1.3% 2 Points Class III 3.6% 3+ Points Class IV 9.1% PAT Pain Score: Postop Pain Management Plan (Pain consult ordered?): Pain consult not indicated at this time ? EKG: ordered today per PAT protocol Encounter Date: 01/04/24 ECG 12 lead Result Value Heart Rate 86 QRSD Interval 78 QT Interval 356 QTC Interval 426 P [place] 25 QRS [place] 5 T Wave [place] 143 SD Interval 139 Impression Sinus rhythm Probable LVH with secondary repol abnrm ECHO and EF:None on file METS: >4 Electronically signed by: Morena Wesley, [employer] - [employer] Date: 01/04/2024 at 10:16 AM documented in this encounter [facility] 11-20-2023 Hospital Discharge instructions Ty Lujan RN - 11/20/2023 1:01 PM EDT No restrictions, can resume normal activities You are a candidate for [facility], we will proceed with submitting paperwork and our office will call you when insurance approval is received. Please call our office at [phone] for any questions/concerns Anesthesia and Activity: For the first [address], operate heavy or dangerous machinery Do not drink any alcohol or take sleeping pills. Do not make major decisions or sign important papers. You may not be able to think clearly. You are at a higher risk of falling for at least 24 hours. Take extra care when you get up. Do not change positions quickly. Ask for help if you feel unsteady when you try to walk. Start with a light diet when you are fully awake. Slowly progress to your normal diet. Call the doctor if you Have trouble breathing Upset stomach or vomiting more than 3 times in the next 2 days Dizziness documented in this encounter [facility] 11-20-2023 Note Formatting of this n ote is different from the original. Date: 11/20/2023 Location: [facility] OR Name: Sulaiman Dominguez, : 1960, Diagnosis Pre-op Diagnosis * Obstructive sleep apnea (adult) (pediatric) [G47.33] Post-op Diagnosis * Obstructive sleep apnea (adult) (pediatric) [G47.33] Procedures Drug induced sleep endoscopy DISE 03516 - SD DISE DYN EVAL SLEEP DISORDERED BREATHING FLX DX Surgeons * Jeannine Andrews - Primary Procedure Summary Anesthesia: General ASA: III Estimated Blood Loss: None Drains: * None in log * Staff: Communications Lead: Erica Galvez RN Scrub Person: Cari Chandra Findings: complete nonconcentric collapse at level of velum, complete BOT collapse Complications: None; patient tolerated the procedure well. Specimens Collected: No specimens collected during this procedure. Wound Class: Class II: Clean-Contaminated Blood Products: None Prophylactic Antibiotics: Pre-operative antibiotics were not given because antibiotics are not indicated for this procedure. Patient was seen and evaluated in the pre-operative area. Informed consent was obtained after discussing the risks, benefits and indications for the procedure. The patient was taken back to the operating room by the anesthesia team. Appropriate timeout was performed. Table was kept supine and patient appropriately positioned. Patient was prepped and draped in the usual fashion. Anesthesia began the propofol infusion per protocol at 100 mcg/kg/min and uptitrated by 25 mcg/kg/min until patient at appropriate plane of simulated sleep with snoring and desaturations. The flexible laryngoscope was advanced into the nasal cavity and we subsequently evaluated the velum, oropharynx, tongue base, and epiglottis. Sites of obstruction as reported above. Video documentation was obtained. Once a satisfactory evaluation was obtained, care of the patient was turned to anesthesia and patient was awoken without issue and taken to PACU in stable condition having tolerated the procedure well. [facility] 11-20-2023 Note Formatting of this n ote is different from the original. Date: 11/20/2023 Location: [facility] OR Name: Sulaiman Dominguez, : 1960, Diagnosis Pre-op Diagnosis * Obstructive sleep apnea (adult) (pediatric) [G47.33] Post-op Diagnosis * Obstructive sleep apnea (adult) (pediatric) [G47.33] Procedures Drug induced sleep endoscopy DISE 39309 - SD DISE DYN EVAL SLEEP DISORDERED BREATHING FLX DX Surgeons * Jeannine Andrews - Primary Procedure Summary Anesthesia: General ASA: III Estimated Blood Loss: None Drains: * None in log * Staff: Communications Lead: Erica Galvez RN Scrub Person: Cari Chandra Findings: complete nonconcentric collapse at level of velum, complete BOT collapse Complications: None; patient tolerated the procedure well. Specimens Collected: No specimens collected during this procedure. Wound Class: Class II: Clean-Contaminated Blood Products: None Prophylactic Antibiotics: Pre-operative antibiotics were not given because antibiotics are not indicated for this procedure. [facility] 11-20-2023 Note Formatting of this n ote is different from the original. Date: 11/20/2023 Location: [facility] OR Name: Sulaiman Dominguez, : 1960, Diagnosis Pre-op Diagnosis * Obstructive sleep apnea (adult) (pediatric) [G47.33] Post-op Diagnosis * Obstructive sleep apnea (adult) (pediatric) [G47.33] Procedures Drug induced sleep endoscopy DISE 78510 - SD DISE DYN EVAL SLEEP DISORDERED BREATHING FLX DX Surgeons * Jeannine Andrews - Primary Procedure Summary Anesthesia: General ASA: III Estimated Blood Loss: None Drains: * None in log * Staff: Communications Lead: Erica Galvez RN Scrub Person: Cari Chandra Findings: complete nonconcentric collapse at level of velum, complete BOT collapse Complications: None; patient tolerated the procedure well. Specimens Collected: No specimens collected during this procedure. Wound Class: Class II: Clean-Contaminated Blood Products: None Prophylactic Antibiotics: Pre-operative antibiotics were not given because antibiotics are not indicated for this procedure. Patient was seen and evaluated in the pre-operative area. Informed consent was obtained after discussing the risks, benefits and indications for the procedure. The patient was taken back to the operating room by the anesthesia team. Appropriate timeout was performed. Table was kept supine and patient appropriately positioned. Patient was prepped and draped in the usual fashion. Anesthesia began the propofol infusion per protocol at 100 mcg/kg/min and uptitrated by 25 mcg/kg/min until patient at appropriate plane of simulated sleep with snoring and desaturations. The flexible laryngoscope was advanced into the nasal cavity and we subsequently evaluated the velum, oropharynx, tongue base, and epiglottis. Sites of obstruction as reported above. Video documentation was obtained. Once a satisfactory evaluation was obtained, care of the patient was turned to anesthesia and patient was awoken without issue and taken to PACU in stable condition having tolerated the procedure well. [facility] 11-20-2023 Note Formatting of this n ote is different from the original. Date: 11/20/2023 Location: [facility] OR Name: Sulaiman Dominguez, : 1960, Diagnosis Pre-op Diagnosis * Obstructive sleep apnea (adult) (pediatric) [G47.33] Post-op Diagnosis * Obstructive sleep apnea (adult) (pediatric) [G47.33] Procedures Drug induced sleep endoscopy DISE 03007 - SD DISE DYN EVAL SLEEP DISORDERED BREATHING FLX DX Surgeons * Jeannine Andrews - Primary Procedure Summary Anesthesia: General ASA: III Estimated Blood Loss: None Drains: * None in log * Staff: Communications Lead: Erica Galvez RN Scrub Person: Cari Chandra Findings: complete nonconcentric collapse at level of velum, complete BOT collapse Complications: None; patient tolerated the procedure well. Specimens Collected: No specimens collected during this procedure. Wound Class: Class II: Clean-Contaminated Blood Products: None Prophylactic Antibiotics: Pre-operative antibiotics were not given because antibiotics are not indicated for this procedure. [facility] 11-20-2023 Miscellaneous Notes Date: 11/20/2023 Location: [facility] OR Name: Sulaiman Dominguez, : 1960, Diagnosis Pre-op Diagnosis * Obstructive sleep apnea (adult) (pediatric) [G47.33] Post-op Diagnosis * Obstructive sleep apnea (adult) (pediatric) [G47.33] Procedures Drug induced sleep endoscopy DISE 67188 - SD DISE DYN EVAL SLEEP DISORDERED BREATHING FLX DX Surgeons * Jeannine Andrews - Primary Procedure Summary Anesthesia: General ASA: III Estimated Blood Loss: None Drains: * None in log * Staff: Communications Lead: Erica Galvez RN Scrub Person: Cari Chandra Findings: complete nonconcentric collapse at level of velum, complete BOT collapse Complications: None; patient tolerated the procedure well. Specimens Collected: No specimens collected during this procedure. Wound Class: Class II: Clean-Contaminated Blood Products: None Prophylactic Antibiotics: Pre-operative antibiotics were not given because antibiotics are not indicated for this procedure. Patient was seen and evaluated in the pre-operative area. Informed consent was obtained after discussing the risks, benefits and indications for the procedure. The patient was taken back to the operating room by the anesthesia team. Appropriate timeout was performed. Table was kept supine and patient appropriately positioned. Patient was prepped and draped in the usual fashion. Anesthesia began the propofol infusion per protocol at 100 mcg/kg/min and uptitrated by 25 mcg/kg/min until patient at appropriate plane of simulated sleep with snoring and desaturations. The flexible laryngoscope was advanced into the nasal cavity and we subsequently evaluated the velum, oropharynx, tongue base, and epiglottis. Sites of obstruction as reported above. Video documentation was obtained. Once a satisfactory evaluation was obtained, care of the patient was turned to anesthesia and patient was awoken without issue and taken to PACU in stable condition having tolerated the procedure well. Date: 11/20/2023 Location: [facility] OR Name: Sulaiman Dominguez, : 1960, Diagnosis Pre-op Diagnosis * Obstructive sleep apnea (adult) (pediatric) [G47.33] Post-op Diagnosis * Obstructive sleep apnea (adult) (pediatric) [G47.33] Procedures Drug induced sleep endoscopy DISE 71492 - SD DISE DYN EVAL SLEEP DISORDERED BREATHING FLX DX Surgeons * Jeannine Andrews - Primary Procedure Summary Anesthesia: General ASA: III Estimated Blood Loss: None Drains: * None in log * Staff: Communications Lead: Erica Galvez RN Scrub Person: Cari Chandra Findings: complete nonconcentric collapse at level of velum, complete BOT collapse Complications: None; patient tolerated the procedure well. Specimens Collected: No specimens collected during this procedure. Wound Class: Class II: Clean-Contaminated Blood Products: None Prophylactic Antibiotics: Pre-operative antibiotics were not given because antibiotics are not indicated for this procedure. Discharged to home . Accompanied by sisterRhea . AVS and education reviewed with patient and sister, both verbalized understanding. Mode of transportation private vehicle Belongings sent. [facility] - Patient Pre-procedure Instructions [address] [place] [address] [address] May shower/brush teeth. Leave valuables/jewelry at home. No makeup, lotion, powder, deodorant or body sprays. No contact lenses No piercings or dark nail [place] Sleep Apnea: If yes, please bring CPAP machine FOLLOW YOUR PREP INSTRUCTIONS GIVEN BY YOUR SURGEON'S OFFICE. Otherwise, no solid food after midnight before procedure. Clear liquids only - up to 2 hours prior to your ARRIVAL time (water, clear juice, Gatorade, coffee/tea with no milk/sugar, no mints gum or candy) Medications to take the morning of surgery Take the following medications: prescriptions Do not take the following medications: see below If you are taking Ozempic or Trulicity please stop this medication 7 days before your scheduled procedure. If you are a diabetic and on additional diabetic medication please contact your doctor for instructions on how to take your other diabetic medications during the bowel prep No Motrin, ibuprofen or Advil in 24 hours prior to surgery, longer if directed by your surgeon No Aleve or Naprosyn for 3 days prior to surgery or longer if instructed by your surgeon. If you take blood thinners or aspirin, follow instructions given to you by your surgeon You may take your prescription pain medication, you may take Tylenol for pain. Do not use/smoke THC or drink alcohol in the 24 hours prior to your arrival time. Please Bring your Personnel Monitor's license/photo ID, insurance card, eye drops/sunglasses, inhalers if applicable If you have a Medical Power of Geophysical Laboratory Supervisor, living will, or an advanced directive, please bring a copy with you. We are required to resuscitate and transfer you to the hospital along with your directive. If you need a work excuse, please reach out to your surgeon's office. You must have a van cdl driver arranged. Uber, Lyft, taxi, public transit is not sufficient unless you have someone accompanying you. documented in this encounter [facility] 11-20-2023 Attending History and physical note H&P reviewed. The patient was examined and there are no changes to the H&P. Source Note - Jeannine Andrews MD - 11/02/2023 10:00 AM EDT Assessment and Recommendations: Sulaiman Dominguez is a 63 y.o. female here for evaluation of obstructive sleep apnea. -Patient is interested in inspire therapy I discussed the risks and benefits of the procedure the patient for which she expressed understanding I also advised the patient to bring us a copy of her sleep study within the past 2 years so we could assess for candidacy she is interested in proceeding with drug-induced sleep endoscopy we will schedule this as well as place a referral to have the patient seen by Dr. Allen for further evaluation The risks and benefits of DISE were discussed. Risks include but not limited to bleeding, infection, dysphagia, voice changes, chipped/broken teeth, rarely the need for emergency tracheotomy, and risks of general anesthesia such as heart attack, stroke, rarely . All potential outcomes were discussed in layman's terms and all questions were answered. Patient verbalized understanding and elected to proceed. Risks and benefits of hypoglossal nerve stimulator surgery were discussed, including infection, bleeding, risk of anesthesia, hematoma and seroma, injury to surrounding structures including nerves and blood vessels with nerve palsy issues with the tongue. There may be discomfort with abnormal stimulation and foreign body risks of infection requiring explant. We also discussed potentially aborting the procedure if it cannot be done safely. Patient verbalized understanding and elected to proceed. Otolaryngology / Head and Neck Surgery Clinic Note Sulaiman Dominguez is a 63 y.o. female who presents for evaluation of chief complaint of obstructive sleep apnea. Pt reports symptoms of fatigue, daytime somnolence, denies risk of MVC. Patient is unsure if she snores or not. Pt was was dx 2 years ago with moderate PHIL, has been using a CPAP with nasal mask. Pt is not feeling better and is starting to not tolerate the CPAP, wants to discuss inspire. No cardiopulomary dx, no bleeding disorders/coagulopathies. Never a smoker, occasional ETOH use. Pt reports sleep study 2 years ago at [facility] showed moderate PHIL. PMH: No past medical history on file. Allergies: No Known Allergies Medications: Current Outpatient Medications: buPROPion XL (Wellbutrin XL) 300 MG 24 hr tablet, Take 300 mg by mouth every morning., Disp: , Rfl: cholecalciferol (Vitamin D-3) 25 MCG tablet, Take 25 mcg by mouth daily., Disp: , Rfl: levocetirizine (Xyzal) 5 MG tablet, Take 5 mg by mouth every evening., Disp: , Rfl: loratadine (Claritin) 10 MG tablet, Take 10 mg by mouth in the morning., Disp: , Rfl: losartan (Cozaar) 50 MG tablet, Take 50 mg by mouth daily., Disp: , Rfl: omeprazole (PriLOSEC) [address] capsule, Take 40 mg by mouth every 48 hours., Disp: , Rfl: PSH: No past surgical history on file. FH: No family history on file. SH: Social History Socioeconomic History Marital status: Spouse name: Not on file Number of children: Not on file Years of education: Not on file Highest education level: Not on file Occupational History Not on file Tobacco Use Smoking status: Never Smokeless tobacco: Never Substance and Sexual Activity Alcohol use: Yes Comment: occasional Drug use: Never Sexual activity: Not on file Other Topics Concern Not on file Social History Narrative Not on file Social Determinants of Health Financial Resource Strain: Not on file Food Insecurity: Not on file Transportation Needs: Not on file Physical Activity: Not on file Stress: Not on file Social Connections: Not on file Intimate Partner Violence: Not on file Housing Stability: Not on file Vital signs: Vitals: 11/02/23 1023 Weight: 180 lb 14.4 oz (82.1 kg) Height: 5' 2 (1.575 m) Imaging: @RISRSLT@ Physical Exam: Constitutional: . Vitals: 11/02/23 1023 Weight: 180 lb 14.4 oz (82.1 kg) Height: 5' 2 (1.575 m) General: Patient is not in acute distress. Appearance: Patient is well-developed. Eyes: Conjunctiva/sclera: Conjunctivae normal. Pupils: Pupils are equal, round, and reactive to light. HENT: Jaw: No trismus. Nose: External nose midline, anterior rhinoscopy with septal deviation Mouth: Mucous membranes are not pale, not dry and not cyanotic. No oral lesions. Pharynx: Uvula midline. No Tonsils: No tonsillar exudate. No abnormal masses or lesions Neck: No lymphadenopathy Thyroid: No significant thyromegaly. Trachea: Trachea and phonation normal. No tracheal deviation. Pulmonary: Effort: Pulmonary effort is normal. No respiratory distress. Breath sounds: No stridor. Musculoskeletal: Head: Normocephalic and atraumatic. Neck: Full passive range of motion without pain, neck supple. Skin: General: Skin is warm and dry. Findings: No erythema or rash. Neurological: Cranial Nerves: No cranial nerve deficit. Sensory: No sensory deficit. Coordination: Coordination normal. Extremities: No significant peripheral edema or varicosities Psychiatric: Mood and Affect: Mood and affect normal. Cognition and Memory: Cognition and memory normal. Procedure Note: Flexible Nasolaryngoscopy Verbal informed consent was obtained from the patient/patient's guardian. 4% lidocaine mixed with phenylephrine was prepared and dripped into the nose. It was placed in the bilateral naris. Following an appropriate amount of time to allow for adequate anesthesia, a flexible fiberoptic nasolaryngoscope was placed into the patient's bilateral naris. The nasal cavity, nasopharynx, oropharynx, hypopharynx, and all endolaryngeal structures were visualized and were normal except as listed below. Significant findings included: -Bilateral vocal cords visualized revealing no masses or lesions piriform sinus are clear epiglottis crisp base tongue within normal limits [employer] Phone: 11-20-2023 History and physical note H&P reviewed. The patient was examined and there are no changes to the H&P. Source Note - Jeannine Andrews MD - 11/02/2023 10:00 AM EDT Assessment and Recommendations: Sulaiman Dominguez is a 63 y.o. female here for evaluation of obstructive sleep apnea. -Patient is interested in inspire therapy I discussed the risks and benefits of the procedure the patient for which she expressed understanding I also advised the patient to bring us a copy of her sleep study within the past 2 years so we could assess for candidacy she is interested in proceeding with drug-induced sleep endoscopy we will schedule this as well as place a referral to have the patient seen by Dr. Allen for further evaluation The risks and benefits of DISE were discussed. Risks include but not limited to bleeding, infection, dysphagia, voice changes, chipped/broken teeth, rarely the need for emergency tracheotomy, and risks of general anesthesia such as heart attack, stroke, rarely . All potential outcomes were discussed in layman's terms and all questions were answered. Patient verbalized understanding and elected to proceed. Risks and benefits of hypoglossal nerve stimulator surgery were discussed, including infection, bleeding, risk of anesthesia, hematoma and seroma, injury to surrounding structures including nerves and blood vessels with nerve palsy issues with the tongue. There may be discomfort with abnormal stimulation and foreign body risks of infection requiring explant. We also discussed potentially aborting the procedure if it cannot be done safely. Patient verbalized understanding and elected to proceed. Otolaryngology / Head and Neck Surgery Clinic Note Sulaiman Dominguez is a 63 y.o. female who presents for evaluation of chief complaint of obstructive sleep apnea. Pt reports symptoms of fatigue, daytime somnolence, denies risk of MVC. Patient is unsure if she snores or not. Pt was was dx 2 years ago with moderate PHIL, has been using a CPAP with nasal mask. Pt is not feeling better and is starting to not tolerate the CPAP, wants to discuss inspire. No cardiopulomary dx, no bleeding disorders/coagulopathies. Never a smoker, occasional ETOH use. Pt reports sleep study 2 years ago at [facility] showed moderate PHIL. PMH: No past medical history on file. Allergies: No Known Allergies Medications: Current Outpatient Medications: buPROPion XL (Wellbutrin XL) 300 MG 24 hr tablet, Take 300 mg by mouth every morning., Disp: , Rfl: cholecalciferol (Vitamin D-3) 25 MCG tablet, Take 25 mcg by mouth daily., Disp: , Rfl: levocetirizine (Xyzal) 5 MG tablet, Take 5 mg by mouth every evening., Disp: , Rfl: loratadine (Claritin) 10 MG tablet, Take 10 mg by mouth in the morning., Disp: , Rfl: losartan (Cozaar) 50 MG tablet, Take 50 mg by mouth daily., Disp: , Rfl: omeprazole (PriLOSEC) [address] capsule, Take 40 mg by mouth every 48 hours., Disp: , Rfl: PSH: No past surgical history on file. FH: No family history on file. SH: Social History Socioeconomic History Marital status: Spouse name: Not on file Number of children: Not on file Years of education: Not on file Highest education level: Not on file Occupational History Not on file Tobacco Use Smoking status: Never Smokeless tobacco: Never Substance and Sexual Activity Alcohol use: Yes Comment: occasional Drug use: Never Sexual activity: Not on file Other Topics Concern Not on file Social History Narrative Not on file Social Determinants of Health Financial Resource Strain: Not on file Food Insecurity: Not on file Transportation Needs: Not on file Physical Activity: Not on file Stress: Not on file Social Connections: Not on file Intimate Partner Violence: Not on file Housing Stability: Not on file Vital signs: Vitals: 11/02/23 1023 Weight: 180 lb 14.4 oz (82.1 kg) Height: 5' 2 (1.575 m) Imaging: @RISRSLT@ Physical Exam: Constitutional: . Vitals: 11/02/23 1023 Weight: 180 lb 14.4 oz (82.1 kg) Height: 5' 2 (1.575 m) General: Patient is not in acute distress. Appearance: Patient is well-developed. Eyes: Conjunctiva/sclera: Conjunctivae normal. Pupils: Pupils are equal, round, and reactive to light. HENT: Jaw: No trismus. Nose: External nose midline, anterior rhinoscopy with septal deviation Mouth: Mucous membranes are not pale, not dry and not cyanotic. No oral lesions. Pharynx: Uvula midline. No Tonsils: No tonsillar exudate. No abnormal masses or lesions Neck: No lymphadenopathy Thyroid: No significant thyromegaly. Trachea: Trachea and phonation normal. No tracheal deviation. Pulmonary: Effort: Pulmonary effort is normal. No respiratory distress. Breath sounds: No stridor. Musculoskeletal: Head: Normocephalic and atraumatic. Neck: Full passive range of motion without pain, neck supple. Skin: General: Skin is warm and dry. Findings: No erythema or rash. Neurological: Cranial Nerves: No cranial nerve deficit. Sensory: No sensory deficit. Coordination: Coordination normal. Extremities: No significant peripheral edema or varicosities Psychiatric: Mood and Affect: Mood and affect normal. Cognition and Memory: Cognition and memory normal. Procedure Note: Flexible Nasolaryngoscopy Verbal informed consent was obtained from the patient/patient's guardian. 4% lidocaine mixed with phenylephrine was prepared and dripped into the nose. It was placed in the bilateral naris. Following an appropriate amount of time to allow for adequate anesthesia, a flexible fiberoptic nasolaryngoscope was placed into the patient's bilateral naris. The nasal cavity, nasopharynx, oropharynx, hypopharynx, and all endolaryngeal structures were visualized and were normal except as listed below. Significant findings included: -Bilateral vocal cords visualized revealing no masses or lesions piriform sinus are clear epiglottis crisp base tongue within normal limits documented in this encounter [facility] 11-20-2023 Note Formatting of this n ote might be different from the original. Discharged to home . Accompanied by sisterRhea . AVS and education reviewed with patient and sister, both verbalized understanding. Mode of transportation private vehicle Belongings sent. [facility] 11-20-2023 Note Formatting of this n ote might be different from the original. Discharged to home . Accompanied by Rhea naik . AVS and education reviewed with patient and sister, both verbalized understanding. Mode of transportation private vehicle Belongings sent. [facility] 11-15-2023 Note Formatting of this n ote might be different from the original. [facility] - Patient Pre-procedure Instructions [address] [place] [address] [address] May shower/brush teeth. Leave valuables/jewelry at home. No makeup, lotion, powder, deodorant or body sprays. No contact lenses No piercings or dark nail c[place] islander Sleep Apnea: If yes, please bring CPAP machine FOLLOW YOUR PREP INSTRUCTIONS GIVEN BY YOUR SURGEON'S OFFICE. Otherwise, no solid food after midnight before procedure. Clear liquids only - up to 2 hours prior to your ARRIVAL time (water, clear juice, Gatorade, coffee/tea with no milk/sugar, no mints gum or candy) Medications to take the morning of surgery Take the following medications: prescriptions Do not take the following medications: see below If you are taking Ozempic or Trulicity please stop this medication 7 days before your scheduled procedure. If you are a diabetic and on additional diabetic medication please contact your doctor for instructions on how to take your other diabetic medications during the bowel prep No Motrin, ibuprofen or Advil in 24 hours prior to surgery, longer if directed by your surgeon No Aleve or Naprosyn for 3 days prior to surgery or longer if instructed by your surgeon. If you take blood thinners or aspirin, follow instructions given to you by your surgeon You may take your prescription pain medication, you may take Tylenol for pain. Do not use/smoke THC or drink alcohol in the 24 hours prior to your arrival time. Please Bring your Personnel Monitor's license/photo ID, insurance card, eye drops/sunglasses, inhalers if applicable If you have a Medical Power of Geophysical Laboratory Supervisor, living will, or an advanced directive, please bring a copy with you. We are required to resuscitate and transfer you to the hospital along with your directive. If you need a work excuse, please reach out to your surgeon's office. You must have a van cdl driver arranged. Uber, Lyft, taxi, public transit is not sufficient unless you have someone accompanying you. [facility] 11-15-2023 Note Formatting of this n ote might be different from the original. [facility] - Patient Pre-procedure Instructions [address] [place] [address] [address] May shower/brush teeth. Leave valuables/jewelry at home. No makeup, lotion, powder, deodorant or body sprays. No contact lenses No piercings or dark nail [place] islander Sleep Apnea: If yes, please bring CPAP machine FOLLOW YOUR PREP INSTRUCTIONS GIVEN BY YOUR SURGEON'S OFFICE. Otherwise, no solid food after midnight before procedure. Clear liquids only - up to 2 hours prior to your ARRIVAL time (water, clear juice, Gatorade, coffee/tea with no milk/sugar, no mints gum or candy) Medications to take the morning of surgery Take the following medications: prescriptions Do not take the following medications: see below If you are taking Ozempic or Trulicity please stop this medication 7 days before your scheduled procedure. If you are a diabetic and on additional diabetic medication please contact your doctor for instructions on how to take your other diabetic medications during the bowel prep No Motrin, ibuprofen or Advil in 24 hours prior to surgery, longer if directed by your surgeon No Aleve or Naprosyn for 3 days prior to surgery or longer if instructed by your surgeon. If you take blood thinners or aspirin, follow instructions given to you by your surgeon You may take your prescription pain medication, you may take Tylenol for pain. Do not use/smoke THC or drink alcohol in the 24 hours prior to your arrival time. Please Bring your Personnel Monitor's license/photo ID, insurance card, eye drops/sunglasses, inhalers if applicable If you have a Medical Power of Geophysical Laboratory Supervisor, living will, or an advanced directive, please bring a copy with you. We are required to resuscitate and transfer you to the hospital along with your directive. If you need a work excuse, please reach out to your surgeon's office. You must have a van cdl driver arranged. Uber, Lyft, taxi, public transit is not sufficient unless you have someone accompanying you. T [facility] 11-02-2023 History of Present illness Narrative Assessment and Recommendations: Sulaiman Dominguez is a 63 y.o. female here for evaluation of obstructive sleep apnea. -Patient is interested in inspire therapy I discussed the risks and benefits of the procedure the patient for which she expressed understanding I also advised the patient to bring us a copy of her sleep study within the past 2 years so we could assess for candidacy she is interested in proceeding with drug-induced sleep endoscopy we will schedule this as well as place a referral to have the patient seen by Dr. Allen for further evaluation The risks and benefits of DISE were discussed. Risks include but not limited to bleeding, infection, dysphagia, voice changes, chipped/broken teeth, rarely the need for emergency tracheotomy, and risks of general anesthesia such as heart attack, stroke, rarely . All potential outcomes were discussed in layman's terms and all questions were answered. Patient verbalized understanding and elected to proceed. Risks and benefits of hypoglossal nerve stimulator surgery were discussed, including infection, bleeding, risk of anesthesia, hematoma and seroma, injury to surrounding structures including nerves and blood vessels with nerve palsy issues with the tongue. There may be discomfort with abnormal stimulation and foreign body risks of infection requiring explant. We also discussed potentially aborting the procedure if it cannot be done safely. Patient verbalized understanding and elected to proceed. Otolaryngology / Head and Neck Surgery Clinic Note Sulaiman Dominguez is a 63 y.o. female who presents for evaluation of chief complaint of obstructive sleep apnea. Pt reports symptoms of fatigue, daytime somnolence, denies risk of MVC. Patient is unsure if she snores or not. Pt was was dx 2 years ago with moderate PHIL, has been using a CPAP with nasal mask. Pt is not feeling better and is starting to not tolerate the CPAP, wants to discuss inspire. No cardiopulomary dx, no bleeding disorders/coagulopathies. Never a smoker, occasional ETOH use. Pt reports sleep study 2 years ago at [facility] showed moderate PHIL. PMH: No past medical history on file. Allergies: No Known Allergies Medications: Current Outpatient Medications: buPROPion XL (Wellbutrin XL) 300 MG 24 hr tablet, Take 300 mg by mouth every morning., Disp: , Rfl: cholecalciferol (Vitamin D-3) 25 MCG tablet, Take 25 mcg by mouth daily., Disp: , Rfl: levocetirizine (Xyzal) 5 MG tablet, Take 5 mg by mouth every evening., Disp: , Rfl: loratadine (Claritin) 10 MG tablet, Take 10 mg by mouth in the morning., Disp: , Rfl: losartan (Cozaar) 50 MG tablet, Take 50 mg by mouth daily., Disp: , Rfl: omeprazole (PriLOSEC) [address] capsule, Take 40 mg by mouth every 48 hours., Disp: , Rfl: PSH: No past surgical history on file. FH: No family history on file. SH: Social History Socioeconomic History Marital status: Spouse name: Not on file Number of children: Not on file Years of education: Not on file Highest education level: Not on file Occupational History Not on file Tobacco Use Smoking status: Never Smokeless tobacco: Never Substance and Sexual Activity Alcohol use: Yes Comment: occasional Drug use: Never Sexual activity: Not on file Other Topics Concern Not on file Social History Narrative Not on file Social Determinants of Health Financial Resource Strain: Not on file Food Insecurity: Not on file Transportation Needs: Not on file Physical Activity: Not on file Stress: Not on file Social Connections: Not on file Intimate Partner Violence: Not on file Housing Stability: Not on file Vital signs: Vitals: 11/02/23 1023 Weight: 180 lb 14.4 oz (82.1 kg) Height: 5' 2 (1.575 m) Imaging: @RISRSLT@ Physical Exam: Constitutional: . Vitals: 11/02/23 1023 Weight: 180 lb 14.4 oz (82.1 kg) Height: 5' 2 (1.575 m) General: Patient is not in acute distress. Appearance: Patient is well-developed. Eyes: Conjunctiva/sclera: Conjunctivae normal. Pupils: Pupils are equal, round, and reactive to light. HENT: Jaw: No trismus. Nose: External nose midline, anterior rhinoscopy with septal deviation Mouth: Mucous membranes are not pale, not dry and not cyanotic. No oral lesions. Pharynx: Uvula midline. No Tonsils: No tonsillar exudate. No abnormal masses or lesions Neck: No lymphadenopathy Thyroid: No significant thyromegaly. Trachea: Trachea and phonation normal. No tracheal deviation. Pulmonary: Effort: Pulmonary effort is normal. No respiratory distress. Breath sounds: No stridor. Musculoskeletal: Head: Normocephalic and atraumatic. Neck: Full passive range of motion without pain, neck supple. Skin: General: Skin is warm and dry. Findings: No erythema or rash. Neurological: Cranial Nerves: No cranial nerve deficit. Sensory: No sensory deficit. Coordination: Coordination normal. Extremities: No significant peripheral edema or varicosities Psychiatric: Mood and Affect: Mood and affect normal. Cognition and Memory: Cognition and memory normal. Procedure Note: Flexible Nasolaryngoscopy Verbal informed consent was obtained from the patient/patient's guardian. 4% lidocaine mixed with phenylephrine was prepared and dripped into the nose. It was placed in the bilateral naris. Following an appropriate amount of time to allow for adequate anesthesia, a flexible fiberoptic nasolaryngoscope was placed into the patient's bilateral naris. The nasal cavity, nasopharynx, oropharynx, hypopharynx, and all endolaryngeal structures were visualized and were normal except as listed below. Significant findings included: -Bilateral vocal cords visualized revealing no masses or lesions piriform sinus are clear epiglottis crisp base tongue within normal limits documented in this encounter [facility] 11-02-2023 Telephone encounter Note Name of Caller: Sulaiman Contact Reason for Appointment: Sulaiman called stating she is running late because she went to [place] instead of [place] location. I notified the office that the patient was on her way from the former [place] location. Office Name: ENT [facility] 11-02-2023 Miscellaneous Notes Name of Caller: Sulaiman Contact Reason for Appointment: Sulaiman called stating she is running late because she went to [place] instead of [place] location. I notified the office that the patient was on her way from the former [place] location. Office Name: ENT documented in this encounter [facility] 09-28-2023 History of Present illness Narrative Subjective Patient ID: Sulaiman Dominguez is a 63 y.o. female who presents for Follow-up (6 month) and Cough (+congestion +stuffy face/Present for a week/Tx: dayquil and nyquil). Cough Associated symptoms include a sore throat and wheezing. Pertinent negatives include no fever. Patient is here today for 6 mo follow up Pt reports that she has been ill for 1 week. No fevers, sinus pressure, sore throat, cough, wheezing, diarrhea. Denies any sick contacts that she knows of, has tried dayquil and nyquil. Review of Systems Constitutional: Positive for fatigue. Negative for fever. HENT: Positive for congestion, sinus pressure, sinus pain and sore throat. Respiratory: Positive for cough and wheezing. Gastrointestinal: Positive for diarrhea. Negative for nausea and vomiting. Objective BP 144/83 Pulse 91 Ht 1.575 m (5' 2) Wt 79.8 kg (176 lb) BMI 32.19 kg/m Physical Exam Constitutional: General: She is not in acute distress. Appearance: Normal appearance. HENT: Head: Normocephalic. Right Ear: Ear canal and external ear normal. There is no impacted cerumen. Left Ear: Ear canal and external ear normal. There is impacted cerumen. Nose: Nose normal. Mouth/Throat: Mouth: Mucous membranes are moist. Pharynx: Posterior oropharyngeal erythema present. No oropharyngeal exudate. Eyes: General: Right eye: No discharge. Left eye: No discharge. Extraocular Movements: Extraocular movements intact. Pupils: Pupils are equal, round, and reactive to light. Cardiovascular: Rate and Rhythm: Normal rate and regular rhythm. Heart sounds: No murmur heard. No gallop. Pulmonary: Effort: Pulmonary effort is normal. No respiratory distress. Breath sounds: Normal breath sounds. No wheezing. Musculoskeletal: General: No swelling. Normal range of motion. Skin: General: Skin is warm and dry. Coloration: Skin is not jaundiced. Neurological: General: No focal deficit present. Mental Status: She is alert and oriented to person, place, and time. Cranial Nerves: No cranial nerve deficit. Psychiatric: Mood and Affect: Mood normal. Behavior: Behavior normal. Assessment/Plan Problem List Items Addressed This Visit Moderate obstructive sleep apnea Seasonal allergies Primary hypertension Relevant Orders Hemoglobin A1C Lipid Panel Comprehensive Metabolic Panel TSH with reflex to Free T4 if abnormal Mild major depression, single episode ([facility]) Other Visit Diagnoses Acute non-recurrent frontal sinusitis - Primary Relevant Medications amoxicillin-pot clavulanate (Augmentin) 875-125 mg tablet predniSONE (Deltasone) 20 mg tablet fluticasone (Flonase) 50 mcg/actuation nasal spray albuterol 90 mcg/actuation inhaler Vitamin D deficiency Relevant Orders Vitamin D 25-Hydroxy,Total (for eval of Vitamin D levels) HTN, controlled - continue losartan 50mg po daily 2. Depression - taking wellbutrin 300mg po every other day 3. Seasonal allergies - continue xyzal 4. Sinusitis - sent augmentin, prednisone, albuterol, flonase 5. Will order bloodwork for next 6 mo Final diagnoses: [J01.10] Acute non-recurrent frontal sinusitis [E55.9] Vitamin D deficiency [I10] Primary hypertension [J30.2] Seasonal allergies [F32.0] Mild major depression, single episode ([facility]) [G47.33] Moderate obstructive sleep apnea documented in this encounter [facility] Work Phone: 06-26-2023 History of Present illness Narrative Subjective Patient ID: Sulaiman Dominguez is a 63 y.o. female who presents for Cough (+Chronic/x4 months/States she was sick but never tested for Covid /She states the cough is now productive/Reports stuffy nose). Cough Patient is here today for cough. Pt reports that she has had a coufgh x 4 mo. Never goes away completely. At times she will cough so much that she will throw up. She was sick initially but the coufgh has oersiusted. She does take wellbutrin, isw doing it every other day, has been on that for some time without dose william. Does also take lisinopril. Review of Systems Respiratory: Positive for cough. Objective BP 144/79 Pulse 79 Ht 1.575 m (5' 2) Wt 78.5 kg (173 lb) BMI 31.64 kg/m Physical Exam Constitutional: General: She is not in acute distress. Appearance: Normal appearance. HENT: Head: Normocephalic. Nose: Nose normal. Mouth/Throat: Pharynx: No oropharyngeal exudate. Eyes: General: Right eye: No discharge. Left eye: No discharge. Extraocular Movements: Extraocular movements intact. Pupils: Pupils are equal, round, and reactive to light. Cardiovascular: Rate and Rhythm: Normal rate and regular rhythm. Heart sounds: No murmur heard. No gallop. Pulmonary: Effort: Pulmonary effort is normal. No respiratory distress. Breath sounds: Normal breath sounds. No wheezing. Musculoskeletal: General: No swelling. Normal range of motion. Skin: General: Skin is warm and dry. Coloration: Skin is not jaundiced. Neurological: General: No focal deficit present. Mental Status: She is alert and oriented to person, place, and time. Cranial Nerves: No cranial nerve deficit. Psychiatric: Mood and Affect: Mood normal. Behavior: Behavior normal. Assessment/Plan Problem List Items Addressed This Visit Primary hypertension - Primary Relevant Medications losartan (Cozaar) 50 mg tablet Cough - will stop lisinopril and start losartan 50mg po daily Pfts pending - Wellbutrin can also cause cough, is taking it every other day and had been on that for some time wo a dose change Final diagnoses: [I10] Primary hypertension documented in this encounter [facility] Work Phone: 04-27-2023 History of Present illness Narrative Subjective Patient ID: Sulaiman Dominguez is a 63 y.o. female who presents for Follow-up (3 month) and Cough (Pt was diagnosed with post viral cough syndrome/She is tx with tessalon pearls and albuterol inhaler with no improvement ). Cough Pertinent negatives include no shortness of breath or wheezing. Patient is here today for 3 mo follow up P)t reports that she does think that the wellbutrin has helped with her mild depression. She feels better. She has been coughing now for about 8 weeks. Was initially treated at the Urgent care and was given doxycycline which did not help, went to Urgent Care in [place] and was given tessalon and albuterol inhaler, has not helped. Review of Systems Respiratory: Positive for cough. Negative for shortness of breath and wheezing. Psychiatric/Behavioral: The patient is not nervous/anxious. Objective BP 148/85 Pulse 92 Ht 1.575 m (5' 2) Wt 78.5 kg (173 lb) BMI 31.64 kg/m Physical Exam Constitutional: General: She is not in acute distress. Appearance: Normal appearance. HENT: Head: Normocephalic. Nose: Nose normal. Mouth/Throat: Pharynx: No oropharyngeal exudate. Eyes: General: Right eye: No discharge. Left eye: No discharge. Extraocular Movements: Extraocular movements intact. Pupils: Pupils are equal, round, and reactive to light. Cardiovascular: Rate and Rhythm: Normal rate and regular rhythm. Heart sounds: No murmur heard. No gallop. Pulmonary: Effort: Pulmonary effort is normal. No respiratory distress. Breath sounds: Normal breath sounds. No wheezing. Abdominal: General: Bowel sounds are normal. There is no distension. Palpations: Abdomen is soft. Tenderness: There is no abdominal tenderness. Musculoskeletal: General: No swelling. Normal range of motion. Skin: General: Skin is warm and dry. Coloration: Skin is not jaundiced. Neurological: General: No focal deficit present. Mental Status: She is alert and oriented to person, place, and time. Cranial Nerves: No cranial nerve deficit. Psychiatric: Mood and Affect: Mood normal. Behavior: Behavior normal. Pap Mammo 2021, will order Colonoscopy at age 52, normal DEXA -- Flu shot declines COVID received PNA -- Shingles recommended RSV recommended Assessment/Plan Problem List Items Addressed This Visit Fatigue Relevant Orders TSH with reflex to Free T4 if abnormal Moderate obstructive sleep apnea Seasonal allergies Primary hypertension Other Visit Diagnoses Post-viral cough syndrome - Primary Relevant Medications predniSONE (Deltasone) 20 mg tablet Vitamin D deficiency Relevant Orders Vitamin D 25-Hydroxy,Total (for eval of Vitamin D levels) Screening for lipid disorders Relevant Orders Lipid Panel Wellness examination Relevant Orders Comprehensive Metabolic Panel Mild depression, no other cause for her fatigue found with workup, does have some emotional lability, decreased motivation - will try wellbutrin 150mg po xl po daily 2. PHIL on CPAP - compliant with cpap 3. Fatigue - will check cbc, tsh, cmp 4. Fasting lipid panel 5. Vit d def - check vit d 6. HTN - lisinopril 20mg po daily Final diagnoses: [R05.8] Post-viral cough syndrome [E55.9] Vitamin D deficiency [R53.82] Chronic fatigue [Z13.220] Screening for lipid disorders [Z00.00] Wellness examination [I10] Primary hypertension [J30.2] Seasonal allergies [G47.33] Moderate obstructive sleep apnea documented in this encounter [facility] Work Phone: 01-02-2023 History of Present illness Narrative Subjective Patient ID: Sulaiman Dominguez is a 62 y.o. female who presents for Follow-up (3 month). HPI Patient is here today for 3 mo follow up Patient continues to complain of fatigue. She wonders if it is more related to depression, crying for now reason, decreased motivation. She also has been having some low grade headaches daily. Review of Systems Psychiatric/Behavioral: +mild depression Objective BP 145/77 (BP Location: Right arm, Patient Position: Sitting, BP Cuff Size: Adult) Pulse 80 Ht 1.575 m (5' 2) Wt 75.3 kg (166 lb) BMI 30.36 kg/m Physical Exam Constitutional: General: She is not in acute distress. Appearance: Normal appearance. Neurological: Mental Status: She is alert. Psychiatric: Mood and Affect: Mood normal. Behavior: Behavior normal. Thought Content: Thought content normal. Assessment/Plan Problem List Items Addressed This Visit Moderate obstructive sleep apnea Mild major depression, single episode (CMS/HCC) - Primary Relevant Medications buPROPion XL (Wellbutrin XL) 150 mg 24 hr tablet Mild depression, no other cause for her fatigue found with workup, does have some emotional lability, decreased motivation - will try wellbutrin 150mg po xl po daily 2. PHIL on CPAP - compliant with cpap Final diagnoses: [F32.0] Mild major depression, single episode (CMS/HCC) [G47.33] Moderate obstructive sleep apnea documented in this encounter [facility] Work Phone: 11-10-2022 History of Present illness Narrative Saw patient today on a 1 month follow-up visit to review her obstructive sleep apnea with APAP therapy. Patient related to me since she has been on CPAP therapy started in March of last year that she felt better rested during the day and slept better at night but then that seem to decrease in June to July of this year. She tells me that Dr. Belle Armstrong is done an extensive evaluation of all of her labs and was unable to find anything. I noted however when I talked to her and looked up her records that she was started on lisinopril 10 mg a day in June of this year and that that dose was subsequently increased to 20 mg a day in September of this year. Lisinopril does have side effects including headaches cough, anxiety and insomnia.The patient has her equipment through [employer] in [place]. [facility] [id number] Work Phone: 09-29-2022 Evaluation + Plan note Associated Problem(s): Moderate obstructive sleep apnea - continue cpap - reports that first few months she felt great but now back to square one with fatigue, normal bloodwork panel in 05/11 - will refer to sleep medicine [facility] Work Phone: 09-29-2022 Evaluation + Plan note Associated Problem(s): Primary hypertension - will increase lisinopril to 20mg po daily - continue to check blood pressures at home and call in a few weeks [facility] Work Phone: 09-29-2022 Miscellaneous Notes Associated Problem(s): Moderate obstructive sleep apnea - continue cpap - reports that first few months she felt great but now back to square one with fatigue, normal bloodwork panel in 05/11 - will refer to sleep medicine Associated Problem(s): Primary hypertension - will increase lisinopril to 20mg po daily - continue to check blood pressures at home and call in a few weeks documented in this encounter [facility] Work Phone: 09-29-2022 History of Present illness Narrative Subjective Patient ID: Sulaiman Dominguez is a 62 y.o. female who presents for Follow-up (3 month). HPI Patient is here today for follow up 3 mo on htn. Pt complains today for continued fatigue with no specific cause. Last appt had started pt on lisinopril, blood pressure improved today in the office. Still reading higher at home in the 150s. No side effects with the lisinopril,. She has been using the cpap since March. She felt like initially that her fatigue was improved for two months but now she is back to feeling the same. Trying to work out daily. Complete blood panel was normal in May 11. Review of Systems Constitutional: Negative for activity change, appetite change, chills and fatigue. HENT: Negative for congestion, postnasal drip, sinus pressure, sinus pain and sore throat. Respiratory: Negative for cough, shortness of breath and wheezing. Cardiovascular: Negative for chest pain and leg swelling. Gastrointestinal: Negative for abdominal distention, diarrhea, nausea and vomiting. Musculoskeletal: Negative for back pain. Neurological: Negative for weakness and numbness. Objective BP 142/77 (BP Location: Right arm, Patient Position: Sitting, BP Cuff Size: Adult) Pulse 76 Ht (P) 1.575 m (5' 2) Wt 76.2 kg (168 lb) BMI (P) 30.73 kg/m Physical Exam Constitutional: General: She is not in acute distress. Appearance: Normal appearance. HENT: Head: Normocephalic and atraumatic. Nose: Nose normal. Eyes: Extraocular Movements: Extraocular movements intact. Pupils: Pupils are equal, round, and reactive to light. Cardiovascular: Rate and Rhythm: Normal rate and regular rhythm. Heart sounds: No murmur heard. Pulmonary: Effort: Pulmonary effort is normal. No respiratory distress. Breath sounds: Normal breath sounds. Neurological: Mental Status: She is alert. Psychiatric: Mood and Affect: Mood normal. Behavior: Behavior normal. Thought Content: Thought content normal. Assessment/Plan Problem List Items Addressed This Visit Nervous Moderate obstructive sleep apnea - Primary - continue cpap - reports that first few months she felt great but now back to square one with fatigue, normal bloodwork panel in 05/11 - will refer to sleep medicine Relevant Orders Referral to Adult Sleep Medicine Circulatory Primary hypertension - will increase lisinopril to 20mg po daily - continue to check blood pressures at home and call in a few weeks Relevant Medications lisinopril 20 mg tablet Final diagnoses: [G47.33] Moderate obstructive sleep apnea [I10] Primary hypertension documented in this encounter [facility] Work Phone: 06-28-2022 History of Present illness Narrative Patient is here today for 6-8 week follow upPt reports that she stopped the hctz due to frequency urination.She zuniga started ww as well, just started it one week ago, has lost 4 lbs already. [facility] Work Phone: 06-21-2022 History of Present illness Narrative Saw patient today on a 1 month follow-up visit to review her obstructive sleep apnea with APAP therapy. Patient related to me since she has been on CPAP therapy started in March of last year that she felt better rested during the day and slept better at night but then that seem to decrease in June to July of this year. She tells me that Dr. Belle Armstrong is done an extensive evaluation of all of her labs and was unable to find anything. I noted however when I talked to her and looked up her records that she was started on lisinopril 10 mg a day in June of this year and that that dose was subsequently increased to 20 mg a day in September of this year. Lisinopril does have side effects including headaches cough, anxiety and insomnia.The patient has her equipment through [employer] in [place]. [address] Work Phone: 04-02-2022 History of Present illness Narrative Patient is here to day for sick visit.Reports that her symptoms started 4 days ago.Started with a cough, then developed slight sore throat, +congestion, +headaches, +body aches, did home covid test and it was negative.Patient denies sick contacts with flu positive that she knows of.She has tried otc cough medicine without much relief. [facility] Work Phone: 05-30-2021 History of Present illness Narrative Patient is here today for 6 week follow upShe had her bloodwork done and it was all within normal limits, she did not end up having three sleep study because it was going to cost $400 out of her pocket. She did get a new bed.She had covid on 05/30/21, she still has a residual cough and sinus congestion.She does have some mild symptoms of depression, she does not have a lot of hobbies, with covid, not travelling to see her grandkids as much. [facility] Work Phone: 05-10-2021 History of Present illness Narrative Presents for evaluation of URI. Symptoms including cough, congestion, and loss of voice have been present for several days and refractory to OTC meds. No fever, chills, nausea, vomiting, abdominal pain, CP, or SOB. No exacerbating factors. Patient negative Covid tested several days ago. [facility] Work Phone: 11-30-2020 Note HNO ID: [id number] Author: Kennedy Davidson II OD Service: ? Author Type: RN PAIN MANAGEMENT Type: Progress Notes Filed: 11/30/2020 9:15 AM Note Text: Assessment and Plan H43.812 Posterior vitreous detachment of left eye (primary encounter diagnosis) Comment: Posterior vitreal detachment causing new vitreal floaters and corresponding retinal hemorrhage. Retina flat and intact with no apparent retinal tear or traction. Discussed expected course of healing. Discussed symptoms of retinal tear/detachment and if seen patient will return to clinic without delay. Recheck healing in 1 month. H25.813 Combined form of senile cataract of both eyes Comment: L>R. MOnitor for progression. I have confirmed and edited as necessary the relevant ophthalmic history, ROS, and the neuro exam findings as obtained by others. I have seen and examined Sulaiman Dominguez. I have discussed the case and the management of this patient's care with the Resident/Fellow, if applicable. I also have reviewed and agree with the assessment and plan as stated above and agree with all of its relevant components. Kennedy Davidson II, OD [facility] 04-27-2014 History of Present illness Narrative Patient is a 61 y.o. female patient who is here today to establish care with a cc of fatigue.Patient complains for years that she has had progressively worsening fatigue. 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 [facility] Work Phone: Evaluation note Diagnosis Moderate obstructive sleep apnea- Primary Primary hypertension Unspecified essential hypertension documented in this encounter [facility] Work Phone: Evaluation note* Diagnosis Mild major depression, single episode (CMS/HCC)- Primary Major depressive disorder, single episode, mild Moderate obstructive sleep apnea documented in this encounter [facility] Work Phone: Evaluation note* Diagnosis Post-viral cough syndrome- Primary Vitamin D deficiency Chronic fatigue Other malaise and fatigue Screening for lipid disorders Wellness examination Primary hypertension Unspecified essential hypertension Seasonal allergies Allergic rhinitis, cause unspecified Moderate obstructive sleep apnea Encounter for screening mammogram for malignant neoplasm of breast documented in this encounter [facility] Work Phone: Evaluation note* Diagnosis Primary hypertension- Primary Unspecified essential hypertension documented in this encounter [facility] Work Phone: Evaluation note* Diagnosis Acute non-recurrent frontal sinusitis- Primary Vitamin D deficiency Primary hypertension Unspecified essential hypertension Seasonal allergies Allergic rhinitis, cause unspecified Mild major depression, single episode ([facility]-HCC) Major depressive disorder, single episode, mild Moderate obstructive sleep apnea documented in this encounter [facility] Work Phone: Evaluation note* Diagnosis PHIL (obstructive sleep apnea)- Primary Obstructive sleep apnea (adult) (pediatric) Obstructive sleep apnea (adult) (pediatric) documented in this encounter [facility] [facility]* Diagnosis Post-op pain- Primary Other acute postoperative pain documented in this encounter [facility]* Diagnosis Postoperative follow-up- Primary Follow-up examination, following unspecified surgery documented in this encounter [facility] [employer] [facility]* Diagnosis PHIL (obstructive sleep apnea)- Primary Obstructive sleep apnea (adult) (pediatric) Intolerance of continuous positive airway pressure (CPAP) ventilation Essential hypertension Unspecified essential hypertension Obesity due to excess calories, unspecified class, unspecified whether serious comorbidity present documented in this encounter [facility] [facility] [facility]* Diagnosis Moderate obstructive sleep apnea- Primary Primary hypertension Unspecified essential hypertension Primary insomnia- Primary Persistent disorder of initiating or maintaining sleep Mild major depression, single episode ([facility]-HCC) Major depressive disorder, single episode, mild Primary hypertension Unspecified essential hypertension Screening mammogram for breast cancer Screening for colon cancer Special screening for malignant neoplasms, colon Seasonal allergies Allergic rhinitis, cause unspecified Moderate obstructive sleep apnea Wellness examination documented in this encounter [facility] Work Phone: Evaluation note* Diagnosis PHIL (obstructive sleep apnea)- Primary Obstructive sleep apnea (adult) (pediatric) Insomnia, unspecified type Essential hypertension Unspecified essential hypertension documented in this encounter [facility]* Diagnosis Moderate obstructive sleep apnea- Primary Primary hypertension Unspecified essential hypertension Screening mammogram for breast cancer documented in this encounter [facility] Work Phone: Evaluation note* Diagnosis Insomnia, unspecified type- Primary PHIL (obstructive sleep apnea) Obstructive sleep apnea (adult) (pediatric) Essential hypertension Unspecified essential hypertension documented in this encounter [facility]* Diagnosis Postoperative follow-up- Primary Follow-up examination, following unspecified surgery PHIL (obstructive sleep apnea) Obstructive sleep apnea (adult) (pediatric) Laryngopharyngeal reflux (LPR) documented in this encounter [facility] note* Diagnosis Insomnia, unspecified type documented in this encounter [facility]* Diagnosis PHIL (obstructive sleep apnea) Obstructive sleep apnea (adult) (pediatric) documented in this encounter [facility]* Diagnosis PHIL (obstructive sleep apnea)- Primary Obstructive sleep apnea (adult) (pediatric) Insomnia, unspecified type Essential hypertension Unspecified essential hypertension Intolerance of continuous positive airway pressure (CPAP) ventilation Fatigue, unspecified type documented in this encounter [facility] note* Diagnosis Moderate obstructive sleep apnea- Primary Primary hypertension Unspecified essential hypertension Cough present for greater than 3 weeks documented in this encounter [facility] Work Phone: Evaluation note* Diagnosis Moderate obstructive sleep apnea- Primary Primary hypertension Unspecified essential hypertension Cough present for greater than 3 weeks- Primary Cough present for greater than 3 weeks documented in this encounter [facility] Work Phone: Evaluation note* Diagnosis Moderate obstructive sleep apnea- Primary Primary hypertension Unspecified essential hypertension Seasonal allergies- Primary Allergic rhinitis, cause unspecified Primary hypertension Unspecified essential hypertension Vitamin D deficiency Mixed hyperlipidemia Elevated vitamin B12 level Other fatigue IFG (impaired fasting glucose) Gastroesophageal reflux disease, unspecified whether esophagitis present Establishing care with new doctor, encounter for documented in this encounter [facility] Work Phone: Evaluation note* Diagnosis Moderate obstructive sleep apnea- Primary Primary hypertension Unspecified essential hypertension Prediabetes- Primary Other abnormal glucose Elevated vitamin B12 level Mixed hyperlipidemia Vitamin D deficiency Primary hypertension Unspecified essential hypertension Elevated red blood cell count Polycythemia, secondary Mild major depression, single episode Major depressive disorder, single episode, mild OAB (overactive bladder) Primary insomnia Persistent disorder of initiating or maintaining sleep documented in this encounter [facility] Work Phone: Evaluation note* Diagnosis Moderate obstructive sleep apnea- Primary Primary hypertension Unspecified essential hypertension Mixed hyperlipidemia documented in this encounter [facility] Work Phone: [phone] note* Diagnosis Moderate obstructive sleep apnea- Primary Primary hypertension Unspecified essential hypertension Arthritis of right knee- Primary Chronic pain of right knee documented in this encounter [facility] Work Phone: [phone] note* Diagnosis Moderate obstructive sleep apnea- Primary Primary hypertension Unspecified essential hypertension Arthritis of right knee- Primary Chronic pain of right knee Right knee pain, unspecified chronicity documented in this encounter [facility] Work Phone: [phone] note* Diagnosis Moderate obstructive sleep apnea- Primary Primary hypertension Unspecified essential hypertension Arthritis of right knee- Primary Chronic pain of right knee Seasonal allergies- Primary Allergic rhinitis, cause unspecified Lung nodule Other diseases of lung, not elsewhere classified Acute cough documented in this encounter [facility] Work Phone: Evaluation note* Diagnosis Moderate obstructive sleep apnea- Primary Primary hypertension Unspecified essential hypertension Arthritis of right knee- Primary Chronic pain of right knee Chronic pain of right knee Left hip pain Pain in joint, pelvic region and thigh Left hip pain Pain in joint, pelvic region and thigh documented in this encounter [facility] Work Phone: [phone] note* Diagnosis Moderate obstructive sleep apnea- Primary Primary hypertension Unspecified essential hypertension Arthritis of right knee- Primary Chronic pain of right knee Chronic pain of right knee Left hip pain Pain in joint, pelvic region and thigh Left hip pain Pain in joint, pelvic region and thigh documented in this encounter [facility] Work Phone: Evaluation note* Diagnosis Moderate obstructive sleep apnea- Primary Primary hypertension Unspecified essential hypertension Arthritis of right knee- Primary Chronic pain of right knee Chronic pain of right knee Left hip pain Pain in joint, pelvic region and thigh Left hip pain Pain in joint, pelvic region and thigh Left hip pain Pain in joint, pelvic region and thigh documented in this encounter [facility] Work Phone: Evaluation note* Diagnosis Moderate obstructive sleep apnea- Primary Primary hypertension Unspecified essential hypertension Arthritis of right knee- Primary Chronic pain of right knee Chronic pain of right knee Left hip pain Pain in joint, pelvic region and thigh Left hip pain Pain in joint, pelvic region and thigh Arthritis of right knee documented in this encounter [facility] Work Phone: History of Present illness NarrativePresents for evaluation of URI. Symptoms including cough, congestion, body aches, fever, malaise, and headache have been present for several days and refractory to OTC meds. No nausea, vomiting, abdominal pain, CP, or SOB. No exacerbating factors. Patient is vaccinated against COVID-19.[facility] Work Phone: History of Present illness Narrative* Patient is here today for 6 week follow up * Mild depression - she has been on the Wellbutrin now for 6 weeks, does feel like that has helped with her mood, has not helped with her fatigue. * We had discussed doing a sleep study to make sure she does not have PHIL in the past, will see if increasing the medication and adding melatonin helps with her sleep. [facility] Work Phone: History of Present illness Narrative* Patient is here today f or sick visit. * Patient reports that she has been having body aches, headache x 2 weeks. * Her blood pressure has also been elevated. * She does have a blood pressure cuff at home but has not checked it. * She is trying to cut back on her salt. * Pt reports that the headache is worse in the front. Is more of an annoyance. [facility] Work Phone: History of Present illness Narrative* Patient is here today for sick visit. * Patient reports that she has had sick contact with granddaughter who had flu A and multiple with ear infections. * Patient started with symptoms on Wed a week ago now, +cough, - sore throat, +body aches, +headaches, - ear pain, +sinus drainage, -n/v + diarrhea. [facility] Work Phone: History of Present illness Narrative* This is a 62-year-old female that I was asked to evaluate because of problems that she ishaving with her sleep and her sleep apnea device. She has had problems with her sleep since 2016 and that she does not feel as though she has any energy during the daytime when she awakens. She has been told by some family members that she snores at nighttime she has not been observed having stop breathing episodes and does not experience any choking or gasping during sleep. She has had problems with morning headaches but that is reduced now since she has used the CPAP. Her [place] sleepiness scale was 8. She reports that when she first started on the CPAP therapy which was on 04/10/2022 that she initially felt better but more recently over the last 2 to 3 months she does not appreciate thesame benefits. She has been aware of having problems with her sleep since 2016. She usually goes tobed between 9 and 10 in the evening and is up at 5:45 AM. She does not take any naps during the day. She does have difficulty in initiating and maintaining sleep. She usually drinks about 16 ounces of coffee in the morning and Diet Coke on certain days in the afternoon. She does have some dreams atnighttime but only occasional. * The patient has had a cholecystectomy, tonsillectomy and adenoidectomy, total abdominal hysterectomy with unilateral salpingo-oophorectomy for noncancerous reasons. She is also had bilateral carpal tunnel surgery. Family history is positive for mother dying with brain aneurysm and father with prostate cancer and Parkinson's disease. She reports her siblings do not relate any history of medical problems to her. The patient denies any smoking admits to social alcohol usage on a monthly basis. Sheis . 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 She was originallyborn and raised in [place] and then moved to [place]. [facility] Work Phone: Reason for referral (narrative)* Consultation (Routine) - Authorized Specialty Diagnoses / Procedures Referred By Earline ruiz Referred To Contact Primary Care Procedures Follow Up In Primary Care Cierra De Jesus, DO [address] [facility] [place] [address] Referral ID Status Reason Start Date Expiration Date V isits Requested Visits Authorized [id number] Authorized 09/29/2022 03/28/2023 1 1 * Consultation (Routine) - Authorized Specialty Diagnoses / Procedures Referred By Contac t Referred To Contact Sleep Medicine Diagnoses Moderate obstructive sleep apnea Procedures SD OFFICE/OUTPATIENT NEW HIGH MDM 60-74 MINUTES Cierra De Jesus DO [address] [place] [address] Physician [place] [phone] Referral ID Status Reason Start Date Expiration Date Visits Requested Visits Authorized [id number] Authorized Specialty Services Required 09/29/2022 03/28/[address] [facility] Work Phone: reason for referral (narrative)* Consultation (Routine) - Authorized Specialty Diagnoses / Procedures Referred By Contac t Referred To Contact Primary Care Procedures Follow Up In Primary Care - Established Cierra De Jesus DO [address] [place] [address] Physician [place] [phone] Referral ID Status Reason Start Date Expiration Date V isits Requested Visits Authorized [id number] Authorized 01/02/2023 07/01/[address] [facility] Work Phone: reason for referral (narrative)* Consultation (Routine) - Authorized Specialty Diagnoses / Procedures Referred By Contac t Referred To Contact Primary Care Procedures Follow Up In Primary Care - Established Cierra De Jesus DO [address] [place] [address] Physician [place] [phone] Referral ID Status Reason Start Date Expiration Date V isits Requested Visits Authorized [id number] Authorized 04/27/2023 04/26/2024 1 1 * Imaging (Routine) - Authorized Specialty Diagnoses / Procedures Referred By Contac t Referred To Contact Radiology Diagnoses Encounter for screening mammogram for malignant neoplasm of breast Procedures BI mammo bilateral screening tomosynthesis Cierra De Jesus DO [address] [facility] [place] [address] Referral ID Status Reason Start Date Expiration Date Visits Requested Visits Authorized [id number] Authorized Perform Procedure 04/27/2023 04/26/[address] [facility] Work Phone: Rewacz for referral (narrative)* Consultation (Routine) - Authorized Specialty Diagnoses / Procedures Referred By Contac t Referred To Contact Primary Care Procedures Follow Up In Primary Care - Established Cierra De Jesus DO [address] [facility] Physician [place] [phone] Referral ID Status Reason Start Date Expiration Date V isits Requested Visits Authorized [id number] Authorized 06/26/2023 06/25/[address] [facility] Work Phone: reason for referral (narrative)* Consultation (Routine) - Authorized Specialty Diagnoses / Procedures Referred By Contac t Referred To Contact Primary Care Procedures Follow Up In Primary Care - Established Cierra De Jesus DO [address] [facility] Physician [place] [phone] Referral ID Status Reason Start Date Expiration Date V isits Requested Visits Authorized [id number] Authorized 09/28/2023 09/27/[address] [facility] Work Phone: Reason for referral (narrative)* Consultation (Routine) - Pending Review Specialty Diagnoses / Procedures Referred By Contac t Referred To Contact Sleep Medicine Diagnoses PHIL (obstructive sleep apnea) Procedures SD OFFICE/OUTPATIENT [facility] 60 MINUTES Jeannine Andrews MD [address] [place] [address] [facility] Sleep [address] [facility] [address] [place] [address] Referral ID Status Reason Start Date Expiration Date Visits Requested Visits Authorized [id number] Pending Review Specialty Services Required 11/02/2023 11/01/2024 1 [facility] Imaging (Routine) - Authorized Specialty Diagnoses / Procedures Referred By Contac t Referred To Contact Radiology Diagnoses Screening mammogram for breast cancer Procedures BI mammo bilateral screening tomosynthesis Cierra De Jesus, DO [address] [facility] [place] [address] Phone: tel: fax: Referral ID Status Reason Start Date Expiration Date Visits Requested Visits Authorized [id number] Authorized Perform Procedure 4 04/02/[address] [facility] Work Phone: Reason for visit Narrative* Hospital - Outpatient (Routine) - Closed Specialty Diagnoses / Procedures Referred By Contac t Referred To Contact Sleep Medicine Diagnoses PHIL (obstructive sleep apnea) Procedures Polysomnography Abril Allen MD [address] [facility] [address] [place] [address] Phone: tel: fax: Referral ID Status Reason Start Date Expiration Date Visits Re quested Visits Authorized [id number] Closed 07/08/2024 07/03/2025 1 1 [facility] [employer] for visit Narrative* Imaging (Emergency) - Authorized Specialty Diagnoses / Procedures Referred By Contac t Referred To Contact Radiology Diagnoses Cough present for greater than 3 weeks Procedures XR chest 2 views Yasmany, Cierra E, [employer]ISTRAR [employer] [address] [place] [address] Phone: tel: fax: Referral ID Status Reason Start Date Expiration Date Visits Requested Visits Authorized [id number] Authorized Perform Procedure 08/15/2024 08/15/[address] [facility] Work Phone: Reason for visit Narrative* Imaging (Routine) - Pending Review Specialty Diagnoses / Procedures Referred By Contac t Referred To Contact Radiology Diagnoses Mixed hyperlipidemia Procedures CT cardiac scoring wo IV contrast Anna Kendall, REGISTRAR [employer] [address] [place] [id number] Phone: tel: fax: Referral ID Status Reason Start Date Expiration Date Visits Requested Visits Authorized [id number] Pending Review Perform Procedure 08/29/2024 08/29/[address] [facility] Work Phone: Reason for visit Narrative* Imaging (Routine) - Authorized Specialty Diagnoses / Procedures Referred By Contac t Referred To Contact Radiology Diagnoses Right knee pain, unspecified chronicity Procedures XR knee right 4+ views Gurvinder Healy MD [address] [place] [address] Phone: tel: fax: Referral ID Status Reason Start Date Expiration Date Visits Requested Visits Authorized [id number] Authorized Perform Procedure 11/06/2024 11/06/[address] [facility] Work Phone: Reason for visit Narrative* Imaging (Routine) - Authorized Specialty Diagnoses / Procedures Referred By Contac t Referred To Contact Radiology Diagnoses Left hip pain Procedures XR hip left with pelvis when performed 2 or 3 views Gurvinder Healy MD [address] [place] [id number] Phone: tel: fax: Referral ID Status Reason Start Date Expiration Date Visits Requested Visits Authorized [id number] Authorized Perform Procedure 12/26/2024 12/26/[address] [facility] Work Phone: Summary Purpose Family History No Family History Records FoundUnknown Family Member Name Dates Details Family history of cardiac di sorder: Other(V17.49, Z82.49) Status:Active Unknown Family Member Name Dates Details Family history of cardiac di sorder: Other(V17.49, Z82.49) Status:Active Unknown Family Member Name Dates Details Family history of cardiac di sorder: Other(V17.49, Z82.49) Status:Active Unknown Family Member Name Dates Details Family history of cardiac di sorder: Other(V17.49, Z82.49) Status:Active Unknown Family Member Name Dates Details Family history of cardiac di sorder: Other(V17.49, Z82.49) Status:Active Unknown Family Member Name Dates Details Family history of cardiac di sorder: Other(V17.49, Z82.49) Status:Active Unknown Family Member Name Dates Details Family history of cardiac di sorder: Other(.49, Z82.49) Status:Active Unknown Family Member Name Dates Details Family history of cardiac di sorder: Other(V17.49, Z82.49) Status:Active Unknown Family Member Name Dates Details Family history of cardiac di sorder: Other(V17.49, Z82.49) Status:Active Unknown Family Member Name Dates Details Family history of cardiac di sorder: Other(V17.49, Z82.49) Status:Active Unknown Family Member Name Dates Details Family history of cardiac di sorder: Other(V1.49, Z82.49) Status:Active Unknown Family Member Name Dates Details Family history of cardiac di sorder: Other(V17.49, Z82.49) Status:Active Unknown Family Member Name Dates Details Family history of cardiac di sorder: Other(V17.49, Z82.49) Status:Active Unknown Family Member Name Dates Details Family history of cardiac di sorder: Other(V17.49, Z82.49) Status:Active Unknown Family Member Name Dates Details Family history of cardiac di sorder: Other(V17.49, Z82.49) Status:Active Unknown Family Member Name Dates Details Family history of cardiac di sorder: Other(V17.49, Z82.49) Status:Active Advance Directives No Advanced Directives Records FoundNo Advanced Directives Records FoundNo Advanced Directives Records FoundNo Advanced Directives Records FoundNo Advanced Directives Records FoundNo Advanced Directives Records FoundNo Advanced Directives Records FoundNo Advanced Directives Records FoundNo Advanced Directives Records FoundNo Advanced Directives Records FoundNo Advanced Directives Records Found Chief Complaint * 61 y/o female 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 * Patient seen at Urgent Care and had rapid Covid swab with negative result. * Patient here today to be seen for cough, head & chest congestion, fatigue, body aches and diarrhea x Sunday. * Patient taking OTC Robitussin and Nhung Selzer. * 61 y/o female presents for 6 week f/u; post-covid * +Depression screening * Pt states she has been feeling down lately * Pt states she was diagnosed with Covid 05/30/2021 * She states she had symptoms 3 days prior to being tested * She reports lingering cough and congestion in her face * She also reports recurring fatigue 6 WK F/U* 62 y/o female presents for sick visit * Symptoms: Cough. congestions, fever, body aches * Present for 4 days * Tx: DayQuil; Delsum * 62 y/o female presents for sick visit * Symptoms: Headache; body aches; elevated BP * Present for 2 weeks * Pt states her legs and her back have been really bothering her * 62 y/o female presents with recurring elevated BP; new cough/congestion * Pt states she just feels terrible * Cough, congestion, fatigue, 101.0 fever this morning, mild body aches * Pt found out her neighbor that was over was diagnosed with influenza * She started having symptoms last Sunday * She states her granddaughter has the flu as well * 62 y/o female presents for 6 week f/u * Meds updated; she stopped a few of them due to them not helping anymore * Pt stopped her HTCZ due too constantly having to use the restroom Sleep apnea1 MO F/U PHIL-APAP1 MO F/U PHIL-APAP1 MO F/U PHIL-APAP Additional Source Comments INFORMATION SOURCE (unrecogn ized section and content) DATE CREATED AUTHOR 04/05/2018 [facility] DATE CREATED AUTHOR AUTHOR'S ORGANIZ ATION 06/23/2021 [facility] DATE CREATED AUTHOR AUTHOR'S ORGANIZ ATION 08/07/2021 [facility] DATE CREATED AUTHOR AUTHOR'S ORGANIZ ATION 11/10/2022 [facility] DATE CREATED AUTHOR AUTHOR'S ORGANIZ ATION 11/11/2022 [facility] DATE CREATED AUTHOR AUTHOR'S ORGANIZ ATION 07/25/2023 [facility] DATE CREATED AUTHOR AUTHOR'S ORGANIZ ATION 09/03/2024 [facility] DATE CREATED AUTHOR AUTHOR'S ORGANIZ ATION 01/08/2025 [facility] DATE CREATED AUTHOR AUTHOR'S ORGANIZ ATION 01/11/2025 [facility] DATE CREATED AUTHOR AUTHOR'S ORGANIZ ATION 02/24/2025 [facility] DATE CREATED AUTHOR AUTHOR'S ORGANIZ ATION 03/28/2025 [facility] Reason for Visit (unrecogniz ed section and content) Reason Comments Cough COUGH X2 WEEKS Specialty Diagnoses / Procedures Referred By Contac t Referred To Contact Diagnoses Seasonal allergies Anna Kendall, REGIST[employer]AR [employer] [address] [place] [address] Phone: tel: fax: Referral ID Status Reason Start Date Expiration Date V isits Requested Visits Authorized [id number] Pending Review 11/14/2024 11/14/2025 1 1 Reason Comments Follow-up 6 month Cough +congestion +stuffy facePresent for a weekTx: dayquil and nyquil Specialty Diagnoses / Procedures Referred By Contac t Referred To Contact Primary Care Procedures Follow Up In Primary Care - Established Cierra De Jesus, [address] [facility] [place] [address] Referral ID Status Reason Start Date Expiration Date V isits Requested Visits Authorized [id number] Authorized 06/26/2023 06/25/2024 1 1 Reason Comments Follow-up 3 month Reason Comments Follow-up 3 month Specialty Diagnoses / Procedures Referred By Earline t Referred To Contact Primary Care Procedures Follow Up In Primary Care Cierra De Jesus DO [address] [place] [address] [place] [address] Referral ID Status Reason Start Date Expiration Date V isits Requested Visits Authorized [id number] Authorized 09/29/2022 03/28/2023 1 1 Reason Comments Follow-up 3 month Cough Pt was diagnosed wit h post viral cough syndromeShe is tx with tessalon pearls and albuterol inhaler with no improvement Referral ID Status Reason Start Date Expiration Date V isits Requested Visits Authorized [id number] Authorized 01/02/2023 07/01/2023 1 1 Reason Comments Cough +Chronicx4 monthsSta rohini she was sick but never tested for Covid She states the cough is now productiveReports stuffy nose Reason Comments New Patient Inspire consult Specialty Diagnoses / Procedures Referred By Earline ruiz Referred To Contact Otolaryngology Diagnoses Obstructive sleep apnea (adult) (pediatric) Procedures CLINIC-OTHER Cierra De Jesus, [address] [place] [id number] [facility] [address] [place] [address] Referral ID Status Reason Start Date Expiration Date V isits Requested Visits Authorized [id number] Pending Review 10/12/2023 10/11/2024 1 1 Reason Onset Date Comments Appointment 11/02/2023 Specialty Diagnoses / Procedures Referred By Earline t Referred To Contact Diagnoses Obstructive sleep apnea (adult) (pediatric) Obstructive sleep apnea (adult) (pediatric) Procedures SD DISE DYN EVAL SLEEP DISORDERED BREATHING FLX DX Drug induced sleep endoscopy DISE Jeannine Andrews MD [address] [place] [address] [facility] [address] [facility] [address] [place] [address] Referral ID Status Reason Start Date Expiration Date Visits Re quested Visits Authorized [id number] 1 1 Specialty Diagnoses / Procedures Referred By Contac t Referred To Contact Diagnoses Obstructive sleep apnea (adult) (pediatric) Procedures SD OPEN IMPLTJ HPGLSL NRV NSTIM RA PG&RESPIR SENSOR HYPOGLOSSAL NERVE STIMULATOR PLACEMENT (INSPIRE) Jeannine Andrews MD [address] [facility] [address] [place] [address] Referral ID Status Reason Start Date Expiration Date Visits Re quested Visits Authorized [id number] 12/12/2023 1 1 Reason Comments Post-op One week Reason Comments New Patient phil Specialty Diagnoses / Procedures Referred By Jelaniac t Referred To Contact Sleep Medicine Diagnoses PHIL (obstructive sleep apnea) Procedures SD OFFICE/OUTPATIENT NEW HIGH MDM 60 MINUTES Jeannine Andrews MD [address] [facility] [address] [place] [address] [facility] Sleep [address] [facility] [address] [place] [address] Referral ID Status Reason Start Date Expiration Date Visits Requested Visits Authorized [id number] Pending Review Specialty Services Required 11/02/2023 11/01/2024 1 1 Reason Comments Follow-up 6 month Headache Earache RT ear Insomnia Specialty Diagnoses / Procedures Referred By Earline t Referred To Contact Primary Care Procedures Follow Up In Primary Care - Established Cierra De Jesus DO [address] [place] [address] [place] [address] Phone: tel: fax: Referral ID Status Reason Start Date Expiration Date V isits Requested Visits Authorized [id number] Authorized 09/28/2023 09/27/2024 1 1 Reason Comments Follow-up phil Reason Comments Post-op Four weeks inspire Reason Onset Date Comments Sleep Study 07/08/2024 Reason Onset Date Comments Other 07/10/2024 Inspire Reason Comments Med Refill Reason Comments Follow-up Sleep study results Reason Comments URI Cough, headache x 2 months Reason Comments Establish Care NEW PT, ESTABLISH CA RE Referral ID Status Reason Start Date Expiration Date V isits Requested Visits Authorized [id number] Pending Review 08/29/2024 08/29/2025 1 1 Reason Comments Follow-up 3 WEEK FOLLOW UP, LA BS, BP CHECK Reason Onset Date Comments Discuss Medications 10/14/2024 Reason Comments Pain New Patient Visit Reason Comments Pain Follow-up Reason Comments Pain X-RAYS 01-06-25NO FAL LSNO INJURY Reason Comments Follow-up X-RAYS 01-06-25NO FAL LSNO INJURY Follow-up Reason Onset Date Comments Other 03/13/2025 Care Teams (unrecognized sec tion and content) Finance Clerk Relationship Specialty Start Date End Date Cierra De Jesus DO [address] [facility] [place] [address] PCP - General 04/27/21 Finance Clerk Relationship Specialty Start Date End Date Cierra De Jesus DO [address] [facility] [place] [address] PCP - General 04/27/21 Cierra De Jesus DO [address] [facility] [place] [address] PCP - MMO ACO PCP 05/21/21 Finance Clerk Relationship Specialty Start Date End Date Cierra De Jesus DO [address] [facility] [place] [address] PCP - General 04/27/21 Cierra De Jesus DO [address] [facility] [place] [address] PCP - MMO ACO PCP 05/21/21 Finance Clerk Relationship Specialty Start Date End Date Cierra De Jesus DO [address] [facility] [place] [address] PCP - General 04/27/21 Cierra De Jesus DO [address] [facility] [place] [address] PCP - MMO ACO PCP 05/21/21 Finance Clerk Relationship Specialty Start Date End Date Cierra De Jesus DO [address] [facility] [place] [address] PCP - General 04/27/21 Finance Clerk Relationship Specialty Start Date End Date Cierra De Jesus DO [address] [facility] [place] [address] PCP - General 04/27/21 Finance Clerk Relationship Specialty Start Date End Date Cierra De Jesus DO [address] [place] [address] PCP - General Internal Medicine 01/16/24 Finance Clerk Relationship Specialty Start Date End Date Cierra De Jesus DO [address] [place] [address] PCP - General Internal Medicine 01/16/24 Finance Clerk Relationship Specialty Start Date End Date Cierra De Jesus DO [address] [place] [address] PCP - General Internal Medicine 01/16/24 Finance Clerk Relationship Specialty Start Date End Date Cierra De Jesus DO [address] [facility] [place] [address] PCP - General 04/27/21 Cierra De Jesus DO [address] [facility] [place] [address] PCP - Gearhart ACO PCP 07/20/23 Finance Clerk Relationship Specialty Start Date End Date Cierra De Jesus DO [address] [place] [address] PCP - General Internal Medicine 01/16/24 Finance Clerk Relationship Specialty Start Date End Date Cierra De Jesus DO [address] [facility] [place] [address] PCP - General 04/27/21 Cierra De Jesus DO [address] [facility] [place] [address] PCP - Gearhart ACO PCP 07/20/23 Finance Clerk Relationship Specialty Start Date End Date Cierra De Jesus DO [address] [place] [address] PCP - General Internal Medicine 01/16/24 Finance Clerk Relationship Specialty Start Date End Date Cierra De Jesus DO [address] [place] [address] PCP - General Internal Medicine 01/16/24 Finance Clerk Relationship Specialty Start Date End Date Cierra De Jesus DO [address] [place] [address] PCP - General Internal Medicine 01/16/24 Finance Clerk Relationship Specialty Start Date End Date Cierra De Jesus DO [address] [place] [address] PCP - General Internal Medicine 01/16/24 Finance Clerk Relationship Specialty Start Date End Date Cierra De Jesus DO [address] [facility] [place] [address] PCP - Gearhart ACO PCP 07/20/23 Cierra De Jesus, DO [address] [place] [address] PCP - General Internal Medicine 08/15/24 Finance Clerk Relationship Specialty Start Date End Date Cierra De Jesus DO [address] [facility] [place] [address] PCP - Gearhart ACO PCP 07/20/23 Cierra De Jesus, DO [address] [place] [address] PCP - General Internal Medicine 08/15/24 Finance Clerk Relationship Specialty Start Date End Date Cierra De Jesus, DO [address] [place] [address] PCP - Gearhart ACO PCP 07/20/23 Anna Kendall, REGIST[employer]AR [employer] [address] [place] [address] PCP - General Family Medicine 08/29/24 Finance Clerk Relationship Specialty Start Date End Date Cierra De Jesus, DO [address] [place] [address] PCP - Gearhart ACO PCP 07/20/23 Anna Kendall, REGISTRAR [employer] [address] [place] [address] PCP - General Family Medicine 08/29/24 Finance Clerk Relationship Specialty Start Date End Date Cierra De Jesus DO [place] [id number] PCP - Gearhart ACO PCP 07/20/23 Anna Kendall, REGIST[employer]AR [employer] [address] [place] [id number] PCP - General Family Medicine 08/29/24 Finance Clerk Relationship Specialty Start Date End Date Cierra De Jesus DO [address] [place], [place] [id number] PCP - Gearhart ACO PCP 07/20/23 Anna Kendall, REGISTRAR [employer] [address] [place] [id number] PCP - General Family Medicine 08/29/24 Finance Clerk Relationship Specialty Start Date End Date Cierra De Jesus DO [address] [place] [id number] PCP - Gearhart ACO PCP 07/20/23 Anna Kendall, REGISTRAR [employer] [address] [place] [address] PCP - General Family Medicine 08/29/24 Finance Clerk Relationship Specialty Start Date End Date Cierra De Jesus DO [address] [place] [id number] PCP - Gearhart ACO PCP 07/20/23 Anna Kendall, REGISTRAR [employer] [address] [facility] [place] [address] PCP - General Family Medicine 08/29/24 Finance Clerk Relationship Specialty Start Date [place] [address] PCP - Gearhart ACO PCP 07/20/23 Anna Kendall, REGISTRAR [employer] [address] [place] [address] PCP - General Family Medicine 08/29/24 Finance Clerk Relationship Specialty Start Date End Date Cierra De Jesus DO [address] [place] [address] PCP - Gearhart ACO PCP 07/20/23 Anna Kendall, REGISTRAR [employer] [address] [place] [address] PCP - General Family Medicine 08/29/24 Finance Clerk Relationship Specialty Start Date End Date Cierra De Jesus DO [address] [place] [address] PCP - Gearhart ACO PCP 07/20/23 Anna Kendall, REGISTRAR [employer] [address] [place] [address] PCP - General Family Medicine 08/29/24 Finance Clerk Relationship Specialty Start Date End Date Cierra De Jesus, [place] [address] PCP - Gearhart ACO PCP 07/20/23 Anna Kendall, REGISTRAR [employer] [address] [place] [id number] PCP - General Family Medicine 08/29/24 Finance Clerk Relationship Specialty Start Date End Date Cierra De Jesus, DO [place] [id number] PCP - Gearhart ACO PCP 07/20/23 Anna Kendall, REGISTRAR [employer] [address] [place] [id number] PCP - General Family Medicine 08/29/24 Finance Clerk Relationship Specialty Start Date End Date Cierra De Jesus, DO [place] [id number] PCP - Gearhart ACO PCP 07/20/23 Anna Kendall, REGISTRAR [employer] [address] [place] [id number] PCP - General Family Medicine 08/29/24 Finance Clerk Relationship Specialty Start Date End Date Cierra De Jesus, DO [address] [place] [id number] PCP - Gearhart ACO PCP 07/20/23 Anna Kendall, REGISTRAR [employer] [address] [place] [id number] PCP - General Family Medicine 08/29/24 Finance Clerk Relationship Specialty Start Date End Date Cierra De Jesus DO [address] [place] [address] PCP - Michael ABDI PCP 07/20/23 Anna Kendall, REGIST[employer]AR [employer] [address] [place] [address] PCP - General Family Medicine 08/29/24 Finance Clerk Relationship Specialty Start Date End Date Liza DO Cierra [address] [place] [address] PCP - General Internal Medicine 01/16/24 Scheduled Active and Recently Administ ered Medications (unrecognized section and content) Medication Order 01/14/2024 01/15/2024 01/16/2024 acetaminophen (Tylenol) tablet 1,000 mg (COMPLETED) 1,000 mg, Oral, Once, On Sun01/16/24 at 0930, For 1 dose, Preprocedure, Maximum dose of acetaminophen is 4000 mg from all sources in 24 hours. Do not administer if patient has taken tylenol <6 hours earlier. Do not give if contraindicated ie. patient has active liver disease or cirrhosis. 0936 (Given - Provid er: Kenya Tomlinson RN) ceFAZolin in dextrose 4% (Ancef) IVPB 2,000 mg (COMPLETED) 2,000 mg, IntraVENous, Administer over 30 Minutes, [employer] to [employer]R., On Sun01/16/24 at 0930, For 1 dose, Preprocedure, Administer within 1 hour prior to incision. Recommend to repeat in 3-4 hours after initial dose if still intra-op. premix bag, Suspected Indication (Select all that apply): Surgical Prophylaxis 1146 (Given - Provid er: Ramona Delaney CRNA)1255 (Anesthesia Volume Adjustment - Provider: Ramona Delaney CRNA) famotidine (Pepcid) tablet 20 mg (COMPLETED)(Linked Group 1) 20 mg, Oral, Once, On Sun01/16/24 at 0930, For 1 dose, Preprocedure, IV or ORAL 0936 (Given - Provid er: Kenya Tomlinson RN) sodium chloride 0.9% (NS) flush 10 mL 10 mL, IntraVENous, Every 12 hours scheduled (2 times per day), First dose on Sun01/16/24 at 0930, Preprocedure 0930 (Canceled Entry - Provider: Automatic Discharge Provider - Comment: Automatically canceled at discontinue of medication order) sodium chloride 0.9% (NS) flush 10 mL 10 mL, IntraVENous, Every 12 hours scheduled (2 times per day), First dose on Sun01/16/24 at 2100, Recovery (only) sodium chloride 0.9% (NS) flush 5-40 mL 5-40 mL, IntraVENous, Every 12 hours, First dose on Sun01/16/24 at 0930, Preprocedure, For Line Patency: Peripheral IV = 5 mL; Midline or Central Line = 10 mL/lumen. If following IV push medication, administer flush at same rate as the IV push. Flush volume is determined by type of infusion therapy being given. For non-viscous solutions use: Peripheral IV = 5 mL Midline or Central Line = 10 mL/lumen For viscous solutions (i.e. blood components, parenteral nutrition, contrast media, or after obtaining blood sample) use: Peripheral IV = 10 mL Midline or Central Line = 20 mL/lumen 0930 (Canceled Entry - Provider: Automatic Discharge Provider - Comment: Automatically canceled at discontinue of medication order) Continuous Medication Order 01/14/2024 01/15/2024 01/16/2024 lactated Ringer's (LR) infusion 50 mL/hr, IntraVENous, Continuous, Starting on Sun01/16/24 at 0930, Preprocedure, Upon admission to sameday - please start iv if patient does not have iv access. Use 500ml NS for patients on dialysis. 0936 (New Bag - Prov ider: Kenya Tomlinson RN)1128 (Continued by Anesthesia - Provider: Ramona Delaney CRNA)1246 (Stopped - Provider: Ramona Delaney CRNA) lactated ringers infusion 125 mL/hr, IntraVENous, Continuous, Starting on Sun01/16/24 at 1300, Recovery (only) 1300 (Canceled Entry - Provider: Automatic Discharge Provider - Comment: Automatically canceled at discontinue of medication order) PRN Medication Order 01/14/2024 01/15/2024 01/16/2024 ALPRAZolam (Xanax) disintegrating tablet 0.25 mg (COMPLETED) 0.25 mg, Oral, PRN, anxiety, Starting on Sun01/16/24 at 0925, For 1 dose, Preprocedure 0936 (Given - Provid er: Kenya Tomlinson RN) diphenhydrAMINE (BENADryl) injection 12.5 mg 12.5 mg, IntraVENous, Once PRN, itching, Starting on Sun01/16/24 at 1245, For 1 dose, Recovery (only) fentaNYL (Sublimaze) injection 25 mcg 25 mcg, IntraVENous, Every 5 min PRN, moderate pain (4-6), Starting on Sun01/16/24 at 1245, For 3 doses, Recovery (only), Phase I and Phase II- Initial therapy for moderate pain (4-6). Restricted to a 90 minute time frame starting when the patient can verbally state their pain score. If after 2 doses the pain score does not decrease by more than one point, then call the provider. If oral meds are utilized, do not return to initial therapy medications. fentaNYL (Sublimaze) injection 50 mcg 50 mcg, IntraVENous, Every 5 min PRN, severe pain (7-10), Starting on Sun01/16/24 at 1245, For 3 doses, Recovery (only), Phase I and Phase II- Initial therapy for severe pain (7-10). Restricted to a 90 minute time frame starting when the patient can verbally state their pain score. If after 2 doses the pain score does not decrease by more than one point, then call the provider. If oral meds are utilized, do not return to initial therapy medications. 1258 (Given - Provid er: Rashmi Corona RN)1312 (Given - Provider: Rashmi Corona RN) hydrALAZINE (Apresoline) injection 5 mg(Linked Group 2) 5 mg, IntraVENous, Every 15 min PRN, high blood pressure, for SBP greater than 160 mmHg for 2 consecutive measurements taken from different sites, Starting on Sun01/16/24 at 1245, For 2 doses, Recovery (only), PRN for SBP > 160 for 2 consecutive measurements, and if one of the following conditions is met: 1) If IV labetolol is ineffective. 2) If HR is under 60. 3) If patient has heart block, COPD or asthma. If both labetalol and hydralazine ineffective, notify anesthesia provider. labetalol (Normodyne,Trandate) injection 5 mg(Linked Group 2) 5 mg, IntraVENous, Every 10 min PRN, high blood pressure, for SBP greater than 160 mmHg for 2 consecutive measurements taken from different sites., Starting on Sun01/16/24 at 1245, For 2 doses, Recovery (only), PRN for SBP >160 for 2 consecutive measurements, if HR is 60 or greater. If beta radha is contraindicated (HR less than 60, heart block, COPD or asthma) use hydralazine IV order. lidocaine-EPINEPHrine (Xylocaine W/EPI) 1 %-[id number] injection (CANCELED) As needed, Starting on Sun01/16/24 at 1131, Intraprocedure 1131 (Given - Provid er: Jeannine Andrews MD) ondansetron (Zofran) injection 4 mg 4 mg, IntraVENous, Once PRN, nausea, Starting on Sun01/16/24 at 1245, For 1 dose, Recovery (only), Initial antiemetic therapy. oxyCODONE (Roxicodone) immediate release tablet 10 mg (COMPLETED)(Linked Group 3) 10 mg, Oral, PRN, severe pain (7-10), Starting on Sun01/16/24 at 1245, For 1 dose, Recovery (only), Administer when patient is able to tolerate PO meds 1338 (Given - Provid er: Chiquita Mora RN) sodium chloride 0.9 % bolus 500 mL 500 mL, IntraVENous, at 1,000 mL/hr, Administer over 0.5 Hours, PRN, Anti-nausea, Starting on Sun01/16/24 at 1245, Recovery (only), Indications: Anti-nausea sodium chloride 0.9 % infusion 5-250 mL/hr, IntraVENous, PRN, if patient receiving piggyback infusions and maintenance fluids are not ordered OR KVO fluids to protect IV site / prevent frequent line interruptions / long duration, Starting on Sun01/16/24 at 0925, Preprocedure, For piggyback infusion, administer at same rate as piggyback for a total of 25 mL. Enter 25 mL into dose field and piggyback rate into rate field of order. If piggyback is infusing at a rate less than 100 mL/hr, enter 25 mL into dose field and 100 mL/hr into rate field of order. For KVO fluids, enter rate of 20 mL/hr or less into rate field of order. sodium chloride 0.9 % infusion 5-250 mL/hr, IntraVENous, PRN, if patient receiving piggyback infusions and maintenance fluids are not ordered OR KVO fluids to protect IV site / prevent frequent line interruptions/ long duration, Starting on Sun01/16/24 at 0925, Preprocedure, For piggyback infusion, administer at same rate as piggyback for a total of 25 mL. Enter 25 mL into dose field and piggyback rate into rate field of order. If piggyback is infusing at a rate less than 100 mL/hr, enter 25 mL into dose field and 100 mL/hr into rate field of order. For KVO fluids, enter rate of 20 mL/hr or less into rate field of order. sodium chloride 0.9 % infusion 5-250 mL/hr, IntraVENous, PRN, if patient receiving piggyback infusions and maintenance fluids are not ordered OR KVO fluids to protect IV site / prevent frequent line interruptions/ long duration, Starting on Sun01/16/24 at 1245, Recovery (only), For piggyback infusion, administer at same rate as piggyback for a total of 25 mL. Enter 25 mL into dose field and piggyback rate into rate field of order. If piggyback is infusing at a rate less than 100 mL/hr, enter 25 mL into dose field and 100 mL/hr into rate field of order. For KVO fluids, enter rate of 20 mL/hr or less into rate field of order. sodium chloride 0.9 % irrigation solution (CANCELED) As needed, Starting on Sun01/16/24 at 1209, Intraprocedure 1209 (Given - Provid er: Jeannine Andrews MD) sodium chloride 0.9% (NS) flush 10 mL 10 mL, IntraVENous, PRN, line care, Starting on Sun01/16/24 at 0925, Preprocedure, After every IV line use sodium chloride 0.9% (NS) flush 10 mL 10 mL, IntraVENous, PRN, line care, Starting on Sun01/16/24 at 1245, Recovery (only), After every IV line use sodium chloride 0.9% (NS) flush 5-40 mL 5-40 mL, IntraVENous, PRN, line care, After every IV line use, Starting on Sun01/16/24 at 0925, Preprocedure, For Line Patency: Peripheral IV = 5 mL; Midline or Central Line = 10 mL/lumen. If following IV push medication, administer flush at same rate as the IV push. Flush volume is determined by type of infusion therapy being given. For non-viscous solutions use: Peripheral IV = 5 mL Midline or Central Line = 10 mL/lumen For viscous solutions (i.e. blood components, parenteral nutrition, contrast media, or after obtaining blood sample) use: Peripheral IV = 10 mL Midline or Central Line = 20 mL/lumen Linked Groups Order Group 1: famotidine (Pepcid) tablet 20 mg (COMPLETED)Jump to med 20 mg, Oral, Once, On Sun01/16/24 at 0930, For 1 dose, Preprocedure, IV or ORAL Or famotidine (Pepcid) 20 mg in sodium chloride (PF) 0.9 % 10 mL injection (COMPLETED) 20 mg, IntraVENous, Administer over 2 Minutes, Once, On Sun01/16/24 at 0930, For 1 dose, Preprocedure, IV or ORAL Group 2: labetalol (Normodyne,Trandate) injection 5 mgJump to med 5 mg, IntraVENous, Every 10 min PRN, high blood pressure, for SBP greater than 160 mmHg for 2 consecutive measurements taken from different sites., Starting on Sun01/16/24 at 1245, For 2 doses, Recovery (only), PRN for SBP >160 for 2 consecutive measurements, if HR is 60 or greater. If beta radha is contraindicated (HR less than 60, heart block, COPD or asthma) use hydralazine IV order. Or hydrALAZINE (Apresoline) injection 5 mgJump to med 5 mg, IntraVENous, Every 15 min PRN, high blood pressure, for SBP greater than 160 mmHg for 2 consecutive measurements taken from different sites, Starting on Sun01/16/24 at 1245, For 2 doses, Recovery (only), PRN for SBP > 160 for 2 consecutive measurements, and if one of the following conditions is met: 1) If IV labetolol is ineffective. 2) If HR is under 60. 3) If patient has heart block, COPD or asthma. If both labetalol and hydralazine ineffective, notify anesthesia provider. Group 3: oxyCODONE (Roxicodone) immediate release tablet 5 mg (COMPLETED) 5 mg, Oral, PRN, moderate pain (4-6), Starting on Sun01/16/24 at 1245, For 1 dose, Recovery (only), Administer when patient is able to tolerate PO meds Or oxyCODONE (Roxicodone) immediate release tablet 10 mg (COMPLETED)Jump to med 10 mg, Oral, PRN, severe pain (7-10), Starting on Sun01/16/24 at 1245, For 1 dose, Recovery (only), Administer when patient is able to tolerate PO meds FOR RECORDS PERTAINING TO PATIENTS WHO ARE OR HAVE BEEN ENROLLED IN A CHEMICAL DEPENDENCY/SUBSTANCEABUSE PROGRAM, SOME INFORMATION MAY BE OMITTED. This clinical summary was aggregated from multiple sources. Caution should be exercised in using it in the provision of clinical care. This summary normalizes information from multiple sources, and as a consequence, information in this document may materially change the coding, format and clinical context of patient data. In addition, data may be omitted in some cases. CLINICAL DECISIONS SHOULD BE BASED ON THE PRIMARY CLINICAL RECORDS. [employer] provides no warranty or guarantee of the accuracy or completeness of information in this document.
== END | disposition home or self-care (01) ==
LOC: CT 18:32
PROVIDERS: PCP Nurse Practitioner Family; Referring Provider Otolaryngology; Visit Provider Otolaryngology
DX: J32.8 Other chronic sinusitis (principal)
CPT/HCPCS: 70486